=== PATIENT | female | born 1985 | race Caucasian/White ===

== ENCOUNTER 2023-06-06 11:10 | Outpatient (OUT) | payer BC, SELFPAY ==
[2023-06-06 12:05] LABS: Bilirubin Urine NEGATIVE (NEGATIVE); Blood Urine NEGATIVE (NEGATIVE); Clarity Urine CLEAR (CLEAR); Color Urine LT. YELLOW (YELLOW); Glucose Urine UA NEGATIVE (NEGATIVE); Ketones Urine NEGATIVE (NEGATIVE); Leukocyte Esterase Urine SMALL (NEGATIVE); Nitrite Urine NEGATIVE (NEGATIVE); Protein Urine NEGATIVE (NEG/TRACE); Specific Gravity Urine <=1.005 (1.005-1.025); Urobilinogen Urine 0.2 EU/dL (0.2-1.0); pH Urine 5.5 (5.0-9.0)
[2023-06-06 12:25] LABS: Basophils Percent Auto 0.3 % (0.2-2.0); Eosinophils Absolute Auto 0.3 10^3/uL (0.0-0.7); Eosinophils Percent Auto 4.6 % (0.9-7.0); Hematocrit 39.4 % (36.0-48.0); Hemoglobin 12.6 g/dL (12.0-16.0); Immature Granulocytes Abs Auto 0.02 10^3/uL (0.00-0.03); Immature Granulocytes Pct Auto 0.3 % (0.0-0.5); Lymphocytes Absolute Auto 1.4 10^3/uL (1.2-3.8); Mean Corpuscular Hemoglobin 28.8 pg (26.7-34.0); Mean Corpuscular Volume 90.2 fL (81.0-99.0); Mean Platelet Volume 10.9 fL (9.5-13.5); Monocytes Absolute Auto 0.6 10^3/uL (0.3-0.8); Monocytes Percent Auto 10.4 % (1.7-12.0); Neutrophils Absolute Auto 3.8 10^3/uL (1.4-6.5); Neutrophils Percent Auto 61.4 % (43.0-75.0); Platelet Count 202 10^3/uL (150-450); Red Blood Count 4.37 10^6/uL (4.20-5.40); Red Cell Distribution Width 12.3 % (11.0-15.0); White Blood Count 6.1 10^3/uL (4.0-11.0)
[2023-06-06 12:30] LABS: Alanine Aminotransferase 16 U/L (14-59); Albumin Globulin Ratio 1.2; Albumin Level 3.9 g/dL (3.4-5.0); Alkaline Phosphatase 32 U/L (46-116); Amylase 64 U/L (25-115); Anion Gap 14.5; Aspartate Amino Transferase 11 U/L (15-37); BUN Creatinine Ratio 15.2; Bilirubin Total 0.4 mg/dL (0.2-1.0); Calcium 8.9 mg/dL (8.5-10.1); Carbon Dioxide 26.3 mmol/L (21.0-32.0); Chloride 103 mmol/L (98-107); Estimated GFR (African America >60 (>=60); Estimated GFR (Non-African Ame >60 (>=60); Globulin 3.2 g/dL; Glucose 72 mg/dL (74-106); Potassium 3.8 mmol/L (3.5-5.1); Sodium 140 mmol/L (136-145); Total Protein 7.1 g/dL (6.4-8.2)
[2023-06-06 12:35] LABS: RBC Urine NONE SEEN #/HPF (0-2)
[2023-06-06 12:36] LABS: Bacteria Urine TRACE #/HPF (NONE SEEN); Cast Seen? NONE SEEN #/LPF (NONE SEEN); Crystals Seen? None Seen #/HPF (None Seen); Mucus Urine NONE SEEN (NONE SEEN); Squamous Epithelial Cell Urine FEW #/LPF (NONE/RARE)
== END 2023-06-06 11:11 | disposition home or self-care (01) ==
LOC: LAB 11:13
PROVIDERS: PCP Family Medicine; Visit Provider Family Medicine
DX: Z00.00 Encounter for general adult medical examination without abnormal findings (principal); R10.9 Unspecified abdominal pain; K85.90 Acute pancreatitis without necrosis or infection, unspecified; R63.5 Abnormal weight gain
CPT/HCPCS: 36415; 80053; 81001; 82150; 83690; 84443; 85025

== ENCOUNTER 2023-06-06 11:15 | Outpatient (OUT) | payer BC, SELFPAY | END 2023-06-06 11:16 | disposition home or self-care (01) | LOC: LAB 11:15 | PROVIDERS: PCP Family Medicine | DX: Z00.00 Encounter for general adult medical examination without abnormal findings (principal); R10.9 Unspecified abdominal pain; K85.90 Acute pancreatitis without necrosis or infection, unspecified; R63.5 Abnormal weight gain; Z11.9 Encounter for screening for infectious and parasitic diseases, unspecified | CPT/HCPCS: 36415; 80053; 81001; 82150; 83690; 84443; 85025 ==

== ENCOUNTER 2024-02-08 08:54 | Outpatient (OUT) | payer BC, SELFPAY ==
--- OUTSIDE RECORDS SUMMARY | 2024-02-08 09:05 | XMS_ITS | CCD ---
Author Organization [facility] Inform ion [facility] Care Team Providers Care Vegetables Cook Name Role Phone MD Basil Centeno Primary Care Provider MD Addy Mendez Jr Emergency Provider MD Bernadette Box Admit Provider MD Bernadette Box Attending Provider [phone] MD Frandy Santos Other Provider MELISSA Cedillo Emergency Provider [phone] TITO ROSAS Admitting Unavailable TITO ROSAS Attending Unavailable AMAN, NONE LISTED Primary Care Unavaila RADHA Ordaz Consulting Unavailable LEXY KELLER Consulting Unavailable Basil Centeno Primary Care Unavailable Jt Cedillo Admitting Unavailable Jt Cedillo Attending Unavailable Paramjit Yin Attending Unavailable Basil Centeno Primary Care Unavailable Paramjit Yin Admitting Unavailable Basil Centeno Primary Care Unavailable Bernadette Box Admitting Unavailable Bernadette Box Attending Unavailable Frandy Santos Consulting Unavailable Gianni Yanez Attending Unavailable Basil Centeno Primary Care Unavailable Gianni Yanez Admitting Unavailable George Dominguez Unavailable DANESHMAND, SAID T Referring Unavailable GEORGE DOMINGUEZ Primary Care Unavailable DANESHMAND, SAID T Referring Unavailable GEORGE DOMINGUEZ Primary Care Unavailable DANESHMAND, SAID T Referring Unavailable GEORGE DOMINGUEZ Primary Care Unavailable DANESHMAND, SAID T Referring Unavailable GEORGE DOMINGUEZ Primary Care Unavailable DANESHMAND, SAID T Referring Unavailable GEORGE DOMINGUEZ Primary Care Unavailable GEORGE DOMINGUEZ Referring Unavailable GEORGE DOMINGUEZ Primary Care Unavailable DANESHMAND, SAID T Referring Unavailable GEORGE DOMINGUEZ Primary Care Unavailable RUSLAN JAD Sims Referring Unavailable GEORGE DOMINGUEZ Primary Care Unavailable GEORGE DOMINGUEZ Referring Unavailable GEORGE DOMINGUEZ Primary Care Unavailable FRANDY SANTOS Attending Unavailable FRANDY SANTOS Referring Unavailable FRANDY SANTOS Attending Unavailable FRANDY SANTOS Attending Unavailable FRANDY SANTOS Attending Unavailable FRANDY SANTOS Referring Unavailable Medications Current Medications Medication Drug Class(es) Dates Sig (Normalized) Sig (Original) acetaminophen 325 mg / HYDROcodone bitartrate 5 mg oral tablet (5 sources) Opioid Agonist Start: 04-04-2022 take 1 tablet by mouth every four to six hours Hydrocodone-Aceta minophen Active 1 TAB PO EVERY 4-6 HOURS 20 April 04, 2022 Start: 11-22-2021 End: 11-23-2021 take 1 tablet by mouth every eight hours Hydrocodone-Acetaminophen Discontinued 1 TAB PO Q8H 7 2 November 22, 2021 November 23, 2021 4:58am acetaminophen 325 mg / oxyCODONE hydrochloride 5 mg oral tablet (2 sources) Opioid Agonist Start: 04-11-2022 take 1 tablet by mouth every six hours Oxycodone-Acetaminophen (Percocet) 5-325 mg tablet Active 1 TAB PO Q6H 14 April 11, 2022 Start: 04-07-2022 take 1 tablet by bridgette th every four to six hours Oxycodone-Acetaminophen (Percocet) 5-325 mg tablet Active 1 TAB PO EVERY 4-6 HOURS 14 April 07, 2022 cetirizine hydrochloride 10 mg oral tablet (6 sources) Histamine-1 Receptor Antagonist Start: 11-22-2021 take 1 tablet by mouth once daily Cetirizine (Zyrtec) 10 mg Tablet Active 10 MG PO Daily November 22, 2021 12:00am ondansetron 4 mg disintegrating oral tablet (4 sources) Serotonin-3 Receptor Antagonist Start: 04-11-2022 take 4 mg by mouth four times daily Ondansetron Active 4 MG PO Four times daily April 11, 2022 12:00am Start: 04-04-2022 Ondansetron Ac tive 4 MG PO every 6 to 8 hours April 04, 2022 12:00am ProAir HFA 108 (90 Base) MCG/ACT (3 sources) Start: 09-24-2016 take 2 puff(s) by inhalation every four to six hours as needed ProAir HFA 108 (90 Base) MCG/ACT 2 puffs as needed Inhalation every 4-6 hrs Sep, Active promethazine hydrochloride 25 mg oral tablet (1 source) Phenothiazine Start: 04-11-2022 take 25 mg by mouth four times daily Promethazine Active 25 MG PO Four times daily April 11, 2022 12:00am sertraline 100 mg oral tablet (3 sources) Serotonin Reuptake Inhibitor Start: 11-22-2021 take 1 tablet by mouth once daily Sertraline (Zoloft) 100 mg tablet Active 100 MG PO Daily November 22, 2021 12:00am Completed/Discontinued Medications Medication Drug Class(es) Dates Sig (Normalized) Sig (Original) acetaminophen 500 mg oral tablet (3 sources) Start: 11-24-2021 End: 04-04-2022 take 1000 mg by mouth every four hours Acetaminophen Discontinued 1000 MG PO Q4H November 24, 2021 12:00am April 04, 2022 2:08am cephalexin 500 mg oral capsule (3 sources) Cephalosporin Antibacterial Start: 11-22-2021 End: 11-23-2021 take 500 mg by mouth twice daily Cephalexin Discontinued 500 MG PO Twice daily November 22, 2021 12:00am November 23, 2021 4:58am docusate sodium 100 mg oral capsule (6 sources) Start: 11-24-2021 End: 04-04-2022 take 1 capsule by mouth once daily at bedtime Docusate Sodium (Colace) 100 mg capsule Discontinued 100 MG PO Daily at bedtime November 24, 2021 12:00am April 04, 2022 2:08am Start: 02-24-2021 End: 11-22-2021 take 1 capsule by mouth once daily at bedtime Docusate Sodium (Colace) 100 mg capsule Discontinued 100 MG PO Daily at bedtime February 24, 2021 12:00am November 22, 2021 9:45am ibuprofen 600 mg oral tablet (6 sources) Nonsteroidal Anti-inflammatory Drug Start: 11-24-2021 End: 04-04-2022 take 600 mg by mouth every six hours Ibuprofen Discontinued 600 MG PO Q6H November 24, 2021 12:00am April 04, 2022 2:08am Start: 02-24-2021 End: 11-22-2021 take 600 mg by mouth every six hours Ibuprofen Discontinued 600 MG PO Q6H 60 February 24, 2021 12:00am November 22, 2021 9:45am Problems Active Problems Problem Classification Problem Date Documented Da te Episodic/Chronic Abdominal pain (9 sources) Right lower quadrant pain; Translations: [Right lower quadrant pain] Onset: 06-07-2022 11-26-2021 Episodic Asthma (7 sources) Asthma; Translations: [Unspecified asthma, uncomplicated] Chronic Female infertility (1 source) Female infertility, unspecified; Translations: [Female infertility, unspecified] Onset: 08-17-2023 Chronic Other aftercare (1 source) Other termite control service representative (current) drug therapy; Translations: [OTH 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 DRUG THERAPY] Onset: 06-20-2022 Episodic Other circulatory disease (3 sources) Celiac artery compression syndrome; 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 Other complications of (1 source) Supervision of with history of infertility, unspecified trimester; Translations: [Supervision of with history of infertility, unspecified trimester] Onset: 09-21-2023 Episodic Other endocrine disorders (1 source) Endocrine disorder, unspecified; Translations: [Endocrine disorder, unspecified] Onset: 08-17-2023 Episodic Other female genital disorders (3 sources) H/O: normal delivery; Translations: [Status post normal vaginal delivery] 02-23-2021 Episodic Other liver diseases (1 source) Abnormal levels of other serum enzymes; Translations: [ABNORMAL LEVELS OTHER SERUM ENZYMES] Onset: 06-20-2022 Episodic Other nutritional; endocrine; and metabolic disorders (1 source) Abnormal weight gain Episodic Other screening for suspected conditions (not mental disorders or infectious disease) (1 source) Encounter for test, result unknown; Translations: [Encounter for test, result unknown] Onset: 09-03-2023 Episodic Pancreatic disorders (not diabetes) (8 sources) Acute pancreatitis; Translations: [Acute pancreatitis without necrosis or infection, unspecified] Onset: 04-11-2022 04-04-2022 Episodic Unclassified (1 source) CONTACT W/AND (SUSP) EXPOS COVID-19; Translations: [CONTACT W/AND (SUSP) EXPOS COVID-19] Onset: 06-20-2022 Unclassified (1 source) R10.31 - Right lower quadrant pain; Translations: [R10.31 - Right lower quadrant pain] Onset: 11-23-2021 Unclassified (1 source) N83.209 - Unspecified ovarian cyst, unspecified side; Translations: [N83.209 - Unspecified ovarian cyst, unspecified side] Onset: 11-22-2021 Urinary tract infections (7 sources) Urinary tract infectious disease; Translations: [Urinary tract infection, site not specified] 11-22-2021 Episodic Urinary tract infections (1 source) Urinary tract infections; Translations: [Urinary tract infection, site not specified] Onset: 04-04-2022 Past or Other Problems Problem Classification Problem Date Documented Da te Episodic/Chronic Nausea and vomiting (1 source) Nausea with vomiting, unspecified; Translations: [Nausea with vomiting, unspecified] Onset: 04-11-2022 Episodic Ovarian cyst (12 sources) Cyst of ovary; Translations: [Unspecified ovarian cyst, unspecified side] Onset: 11-23-2021 11-22-2021 Episodic Results Test Name Value Interpretation Reference Range Facility US TRANSVAGINAL PREGon 10-04 US TRANSVAGINAL PREG US TRANSVAGINAL PRE G US TRANSVAGINAL PRE10/05/2023 7:22 AM Clinical: Follow-up twin . Real-time transvaginal only sonography pelvis performed and compared with 09/21/2023. Twin live intrauterine with a thick membrane is again demonstrated. Baby A on the left has crown-rump length 2.3 cm corresponding to 9 week 0 day gestation and appropriate interval growth. heart motion is 179 bpm. Baby B on the right has crown-rump length 2.2 cm corresponding to 8 week 6 day gestation. Appropriate interval growth. heart motion is 1 74 bpm. Both yolk sacs are demonstrated. Amount of amniotic fluid appears normal. Placenta not identified due to early gestational age. Right ovary surgically absent. Left ovary measures 3.8 x 2.7 x 2.8 cm and contains a 1.5 cm cyst. No cul-de-sac fluid. IMPRESSION: Twin live intrauterine with baby A measuring 9 weeks 0 day and baby B measuring 8 weeks 6 days with appropriate interval growth. Finalized by Rich Dubois MD on 10/05/2023 8:06 AM Normal [facility] US TRANSVAGINAL PREGon 09-20 US TRANSVAGINAL PREG US TRANSVAGINAL PRE G US TRANSVAGINAL PRE09/21/2023 7:24 AM Clinical: IBS. . Check dates. Real-time transvaginal sonography pelvis performed. There is a twin live with a thick membrane consistent with a dichorionic and diamniotic . Baby A on the left has crown-rump length 8.3 mm corresponding to 6 week 5 day gestation. heart motion is 1 29 bpm. Baby A on the right has crown-rump length of 6.5 mm corresponding to 6 week 4 day gestation. heart motion is 1 43 bpm. Amount amniotic fluid in both sacs is normal. Both yolk sacs are demonstrated. Placenta is not seen due to early gestational age. Right ovary surgically absent. Left ovary measures 4.0 x 2.3 x 3.5 cm and contains a 1.8 cm slightly complicated cyst or corpus luteum. No cul-de-sac fluid. IMPRESSION: * Twin live intrauterine with a thick membrane suggesting dichorionic diamniotic . Finalized by Rich Dubois MD on 09/21/2023 8:43 AM Normal [facility] HCG.beta subunit IA 3rd IS Q non 09-05-2023 HCG.beta subunit Qn 2712 m[IU]/mL Normal [facility] Comment on above: Result Comment: NEW REFERENCE RANGE WEEKS (SINCE LMP) MIU/mL 3 WEEKS 5 - 50 4 WEEKS 5 - 426 5 WEEKS 18 - 7,340 6 WEEKS 1,080 - 56,500 7-8 WEEKS 7,650 - 229,000 9-12 WEEKS 25,700 - 288,000 13-16 WEEKS 13,300 - 254,000 17-24 WEEKS 4,060 - 165,400 25-40 WEEKS 3,640 - 117,000 MALES AND NON- FEMALES - <5 MIU/mL This test has been FDA approved for use in only. Elevated levels are not necessarily diagnostic for trophoblastic or nontrophoblastic neoplasms. Performed By: #### 2 0415-6 #### [facility] ([id number]) [address] [place] [address] HCG.beta subunit IA 3rd IS Q non 09-03-2023 HCG.beta subunit Qn 661 m[IU]/mL Normal [facility] Comment on above: Result Comment: NEW REFERENCE RANGE WEEKS (SINCE LMP) MIU/mL 3 WEEKS 5 - 50 4 WEEKS 5 - 426 5 WEEKS 18 - 7,340 6 WEEKS 1,080 - 56,500 7-8 WEEKS 7,650 - 229,000 9-12 WEEKS 25,700 - 288,000 13-16 WEEKS 13,300 - 254,000 17-24 WEEKS 4,060 - 165,400 25-40 WEEKS 3,640 - 117,000 MALES AND NON- FEMALES - <5 MIU/mL This test has been FDA approved for use in only. Elevated levels are not necessarily diagnostic for trophoblastic or nontrophoblastic neoplasms. Performed By: #### 2 0415-6 #### [facility] ([id number]) [address] [place] [address] #### 2839-9 #### [facility] ([id number]) [address] [place] [address], [address] [place] [address] Progesterone [Mass/Vol]on PROGESTERONE 42.1 ng/mL Normal [facility] Comment on above: Result Comment: FEMALES: 1st Tri: 4.7-50.7 ng/ml 2nd Tri: 19.4-45.3 ng/ml MENSTRUATING FEMALES: Follicular: 0.3-1.5 ng/ml Mid Luteal: 5.2-18.6 ng/ml Post [place]: <0.1-0.8 ng/ml Performed By: #### 2 0415-6 #### [facility] ([id number]) [address] [facility], [place] [address] #### 2839-9 #### [facility] ([id number]) [address], [address] [place] [address] Progesterone [Mass/Vol]on PROGESTERONE 32.5 ng/mL Normal [facility] Comment on above: Result Comment: FEMALES: 1st Tri: 4.7-50.7 ng/ml 2nd Tri: 19.4-45.3 ng/ml MENSTRUATING FEMALES: Follicular: 0.3-1.5 ng/ml Mid Luteal: 5.2-18.6 ng/ml Post [place]: <0.1-0.8 ng/ml Performed By: #### 2 839-9 #### [facility] ([id number]) [address], [address] [place] [address] E2 [Mass/Vol]on 08-17-2023 ESTRADIOL 247.3 pg/mL Normal [facility] Comment on above: Result Comment: NON- FEMALES Mid follicular: 25-115 pg/mL Ovulatory Peak: 32.1-517 pg/mL Mid Luteal: 36.5-246 pg/mL Post-Menopausal Females: <15.0-25.1 pg/mL (Not on hormone therapy) The Access Sensitive Estradiol assay results are not intended to be used to measure the effectiveness of exogeneous Estradiol supplementation, for example, when the patient is on hormone replacement therapy. The presence of estradiol drug analogues and their metabolites could have an impact on estradiol recovery when using this assay. Performed By: #### 2 839-9, 2243-4 #### [facility] ([id number]) [address], [address] [place] [address] Progesterone [Mass/Vol]on PROGESTERONE 0.8 ng/mL Normal [facility] Comment on above: Result Comment: FEMALES: 1st Tri: 4.7-50.7 ng/ml 2nd Tri: 19.4-45.3 ng/ml MENSTRUATING FEMALES: Follicular: 0.3-1.5 ng/ml Mid Luteal: 5.2-18.6 ng/ml Post [place]: <0.1-0.8 ng/ml Performed By: #### 2 839-9, 2243-4 #### [facility] ([id number]) [address], [address] [place] [address] US TRANSVAGINAL NON OBon US TRANSVAGINAL NON OB US TRANSVAGINAL N ON OB CLINICAL INFORMATION: Primary female infertility TECHNIQUE: Transvaginal images of the pelvis were performed. Transvaginal images were performed to better assess anatomy and for possible pathology. COMPARISON: 06/06/2023 FINDINGS: Uterus is normal in size with homogeneous myometrium throughout. Trilaminar appearance to the endometrium measuring 7 mm in thickness. Right ovary has been surgically removed. Negative sonographic evaluation of the adnexa. The left ovary has normal size, morphology and blood flow by color Doppler. Left ovarian follicles as follows: 1. 1.8 x 1.7 x 1.9 cm. 2. 1.5 x 1.4 x 1.3 cm. Additional subcentimeter follicles are noted. IMPRESSION: * Left ovarian follicles size is as above. Finalized by Suleman Contreras MD on 08/17/2023 8:00 AM Normal [facility] US TRANSVAGINAL NON OBon US TRANSVAGINAL NON OB US TRANSVAGINAL N ON OB *ADDENDUM*Addendum: Endometrium is trilaminar measuring 5.4 mm Finalized by Addy Zhang MD on 06/20/2023 2:37 PM [facility] E2 [Mass/Vol]on 06-14-2023 ESTRADIOL 183.3 pg/mL Normal [facility] Comment on above: Result Comment: NON- FEMALES Mid follicular: 25-115 pg/mL Ovulatory Peak: 32.1-517 pg/mL Mid Luteal: 36.5-246 pg/mL Post-Menopausal Females: <15.0-25.1 pg/mL (Not on hormone therapy) The Access Sensitive Estradiol assay results are not intended to be used to measure the effectiveness of exogeneous Estradiol supplementation, for example, when the patient is on hormone replacement therapy. The presence of estradiol drug analogues and their metabolites could have an impact on estradiol recovery when using this assay. Performed By: #### 2 839-9, 2243-4 #### [facility] ([id number]) [address] [place] [address], [address] [place] [address] Progesterone [Mass/Vol]on PROGESTERONE 0.1 ng/mL [facility] Comment on above: Result Comment: FEMALES: 1st Tri: 4.7-50.7 ng/ml 2nd Tri: 19.4-45.3 ng/ml MENSTRUATING FEMALES: Follicular: 0.3-1.5 ng/ml Mid Luteal: 5.2-18.6 ng/ml Post [place]: <0.1-0.8 ng/ml Performed By: #### 2 839-9, 2243-4 #### [facility] ([id number]) [address] [place] [address], [address] [place] [address] AMYLASEon 06-07-2022 Amylase [Catalytic activity/Vol] 90 U/L Normal 25-115 [facility] Comment on above: Performed By: #### C MP, QUYNH, HSTROPN, LIPA #### [facility] [address] [place] [address] Dr. Manuel Patino CBC AUTO DIFFon 06-07-2022 BASO # 0.1 103/ul Normal 0.0-0.1 [facility] Comment on above: Performed By: #### C BC #### [facility] [address] [place] [address] Dr. Manuel Patino Basophils/100 WBC (Bld) 0.6 % Normal 0.2-2.0 [facility] Comment on above: Performed By: #### C BC #### [facility] [address] [place] [address] Dr. Manuel Patino EO # 0.3 103/ul Normal 0.0-0.7 [facility] Comment on above: Performed By: #### C BC #### [facility] [address] [place] [address] Dr. Manuel Patino Eosinophils/100 WBC (Bld) 3.5 % Normal 0.9-7.0 [facility] Comment on above: Performed By: #### C BC #### [facility] [address] [place] [address] Dr. Manuel Patino Erythrocyte distribution width (RBC) [Ratio] 12.4 % Normal 11.0-15.0 [facility] Comment on above: Performed By: #### C BC #### [facility] [address] [place] [address] Dr. Manuel Patino Hematocrit (Bld) [Volume fraction] 40.5 % Normal 36.0-48.0 [facility] Comment on above: Performed By: #### C BC #### [facility] [address] [place] [address] Dr. Manuel Patino Hemoglobin (Bld) [Mass/Vol] 13.8 g/dL Normal 12.0-16.0 [facility] Comment on above: Performed By: #### C BC #### [facility] [address] [place] [address] Dr. Manuel Patino IG # 0.03 10e3/ul Normal 0.00-0.03 [facility] Comment on above: Performed By: #### C BC #### [facility] [address] [place] [address] Dr. Manuel Patino IG % 0.3 % Normal 0.0-0.5 [facility] Comment on above: Performed By: #### C BC #### [facility] [address] [place] [address] Dr. Manuel Patino LYMPH # 2.7 103/ul Normal 1.2-3.8 [facility] Comment on above: Performed By: #### C BC #### [facility] [address] [place] [address] Dr. Manuel Patino Lymphocytes/100 WBC (Bld) 30.8 % Normal 20.5-60.0 [facility] Comment on above: Performed By: #### C BC #### [facility] [address] [place] [address] Dr. Manuel Patino MANUAL DIFF REQ NO Normal [facility] Comment on above: Performed By: #### C BC #### [facility] [address] [place] [address] Dr. Manuel Patino MCH (RBC) [Entitic mass] 29.3 pg Normal 26.7-34.0 [facility] Comment on above: Performed By: #### C BC #### [facility] [address] [place] [address] Dr. Manuel Patino MCHC (RBC) [Mass/Vol] 34.1 g/dL Normal 29.9-35.2 [facility] Comment on above: Performed By: #### C BC #### [facility] [address] [place] [address] Dr. Manuel Patino MCV (RBC) [Entitic vol] 86.0 fL Normal 81.0-99.0 [facility] Comment on above: Performed By: #### C BC #### [facility] [address] [place] [address] Dr. Manuel Patino MONO # 0.8 103/ul Normal 0.3-0.8 [facility] Comment on above: Performed By: #### C BC #### [facility] [address] [place] [address] Dr. Manuel Patino Monocytes/100 WBC (Bld) 9.0 % Normal 1.7-12.0 [facility] Comment on above: Performed By: #### C BC #### [facility] [address] [place] [address] Dr. Manuel Patino NEUT # 5.0 103/ul Normal 1.4-6.5 [facility] Comment on above: Performed By: #### C BC #### [facility] [address] [place] [address] Dr. Manuel Patino Neutrophils/100 WBC (Bld) 55.8 % Normal 43.0-75.0 [facility] Comment on above: Performed By: #### C BC #### [facility] [address] [place] [address] Dr. Manuel Patino Platelet mean volume (Bld) [Entitic vol] 10.4 fL Normal 9.5-13.5 [facility] Comment on above: Performed By: #### C BC #### [facility] [address] [place] [address] Dr. Manuel Patino PLT 241 103/ul Normal 150-450 [facility] Comment on above: Performed By: #### C BC #### [facility] [address] [place] [address] Dr. Mnauel Patino RBC 4.71 106/ul Normal 4.20-5.40 [facility] Comment on above: Performed By: #### C BC #### [facility] [address] [place], [place] [address] Dr. Manuel Patino WBC 8.9 103/ul Normal 4.0-11.0 [facility] Comment on above: Performed By: #### C BC #### [facility] [address] [place], [place] [address] Dr. Manuel Patino Covid-19 PCR ([facility])on 05-19 SARS-CoV-2 (COVID-19) RNA HEMA+probe Ql (Unsp spec) Not detected Normal NOT DETECTED [facility] Comment on above: Result Comment: This test is not yet approved or cleared by the [place] FDA. When there are no FDA-approved or cleared tests available, and other criteria are met, FDA can make tests available under an emergency access mechanism called an Emergency Use Authorization (EUA). The EUA for this test is supported by the [place] of Health and Human Service's declaration that circumstances exist to justify the emergency use of in vitro diagnostics for the detection and/or diagnosis of the virus that causes COVID-19. This EUA will remain in effect for the duration of the COVID-19 declaration justifying emergency of IVDs, unless it is terminated or revoked by the FDA (after which the test may no longer be used). When diagnostic testing is negative, the possibility of a false negative should be considered in the context of a patient's recent exposures and the presence of clinical signs and symptoms consistent with SARS-CoV-2. This test is not yet approved or cleared by the [place] FDA. When there are no FDA-approved or cleared tests available, and other criteria are met, FDA can make tests available under an emergency access mechanism called an Emergency Use Authorization (EUA). The EUA for this test is supported by the [place] of Health and Human Service's declaration that circumstances exist to justify the emergency use of in vitro diagnostics for the detection and/or diagnosis of the virus that causes COVID-19. This EUA will remain in effect for the duration of the COVID-19 declaration justifying emergency of IVDs, unless it is terminated or revoked by the FDA (after which the test may no longer be used). Previously reported as: DETECTED On 06/07/2022 19:16 By KD3 Performed By: #### C VDTBH #### [facility] [address] [place] [address] [address] Manuel Patino D-DIMERon 06-07-2022 D-DIMER 0.19 mg/L FEU Normal <=0.59 [facility] Comment on above: Performed By: #### D DIM ####[facility] [id number] [place] [address]Dr. Manuel Patino D-DIMER COMMENTS SEE BELOW Normal [facility] Comment on above: Result Comment: Incr eases in D-Dimer concentration observed with thromboembolic events can be variable due to localization, size, and age of the thrombus. Therefore, a thromboembolic event cannot be diagnosed with certainty on the basis of the reference range. D-Dimers may also be elevated for a variety of disorders including: advanced age, , coronary disease, cancer, liver disease, infection, inflammation, hematoma, DIC, trauma, post-surgery, diabetes, thrombolytic or anticoagulant therapy, stress, and generalized hospitalization. Performed By: #### D DIM ####[facility] [id number] [place] [address]Dr. Manuel Patino ER URINE PROFILEon 2 Bilirubin Ql (U) Negative Normal NEGATIVE [facility] Comment on above: Performed By: #### P REGU ERUR, UMICRO #### [facility] [address] [address] [address] Manuel Patino Clarity (U) CLEAR Normal CLEAR [facility] Comment on above: Performed By: #### P REGU, ERUR, UMICRO #### [facility] [address] [address] [address] Manuel Patino Color (U) LT. YELLOW Normal YELLOW [facility] Comment on above: Performed By: #### P REGU, ERUR, UMICRO #### [facility] [address] [address] [address] Manuel JACKSON A micrscopic examination will be performed if indicated. Normal [facility] Comment on above: Performed By: #### P REGU, ERUR, UMICRO #### [facility] [address] [address] [address] Manuel Patino Glucose Ql (U) Negative Normal NEGATIVE [facility] Comment on above: Performed By: #### P REGU, ERUR, UMICRO #### [facility] [address] [address] [address] Manuel Patino Hemoglobin Ql (U) Negative Normal NEGATIVE [facility] Comment on above: Performed By: #### P REGU, ERUR, UMICRO #### [facility] [address] [address] [address] Manuel Patino Ketones Ql (U) Negative Normal NEGATIVE [facility] Comment on above: Performed By: #### P REGU, ERUR, UMICRO #### [facility] [address] [place] [address] Dr. Manuel Patino LEUKOCYTES SMALL Abnormal NEGATIVE [facility] Comment on above: Performed By: #### P REGU, ERUR, UMICRO #### [facility] [address] [address] [address] Manuel Patino Nitrite Ql (U) Negative Normal NEGATIVE [facility] Comment on above: Performed By: #### P REGU, ERUR, UMICRO #### [facility] [address] [address] [address] Manuel Patino pH (U) 6.5 [pH] Normal 5-9 [facility] Comment on above: Performed By: #### P REGU, ERUR, UMICRO #### [facility] [address] [address] [address] Manuel Patino SPEC GRAVITY 1.010 Normal 1.005-<=1.02 5 [facility] Comment on above: Performed By: #### P REGU, ERUR, UMICRO #### [facility] [address] [address] [address] Manuel Patino UA PROTEIN Negative Normal NEGATIVE/ TRACE [facility] Comment on above: Performed By: #### P REGU, ERUR, UMICRO #### [facility] [address] [address] [address] Manuel Patino UR MICRO IND INDICATED Normal [facility] Comment on above: Performed By: #### P ESTELA BENNETT UMICRO #### [facility] [address] [address] [address] Manuel Patino Urobilinogen Qn (U) 0.2 {Lisa'U}/dL Normal 0.2 - 1. 0 [facility] Comment on above: Performed By: #### P ESTELA BENNETT UMICRO #### [facility] [address] [address] [address] Manuel Patino INFLUENZA A AND B AGon 06-07 INFLUENZA A AG Negative Normal NEGATIVE SEE COMMENT [facility] Comment on above: Performed By: #### I NFLUAB ####[facility] [id number] [place] [address]Dr. Manuel Patino INFLUENZA B AG Negative Normal NEGATIVE SEE COMMENT [facility] Comment on above: Performed By: #### I NFLUAB ####[facility] [id number] [place] [address]Dr. Manuel Patino INTERNAL CONTROLS Within Normal Limits Normal Wi thin Normal Limits [facility] Comment on above: Performed By: #### I NFLUAB ####[facility] [id number] [place] [address]Dr. Manuel Patino LIPASEon 06-07-2022 Lipase [Catalytic activity/Vol] 620.0 U/L Critically high 73.0-393.0 [facility] Comment on above: Performed By: #### C MP, QUYNH, HSTROPN, LIPA #### [facility] [address] [address] [address] Manuel Patino URon 06-07-2022 , QUAL Negative Normal NEGATIVE [facility] Comment on above: Performed By: #### P ESTELA BENNETT, UMICRO #### [facility] [address] [address] [address] Manuel Patino PROF 14(COMP METB)on 12-21-2 022 Albumin [Mass/Vol] 4.2 g/dL Normal 3.4-5.0 [facility] Comment on above: Performed By: #### C MP, QUYNH, HSTROPN, LIPA #### [facility] [address] [address] [address] Manuel Patino Albumin/Globulin [Mass ratio] 1.3 {ratio} Normal [facility] Comment on above: Performed By: #### C MP, QUYNH, HSTROPN, LIPA #### [facility] [address] [place] [address] Dr. Manuel Patino ALP [Catalytic activity/Vol] 41 U/L Critically low 46-116 [facility] Comment on above: Performed By: #### C MP, QUYNH, HSTROPN, LIPA #### [facility] [address] [place] [address] Dr. Manuel Patino ALT [Catalytic activity/Vol] 11 U/L Critically low 14-59 [facility] Comment on above: Performed By: #### C MP, QUYNH, HSTROPN, LIPA #### [facility] [address] [place] [address] Dr. Manuel Patino Anion gap [Moles/Vol] 11.5 mmol/L Normal [facility] Comment on above: Performed By: #### C MP, QUYNH, HSTROPN, LIPA #### [facility] [address] [place] [address] Dr. Manuel Patino AST [Catalytic activity/Vol] 12 U/L Critically low 15-37 [facility] Comment on above: Performed By: #### C MP, QUYNH, HSTROPN, LIPA #### [facility] [address] [place] [address] Dr. Manuel Patino Bilirubin [Mass/Vol] 0.3 mg/dL Normal 0.2-1.0 [facility] Comment on above: Performed By: #### C MP, QUYNH, HSTROPN, LIPA #### [facility] [address] [place] [address] Dr. Manuel Patino Calcium [Mass/Vol] 8.6 mg/dL Normal 8.5-10.1 [facility] Comment on above: Performed By: #### C MP, QUYNH, HSTROPN, LIPA #### [facility] [address] [place] [address] Dr. Manuel Patino Chloride [Moles/Vol] 102 mmol/L Normal 98-107 [facility] Comment on above: Performed By: #### C MP, QUYNH, HSTROPN, LIPA #### [facility] [address] [address] [address] Manuel Patino CO2 [Moles/Vol] 26.2 mmol/L Normal 21.0-32.0 [facility] Comment on above: Performed By: #### C MP, QUYNH, HSTROPN, LIPA #### [facility] [address] [place] [address] Dr. Manuel Patino Creatinine [Mass/Vol] 0.52 mg/dL Critically low 0.55-1.02 [facility] Comment on above: Performed By: #### C MP, QUYNH, HSTROPN, LIPA #### [facility] [address] [place] [address] Dr. Manuel Patino EGFR-AF ARMENIAN >60 Normal >=60 [facility] Comment on above: Performed By: #### C MP, QUYNH, HSTROPN, LIPA #### [facility] [address] [place] [address] Dr. Manuel Patino EGFR-NON AF ARMENIAN >60 Normal >=60 [facility] Comment on above: Performed By: #### C MP, QUYNH, HSTROPN, LIPA #### [facility] [address] [place] [address] Dr. Manuel Patino Globulin (S) [Mass/Vol] 3.3 g/dL Normal T [facility] Comment on above: Performed By: #### C MP, QUYNH, HSTROPN, LIPA #### [facility] [address] [place] [address] Dr. Manuel Patino Glucose [Mass/Vol] 89 mg/dL Normal 74-106 [facility] Comment on above: Performed By: #### C MP, QUYNH, HSTROPN, LIPA #### [facility] [address] [place] [address] [address] Manuel Patino Potassium [Moles/Vol] 3.7 mmol/L Normal 3.5-5.1 [facility] Comment on above: Performed By: #### C MP, QUYNH, HSTROPN, LIPA #### [facility] [address] [place] [address] [address] Manuel Patino Protein [Mass/Vol] 7.5 g/dL Normal 6.4-8.2 [facility] Comment on above: Performed By: #### C MP, QUYNH, HSTROPN, LIPA #### [facility] [address] [place] [address] [address] Manuel Patino Sodium [Moles/Vol] 136 mmol/L Normal 136-145 [facility] Comment on above: Performed By: #### C MP, QUYNH, HSTROPN, LIPA #### [facility] [address] [place] [address] [address] Manuel Patino Urea nitrogen [Mass/Vol] 12.0 mg/dL Normal 7.0-18.0 [facility] Comment on above: Performed By: #### C MP, QUYNH, HSTROPN, LIPA #### [facility] [address] [address] [address] Manuel Patino Urea nitrogen/Creatinine [Mass ratio] 23.1 mg/mg Normal [facility] Comment on above: Performed By: #### C MP, QUYNH, HSTROPN, LIPA #### [facility] [address] [place] [address] [address] Manuel Patino PROTIMEon 06-07-2022 INR Coag (PPP) [Relative time] 0.99 {INR} Normal [facility] Comment on above: Performed By: #### P T, PTT ####[facility] [id number] [place] [address]Dr. Manuel Patino INR GUIDELINES SEE BELOW Normal [facility] Comment on above: Result Comment: YOVANY RED INR: 2.0 - 3.0 CONDITIONS NOT LISTED BELOW 2.5 - 3.5 FOR PROSTHETIC HEART VALVE REPLACEMENT 2.5 - 3.5 RECURRENT THROMBOSIS Performed By: #### P T, PTT ####[facility] [id number] [place] [address]Dr. Manuel Patino PT Coag (PPP) [Time] 10.7 s Normal 9.0-11.6 [facility] Comment on above: Performed By: #### P T, PTT ####[facility] [id number] [place] [id number] Patino PTTon 06-07-2022 aPTT Coag (Bld) [Time] 25.9 s Normal 22.3-36.2 [facility] Comment on above: Performed By: #### P T, PTT ####[facility] [id number] [place] [address]Dr. Manuel Patino TROPONIN, HIGH SENSITIVITYon 06-07-2022 HSTROP 4.9 pg/mL Normal 4.0-51.3 [facility] Comment on above: Result Comment: CUT- OFF POINTS HAVE BEEN ESTABLISHED BASED ON THE FOURTH UNIVERSAL DEFINITIONS OF MYOCARDIAL INFARCTION. THE UPPER REFERENCE LIMIT (URL) OF TROPONIN, DEFINED THE 99TH PERCENTILE OF cTnI DISTRIBUTION IN A REFERENCE POPULATION, HAS BEEN CONFIRMED THE DECISION THRESHOLD FOR NE DIAGNOSIS. Performed By: #### C MP, QUYNH, HSTROPN, LIPA #### [facility] [address] [place] [address] [address] Manuel Patino URINE MICROSCOPIC ONLYon BACTERIA NONE SEEN Normal NONE SEEN [facility] Comment on above: Performed By: #### P REGU, ERUR, UMICRO #### [facility] [address] [place] [address] [address] Manuel Patino Bacteria identified Cx Nom (U) NOT INDICATED Normal [facility] Comment on above: Performed By: #### P REGU, ERUR, UMICRO #### [facility] [address] [place] [address] [address] Manuel Patino CAST SEEN Abnormal NONE SEEN [facility] Comment on above: Result Comment: waxy cast- rare Performed By: #### P REGU, ERUR, UMICRO #### [facility] [address] [place] [address] [address] Manuel Patino Crystals LM Nom (Urine sed) NONE SEEN Normal NONE SEEN [facility] Comment on above: Performed By: #### P REGU, ERUR, UMICRO #### [facility] [address] [place] [address] [address] Manuel Patino Epithelial cells LM Ql (Urine sed) FEW Abnormal NONE SEEN /RARE [facility] Comment on above: Performed By: #### P REGU, ERUR, UMICRO #### [facility] [address] [place] [address] [address] Manuel Patino MUCOUS NONE SEEN Normal NONE SEEN [facility] Comment on above: Performed By: #### P REGU, ERUR, UMICRO #### [facility] [address] [place] [address] [address] Manuel Patino RBC 0-2 Normal 0-2 [facility] Comment on above: Performed By: #### P REGU, ERUR, UMICRO #### [facility] [address] [place] [address] [address] Manuel Patino WBC 0-2 Abnormal NONE SEEN [facility] Comment on above: Performed By: #### P REGU, ERUR, UMICRO #### [facility] [address] [place] [address] [address] Manuel Patino US SINGLE QUAD RT UPPERon US SINGLE QUAD RT UPPER EXAM: US SINGLE QUAD RT UPPER HISTORY: Abdominal pain COMPARISON: None. TECHNIQUE: Limited right upper quadrant ultrasound is performed. Multiple grayscale and color images are submitted for review. FINDINGS: The visualized portions of the pancreas appear unremarkable with normal echotexture. Approximately 1 cm anechoic structure is seen in the left hepatic lobe, suggestive of a cyst. The liver otherwise appears unremarkable. Patent portal vein is seen with normal hepatopedal flow. No gallstones are seen. Gallbladder appears unremarkable. No significant gallbladder wall thickening is seen. The gallbladder wall measures 2.1 mm in thickness. Sonographic Herring sign is absent. The common bile duct is unremarkable, and measures 3.3 mm in diameter. The right kidney measures 10.2 x 5.7 x 4.0 cm and demonstrates normal morphology and echotexture. No right hydronephrosis is seen. IMPRESSION: 1 cm left hepatic cyst. Otherwise, unremarkable right upper quadrant ultrasound. Electronically authenticated by: LEXY KELLER Date: 2022-06-07 19:32 Normal [facility] Amylaseon 05-31-2022 Amylase [Catalytic activity/Vol] 63 U/L Normal 22-93 [facility] Comment on above: Performed By: #### A MY #### [facility] [address] [place] [address] CBC With Platelet No Differe ntialon 05-31-2022 Erythrocyte distribution width (RBC) [Ratio] 13.0 % Normal 11.5-14.5 [facility] Comment on above: Performed By: #### C BCND #### [facility] [address] [place] [address] Hematocrit (Bld) [Volume fraction] 40.6 % Normal 37.0-47.0 [facility] Comment on above: Performed By: #### C BCND #### [facility] [address] [place] [address] Hemoglobin (Bld) [Mass/Vol] 14.0 g/dL Normal 12.0-16.0 [facility] Comment on above: Performed By: #### C BCND #### [facility] [address] [place] [address] MCH (RBC) [Entitic mass] 30.1 pg Normal 27.0-31.3 [facility] Comment on above: Performed By: #### C BCND #### [facility] [address] [place] [address] MCHC 34.5 % Normal 33.0-37.0 [facility] Comment on above: Performed By: #### C BCND #### [facility] [address] [place] [address] MCV (RBC) [Entitic vol] 87.4 fL Normal 79.4-94.8 [facility] Comment on above: Performed By: #### C BCND #### [facility] [address] [place] [address] Platelets (Bld) [#/Vol] 229 10*3/uL Normal 130-400 [facility] Comment on above: Performed By: #### C BCND #### [facility] [address] [place] [address] RBC (Bld) [#/Vol] 4.64 10*6/uL Normal 4.20-5.40 [facility] Comment on above: Performed By: #### C BCND #### [facility] [address] [place] [address] WBC (Bld) [#/Vol] 6.6 10*3/uL Normal 4.8-10.8 [facility] Comment on above: Performed By: #### C BCND #### [facility] [address] [place] [address] Comprehensive Metabolic Pane anderson 05-31-2022 Albumin [Mass/Vol] 4.7 g/dL Critically high 3.5-4.6 [facility] Comment on above: Performed By: #### C MP #### [facility] [address] [place] [address] ALP [Catalytic activity/Vol] 37 U/L Low 40-130 [facility] Comment on above: Performed By: #### C MP #### [facility] [address] [place] [address] ALT [Catalytic activity/Vol] 9 U/L Normal 0-33 [facility] Comment on above: Performed By: #### C MP #### [facility] [address] [place] [address] Anion gap [Moles/Vol] 12 mmol/L Normal 9-15 [facility] Comment on above: Performed By: #### C MP #### [facility] [address] [place] [address] AST [Catalytic activity/Vol] 16 U/L Normal 0-35 [facility] Comment on above: Performed By: #### C MP #### [facility] [address] [place] [address] Bilirubin [Mass/Vol] 0.3 mg/dL Normal 0.2-0.7 [facility] Comment on above: Performed By: #### C MP #### [facility] [address] [place] [address] Calcium [Mass/Vol] 9.3 mg/dL Normal 8.5-9.9 [facility] Comment on above: Performed By: #### C MP #### [facility] [address] [place] [address] Chloride [Moles/Vol] 100 mmol/L Normal 95-107 [facility] Comment on above: Performed By: #### C MP #### [facility] [address] [place] [address] CO2 [Moles/Vol] 24 mmol/L Normal 20-31 [facility] Comment on above: Performed By: #### C MP #### [facility] [address] [place] [address] Creatinine [Mass/Vol] 0.47 mg/dL Low 0.50-0.90 [facility] Comment on above: Performed By: #### C MP #### [facility] [address] [place] [address] GFR >60.0 Normal >60 [facility] Comment on above: Result Comment: Pedi atric calculator link https://www.kidney.org/professionals/kdoqi/gfr_calculatorped Effective Mar 20, 2022 These results are not intended for use in patients <18 years of age. eGFR results are calculated without a race factor using the 2020 CKD-EPI equation. Careful clinical correlation is recommended, particularly when comparing to results calculated using previous equations. The CKD-EPI equation is less accurate in patients with extremes of muscle mass, extra-renal metabolism of creatinine, excessive creatinine ingestion, or following therapy that affects renal tubular secretion. Performed By: #### C MP #### [facility] [address] [place] [address] Globulin (S) [Mass/Vol] 2.3 g/dL Normal 2.3-3.5 [facility] Comment on above: Performed By: #### C MP #### [facility] [address] [place] [address] Glucose [Mass/Vol] 132 mg/dL Critically high 70-99 [facility] Comment on above: Performed By: #### C MP #### [facility] [address] [place] [address] Potassium [Moles/Vol] 3.8 mmol/L Normal 3.4-4.9 [facility] Comment on above: Performed By: #### C MP #### [facility] [address] [place] [address] Protein [Mass/Vol] 7.0 g/dL Normal 6.3-8.0 [facility] Comment on above: Performed By: #### C MP #### [facility] [address] [place] [address] Sodium [Moles/Vol] 136 mmol/L Normal 135-144 [facility] Comment on above: Performed By: #### C MP #### [facility] [address] [place] [address] Urea nitrogen [Mass/Vol] 12 mg/dL Normal 6-20 [facility] Comment on above: Performed By: #### C MP #### [facility] [address] [place] [address] Lipaseon 05-31-2022 Lipase [Catalytic activity/Vol] 40 U/L Normal 12-95 [facility] Comment on above: Performed By: #### L IPAS #### [facility] [address] [place] [address] CBC With Platelet No Differe ntialon 04-14-2022 Erythrocyte distribution width (RBC) [Ratio] 13.1 % Normal 11.5-14.5 [facility] Comment on above: Performed By: #### C BCND #### [facility] [address] [place] [address] Hematocrit (Bld) [Volume fraction] 43.3 % Normal 37.0-47.0 [facility] Comment on above: Performed By: #### C BCND #### [facility] [address] [place] [address] Hemoglobin (Bld) [Mass/Vol] 14.5 g/dL Normal 12.0-16.0 [facility] Comment on above: Performed By: #### C BCND #### [facility] [address] [place] [address] MCH (RBC) [Entitic mass] 29.6 pg Normal 27.0-31.3 [facility] Comment on above: Performed By: #### C BCND #### [facility] [address] [place] [address] MCHC 33.5 % Normal 33.0-37.0 [facility] Comment on above: Performed By: #### C BCND #### [facility] [address] [place] [address] MCV (RBC) [Entitic vol] 88.4 fL Normal 79.4-94.8 [facility] Comment on above: Performed By: #### C BCND #### [facility] [address] [place] [address] Platelets (Bld) [#/Vol] 242 10*3/uL Normal 130-400 [facility] Comment on above: Performed By: #### C BCND #### [facility] [address] [place] [address] RBC (Bld) [#/Vol] 4.90 10*6/uL Normal 4.20-5.40 [facility] Comment on above: Performed By: #### C BCND #### [facility] [address] [place] [address] WBC (Bld) [#/Vol] 11.4 10*3/uL Critically high 4.8-10.8 [facility] Comment on above: Performed By: #### C BCND #### [facility] [address] [place] [address] Comprehensive Metabolic Pane anderson 04-14-2022 Albumin [Mass/Vol] 5.1 g/dL Critically high 3.5-4.6 [facility] Comment on above: Performed By: #### C MP #### [facility] [address] [place] [address] ALP [Catalytic activity/Vol] 40 U/L Normal 40-130 [facility] Comment on above: Performed By: #### C MP #### [facility] [address] [place] [address] ALT [Catalytic activity/Vol] 6 U/L Normal 0-33 [facility] Comment on above: Performed By: #### C MP #### [facility] [address] [place] [address] Anion gap [Moles/Vol] 17 mmol/L Critically high 9-15 [facility] Comment on above: Performed By: #### C MP #### [facility] [facility] [address] [place] [address] AST [Catalytic activity/Vol] 13 U/L Normal 0-35 [facility] Comment on above: Performed By: #### C MP #### [facility] [address] [place] [address] Bilirubin [Mass/Vol] 0.3 mg/dL Normal 0.2-0.7 [facility] Comment on above: Performed By: #### C MP #### [facility] [address] [place] [address] Calcium [Mass/Vol] 9.6 mg/dL Normal 8.5-9.9 [facility] Comment on above: Performed By: #### C MP #### [facility] [address] [place] [address] Chloride [Moles/Vol] 101 mmol/L Normal 95-107 [facility] Comment on above: Performed By: #### C MP #### [facility] [address] [place] [address] CO2 [Moles/Vol] 22 mmol/L Normal 20-31 [facility] Comment on above: Performed By: #### C MP #### [facility] [address] [place] [address] Creatinine [Mass/Vol] 0.51 mg/dL Normal 0.50-0.90 [facility] Comment on above: Performed By: #### C MP #### [facility] [address] [place] [address] GFR >60.0 Normal >60 [facility] Comment on above: Result Comment: Patti atric calculator link https://www.kidney.org/professionals/kdoqi/gfr_calculatorped Effective Mar 20, 2022 These results are not intended for use in patients <18 years of age. eGFR results are calculated without a race factor using the 2020 CKD-EPI equation. Careful clinical correlation is recommended, particularly when comparing to results calculated using previous equations. The CKD-EPI equation is less accurate in patients with extremes of muscle mass, extra-renal metabolism of creatinine, excessive creatinine ingestion, or following therapy that affects renal tubular secretion. Performed By: #### C MP #### [facility] [address] [place] [address] Globulin (S) [Mass/Vol] 2.9 g/dL Normal 2.3-3.5 [facility] Comment on above: Performed By: #### C MP #### [facility] [address] [place] [address] Glucose [Mass/Vol] 77 mg/dL Normal 70-99 [facility] Comment on above: Performed By: #### C MP #### [facility] [address] [place] [address] Potassium [Moles/Vol] 4.0 mmol/L Normal 3.4-4.9 [facility] Comment on above: Performed By: #### C MP #### [facility] [address] [place] [address] Protein [Mass/Vol] 8.0 g/dL Normal 6.3-8.0 [facility] Comment on above: Performed By: #### C MP #### [facility] [address] [place] [address] Sodium [Moles/Vol] 140 mmol/L Normal 135-144 [facility] Comment on above: Performed By: #### C MP #### [facility] [address] [place] [address] Urea nitrogen [Mass/Vol] 10 mg/dL Normal 6-20 [facility] Comment on above: Performed By: #### C MP #### [facility] [address] [place] [address] Lipaseon 04-14-2022 Lipase [Catalytic activity/Vol] 36 U/L Normal 12-95 [facility] Comment on above: Performed By: #### L IPAS #### [facility] [address] [place] [address] Albumin [Mass/volume] in Ser um or PlasmaOrdered By: Jt Cedillo on 04-11-2022 Albumin [Mass/Vol] 4.4 g/dL 3.2-5.5 [facility] Automated erythrocytes count in urine sediment (number/area)Ordered By: Jt Cedillo on 04-11-2022 RBC Auto (Urine sed) [#/Area] 0-1 [HPF] 0-4 [facility] Automated leukocytes count i n urine sediment (number/area)Ordered By: Jt Cedillo on 04-11-2022 WBC Auto (Urine sed) [#/Area] 3-4 [HPF] 0-4 [facility] Basic Metabolic Panelon 03-19 Anion gap [Moles/Vol] 13.3 mmol/L Normal 6.0-15.0 [facility] Comment on above: Performed By: #### L IPASE, BMP, CBC #### [facility] [address] [place] [address] [place] Calcium [Mass/Vol] 9.5 mg/dL Normal 8.2-10.2 [facility] Comment on above: Performed By: #### L IPASE, BMP, CBC #### [facility] [address] [place] [id number] [place] Chloride [Moles/Vol] 99 mmol/L Normal 95-114 [facility] Comment on above: Performed By: #### L IPASE, BMP, CBC #### [facility] [address] [place] [address] [place] CO2 [Moles/Vol] 26.3 mmol/L Normal 22.0-30.0 [facility] Comment on above: Performed By: #### L IPASE, BMP, CBC #### [facility] [address] [place] [address] [place] Creatinine [Mass/Vol] 0.60 mg/dL Normal 0.44-1.03 [facility] Comment on above: Performed By: #### L IPASE, BMP, CBC #### [facility] [address] [place] [address] [place] Creatinine Clr Calc Pharmacy 110.86 [facility] Comment on above: Performed By: #### L IPASE, BMP, CBC #### [facility] [address] [place] [id number] [place] Estimated GFR ( Shraddha > 60 [facility] Comment on above: Result Comment: GFR estimated reference range: According to KDOQI guidelines, <60 ml/min/1.73m2 is sufficient to diagnose a patient with chronic kidney disease. Performed By: #### L IPASE, BMP, CBC #### [facility] [address] [place] [address] [place] Estimated GFR (Non- Am > 60 [facility] Comment on above: Performed By: #### L IPASE, BMP, CBC #### [facility] [address] [place] [address] [place] Glucose [Mass/Vol] 85 mg/dL Normal 70-100 [facility] Comment on above: Result Comment: [place] Glucose Reference Range is dependent on time and content of last meal. Glucose of more than 200 mg/dL in a nonstressed, ambulatory subject supports the diagnosis of Diabetes Mellitus. ADA recommended reference range Performed By: #### L IPASE, BMP, CBC #### [facility] [address] Potassium [Moles/Vol] 3.6 mmol/L Normal 3.5-5.1 [facility] Comment on above: Performed By: #### L IPASE, BMP, CBC #### [facility] [address] Sodium [Moles/Vol] 135 mmol/L Low 136-146 [facility] Comment on above: Performed By: #### L IPASE, BMP, CBC #### [facility] [address] Urea nitrogen [Mass/Vol] 8 mg/dL Low 9-23 [facility] Comment on above: Performed By: #### L IPASE, BMP, CBC #### [facility] [address] Basophils Auto (Bld) [#/Vol] Ordered By: Jt Cedillo on 04-11-2022 Basophils (Bld) [#/Vol] 0.0 10*3/uL 0.0-0.2 [facility] Basophils/100 WBC Auto (Bld) Ordered By: Jt Cedillo on 04-11-2022 Basophils/100 WBC (Bld) 0.5 % . [facility] Bilirubin Test strip Ql (U)O rdered By: Jt Cedillo on 04-11-2022 Bilirubin Ql (U) Negative Negative [facility] Color Auto (U)Ordered By: Gunnar Cedillo on 04-11-2022 Color (U) Yellow Yellow [facility] Complete Blood Count Auto Di ffon 04-11-2022 Basophils (Bld) [#/Vol] 0.0 10*3/uL Normal 0.0-0.2 [facility] Comment on above: Result Comment: PERF ORMED BY: [facility] [address] [place] [address] PATHOLOGIST STRETCHER LEVELER OPERATOR HELPER YUE ANDREW M.D. Performed By: #### L IPASE, BMP, CBC #### [address] Basophils/100 WBC (Bld) 0.5 % Normal . [facility] Comment on above: Performed By: #### L IPASE, BMP, CBC #### [address] Eosinophils (Bld) [#/Vol] 0.2 10*3/uL Normal 0.0-0.45 [facility] Comment on above: Performed By: #### L IPASE, BMP, CBC #### [address] Eosinophils/100 WBC (Bld) 2.2 % Normal . [facility] Comment on above: Performed By: #### L IPASE, BMP, CBC #### [address] Erythrocyte distribution width (RBC) [Ratio] 13.2 % Normal 11.9-15.3 [facility] Comment on above: Performed By: #### L IPASE, BMP, CBC #### [address] Hematocrit (Bld) [Volume fraction] 44.2 % Normal 34.0-46.4 [facility] Comment on above: Performed By: #### L IPASE, BMP, CBC #### [address] Hemoglobin (Bld) [Mass/Vol] 14.7 g/dL Normal 11.8-15.4 [facility] Comment on above: Performed By: #### L IPASE, BMP, CBC #### [address] Lymphocytes (Bld) [#/Vol] 1.5 10*3/uL Normal 1.00-4.8 [facility] Comment on above: Performed By: #### L IPASE, BMP, CBC #### [place] [address] [place] [address] [place] Lymphocytes/100 WBC (Bld) 18.5 % Normal . [facility] Comment on above: Performed By: #### L IPASE, BMP, CBC #### [facility] [address] MCH (RBC) [Entitic mass] 29.3 pg Normal 24.7-34.3 [facility] Comment on above: Performed By: #### L IPASE, BMP, CBC #### [facility] [address] MCV (RBC) [Entitic vol] 88.0 fL Normal 80-[address] [facility] Comment on above: Performed By: #### L IPASE, BMP, CBC #### [address] Mean Corpuscular HGB Conc 33.4 g/dL Normal 32.0-35.0 [facility] Comment on above: Performed By: #### L IPASE, BMP, CBC #### [place] [address] [place] Monocytes (Bld) [#/Vol] 0.7 10*3/uL Normal 0.0-0.8 [facility] Comment on above: Performed By: #### L IPASE, BMP, CBC #### [place] [address] [place] Monocytes/100 WBC (Bld) 8.1 % Normal . [facility] Comment on above: Performed By: #### L IPASE, BMP, CBC #### [place] [address] [place] Neutrophils (Bld) [#/Vol] 5.8 10*3/uL Normal 1.8-7.7 [facility] Comment on above: Performed By: #### L IPASE, BMP, CBC #### [place] [address] [place] Neutrophils/100 WBC (Bld) 70.7 % Normal . [facility] Comment on above: Performed By: #### L IPASE, BMP, CBC #### [facility] [address] Nucleated RBC/100 WBC (Bld) [Ratio] 0.1 % Normal 0-0.5 [facility] Comment on above: Performed By: #### L IPASE, BMP, CBC #### [facility] [address] Platelet mean volume (Bld) [Entitic vol] 9.1 fL Normal 6.3-10.7 [facility] Comment on above: Performed By: #### L IPASE, BMP, CBC #### [facility] [address] Platelets (Bld) [#/Vol] 278 10*3/uL Normal 150-450 [facility] Comment on above: Performed By: #### L IPASE, BMP, CBC #### [address] RBC (Bld) [#/Vol] 5.02 10*6/uL High 3.60-5.00 [facility] Comment on above: Performed By: #### L IPASE, BMP, CBC #### [address] WBC (Bld) [#/Vol] 8.2 10*3/uL Normal 4.5-11.0 [facility] Comment on above: Performed By: #### L IPASE, BMP, CBC #### [address] Creatinine and Glomerular fi ltration rate.predicted panel (S/P/Bld)Ordered By: Jt Cedillo on 04-11-2022 Creatinine [Mass/Vol] 0.60 mg/dL 0.44-1.03 [facility] Dipstick and Microscopicon 1 Appearance (U) Clear Normal Clear [facility] Comment on above: Order Comment: Name Collection Type:: Clean-Voided Midstream Performed By: #### C OVID19 FLU RSV, CEPHEID NEG #### [address] Bacteria,Urine 1+ High None Seen [facility] Comment on above: Order Comment: Name Collection Type:: Clean-Voided Midstream Performed By: #### C OVID19 FLU RSV, CEPHEID NEG #### [facility] [address] [place] [address] [place] Bilirubin,Urine Negative Normal Negative [facility] Comment on above: Order Comment: Name Collection Type:: Clean-Voided Midstream Performed By: #### C OVID19 FLU RSV, CEPHEID NEG #### [facility] [address] [place] [address] [place] Color (U) Yellow Normal Yellow [facility] Comment on above: Order Comment: Name Collection Type:: Clean-Voided Midstream Performed By: #### C OVID19 FLU RSV, CEPHEID NEG #### [facility] [address] [place] [address] Glucose Ql (U) Normal Normal Normal [facility] Comment on above: Order Comment: Name Collection Type:: Clean-Voided Midstream Performed By: #### C OVID19 FLU RSV, CEPHEID NEG #### [facility] [address] [place] [address] [place] Hyaline Casts,Urine None Seen Normal 0-8 [facility] Comment on above: Order Comment: Name Collection Type:: Clean-Voided Midstream Performed By: #### C OVID19 FLU RSV, CEPHEID NEG #### [facility] [address] [place] [address] [place] Ketones Ql (U) Trace High Negative [facility] Comment on above: Order Comment: Name Collection Type:: Clean-Voided Midstream Performed By: #### C OVID19 FLU RSV, CEPHEID NEG #### [facility] [address] [place] [address] [place] Leukocyte esterase Test strip Ql (U) 2+ High Negative [facility] Comment on above: Order Comment: Name Collection Type:: Clean-Voided Midstream Performed By: #### C OVID19 FLU RSV, CEPHEID NEG #### [facility] [address] [place] [address] [place] Nitrite,Urine Negative Normal Negative [facility] Comment on above: Order Comment: Name Collection Type:: Clean-Voided Midstream Performed By: #### C OVID19 FLU RSV, CEPHEID NEG #### [address] Occult Blood,Urine Negative Normal Negative [facility] Comment on above: Order Comment: Name Collection Type:: Clean-Voided Midstream Performed By: #### C OVID19 FLU RSV, CEPHEID NEG #### [address] pH (U) 7.0 [pH] Normal 5.0-9.0 [facility] Comment on above: Order Comment: Name Collection Type:: Clean-Voided Midstream Performed By: #### C OVID19 FLU RSV, CEPHEID NEG #### [address] Protein,Urine Negative Normal Negative [facility] Comment on above: Order Comment: Name Collection Type:: Clean-Voided Midstream Performed By: #### C OVID19 FLU RSV, CEPHEID NEG #### [address] RBC LM.HPF (Urine sed) [#/Area] 0 /[HPF] Normal 0-4 [facility] Comment on above: Order Comment: Name Collection Type:: Clean-Voided Midstream Performed By: #### C OVID19 FLU RSV, CEPHEID NEG #### [place] [address] [place] Specificy Vaughn,Urine 1.011 Normal 1.001-1.030 [facility] Comment on above: Order Comment: Name Collection Type:: Clean-Voided Midstream Performed By: #### C OVID19 FLU RSV, CEPHEID NEG #### [place] [address] [place] Squamous Epithelial Cell,Urine 3-4 High 0-2 [facility] Comment on above: Order Comment: Name Collection Type:: Clean-Voided Midstream Performed By: #### C OVID19 FLU RSV, CEPHEID NEG #### [address] [place] [address] [place] Urobilinogen,Urine Normal Normal Normal [facility] Comment on above: Order Comment: Name Collection Type:: Clean-Voided Midstream Performed By: #### C OVID19 FLU RSV, CEPHEID NEG #### [facility] [address] [place] [address] [place] WBC,Urine 3-4 Normal 0-4 [facility] Comment on above: Order Comment: Name Collection Type:: Clean-Voided Midstream Performed By: #### C OVID19 FLU RSV, CEPHEID NEG #### [facility] [address] Direct bilirubin measurement Ordered By: Jt Cedillo on 04-11-2022 Bilirubin.direct [Mass/Vol] mg/dL 0.0-0.4 [facility] Eosinophils Auto (Bld) [#/Vo l]Ordered By: Jt Cedillo on 04-11-2022 Eosinophils (Bld) [#/Vol] 0.2 10*3/uL 0.0-0.45 [facility] Eosinophils/100 WBC Auto (Bl d)Ordered By: Jt Cedillo on 04-11-2022 Eosinophils/100 WBC (Bld) 2.2 % . [facility] Erythrocyte distribution wid th Auto (RBC) [Ratio]Ordered By: Jt Cedillo on 04-11-2022 Erythrocyte distribution width (RBC) [Ratio] 13.2 % 11.9-15.3 [facility] Estimated glomerular filtrat ion rate (GFR) non- AmericanOrdered By: Jt Cedillo on 04-11-2022 GFR/1.73 sq M.predicted among non-blacks MDRD (S/P/Bld) [Vol rate/Area] > 60 mL/Min [facility] Globulin Calc (S) [Mass/Vol] Ordered By: Jt Cedillo on 04-11-2022 Globulin (S) [Mass/Vol] 3.2 g/dL F [facility] HCG ( test) IA.rapi d Ql (U)Ordered By: Jt Cedillo on 04-11-2022 HCG ( test) Ql (U) Negative [facility] HCG,Urineon 04-11-2022 Beta HCG ( test) Ql (U) Negative Normal [facility] Comment on above: Order Comment: Name Collection Type:: Clean-Voided Midstream Result Comment: PERF ORMED BY: [place] [address] PATHOLOGIST STRETCHER LEVELER OPERATOR HELPER YUE ANDREW M.D. Performed By: #### C OVID19 FLU RSV, CEPHEID NEG #### [facility] [address] [place] [address] Hematocrit Auto (Bld) [Volum e fraction]Ordered By: Jt Cedillo on 04-11-2022 Hematocrit (Bld) [Volume fraction] 44.2 % 34.0-46.4 [facility] Hemoglobin [Mass/volume] in BloodOrdered By: Jt Cedillo on 04-11-2022 Hemoglobin (Bld) [Mass/Vol] 14.7 g/dL 11.8-15.4 [facility] Hepatic Panelon 04-11-2022 Albumin [Mass/Vol] 4.4 g/dL Normal 3.2-5.5 [facility] Comment on above: Performed By: #### L IPASE, BMP, CBC #### [facility] [address] [place] [address] Albumin/Globulin [Mass ratio] 1.4 {ratio} Normal [facility] Comment on above: Performed By: #### L IPASE, BMP, CBC #### [facility] [address] [place] [address] [place] ALP [Catalytic activity/Vol] 36 U/L Normal 32-92 [facility] Comment on above: Performed By: #### L IPASE, BMP, CBC #### [facility] [address] [place] [address] [place] ALT [Catalytic activity/Vol] 13 U/L Normal 10-60 [facility] Comment on above: Performed By: #### L IPASE, BMP, CBC #### [facility] [address] [place] [address] AST [Catalytic activity/Vol] 15 U/L Normal 10-42 [facility] Comment on above: Performed By: #### L IPASE, BMP, CBC #### [facility] [address] Bilirubin [Mass/Vol] 0.7 mg/dL Normal 0.3-1.2 [facility] Comment on above: Performed By: #### L IPASE, BMP, CBC #### [facility] [address] Bilirubin,Indirect Not performed Normal [facility] Comment on above: Performed By: #### L IPASE, BMP, CBC #### [facility] [address] Bilirubin.indirect [Mass/Vol] mg/dL Normal 0.0-0.4 [facility] Comment on above: Performed By: #### L IPASE, BMP, CBC #### [facility] [address] Globulin (S) [Mass/Vol] 3.2 g/dL Normal [facility] Comment on above: Performed By: #### L IPASE, BMP, CBC #### [facility] [address] Protein [Mass/Vol] 7.6 g/dL Normal 6.1-7.9 [facility] Comment on above: Performed By: #### L IPASE, BMP, CBC #### [facility] [address] Ketones Auto test strip (U) [Mass/Vol]Ordered By: Jt Cedillo on 04-11-2022 Ketones (U) [Mass/Vol] Trace Negative [facility] - Chemistry and C hemistry - challengeOrdered By: Jt Cedillo on 04-11-2022 Lipase [Catalytic activity/Vol] 143.0 U/L 22-51 [facility] - Hematology and Cell countsOrdered By: Jt Cedillo on 04-11-2022 Nucleated RBC/100 WBC (Bld) [Ratio] 0.1 % 0-0.5 [facility] - UrinalysisOrder ed By: Jt Cedillo on 04-11-2022 Hyaline casts LM Ql (Urine sed) None seen [LPF] 0-8 [facility] Leukocytes [#/volume] in Blo od by Automated countOrdered By: Jt Cedillo on 04-11-2022 WBC (Bld) [#/Vol] 8.2 10*3/uL 4.5-11.0 [facility] Lipaseon 04-11-2022 Lipase [Catalytic activity/Vol] 143.0 U/L High 22-51 [facility] Comment on above: Result Comment: PERF ORMED BY: [facility] [address] [place] [address] PATHOLOGIST STRETCHER LEVELER OPERATOR HELPER YUE ANDREW M.D. Performed By: #### L IPASE, BMP, CBC #### [address] Lymphocytes Auto (Bld) [#/Vo l]Ordered By: Jt Cedillo on 04-11-2022 Lymphocytes (Bld) [#/Vol] 1.5 10*3/uL 1.00-4.8 [facility] Lymphocytes/100 WBC Auto (Bl d)Ordered By: Jt Cedillo on 04-11-2022 Lymphocytes/100 WBC (Bld) 18.5 % . [facility] MCH Auto (RBC) [Entitic mass ]Ordered By: Jt Cedillo on 04-11-2022 MCH (RBC) [Entitic mass] 29.3 pg 24.7-34.3 [facility] MCHC Auto (RBC) [Mass/Vol]Or dered By: Jt Cedillo on 04-11-2022 MCHC (RBC) [Mass/Vol] 33.4 g/dL 32.0-35.0 [facility] MCV Auto (RBC) [Entitic vol] Ordered By: Jt Cedillo on 04-11-2022 MCV (RBC) [Entitic vol] 88.0 fL 80-[address] [facility] Monocytes Auto (Bld) [#/Vol] Ordered By: Jt Cedillo on 04-11-2022 Monocytes (Bld) [#/Vol] 0.7 10*3/uL 0.0-0.8 [facility] Monocytes/100 WBC Auto (Bld) Ordered By: Jt Cedillo on 04-11-2022 Monocytes/100 WBC (Bld) 8.1 % . F [facility] Neutrophils Auto (Bld) [#/Vo l]Ordered By: Jt Cedillo on 04-11-2022 Neutrophils (Bld) [#/Vol] 5.8 10*3/uL 1.8-7.7 [facility] Neutrophils/100 WBC Auto (Bl d)Ordered By: Jt Cedillo on 04-11-2022 Neutrophils/100 WBC (Bld) 70.7 % . [facility] Nitrite Test strip Ql (U)Ord ered By: Jt Cedillo on 04-11-2022 Nitrite Ql (U) Negative Negative [facility] No Panel InformationOrdered By: Jt Cedillo on 04-11-2022 Estimated GFR () > 60 mL/Min [facility] Comment on above: GFR estimated refere nce range: According to KDOQI guidelines, <60 ml/min/1.73m2 is sufficient to diagnose a patient with chronic kidney disease. Pharmacy Creatinine Clearance (Chem 110.86 [facility] Platelet mean volume Auto (B ld) [Entitic vol]Ordered By: Jt Cedillo on 04-11-2022 Platelet mean volume (Bld) [Entitic vol] 9.1 fL 6.3-10.7 [facility] Platelets Auto (Bld) [#/Vol] Ordered By: Jt Cedillo on 04-11-2022 Platelets (Bld) [#/Vol] 278 10*3/uL 150-450 [facility] Protein Auto test strip (U) [Mass/Vol]Ordered By: Jt Cedillo on 04-11-2022 Protein (U) [Mass/Vol] Negative Negative [facility] Protein [Mass/volume] in Ser um or PlasmaOrdered By: Jt Cedillo on 04-11-2022 Protein [Mass/Vol] 7.6 g/dL 6.1-7.9 [facility] RBC Auto (Bld) [#/Vol]Ordere d By: Jt Cedillo on 04-11-2022 RBC (Bld) [#/Vol] 5.02 10*6/uL 3.60-5.00 [facility] [place] Serum or plasma alanine morris otransferase measurement without P-5'-P (enzymatic activiOrdered By: Jt Cedillo on 04-11-2022 ALT No additional P-5'-P [Catalytic activity/Vol] 13 U/L 10-60 [facility] Serum or plasma albumin/glob ulin mass ratioOrdered By: Jt Cedillo on 04-11-2022 Albumin/Globulin [Mass ratio] 1.4 {ratio} [facility] Serum or plasma alkaline emerita sphatase measurement (enzymatic activity/volume)Ordered By: Jt Cedillo on 04-11-2022 ALP [Catalytic activity/Vol] 36 U/L 32-92 [facility] Serum or plasma anion gap de terminationOrdered By: Jt Cedillo on 04-11-2022 Anion gap [Moles/Vol] 13.3 mmol/L 6.0-15.0 [facility] Serum or plasma aspartate am inotransferase measurement (enzymatic activity/volume)Ordered By: Jt Cedillo on 04-11-2022 AST [Catalytic activity/Vol] 15 U/L 10-42 [facility] Serum or plasma calcium pedro urement (mass/volume)Ordered By: Jt Cedillo on 04-11-2022 Calcium [Mass/Vol] 9.5 mg/dL 8.2-10.2 [facility] Serum or plasma chloride liberty surement (moles/volume)Ordered By: Jt Cedillo on 04-11-2022 Chloride [Moles/Vol] 99 mmol/L 95-114 [facility] Serum or plasma glucose pedro urement (mass/volume)Ordered By: Jt Cedillo on 04-11-2022 Glucose [Mass/Vol] 85 mg/dL 70-100 [facility] Comment on above: ADA recommended refe rence rangeRandom Glucose Reference Range is dependent on time and content of last meal. Glucose of more than 200 mg/dL in a nonstressed, ambulatory subject supports the diagnosis of Diabetes Mellitus. Serum or plasma non-glucuron idated bilirubin measurement (mass/volume)Ordered By: Jt Cedillo on 04-11-2022 Bilirubin.indirect [Mass/Vol] TNP [facility] Comment on above: Test not performed Serum or plasma potassium me asurement (moles/volume)Ordered By: Jt Cedillo on 04-11-2022 Potassium [Moles/Vol] 3.6 mmol/L 3.5-5.1 [facility] Serum or plasma sodium measu rement (moles/volume)Ordered By: Jt Cedillo on 04-11-2022 Sodium [Moles/Vol] 135 mmol/L 136-146 [facility] Serum or plasma total biliru bin measurement (mass/volume)Ordered By: Jt Cedillo on 04-11-2022 Bilirubin [Mass/Vol] 0.7 mg/dL 0.3-1.2 [facility] Serum or plasma total carbon dioxide measurement (moles/volume)Ordered By: Jt Cedillo on 04-11-2022 CO2 [Moles/Vol] 26.3 mmol/L 22.0-30.0 [facility] Serum or plasma urea nitroge n measurement (mass/volume)Ordered By: Jt Cedillo on 04-11-2022 Urea nitrogen [Mass/Vol] 8 mg/dL 9-23 [facility] Specific gravity Auto test s trip (U) [Rel density]Ordered By: Jt Cedillo on 04-11-2022 Specific gravity (U) [Rel density] 1.011 1.001-1.030 [facility] Squamous epithelial cells de tection in urine sediment by light microscopyOrdered By: Jt Cedillo on 04-11-2022 Epithelial cells.squamous LM Ql (Urine sed) 3-4 [HPF] 0-2 [facility] Urine bacteria detection by automated methodOrdered By: Jt Cedillo on 04-11-2022 Bacteria Auto Ql (U) 1+ None Seen [facility] Urine clarity by refractomet ry automatedOrdered By: Jt Cedillo on 04-11-2022 Clarity Refractometry automated (U) Clear Clear [facility] Urine glucose measurement by automated test strip (mass/volume)Ordered By: Jt Cedillo on 04-11-2022 Glucose Auto test strip (U) [Mass/Vol] Normal mg/dL Normal [facility] Urine hemoglobin detection b y automated test stripOrdered By: Jt Cedillo on 04-11-2022 Hemoglobin Auto test strip Ql (U) Negative Negative [facility] Urine leukocyte esterase det ection by automated test stripOrdered By: Jt Cedillo on 04-11-2022 Leukocyte esterase Auto test strip Ql (U) 2+ Negative [facility] Urobilinogen Auto test strip (U) [Mass/Vol]Ordered By: Jtjenny Cedillo on 04-11-2022 Urobilinogen (U) [Mass/Vol] Normal mg/dL Normal [facility] pH Auto test strip (U)Ordere d By: Jt Cedillo on 04-11-2022 pH (U) 7.0 [pH] 5.0-9.0 [facility] Basic Metabolic Panelon 03-19 Anion gap [Moles/Vol] 7.9 mmol/L Normal 6.0-15.0 [facility] Comment on above: Performed By: #### C OVID19 FLU RSV, CEPHEID NEG #### [facility] [address] [place] [address] [place] Calcium [Mass/Vol] 8.0 mg/dL Low 8.2-10.2 [facility] Comment on above: Performed By: #### C OVID19 FLU RSV, CEPHEID NEG #### [facility] [address] [place] [address] [place] Chloride [Moles/Vol] 111 mmol/L Normal 95-114 [facility] Comment on above: Performed By: #### C OVID19 FLU RSV, CEPHEID NEG #### [place] [address] [place] CO2 [Moles/Vol] 22.5 mmol/L Normal 22.0-30.0 [facility] Comment on above: Performed By: #### C OVID19 FLU RSV, CEPHEID NEG #### [facility] [address] [place] [address] [place] Creatinine [Mass/Vol] 0.50 mg/dL Normal 0.44-1.03 [facility] Comment on above: Performed By: #### C OVID19 FLU RSV, CEPHEID NEG #### [facility] [address] [place] [address] [place] Creatinine Clr Calc Pharmacy 147.52 Normal [facility] Comment on above: Performed By: #### C OVID19 FLU RSV, CEPHEID NEG #### [facility] [address] [place] [address] [place] Estimated GFR ( Shraddha > 60 Normal [facility] Comment on above: Result Comment: GFR estimated reference range: According to KDOQI guidelines, <60 ml/min/1.73m2 is sufficient to diagnose a patient with chronic kidney disease. Performed By: #### C OVID19 FLU RSV, CEPHEID NEG #### [facility] [address] [place] [address] [place] Estimated GFR (Non- Am > 60 Normal [facility] Comment on above: Performed By: #### C OVID19 FLU RSV, CEPHEID NEG #### [address] Glucose [Mass/Vol] 82 mg/dL Normal 70-100 [facility] Comment on above: Result Comment: [place] Glucose Reference Range is dependent on time and content of last meal. Glucose of more than 200 mg/dL in a nonstressed, ambulatory subject supports the diagnosis of Diabetes Mellitus. ADA recommended reference range Performed By: #### C OVID19 FLU RSV, CEPHEID NEG #### [place] [address] [place] Potassium [Moles/Vol] 3.4 mmol/L Low 3.5-5.1 [facility] Comment on above: Performed By: #### C OVID19 FLU RSV, CEPHEID NEG #### [place] [address] [place] Sodium [Moles/Vol] 138 mmol/L Normal 136-146 [facility] Comment on above: Performed By: #### C OVID19 FLU RSV, CEPHEID NEG #### [place] [address] [place] Urea nitrogen [Mass/Vol] 2 mg/dL Low 9-23 [facility] Comment on above: Performed By: #### C OVID19 FLU RSV, CEPHEID NEG #### [place] [address] [place] Basophils Auto (Bld) [#/Vol] Ordered By: Bernadette Box on 04-06-2022 Basophils (Bld) [#/Vol] 0.0 10*3/uL 0.0-0.2 [facility] Basophils/100 WBC Auto (Bld) Ordered By: Bernadette Box on 04-06-2022 Basophils/100 WBC (Bld) 0.7 % . F [facility] Complete Blood Count Auto Di ffon 04-06-2022 Basophils (Bld) [#/Vol] 0.0 10*3/uL Normal 0.0-0.2 [facility] Comment on above: Result Comment: PERF ORMED BY: [place] [address] PATHOLOGIST STRETCHER LEVELER OPERATOR HELPER YUE ANDREW M.D. Performed By: #### C BC #### [address] Basophils/100 WBC (Bld) 0.7 % Normal . [facility] Comment on above: Performed By: #### C BC #### [address] Eosinophils (Bld) [#/Vol] 0.3 10*3/uL Normal 0.0-0.45 [facility] Comment on above: Performed By: #### C BC #### [address] Eosinophils/100 WBC (Bld) 3.4 % Normal . [facility] Comment on above: Performed By: #### C BC #### [address] Erythrocyte distribution width (RBC) [Ratio] 12.8 % Normal 11.9-15.3 [facility] Comment on above: Performed By: #### C BC #### [address] Hematocrit (Bld) [Volume fraction] 35.5 % Normal 34.0-46.4 [facility] Comment on above: Performed By: #### C BC #### [address] Hemoglobin (Bld) [Mass/Vol] 12.0 g/dL Normal 11.8-15.4 [facility] Comment on above: Performed By: #### C BC #### [facility] [address] Lymphocytes (Bld) [#/Vol] 2.3 10*3/uL Normal 1.00-4.8 [facility] Comment on above: Performed By: #### C BC #### [facility] [address] Lymphocytes/100 WBC (Bld) 31.3 % Normal . [facility] Comment on above: Performed By: #### C BC #### [address] MCH (RBC) [Entitic mass] 29.7 pg Normal 24.7-34.3 [facility] Comment on above: Performed By: #### C BC #### [address] MCV (RBC) [Entitic vol] 88.1 fL Normal 80-[address] [facility] Comment on above: Performed By: #### C BC #### [address] Mean Corpuscular HGB Conc 33.7 g/dL Normal 32.0-35.0 [facility] Comment on above: Performed By: #### C BC #### [address] Monocytes (Bld) [#/Vol] 0.8 10*3/uL Normal 0.0-0.8 [facility] Comment on above: Performed By: #### C BC #### [place] [address] [place] Monocytes/100 WBC (Bld) 11.0 % Normal . [facility] Comment on above: Performed By: #### C BC #### [address] Neutrophils (Bld) [#/Vol] 3.9 10*3/uL Normal 1.8-7.7 [facility] Comment on above: Performed By: #### C BC #### [facility] [address] Neutrophils/100 WBC (Bld) 53.6 % Normal . [facility] Comment on above: Performed By: #### C BC #### [facility] [address] Nucleated RBC/100 WBC (Bld) [Ratio] 0.1 % Normal 0-0.5 [facility] Comment on above: Performed By: #### C BC #### [facility] [address] Platelet mean volume (Bld) [Entitic vol] 8.9 fL Normal 6.3-10.7 [facility] Comment on above: Performed By: #### C BC #### [facility] [address] Platelets (Bld) [#/Vol] 199 10*3/uL Normal 150-450 [facility] Comment on above: Performed By: #### C BC #### [facility] [address] RBC (Bld) [#/Vol] 4.03 10*6/uL Normal 3.60-5.00 [facility] [place] Comment on above: Performed By: #### C BC #### [place] [address] [place] WBC (Bld) [#/Vol] 7.3 10*3/uL Normal 4.5-11.0 [facility] Comment on above: Performed By: #### C BC #### [place] [address] [place] Creatinine and Glomerular fi ltration rate.predicted panel (S/P/Bld)Ordered By: Obrenadateri Richmondr on 04-06-2022 Creatinine [Mass/Vol] 0.50 mg/dL 0.44-1.03 [facility] Eosinophils Auto (Bld) [#/Vo l]Ordered By: Obaydah Daromar on 04-06-2022 Eosinophils (Bld) [#/Vol] 0.3 10*3/uL 0.0-0.45 [facility] Eosinophils/100 WBC Auto (Bl d)Ordered By: Bernadette Box on 04-06-2022 Eosinophils/100 WBC (Bld) 3.4 % . [facility] Erythrocyte distribution wid th Auto (RBC) [Ratio]Ordered By: Bernadette Box on 04-06-2022 Erythrocyte distribution width (RBC) [Ratio] 12.8 % 11.9-15.3 [facility] Estimated glomerular filtrat ion rate (GFR) non- AmericanOrdered By: Bernadette Box on 04-06-2022 GFR/1.73 sq M.predicted among non-blacks MDRD (S/P/Bld) [Vol rate/Area] > 60 mL/Min [facility] Hematocrit Auto (Bld) [Volum e fraction]Ordered By: Bernadette Box on 04-06-2022 Hematocrit (Bld) [Volume fraction] 35.5 % 34.0-46.4 [facility] Hemoglobin [Mass/volume] in BloodOrdered By: Bernadette Box on 04-06-2022 Hemoglobin (Bld) [Mass/Vol] 12.0 g/dL 11.8-15.4 [facility] Laboratory - Hematology and Cell countsOrdered By: Bernadette Box on 04-06-2022 Nucleated RBC/100 WBC (Bld) [Ratio] 0.1 % 0-0.5 [facility] Leukocytes [#/volume] in Blo od by Automated countOrdered By: Bernadette Box on 04-06-2022 WBC (Bld) [#/Vol] 7.3 10*3/uL 4.5-11.0 [facility] Lymphocytes Auto (Bld) [#/Vo l]Ordered By: Bernadette Box on 04-06-2022 Lymphocytes (Bld) [#/Vol] 2.3 10*3/uL 1.00-4.8 [facility] Lymphocytes/100 WBC Auto (Bl d)Ordered By: Bernadette Richmondr on 04-06-2022 Lymphocytes/100 WBC (Bld) 31.3 % . [facility] MCH Auto (RBC) [Entitic mass ]Ordered By: Obrenadateri Daromar on 04-06-2022 MCH (RBC) [Entitic mass] 29.7 pg 24.7-34.3 [facility] MCHC Auto (RBC) [Mass/Vol]Or dered By: Obaydah Daromar on 04-06-2022 MCHC (RBC) [Mass/Vol] 33.7 g/dL 32.0-35.0 [facility] MCV Auto (RBC) [Entitic vol] Ordered By: Obaydah Daromar on 04-06-2022 MCV (RBC) [Entitic vol] 88.1 fL 80-[address] [facility] Monocytes Auto (Bld) [#/Vol] Ordered By: Obaydah Daromar on 04-06-2022 Monocytes (Bld) [#/Vol] 0.8 10*3/uL 0.0-0.8 [facility] Monocytes/100 WBC Auto (Bld) Ordered By: Obaydah Daromar on 04-06-2022 Monocytes/100 WBC (Bld) 11.0 % . F [facility] Neutrophils Auto (Bld) [#/Vo l]Ordered By: Obaydah Daromar on 04-06-2022 Neutrophils (Bld) [#/Vol] 3.9 10*3/uL 1.8-7.7 [facility] Neutrophils/100 WBC Auto (Bl d)Ordered By: Obrenadah Daromar on 04-06-2022 Neutrophils/100 WBC (Bld) 53.6 % . [facility] No Panel InformationOrdered By: Obrenadah Aloomar on 04-06-2022 Estimated GFR () > 60 mL/Min [facility] Comment on above: GFR estimated refere nce range: According to KDOQI guidelines, <60 ml/min/1.73m2 is sufficient to diagnose a patient with chronic kidney disease. Pharmacy Creatinine Clearance (Chem 147.52 [facility] Phosphate [Mass/volume] in S mir or PlasmaOrdered By: Obrenadah Daromar on 04-06-2022 Phosphate [Mass/Vol] 3.1 mg/dL 2.5-4.6 [facility] Phosphoruson 04-06-2022 Phosphate [Mass/Vol] 3.1 mg/dL Normal 2.5-4.6 [facility] Comment on above: Result Comment: PERF ORMED BY: [facility] [address] [place] [address] PATHOLOGIST STRETCHER LEVELER OPERATOR HELPER YUE ANDREW M.D. Performed By: #### C OVID19 FLU RSV, CEPHEID NEG #### [facility] [address] Platelet mean volume Auto (B ld) [Entitic vol]Ordered By: Obaydah Daromar on 04-06-2022 Platelet mean volume (Bld) [Entitic vol] 8.9 fL 6.3-10.7 [facility] Platelets Auto (Bld) [#/Vol] Ordered By: Obaydah Daromar on 04-06-2022 Platelets (Bld) [#/Vol] 199 10*3/uL 150-450 [facility] RBC Auto (Bld) [#/Vol]Ordere d By: Obaydah Daromar on 04-06-2022 RBC (Bld) [#/Vol] 4.03 10*6/uL 3.60-5.00 [facility] [place] Serum or plasma anion gap de terminationOrdered By: Obaydah Daromar on 04-06-2022 Anion gap [Moles/Vol] 7.9 mmol/L 6.0-15.0 [facility] Serum or plasma calcium pedro urement (mass/volume)Ordered By: Obaydah Daromar on 04-06-2022 Calcium [Mass/Vol] 8.0 mg/dL 8.2-10.2 [facility] Serum or plasma chloride liberty surement (moles/volume)Ordered By: Obaydah Daromar on 04-06-2022 Chloride [Moles/Vol] 111 mmol/L 95-114 [facility] Serum or plasma glucose pedro urement (mass/volume)Ordered By: Obaydah Daromar on 04-06-2022 Glucose [Mass/Vol] 82 mg/dL 70-100 [facility] Comment on above: ADA recommended refe rence rangeRandom Glucose Reference Range is dependent on time and content of last meal. Glucose of more than 200 mg/dL in a nonstressed, ambulatory subject supports the diagnosis of Diabetes Mellitus. Serum or plasma potassium me asurement (moles/volume)Ordered By: Bernadette Box on 04-06-2022 Potassium [Moles/Vol] 3.4 mmol/L 3.5-5.1 [facility] Serum or plasma sodium measu rement (moles/volume)Ordered By: Bernadette Richmondr on 04-06-2022 Sodium [Moles/Vol] 138 mmol/L 136-146 [facility] Serum or plasma total carbon dioxide measurement (moles/volume)Ordered By: raulito Box on 04-06-2022 CO2 [Moles/Vol] 22.5 mmol/L 22.0-30.0 [facility] Serum or plasma urea nitroge n measurement (mass/volume)Ordered By: Bernadette Box on 04-06-2022 Urea nitrogen [Mass/Vol] 2 mg/dL 03-10 [facility] Urine culture routineOrdered By: Elvi Price on 04-06-2022 Bacteria identified Cx Nom (U) 2 Days [facility] Basic Metabolic Panelon 03-18 Anion gap [Moles/Vol] 8.5 mmol/L Normal 6.0-15.0 [facility] Comment on above: Order Comment: AJW Performed By: #### L IPASE, BMP, CBC #### [facility] [address] [place] [address] [place] Calcium [Mass/Vol] 7.8 mg/dL Low 8.2-10.2 [facility] Comment on above: Order Comment: AJW Performed By: #### L IPASE, BMP, CBC #### [facility] [address] [place] [id number] [place] Chloride [Moles/Vol] 108 mmol/L Normal 95-114 [facility] Comment on above: Order Comment: AJW Performed By: #### L IPASE, BMP, CBC #### [facility] [address] [place] [address] [place] CO2 [Moles/Vol] 21.0 mmol/L Low 22.0-30.0 [facility] Comment on above: Order Comment: AJW Performed By: #### L IPASE, BMP, CBC #### [facility] [address] Creatinine [Mass/Vol] 0.52 mg/dL Normal 0.44-1.03 [facility] Comment on above: Order Comment: AJW Performed By: #### L IPASE, BMP, CBC #### [facility] [address] [place] [address] [place] Creatinine Clr Calc Pharmacy 141.19 [facility] Comment on above: Order Comment: AJW Performed By: #### L IPASE, BMP, CBC #### [facility] [address] Estimated GFR ( Shraddha > 60 [facility] Comment on above: Order Comment: AJW Result Comment: GFR estimated reference range: According to KDOQI guidelines, <60 ml/min/1.73m2 is sufficient to diagnose a patient with chronic kidney disease. Performed By: #### L IPASE, BMP, CBC #### [facility] [address] [place] [address] Estimated GFR (Non- Am > 60 [facility] Comment on above: Order Comment: AJW Performed By: #### L IPASE, BMP, CBC #### [facility] [address] Glucose [Mass/Vol] 62 mg/dL Low 70-100 [facility] Comment on above: Order Comment: AJW Result Comment: [place] om Glucose Reference Range is dependent on time and content of last meal. Glucose of more than 200 mg/dL in a nonstressed, ambulatory subject supports the diagnosis of Diabetes Mellitus. ADA recommended reference range Performed By: #### L IPASE, BMP, CBC #### [facility] [address] Potassium [Moles/Vol] 3.5 mmol/L Normal 3.5-5.1 [facility] Comment on above: Order Comment: AJW Performed By: #### L IPASE, BMP, CBC #### [address] Sodium [Moles/Vol] 134 mmol/L Low 136-146 [facility] Comment on above: Order Comment: AJW Performed By: #### L IPASE, BMP, CBC #### [address] Urea nitrogen [Mass/Vol] 6 mg/dL Low 9-23 [facility] Comment on above: Order Comment: AJW Performed By: #### L IPASE, BMP, CBC #### [address] Complete Blood Count Auto Di ffon 04-05-2022 Basophils (Bld) [#/Vol] 0.1 10*3/uL Normal 0.0-0.2 [facility] Comment on above: Order Comment: AJW Result Comment: PERF ORMED BY: [place] [address] PATHOLOGIST STRETCHER LEVELER OPERATOR HELPER YUE ANDREW M.D. Performed By: #### L IPASE, BMP, CBC #### [address] Basophils/100 WBC (Bld) 0.6 % Normal . [facility] Comment on above: Order Comment: AJW Performed By: #### L IPASE, BMP, CBC #### [address] Eosinophils (Bld) [#/Vol] 0.2 10*3/uL Normal 0.0-0.45 [facility] Comment on above: Order Comment: AJW Performed By: #### L IPASE, BMP, CBC #### [place] [address] [place] Eosinophils/100 WBC (Bld) 1.6 % Normal . [facility] Comment on above: Order Comment: AJW Performed By: #### L IPASE, BMP, CBC #### [address] Erythrocyte distribution width (RBC) [Ratio] 12.8 % Normal 11.9-15.3 [facility] Comment on above: Order Comment: AJW Performed By: #### L IPASE, BMP, CBC #### [address] Hematocrit (Bld) [Volume fraction] 39.1 % Normal 34.0-46.4 [facility] Comment on above: Order Comment: AJW Performed By: #### L IPASE, BMP, CBC #### [address] Hemoglobin (Bld) [Mass/Vol] 12.9 g/dL Normal 11.8-15.4 [facility] Comment on above: Order Comment: AJW Performed By: #### L IPASE, BMP, CBC #### [address] Lymphocytes (Bld) [#/Vol] 1.4 10*3/uL Normal 1.00-4.8 [facility] Comment on above: Order Comment: AJW Performed By: #### L IPASE, BMP, CBC #### [address] Lymphocytes/100 WBC (Bld) 12.9 % Normal . [facility] Comment on above: Order Comment: AJW Performed By: #### L IPASE, BMP, CBC #### [address] MCH (RBC) [Entitic mass] 29.4 pg Normal 24.7-34.3 [facility] Comment on above: Order Comment: AJW Performed By: #### L IPASE, BMP, CBC #### [address] MCV (RBC) [Entitic vol] 89.0 fL Normal 80-[address] [facility] Comment on above: Order Comment: AJW Performed By: #### L IPASE, BMP, CBC #### [place] [address] [place] Mean Corpuscular HGB Conc 33.0 g/dL Normal 32.0-35.0 [facility] Comment on above: Order Comment: AJW Performed By: #### L IPASE, BMP, CBC #### [facility] [address] Monocytes (Bld) [#/Vol] 0.8 10*3/uL Normal 0.0-0.8 [facility] Comment on above: Order Comment: AJW Performed By: #### L IPASE, BMP, CBC #### [facility] [address] Monocytes/100 WBC (Bld) 6.9 % Normal . [facility] Comment on above: Order Comment: AJW Performed By: #### L IPASE, BMP, CBC #### [facility] [address] Neutrophils (Bld) [#/Vol] 8.7 10*3/uL High 1.8-7.7 [facility] Comment on above: Order Comment: AJW Performed By: #### L IPASE, BMP, CBC #### [facility] [address] [place] [address] [place] Neutrophils/100 WBC (Bld) 78.0 % Normal . [facility] Comment on above: Order Comment: AJW Performed By: #### L IPASE, BMP, CBC #### [facility] [address] [place] [address] [place] Nucleated RBC/100 WBC (Bld) [Ratio] 0.0 % Normal 0-0.5 [facility] Comment on above: Order Comment: AJW Performed By: #### L IPASE, BMP, CBC #### [facility] [address] [place] [address] [place] Platelet mean volume (Bld) [Entitic vol] 9.0 fL Normal 6.3-10.7 [facility] Comment on above: Order Comment: AJW Performed By: #### L IPASE, BMP, CBC #### [facility] [address] [place] [address] [place] Platelets (Bld) [#/Vol] 195 10*3/uL Normal 150-450 [facility] Comment on above: Order Comment: AJW Performed By: #### L IPASEDEBBIE, CBC #### [facility] [address] [place] [address] RBC (Bld) [#/Vol] 4.40 10*6/uL Normal 3.60-5.00 [facility] [place] Comment on above: Order Comment: AJW Performed By: #### L IPASE BMP, CBC #### [facility] [address] WBC (Bld) [#/Vol] 11.2 10*3/uL High 4.5-11.0 [facility] [place] Comment on above: Order Comment: AJW Performed By: #### L IPASE BMP, CBC #### [address] Laboratory - Chemistry and C hemistry - challengeOrdered By: Bernadette Box on 04-05-2022 Magnesium [Mass/Vol] 1.7 mg/dL 1.6-2.6 [facility] Magnesiumon 04-05-2022 Magnesium [Mass/Vol] 1.7 mg/dL Normal 1.6-2.6 [facility] Comment on above: Order Comment: AJW Result Comment: PERF ORMED BY: [place] [address] PATHOLOGIST STRETCHER LEVELER OPERATOR HELPER YUE ANDREW M.D. Performed By: #### L IPADEBBIE HERNANDEZ, CBC #### [facility] [address] [place] [address] Phosphoruson 04-05-2022 Phosphate [Mass/Vol] 2.4 mg/dL Low 2.5-4.6 [facility] Comment on above: Order Comment: AJW Performed By: #### L IPASE BMP, CBC #### [facility] [address] A1C with Estimated Average G luon 04-04-2022 Glucose [Mass/Vol] 103 mg/dL Normal [facility] Comment on above: Result Comment: PERF ORMED BY: [place] [address] PATHOLOGIST STRETCHER LEVELER OPERATOR HELPER YUE ANDREW M.D. Performed By: #### C OVID19 FLU RSV, CEPHEID NEG #### [address] HbA1c (Bld) [Mass fraction] 5.2 % Normal 4.3-5.6 [facility] Comment on above: Result Comment: Incr eased risk for diabetes: 5.7 - 6.4 diabetes: >6.4 glycemic control for adults with diabetes: <7.0 Performed By: #### C OVID19 FLU RSV, CEPHEID NEG #### [address] Albumin [Mass/volume] in Ser um or PlasmaOrdered By: Elvi Price on 04-04-2022 Albumin [Mass/Vol] 4.1 g/dL 3.2-5.5 [facility] Automated erythrocytes count in urine sediment (number/area)Ordered By: Elvi Price on 04-04-2022 RBC Auto (Urine sed) [#/Area] 1-2 [HPF] 0-4 [facility] Automated leukocytes count i n urine sediment (number/area)Ordered By: Elvi Price on 04-04-2022 WBC Auto (Urine sed) [#/Area] 10-19 [HPF] 0-4 [facility] Basic Metabolic Panelon 03-18 Anion gap [Moles/Vol] 10.4 mmol/L Normal 6.0-15.0 [facility] Comment on above: Order Comment: Comme nt add Performed By: #### C OVID19 FLU RSV, CEPHEID NEG #### [facility] [address] [place] [address] Calcium [Mass/Vol] 8.1 mg/dL Low 8.2-10.2 [facility] Comment on above: Order Comment: Comme nt add Performed By: #### C OVID19 FLU RSV, CEPHEID NEG #### [address] [place] [address] [place] Chloride [Moles/Vol] 105 mmol/L Normal 95-114 [facility] Comment on above: Order Comment: Comme nt add Performed By: #### C OVID19 FLU RSV, CEPHEID NEG #### [facility] [address] CO2 [Moles/Vol] 25.1 mmol/L Normal 22.0-30.0 [facility] Comment on above: Order Comment: Comme nt add Performed By: #### C OVID19 FLU RSV, CEPHEID NEG #### [facility] [address] [place] [address] Creatinine [Mass/Vol] 0.53 mg/dL Normal 0.44-1.03 [facility] Comment on above: Order Comment: Comme nt add Performed By: #### C OVID19 FLU RSV, CEPHEID NEG #### [facility] [address] [place] [address] [place] Creatinine Clr Calc Pharmacy [phone] [facility] Comment on above: Order Comment: Comme nt add Performed By: #### C OVID19 FLU RSV, CEPHEID NEG #### [address] Estimated GFR ( Shraddha > 60 [facility] Comment on above: Order Comment: Comme nt add Result Comment: GFR estimated reference range: According to KDOQI guidelines, <60 ml/min/1.73m2 is sufficient to diagnose a patient with chronic kidney disease. Performed By: #### C OVID19 FLU RSV, CEPHEID NEG #### [facility] [address] [place] [address] Estimated GFR (Non- Am > 60 [facility] Comment on above: Order Comment: Comme nt add Performed By: #### C OVID19 FLU RSV, CEPHEID NEG #### [facility] [address] [place] [address] Glucose [Mass/Vol] 82 mg/dL Normal 70-100 [facility] Comment on above: Order Comment: Comme nt add Result Comment: [place] om Glucose Reference Range is dependent on time and content of last meal. Glucose of more than 200 mg/dL in a nonstressed, ambulatory subject supports the diagnosis of Diabetes Mellitus. ADA recommended reference range Performed By: #### C OVID19 FLU RSV, CEPHEID NEG #### [facility] [address] Potassium [Moles/Vol] 3.5 mmol/L Normal 3.5-5.1 [facility] Comment on above: Order Comment: Comme nt add Performed By: #### C OVID19 FLU RSV, CEPHEID NEG #### [facility] [address] Sodium [Moles/Vol] 137 mmol/L Normal 136-146 [facility] Comment on above: Order Comment: Comme nt add Performed By: #### C OVID19 FLU RSV, CEPHEID NEG #### [facility] [address] Urea nitrogen [Mass/Vol] 5 mg/dL Low 9-23 [facility] Comment on above: Order Comment: Comme nt add Performed By: #### C OVID19 FLU RSV, CEPHEID NEG #### [facility] [address] Anion gap [Moles/Vol] 14.0 mmol/L Normal 6.0-15.0 [facility] Comment on above: Performed By: #### L IPASE, BMP, CBC #### [facility] [address] [place] [address] [place] Calcium [Mass/Vol] 9.0 mg/dL Normal 8.2-10.2 [facility] Comment on above: Performed By: #### L IPASE, BMP, CBC #### [facility] [address] [place] [address] [place] Chloride [Moles/Vol] 101 mmol/L Normal 95-114 [facility] Comment on above: Performed By: #### L IPASE, BMP, CBC #### [facility] [address] [place] [address] [place] CO2 [Moles/Vol] 21.3 mmol/L Low 22.0-30.0 [facility] Comment on above: Performed By: #### L IPASE, BMP, CBC #### [facility] [address] Creatinine [Mass/Vol] 0.57 mg/dL Normal 0.44-1.03 [facility] Comment on above: Performed By: #### L IPASE, BMP, CBC #### [facility] [address] [place] [address] [place] Creatinine Clr Calc Pharmacy 127.70 [facility] Comment on above: Performed By: #### L IPASE, BMP, CBC #### [facility] [address] Estimated GFR ( Shraddha > 60 [facility] Comment on above: Result Comment: GFR estimated reference range: According to KDOQI guidelines, <60 ml/min/1.73m2 is sufficient to diagnose a patient with chronic kidney disease. Performed By: #### L IPASE, BMP, CBC #### [facility] [address] Estimated GFR (Non- Am > 60 [facility] Comment on above: Performed By: #### L IPASE, BMP, CBC #### [facility] [address] Glucose [Mass/Vol] 95 mg/dL Normal 70-100 [facility] Comment on above: Result Comment: [place] Glucose Reference Range is dependent on time and content of last meal. Glucose of more than 200 mg/dL in a nonstressed, ambulatory subject supports the diagnosis of Diabetes Mellitus. ADA recommended reference range Performed By: #### L IPASE, BMP, CBC #### [facility] [address] [place] [address] [place] Potassium [Moles/Vol] 3.3 mmol/L Low 3.5-5.1 [facility] Comment on above: Performed By: #### L IPASE, BMP, CBC #### [facility] [address] Sodium [Moles/Vol] 133 mmol/L Low 136-146 [facility] Comment on above: Performed By: #### L IPASE, BMP, CBC #### [facility] [address] Urea nitrogen [Mass/Vol] 7 mg/dL Low 9- [facility] Comment on above: Performed By: #### L IPASE, BMP, CBC #### [facility] [address] Basophils Auto (Bld) [#/Vol] Ordered By: Elvi Price on 04-04-2022 Basophils (Bld) [#/Vol] 0.1 10*3/uL 0.0-0.2 [facility] Basophils/100 WBC Auto (Bld) Ordered By: Elvi Price on 04-04-2022 Basophils/100 WBC (Bld) 1.3 % . F [facility] Bilirubin Test strip Ql (U)O rdered By: Elvi Price on 04-04-2022 Bilirubin Ql (U) Negative Negative [facility] COVID CepheidOrdered By: Emory Mendez on 04-04-2022 SARS-CoV-2 (COVID-19) Ab IA Ql Negative Negative [facility] Comment on above: This is a duplicate Cepheid Xpert Xpress CoV-2/Flu/RSV Plus RNA by RT-PCR result to be used for statistical tracking purpose only. SARS-CoV-2 (COVID-19) RNA HEMA+probe Ql (Unsp spec) [facility] COVID-19 / Flu A/B / RSV PCR on 04-04-2022 SARS-CoV-2 (COVID-19) RNA HEMA+probe Ql (Unsp spec) COVID-19 Cepheid Result Negative for SARS-CoV-2 RNA by RT-PCR Flu A Cepheid Result Negative for Flu A RNA by RT-PCR Flu B Cepheid Result Negative for Flu B RNA by RT-PCR RSV Cepheid Result Negative for RSV RNA by RT-PCR COVID19 Blank Space Reference: Negative COVID19 Blank Space Cepheid Disclaimer The Cepheid Xpert Xpress CoV-2/Flu/RSV Plus has Cepheid Disclaimer not been FDA cleared or approved; this test has Cepheid Disclaimer been authorized by FDA under an EUA for use by Cepheid Disclaimer authorized laboratories; this test has been Cepheid Disclaimer authorized only for the simultaneous qualitative Cepheid Disclaimer detection and differentiation of nucleic acids from Cepheid Disclaimer SARS-CoV-2, influenza A, influenza B, and Cepheid Disclaimer respiratory syncytial virus (RSV), and not for any Cepheid Disclaimer other viruses or pathogens; and this test is only Cepheid Disclaimer authorized for the duration of the declaration that Cepheid Disclaimer circumstances exist justifying the authorization of Cepheid Disclaimer emergency use of in vitro diagnostic tests for Cepheid Disclaimer detection and/or diagnosis of COVID-19 under Cepheid Disclaimer Section 564(b)(1) of the Act, 21 U.S.C. 360bbb- Cepheid Disclaimer 3(b)(1), unless the authorization is terminated or Cepheid Disclaimer revoked sooner. PERFORMED BY: [place] [address] PATHOLOGIST STRETCHER LEVELER OPERATOR HELPER YUE ANDREW M.D. [facility] Comment on above: Performed By: #### C OVID19 FLU RSV, CEPHEID NEG #### [address] abdomen pelvis wo [facility] 1 CT abdomen pelvis wo [facility] [address] [place] [address] CT Scan Report Signed Patient: Jeannette Sweet MR#: [id number] : 1985 Acct:[id number] Age/Sex: 36 / F ADM Date: 04/04/22 Loc: Room: [address] [place] [address] Type: ADM IN Attending Dr: Bernadette Box MD Copies to: MD Bernadette Asencio MD Ordering Provider: Moy Martinez MD Date of Service: 04/04/22 CT/CT abdomen pelvis wo con: gjk CT ABDOMEN AND PELVIS WITHOUT CONTRAST COMPARISON: 11/22/2021 CLINICAL DATA: Intermittent upper abdominal pain and nausea. Spiral images were obtained through the abdomen and pelvis without contrast. This CT exam was performed using one or more following dose reduction techniques: Automated exposure control, adjustment of the mA and/or kV according to patient size, or use of iterative reconstruction technique. Limited cuts through the lung bases show no contributory findings. Evaluation of the intra-abdominal organs is slightly limited by the absence of contrast. No calcified gallstones are identified. The liver, spleen, pancreas and adrenal glands show no acute findings. There is a potential punctate right renal stone. No hydronephrosis is identified. No ureteral dilatation or stones are seen. The abdominal aorta is normal caliber. There are small lymph nodes. No ascites is present. The small bowel loops are not distended. There is air and mild stool along the colon. There is subtle levoscoliotic curvature. Images through the pelvis show no appendiceal inflammation. The small bowel loops are not dilated. There is additional mild colonic air and stool. No diverticular disease is noted. There is a T- shaped IUD. There are 2 cystic lesions within the left ovary. The larger measures 5 cm in size. The second area is approximately 3.3 cm. The urinary bladder is unremarkable. No free fluid is noted. CT/CT abdomen pelvis wo con IMPRESSION: RIGHT NEPHROLITHIASIS. NO BOWEL OR URINARY TRACT OBSTRUCTION. LEFT ADNEXAL CYSTS MEASURING UP TO 5 CM IN SIZE. Impression dictated by: Caro Ly M.D.04/04/2022 8:23 AM Dictation Location: [place] [address] Transcribed By: [facility] 04/04/22822 Dictated By: Caro Ly MD 04/04/22814 Signed By: 04/04/22822 [facility] Cepheid COVID PCR Negativeon 04-04-2022 SARS-CoV-2 (COVID-19) RNA HEMA+probe Ql (Unsp spec) Negative Normal Negative [facility] Comment on above: Result Comment: This is a duplicate CepQview Medicalid Xpert Xpress CoV-2/Flu/RSV Plus RNA by RT-PCR result to be used for statistical tracking purpose only. PERFORMED BY: [place] [address] PATHOLOGIST STRETCHER LEVELER OPERATOR HELPER YUE ANDREW M.D. Performed By: #### C OVID19 FLU RSV, CEPHEID NEG #### [address] Cholesterol [Mass/volume] in Serum or PlasmaOrdered By: Bernadette Box on 04-04-2022 Cholesterol [Mass/Vol] 167 mg/dL 140-200 [facility] Comment on above: Chol less than 200 m g/dl low riskChol 201-239 mg/dl borderline riskChol 240 mg/dl and greater high risk Cholesterol in LDL Calc [Mas s/Vol]Ordered By: Bernadette Box on 04-04-2022 Cholesterol in LDL [Mass/Vol] 91 mg/dL 0-100 [facility] Comment on above: LDL ATP III CLASSIFI CATIONLDL less than 100 mg/dL OptimalLDL 100-129 mg/dL Near or above optimalLDL 130-159 mg/dL Borderline highLDL 160-189 mg/dL HighLDL greater than 189 mg/dL Very high Cholesterol in VLDL Calc [Ma ss/Vol]Ordered By: Bernadette Box on 04-04-2022 Cholesterol in VLDL [Mass/Vol] 5 mg/dL [facility] Color Auto (U)Ordered By: Peña Price on 04-04-2022 Color (U) Yellow Yellow [facility] Complete Blood Count Auto Di ffon 04-04-2022 Basophils (Bld) [#/Vol] 0.1 10*3/uL Normal 0.0-0.2 [facility] Comment on above: Result Comment: PERF ORMED BY: [place] [address] PATHOLOGIST STRETCHER LEVELER OPERATOR HELPER YUE ANDREW M.D. Performed By: #### L IPASE, BMP, CBC #### [facility] [address] [place] [address] [place] Basophils/100 WBC (Bld) 1.3 % Normal . F [facility] Comment on above: Performed By: #### L IPASE, BMP, CBC #### [facility] [address] Eosinophils (Bld) [#/Vol] 0.2 10*3/uL Normal 0.0-0.45 [facility] Comment on above: Performed By: #### L IPASE, BMP, CBC #### [facility] [address] [place] [address] [place] Eosinophils/100 WBC (Bld) 2.4 % Normal . [facility] Comment on above: Performed By: #### L IPASE, BMP, CBC #### [address] Erythrocyte distribution width (RBC) [Ratio] 13.1 % Normal 11.9-15.3 [facility] Comment on above: Performed By: #### L IPASE, BMP, CBC #### [address] Hematocrit (Bld) [Volume fraction] 43.3 % Normal 34.0-46.4 [facility] Comment on above: Performed By: #### L IPASE, BMP, CBC #### [place] [address] [place] Hemoglobin (Bld) [Mass/Vol] 14.2 g/dL Normal 11.8-15.4 [facility] Comment on above: Performed By: #### L IPASE, BMP, CBC #### [place] [address] [place] Lymphocytes (Bld) [#/Vol] 2.4 10*3/uL Normal 1.00-4.8 [facility] Comment on above: Performed By: #### L IPASE, BMP, CBC #### [place] [address] [place] Lymphocytes/100 WBC (Bld) 24.7 % Normal . [facility] Comment on above: Performed By: #### L IPASE, BMP, CBC #### [facility] [address] MCH (RBC) [Entitic mass] 29.0 pg Normal 24.7-34.3 [facility] Comment on above: Performed By: #### L IPASE, BMP, CBC #### [facility] [address] MCV (RBC) [Entitic vol] 88.1 fL Normal 80-[address] [facility] Comment on above: Performed By: #### L IPASE, BMP, CBC #### [address] Mean Corpuscular HGB Conc 32.9 g/dL Normal 32.0-35.0 [facility] Comment on above: Performed By: #### L IPASE, BMP, CBC #### [address] Monocytes (Bld) [#/Vol] 0.9 10*3/uL High 0.0-0.8 [facility] Comment on above: Performed By: #### L IPASE, BMP, CBC #### [address] Monocytes/100 WBC (Bld) 9.4 % Normal . F [facility] Comment on above: Performed By: #### L IPASE, BMP, CBC #### [address] Neutrophils (Bld) [#/Vol] 5.9 10*3/uL Normal 1.8-7.7 [facility] Comment on above: Performed By: #### L IPASE, BMP, CBC #### [address] Neutrophils/100 WBC (Bld) 62.2 % Normal . [facility] Comment on above: Performed By: #### L IPASE, BMP, CBC #### [address] Nucleated RBC/100 WBC (Bld) [Ratio] 0.1 % Normal 0-0.5 [facility] Comment on above: Performed By: #### L IPASE, BMP, CBC #### [address] Platelet mean volume (Bld) [Entitic vol] 9.0 fL Normal 6.3-10.7 [facility] Comment on above: Performed By: #### L IPASE, BMP, CBC #### [address] Platelets (Bld) [#/Vol] 243 10*3/uL Normal 150-450 [facility] Comment on above: Performed By: #### L IPASE, BMP, CBC #### [address] RBC (Bld) [#/Vol] 4.91 10*6/uL Normal 3.60-5.00 [facility] [place] Comment on above: Performed By: #### L IPASE, BMP, CBC #### [address] WBC (Bld) [#/Vol] 9.5 10*3/uL Normal 4.5-11.0 [facility] Comment on above: Performed By: #### L IPASE, BMP, CBC #### [address] Comprehensive Metabolic Pane anderson 04-04-2022 Albumin [Mass/Vol] 4.1 g/dL Normal 3.2-5.5 [facility] Comment on above: Performed By: #### L IPASE, BMP, CBC #### [address] Albumin/Globulin [Mass ratio] 1.6 {ratio} Normal [facility] Comment on above: Performed By: #### L IPASE, BMP, CBC #### [address] ALP [Catalytic activity/Vol] 33 U/L Normal 32-92 [facility] Comment on above: Performed By: #### L IPASE, BMP, CBC #### [address] [place] [address] [place] ALT [Catalytic activity/Vol] 11 U/L Normal 10-60 [facility] Comment on above: Performed By: #### L DEBBIE BEGUM, CBC #### [facility] [address] [place] [id number] [facility] Anion gap [Moles/Vol] 14.4 mmol/L Normal 6.0-15.0 [facility] Comment on above: Performed By: #### L DEBBIE BEGUM, CBC #### [facility] [address] AST [Catalytic activity/Vol] 14 U/L Normal 10-42 [facility] Comment on above: Performed By: #### L DEBBIE BEGUM, CBC #### [facility] [address] Bilirubin [Mass/Vol] 0.8 mg/dL Normal 0.3-1.2 [facility] Comment on above: Performed By: #### L DEBBIE BEGUM, CBC #### [facility] [address] [place] [address] [place] Chloride [Moles/Vol] 102 mmol/L Normal 95-114 [facility] Comment on above: Performed By: #### L DEBBIE BEGUM, CBC #### [facility] [address] CO2 [Moles/Vol] 21.0 mmol/L Low 22.0-30.0 [facility] Comment on above: Performed By: #### L DEBBIE BEGUM, CBC #### [facility] [address] [place] [address] [place] Creatinine [Mass/Vol] 0.56 mg/dL Normal 0.44-1.03 [facility] Comment on above: Performed By: #### L DEBBIE BEGUM, CBC #### [facility] [address] [place] [address] [place] Creatinine Clr Calc Pharmacy 129.98 Normal [facility] Comment on above: Result Comment: PERF ORMED BY: [place] [address] PATHOLOGIST STRETCHER LEVELER OPERATOR HELPER YUE ANDREW M.D. Performed By: #### L IPASE, BMP, CBC #### [facility] [address] Globulin (S) [Mass/Vol] 2.5 g/dL Normal F [facility] Comment on above: Performed By: #### L IPASE, BMP, CBC #### [facility] [address] Potassium [Moles/Vol] 3.4 mmol/L Low 3.5-5.1 [facility] Comment on above: Performed By: #### L IPASE, BMP, CBC #### [facility] [address] Protein [Mass/Vol] 6.6 g/dL Normal 6.1-7.9 [facility] Comment on above: Performed By: #### L IPASE, BMP, CBC #### [facility] [address] Sodium [Moles/Vol] 134 mmol/L Low 136-146 [facility] Comment on above: Performed By: #### L IPASE, BMP, CBC #### [facility] [address] Urea nitrogen [Mass/Vol] 6 mg/dL Low 9-23 [facility] Comment on above: Performed By: #### L IPASE, BMP, CBC #### [facility] [address] Creatinine and Glomerular fi ltration rate.predicted panel (S/P/Bld)Ordered By: Elvi Price on 04-04-2022 Creatinine [Mass/Vol] 0.56 mg/dL 0.44-1.03 [facility] Dipstick and Microscopicon 1 Appearance (U) Clear Normal Clear [facility] Comment on above: Order Comment: Name Collection Type:: Clean-Voided Midstream Performed By: #### C OVID19 FLU RSV, CEPHEID NEG #### [facility] [address] [place] [address] [place] Bacteria,Urine 1+ High None Seen [facility] Comment on above: Order Comment: Name Collection Type:: Clean-Voided Midstream Performed By: #### C OVID19 FLU RSV, CEPHEID NEG #### [facility] [address] [place] [address] [place] Bilirubin,Urine Negative Normal Negative [facility] Comment on above: Order Comment: Name Collection Type:: Clean-Voided Midstream Performed By: #### C OVID19 FLU RSV, CEPHEID NEG #### [facility] [address] [place] [address] [place] Color (U) Yellow Normal Yellow [facility] Comment on above: Order Comment: Name Collection Type:: Clean-Voided Midstream Performed By: #### C OVID19 FLU RSV, CEPHEID NEG #### [facility] [address] [place] [address] [place] Glucose Ql (U) Normal Normal Normal [facility] Comment on above: Order Comment: Name Collection Type:: Clean-Voided Midstream Performed By: #### C OVID19 FLU RSV, CEPHEID NEG #### [facility] [address] [place] [address] [place] Hyaline Casts,Urine 0-8 Normal 0-8 [facility] [place] Comment on above: Order Comment: Name Collection Type:: Clean-Voided Midstream Performed By: #### C OVID19 FLU RSV, CEPHEID NEG #### [facility] [address] [place] [address] [place] Ketones Ql (U) Trace High Negative [facility] Comment on above: Order Comment: Name Collection Type:: Clean-Voided Midstream Performed By: #### C OVID19 FLU RSV, CEPHEID NEG #### [facility] [address] [place] [address] [place] Leukocyte esterase Test strip Ql (U) 3+ High Negative [facility] Comment on above: Order Comment: Name Collection Type:: Clean-Voided Midstream Performed By: #### C OVID19 FLU RSV, CEPHEID NEG #### [facility] [address] [place] [address] [place] Nitrite,Urine Negative Normal Negative [facility] Comment on above: Order Comment: Name Collection Type:: Clean-Voided Midstream Performed By: #### C OVID19 FLU RSV, CEPHEID NEG #### [address] Occult Blood,Urine Negative Normal Negative [facility] Comment on above: Order Comment: Name Collection Type:: Clean-Voided Midstream Performed By: #### C OVID19 FLU RSV, CEPHEID NEG #### [address] pH (U) 5.5 [pH] Normal 5.0-9.0 [facility] Comment on above: Order Comment: Name Collection Type:: Clean-Voided Midstream Performed By: #### C OVID19 FLU RSV, CEPHEID NEG #### [address] Protein,Urine Negative Normal Negative [facility] Comment on above: Order Comment: Name Collection Type:: Clean-Voided Midstream Performed By: #### C OVID19 FLU RSV, CEPHEID NEG #### [address] RBC,Urine 1-2 Normal 0-4 [facility] Comment on above: Order Comment: Name Collection Type:: Clean-Voided Midstream Performed By: #### C OVID19 FLU RSV, CEPHEID NEG #### [address] Specificy [place],Urine 1.007 Normal 1.001-1.030 [facility] Comment on above: Order Comment: Name Collection Type:: Clean-Voided Midstream Performed By: #### C OVID19 FLU RSV, CEPHEID NEG #### [place] [address] [place] Squamous Epithelial Cell,Urine 5-9 High 0-2 [facility] Comment on above: Order Comment: Name Collection Type:: Clean-Voided Midstream Performed By: #### C OVID19 FLU RSV, CEPHEID NEG #### [address] Urobilinogen,Urine Normal Normal Normal [facility] Comment on above: Order Comment: Name Collection Type:: Clean-Voided Midstream Performed By: #### C OVID19 FLU RSV, CEPHEID NEG #### [facility] [address] [place] [address] [place] WBC,Urine 04-05 High 0-4 [facility] Comment on above: Order Comment: Name Collection Type:: Clean-Voided Midstream Performed By: #### C OVID19 FLU RSV, CEPHEID NEG #### [facility] [address] [place] [address] [place] Eosinophils Auto (Bld) [#/Vo l]Ordered By: Elvi Price on 04-04-2022 Eosinophils (Bld) [#/Vol] 0.2 10*3/uL 0.0-0.45 [facility] Eosinophils/100 WBC Auto (Bl d)Ordered By: Elvi Price on 04-04-2022 Eosinophils/100 WBC (Bld) 2.4 % . [facility] Erythrocyte distribution wid th Auto (RBC) [Ratio]Ordered By: Elvi Price on 04-04-2022 Erythrocyte distribution width (RBC) [Ratio] 13.1 % 11.9-15.3 [facility] Estimated glomerular filtrat ion rate (GFR) non- AmericanOrdered By: Elvi Price on 04-04-2022 GFR/1.73 sq M.predicted among non-blacks MDRD (S/P/Bld) [Vol rate/Area] > 60 mL/Min [facility] Ethyl Alcohol Profileon 03-18 Ethanol [Mass/Vol] mg/dL Normal [facility] Comment on above: Performed By: #### C OVID19 FLU RSV, CEPHEID NEG #### [facility] [address] [place] [address] Percent Ethanol Not performed Normal [facility] Comment on above: Result Comment: PERF ORMED BY: [place] [address] PATHOLOGIST STRETCHER LEVELER OPERATOR HELPER YUE ANDREW M.D. Performed By: #### C OVID19 FLU RSV, CEPHEID NEG #### [facility] [address] Globulin Calc (S) [Mass/Vol] Ordered By: Elvi Price on 04-04-2022 Globulin (S) [Mass/Vol] 2.5 g/dL F [facility] Glucose mean value [Mass/vol ume] in Blood Estimated from glycated hemoglobinOrdered By: Bernadette Prajapatiomar on 04-04-2022 Average glucose Estimated from glycated hemoglobin (Bld) [Mass/Vol] 103 mg/dL [facility] HCG ( test) IA.rapi d Ql (U)Ordered By: Elvi Price on 04-04-2022 HCG ( test) Ql (U) Negative [facility] HCG,Urineon 04-04-2022 Beta HCG ( test) Ql (U) Negative Normal [facility] Comment on above: Order Comment: Name Collection Type:: Clean-Voided Midstream Result Comment: PERF ORMED BY: [place] [address] PATHOLOGIST STRETCHER LEVELER OPERATOR HELPER YUE ANDREW M.D. Performed By: #### C OVID19 FLU RSV, CEPHEID NEG #### [facility] [address] [place] [address] Hematocrit Auto (Bld) [Volum e fraction]Ordered By: Elvi Price on 04-04-2022 Hematocrit (Bld) [Volume fraction] 43.3 % 34.0-46.4 [facility] Hemoglobin A1c percentageOrd ered By: Bernadette Box on 04-04-2022 HbA1c (Bld) [Mass fraction] 5.2 % 4.3-5.6 [facility] Comment on above: Increased risk for d iabetes: 5.7 - 6.4diabetes: >6.4glycemic control for adults with diabetes: <7.0 Hemoglobin [Mass/volume] in BloodOrdered By: Elvi Price on 04-04-2022 Hemoglobin (Bld) [Mass/Vol] 14.2 g/dL 11.8-15.4 [facility] Ketones Auto test strip (U) [Mass/Vol]Ordered By: Elvi Price on 04-04-2022 Ketones (U) [Mass/Vol] Trace Negative [facility] Laboratory - Chemistry and C hemistry - challengeOrdered By: Elvi Price on 04-04-2022 Lipase [Catalytic activity/Vol] 248.0 U/L [facility] Laboratory - Hematology and Cell countsOrdered By: Elvi Price on 04-04-2022 Nucleated RBC/100 WBC (Bld) [Ratio] 0.1 % 0-0.5 [facility] Laboratory - UrinalysisOrder ed By: Elvi Price on 04-04-2022 Hyaline casts LM Ql (Urine sed) 0-8 [LPF] 0-8 [facility] Leukocytes [#/volume] in Blo od by Automated countOrdered By: Elvi Price on 04-04-2022 WBC (Bld) [#/Vol] 9.5 10*3/uL 4.5-11.0 [facility] Lipaseon 04-04-2022 Lipase [Catalytic activity/Vol] 248.0 U/L High [facility] Comment on above: Result Comment: PERF ORMED BY: [place] [address] PATHOLOGIST STRETCHER LEVELER OPERATOR HELPER YUE ANDREW M.D. Performed By: #### L IPASE, BMP, CBC #### [facility] [address] [place] [address] Lipid Panelon 04-04-2022 Cholesterol [Mass/Vol] 167 mg/dL Normal 140-200 [facility] Comment on above: Order Comment: Comme nt add Result Comment: Chol less than 200 mg/dl low risk Chol 201-239 mg/dl borderline risk Chol 240 mg/dl and greater high risk Performed By: #### C OVID19 FLU RSV, CEPHEID NEG #### [facility] [address] [place] [address] Cholesterol in HDL [Mass/Vol] 71 mg/dL Normal 35-85 [facility] Comment on above: Order Comment: Comme nt add Result Comment: HDL CHOL ATP-III CLASSIFICATION Cardiovascular Risk HDL > or equal to 60 mg/dL LOW HDL < 40 mg/dL HIGH Performed By: #### C OVID19 FLU RSV, CEPHEID NEG #### [facility] [address] Cholesterol.total/Geetha sterol in HDL [Mass ratio] 2.4 {ratio} Normal <5.0 [facility] Comment on above: Order Comment: Comme nt add Performed By: #### C OVID19 FLU RSV, CEPHEID NEG #### [address] LDL Cholesterol,Calculated 91 mg/dL Normal 0-100 [facility] Comment on above: Order Comment: Comme nt add Result Comment: LDL ATP III CLASSIFICATION LDL less than 100 mg/dL Optimal LDL 100-129 mg/dL Near or above optimal LDL 130-159 mg/dL Borderline high LDL 160-189 mg/dL High LDL greater than 189 mg/dL Very high Performed By: #### C OVID19 FLU RSV, CEPHEID NEG #### [address] Triglyceride w/Reflex 27 mg/dL Low 35-149 [facility] Comment on above: Order Comment: Comme nt add Result Comment: TRIG ATP III CLASSIFICATION TRIG less than 150 mg/dL Normal TRIG 150-199 mg/dL Borderline high TRIG 200-500 mg/dL High TRIG greater than 500 mg/dL Very high Standard traceable to the Center for Disease Conrtrol and Prevention (CDC) test method. Performed By: #### C OVID19 FLU RSV, CEPHEID NEG #### [address] VLDL CHOLESTEROL 5 mg/dL Normal [facility] Comment on above: Order Comment: Comme nt add Performed By: #### C OVID19 FLU RSV, CEPHEID NEG #### [address] Lymphocytes Auto (Bld) [#/Vo l]Ordered By: Elvi Price on 04-04-2022 Lymphocytes (Bld) [#/Vol] 2.4 10*3/uL 1.00-4.8 [facility] Lymphocytes/100 WBC Auto (Bl d)Ordered By: Elvi Price on 04-04-2022 Lymphocytes/100 WBC (Bld) 24.7 % . [facility] MCH Auto (RBC) [Entitic mass ]Ordered By: Elvi Price on 04-04-2022 MCH (RBC) [Entitic mass] 29.0 pg 24.7-34.3 [facility] MCHC Auto (RBC) [Mass/Vol]Or dered By: Elvi Price on 04-04-2022 MCHC (RBC) [Mass/Vol] 32.9 g/dL 32.0-35.0 [facility] MCV Auto (RBC) [Entitic vol] Ordered By: Elvi Price on 04-04-2022 MCV (RBC) [Entitic vol] 88.1 fL 80-[address] [facility] Magnesiumon 04-04-2022 Magnesium [Mass/Vol] 1.8 mg/dL Normal 1.6-2.6 [facility] Comment on above: Order Comment: Comme nt add Performed By: #### C OVID19 FLU RSV, CEPHEID NEG #### [facility] [address] Monocytes Auto (Bld) [#/Vol] Ordered By: Elvi Price on 04-04-2022 Monocytes (Bld) [#/Vol] 0.9 10*3/uL 0.0-0.8 [facility] Monocytes/100 WBC Auto (Bld) Ordered By: Elvi Price on 04-04-2022 Monocytes/100 WBC (Bld) 9.4 % . F [facility] Neutrophils Auto (Bld) [#/Vo l]Ordered By: Elvi Price on 04-04-2022 Neutrophils (Bld) [#/Vol] 5.9 10*3/uL 1.8-7.7 [facility] Neutrophils/100 WBC Auto (Bl d)Ordered By: Elvi Price on 04-04-2022 Neutrophils/100 WBC (Bld) 62.2 % . [facility] Nitrite Test strip Ql (U)Ord ered By: Elvi Price on 04-04-2022 Nitrite Ql (U) Negative Negative [facility] No Panel InformationOrdered By: Elvi Price on 04-04-2022 Estimated GFR () > 60 mL/Min [facility] Comment on above: GFR estimated refere nce range: According to KDOQI guidelines, <60 ml/min/1.73m2 is sufficient to diagnose a patient with chronic kidney disease. Pharmacy Creatinine Clearance (Chem 129.98 [facility] Phosphoruson 04-04-2022 Phosphate [Mass/Vol] 3.2 mg/dL Normal 2.5-4.6 [facility] Comment on above: Order Comment: Comme nt add Performed By: #### C OVID19 FLU RSV, CEPHEID NEG #### [facility] [address] Platelet mean volume Auto (B ld) [Entitic vol]Ordered By: Elvi Price on 04-04-2022 Platelet mean volume (Bld) [Entitic vol] 9.0 fL 6.3-10.7 [facility] Platelets Auto (Bld) [#/Vol] Ordered By: Elvi Price on 04-04-2022 Platelets (Bld) [#/Vol] 243 10*3/uL 150-450 [facility] Protein Auto test strip (U) [Mass/Vol]Ordered By: Elvi Price on 04-04-2022 Protein (U) [Mass/Vol] Negative Negative [facility] Protein [Mass/volume] in Ser um or PlasmaOrdered By: Elvi Price on 04-04-2022 Protein [Mass/Vol] 6.6 g/dL 6.1-7.9 [facility] RBC Auto (Bld) [#/Vol]Ordere d By: Elvi Price on 04-04-2022 RBC (Bld) [#/Vol] 4.91 10*6/uL 3.60-5.00 [facility] Serum or plasma alanine morris otransferase measurement without P-5'-P (enzymatic activiOrdered By: Elvi Price on 04-04-2022 ALT No additional P-5'-P [Catalytic activity/Vol] 11 U/L 10-60 [facility] Serum or plasma albumin/glob ulin mass ratioOrdered By: lEvi Price on 04-04-2022 Albumin/Globulin [Mass ratio] 1.6 {ratio} [facility] Serum or plasma alkaline emerita sphatase measurement (enzymatic activity/volume)Ordered By: Elvi Price on 04-04-2022 ALP [Catalytic activity/Vol] 33 U/L 32-92 [facility] Serum or plasma anion gap de terminationOrdered By: Elvi Price on 04-04-2022 Anion gap [Moles/Vol] 14.4 mmol/L 6.0-15.0 [facility] Serum or plasma aspartate am inotransferase measurement (enzymatic activity/volume)Ordered By: Elvi Price on 04-04-2022 AST [Catalytic activity/Vol] 14 U/L 10-42 [facility] Serum or plasma calcium pedro urement (mass/volume)Ordered By: Elvi Price on 04-04-2022 Calcium [Mass/Vol] 9.0 mg/dL 8.2-10.2 [facility] Serum or plasma chloride liberty surement (moles/volume)Ordered By: Elvi Price on 04-04-2022 Chloride [Moles/Vol] 102 mmol/L 95-114 [facility] Serum or plasma ethanol pedro urement (mass/volume)Ordered By: Bernadette Box on 04-04-2022 Ethanol [Mass/Vol] mg/dL [facility] Ethanol [Mass/Vol] TNP [facility] Comment on above: Test not performed Serum or plasma glucose pedro urement (mass/volume)Ordered By: Elvi Price on 04-04-2022 Glucose [Mass/Vol] 95 mg/dL 70-100 [facility] Comment on above: ADA recommended refe rence rangeRandom Glucose Reference Range is dependent on time and content of last meal. Glucose of more than 200 mg/dL in a nonstressed, ambulatory subject supports the diagnosis of Diabetes Mellitus. Serum or plasma high density lipoprotein (HDL) cholesterol measurementOrdered By: Bernadette Box on 04-04-2022 Cholesterol in HDL [Mass/Vol] 71 mg/dL 35-85 [facility] Comment on above: HDL CHOL ATP-III CLA SSIFICATION Cardiovascular RiskHDL > or equal to 60 mg/dL LOWHDL < 40 mg/dL HIGH Serum or plasma potassium me asurement (moles/volume)Ordered By: Elvi Price on 04-04-2022 Potassium [Moles/Vol] 3.4 mmol/L 3.5-5.1 [facility] Serum or plasma sodium measu rement (moles/volume)Ordered By: Elvi Price on 04-04-2022 Sodium [Moles/Vol] 134 mmol/L 136-146 [facility] Serum or plasma total biliru bin measurement (mass/volume)Ordered By: Elvi Price on 04-04-2022 Bilirubin [Mass/Vol] 0.8 mg/dL 0.3-1.2 [facility] Serum or plasma total carbon dioxide measurement (moles/volume)Ordered By: Elvi Price on 04-04-2022 CO2 [Moles/Vol] 21.0 mmol/L 22.0-30.0 [facility] Serum or plasma total choles terol/high density lipoprotein (HDL) cholesterol mass ratOrdered By: Bernadette Box on 04-04-2022 Cholesterol.total/Geetha sterol in HDL [Mass ratio] 2.4 {ratio} <5.0 [facility] Serum or plasma urea nitroge n measurement (mass/volume)Ordered By: Elvi Price on 04-04-2022 Urea nitrogen [Mass/Vol] 6 mg/dL 9-23 [facility] Specific gravity Auto test s trip (U) [Rel density]Ordered By: Elvi Price on 04-04-2022 Specific gravity (U) [Rel density] 1.007 1.001-1.030 [facility] Squamous epithelial cells de tection in urine sediment by light microscopyOrdered By: Elvi Price on 04-04-2022 Epithelial cells.squamous LM Ql (Urine sed) 5-9 [HPF] 0-2 [facility] TSH DL <= 0.005 mIU/L QnOrde red By: Bernadette Box on 04-04-2022 TSH Qn 3.44 m[IU]/L 0.45-5.33 [facility] Thyroid Stimulating Hormoneo n 04-04-2022 TSH Qn 3.44 m[IU]/L Normal 0.45-5.33 [facility] Comment on above: Order Comment: Comme nt add Result Comment: PERF ORMED BY: [place] [address] PATHOLOGIST STRETCHER LEVELER OPERATOR HELPER YUE ANDREW M.D. Performed By: #### C OVID19 FLU RSV, CEPHEID NEG #### [facility] [address] [place] [address] Triglyceride [Mass/volume] i n Serum or PlasmaOrdered By: Bernadette Box on 04-04-2022 Triglyceride [Mass/Vol] 27 mg/dL 35-[address] [facility] Comment on above: TRIG ATP III CLASSIF ICATIONTRIG less than 150 mg/dL NormalTRIG 150-199 mg/dL Borderline highTRIG 200-500 mg/dL High TRIG greater than 500 mg/dL Very highStandard traceable to the Center for Disease Conrtrol and Prevention (CDC) test method. US gall bladderon 04-04-2022 US gall bladder [facility] [place] [address] [place] [address] Ultrasound Report Signed Patient: Jeannette Sweet MR#: [id number] : 1985 Acct:[id number] Age/Sex: 36 / F ADM Date: 04/04/22 Loc: Room: [address] [place] [address] Type: ADM IN Attending Dr: Bernadette Box MD Ordering Provider: Addy Mendez Jr, MD Date of Service: 04/04/22 US/US gall bladder: upper abd pain rad to chest and back, nausea Copies to: MD Addy Novak Jr, MD LIMITED ABDOMINAL ULTRASOUND - GALLBLADDER CLINICAL HISTORY: Upper abdominal pain radiating to the chest. Nausea. COMPARISON: CT 04/04/2022 The gallbladder is physiologically distended without shadowing calculi, wall thickening or pericholecystic fluid. No intra- or extrahepatic biliary dilatation is evident. The common duct measures 2 - 3 mm. The liver and pancreas show no significant sonographic abnormality. Limited imaging of the right kidney shows no hydronephrosis or perinephric fluid. US/US gall bladder IMPRESSION: NO GALLBLADDER PATHOLOGY OR OTHER ACUTE RIGHT UPPER QUADRANT FINDINGS. Impression dictated by: Caro Ly M.D.04/04/2022 8:40 AM Dictation Location: [place] [address] Tech: Olivia Escamilla Transcribed By: [facility] 04/04/22839 Dictated By: Caro Ly MD 04/04/22822 Signed By: 04/04/22839 [facility] Urine Cultureon 04-04-2022 Bacteria identified Cx Nom (U) 25,000 colonies/ml mixed bacterial skin contaminants 2 Days PERFORMED BY: [place] [address] PATHOLOGIST STRETCHER LEVELER OPERATOR HELPER YUE ANDREW M.D. [facility] Comment on above: Performed By: #### C OVID19 FLU RSV, CEPHEID NEG #### [address] Urine bacteria detection by automated methodOrdered By: Elvi Price on 04-04-2022 Bacteria Auto Ql (U) 1+ None Seen [facility] Urine clarity by refractomet ry automatedOrdered By: Elvi Price on 04-04-2022 Clarity Refractometry automated (U) Clear Clear [facility] Urine glucose measurement by automated test strip (mass/volume)Ordered By: Elvi Price on 04-04-2022 Glucose Auto test strip (U) [Mass/Vol] Normal mg/dL Normal [facility] Urine hemoglobin detection b y automated test stripOrdered By: Elvi Price on 04-04-2022 Hemoglobin Auto test strip Ql (U) Negative Negative [facility] Urine leukocyte esterase det ection by automated test stripOrdered By: Elvi Price on 04-04-2022 Leukocyte esterase Auto test strip Ql (U) 3+ Negative [facility] Urobilinogen Auto test strip (U) [Mass/Vol]Ordered By: Elvi Price on 04-04-2022 Urobilinogen (U) [Mass/Vol] Normal mg/dL Normal [facility] pH Auto test strip (U)Ordere d By: Eliv Price on 04-04-2022 pH (U) 5.5 [pH] 5.0-9.0 [facility] Complete Blood Count Auto Di ffon 11-24-2021 Basophils (Bld) [#/Vol] 0.0 10*3/uL Normal 0.0-0.2 [facility] Comment on above: Result Comment: PERF ORMED BY: [place] [address] PATHOLOGIST STRETCHER LEVELER OPERATOR HELPER YUE ANDREW M.D. Performed By: #### L IPASE, BMP, CBC #### [facility] [address] [place] [address] [place] Basophils/100 WBC (Bld) 0.6 % Normal . F [facility] Comment on above: Performed By: #### L IPASE, BMP, CBC #### [facility] [address] [place] [address] [place] Eosinophils (Bld) [#/Vol] 0.2 10*3/uL Normal 0.0-0.45 [facility] Comment on above: Performed By: #### L IPASE, BMP, CBC #### [facility] [address] [place] [address] [place] Eosinophils/100 WBC (Bld) 3.3 % Normal . [facility] Comment on above: Performed By: #### L IPASE, BMP, CBC #### [facility] [address] [place] [address] [place] Erythrocyte distribution width (RBC) [Ratio] 12.5 % Normal 11.9-15.3 [facility] Comment on above: Performed By: #### L IPASE, BMP, CBC #### [facility] [address] [place] [address] [place] Hematocrit (Bld) [Volume fraction] 38.6 % Normal 34.0-46.4 [facility] Comment on above: Performed By: #### L IPASE, BMP, CBC #### [facility] [address] [place] [address] [place] Hemoglobin (Bld) [Mass/Vol] 12.8 g/dL Normal 11.8-15.4 [facility] Comment on above: Performed By: #### L IPASE, BMP, CBC #### [facility] [address] [place] [address] [place] Lymphocytes (Bld) [#/Vol] 2.9 10*3/uL Normal 1.00-4.8 [facility] Comment on above: Performed By: #### L IPASE, BMP, CBC #### [facility] [address] Lymphocytes/100 WBC (Bld) 42.9 % Normal . [facility] Comment on above: Performed By: #### L IPASE, BMP, CBC #### [facility] [address] MCH (RBC) [Entitic mass] 29.8 pg Normal 24.7-34.3 [facility] Comment on above: Performed By: #### L IPASE, BMP, CBC #### [address] MCV (RBC) [Entitic vol] 89.6 fL Normal 80-[address] [facility] Comment on above: Performed By: #### L IPASE, BMP, CBC #### [address] Mean Corpuscular HGB Conc 33.3 g/dL Normal 32.0-35.0 [facility] Comment on above: Performed By: #### L IPASE, BMP, CBC #### [place] [address] [place] Monocytes (Bld) [#/Vol] 0.6 10*3/uL Normal 0.0-0.8 [facility] Comment on above: Performed By: #### L IPASE, BMP, CBC #### [place] [address] [place] Monocytes/100 WBC (Bld) 9.5 % Normal . F [facility] Comment on above: Performed By: #### L IPASE, BMP, CBC #### [address] Neutrophils (Bld) [#/Vol] 2.9 10*3/uL Normal 1.8-7.7 [facility] Comment on above: Performed By: #### L IPASE, BMP, CBC #### [address] Neutrophils/100 WBC (Bld) 43.7 % Normal . [facility] Comment on above: Performed By: #### L IPASE, BMP, CBC #### [address] Nucleated RBC/100 WBC (Bld) [Ratio] 0.1 % Normal 0-0.5 [facility] Comment on above: Performed By: #### L IPASE, BMP, CBC #### [address] Platelet mean volume (Bld) [Entitic vol] 9.2 fL Normal 6.3-10.7 [facility] Comment on above: Performed By: #### L IPASE, BMP, CBC #### [address] Platelets (Bld) [#/Vol] 218 10*3/uL Normal 150-450 [facility] Comment on above: Performed By: #### L IPASE, BMP, CBC #### [address] RBC (Bld) [#/Vol] 4.30 10*6/uL Normal 3.60-5.00 [facility] Comment on above: Performed By: #### L IPASE, BMP, CBC #### [address] WBC (Bld) [#/Vol] 6.7 10*3/uL Normal 4.5-11.0 [facility] Comment on above: Performed By: #### L IPASE, BMP, CBC #### [address] [place] 11-24-2021 L - -------- Specimen: [id number] Received: 11/25/21 Status: BRIAN Mauriceosman Num: [id number] Spec Type: Surgical Subm Dr: JEOVANY DAY DO Tissues: A Ovary W/ or W/O Fallopian Tube, Non-Neoplastic (RT TUBE/OVARY) Procedures: HE Stain/6, Gross/Micro L4 -------- Patient Age/Sex Location Account Attending Physician -------- Jeannette Sweet 36/F 3S [id number] Paramjit Yin DO -------- SPEC NUM: [id number] RECD: 11/25/21 STATUS: MARIA INESBtehany HODGE NUM: [id number] FLAVIA: 11/24/21- [facility] DR: JEOVANY DAY DO ENTERED: 11/25/[address]: SPEC TYPE: Surgical DEPT: S ORDERED: HE Stain/6, Gross/Micro L4 ORDERED: HE Stain/6, Gross/Micro L4 Pathological Diagnosis Right fallopian tube and right ovary, right salpingo-oophorectomy : - Right ovarian tissue with functional cysts. - Right fallopian tubes with no significant histopathology. Clinical Information Right ovarian cyst Gross Description Received in formalin labeled with the patient's name, number and right tube and right ovary is a 6.5 cm in length x 0.9 cm in diameter fimbriated fallopian tube. The fallopian tube serosa is julian-pink and smooth. Sectioning of the fallopian tube reveals a stellate lumen lined by julian-pink, soft mucosa. Also received within the specimen container are two fragments of julian-white, lobulated, ragged and rubbery tissue that measure 4.7 cm and 9.3 cm. Sectioning reveals julian, rubbery, solid and cystic cut surfaces with evidence of corpus lutea. No internal papillary or nodular excrescences are grossly identified. Tube Station Attendant sections are submitted in 6 cassettes as follows: A1-A2 - Tube Station Attendant sections of fallopian tube A3-A6 - Tube Station Attendant sections of collapsed disrupted ovary Type of Fixative: 10% Neutral Buffered Formalin (SM/YJ) -------- Specimen: [id number] Received: 11/25/21 Status: BRIAN Naveen Num: [id number] Spec Type: Surgical Subm Dr: JEOVANY DAY DO Tissues: A Ovary W/ or W/O Fallopian Tube, Non-Neoplastic (RT TUBE/OVARY) Procedures: HE Stain/6, Gross/Micro L4 -------- Patient: Jeannette Sweet [id number] (Continued) -------- Specimen: [id number] Received: 11/25/21 (Continued) Signed (signature on file) Tito Urena MD 11/28/21 1416 -------- Specimen: [id number] Received: 11/25/21 Status: BRIAN Hodge Num: [id number] Spec Type: Surgical Subm Dr: JEOVANY DAY DO Tissues: A Ovary W/ or W/O Fallopian Tube, Non-Neoplastic (RT TUBE/OVARY) Procedures: HE Stain/6, Gross/Micro L4 -------- Patient: Jeannette Sweet [id number] (Continued) -------- Specimen: [id number] Received: 11/25/21 (Continued) Microscopic Description Six H E stained slides are reviewed. Microscopic examination is performed. This case is interpreted at [place], [place]. CPT Codes 53030 -------- -------- Specimen: [id number] Received: 11/25/21 Status: BRIAN Hodge Num: [id number] Spec Type: Surgical Subm Dr: JEOVANY DAY DO Tissues: A Ovary W/ or W/O Fallopian Tube, Non-Neoplastic (RT TUBE/OVARY) Procedures: HE Stain/6, Gross/Micro L4 -------- Patient: Jeannette Sweet [id number] (Continued) -------- Signed (signature on file) Tito Urena MD 11/28/21 1416 [facility] COVID-19 Antigenon 2 COVID-19 Antigen Healthcare Worker?: N Reference Range: Negative Negative results, from patients with symptom onset beyond five days, should be treated as presumptive and confirmation with a molecular assay, if necessary, for patient management, may be performed. Negative results do not rule out COVID-19 and should not be used as the sole basis for treatment or patient management decisions, including infection control decisions. Negative results should be considered in the context of a patient's recent exposures, history and the presence of clinical signs and symptoms consistent with COVID-19. The Yue SARS Antigen MAGED does not differentiate between SARS-CoV and SARS-CoV-2. This test was developed and its performance characteristic determined by [employer] and validated at [facility]. This test has not been FDA cleared or approved. This test has been authorized by FDA under an Emergency Use Authorization (EUA). This test has been validated in accordance with the FDA's Guidance Document (Policy for Diagnostics Testing in Laboratories Certified to Perform High Complexity Testing under CLIA prior to Emergency Use Authorization for Coronavirus Disease-2019 during the Public Health Emergency) issued on September 18, 2019. This test is only authorized for the duration of time the declaration that circumstances exist justifying the authorization of the emergency use of in vitro diagnostic tests for detection of SARS-CoV-2 virus and/or diagnosis of COVID-19 infection under section 564(b)(1) of the Act, 21 U.S.C. 360bbb-3(b)(1), unless the authorization is terminated or revoked sooner. SARS-CoV+SARS-CoV-2 (COVID-19) Ag [Presence] in Respiratory specimen by Rapid immunoassay Negative for SARS Antigen by MAGED PERFORMED BY: [address] [place] [id number] PATHOLOGIST STRETCHER LEVELER OPERATOR HELPER YUE ANDREW M.D. Normal [facility] Comment on above: Performed By: #### L IPASE, BMP, CBC #### [facility] [address] [place], [place] [id number] [facility] COVID-19 FRMCon 11-23-2021 SARS-CoV-2 (COVID-19) RNA HEMA+probe Ql (Unsp spec) Negative Normal Negative [facility] Comment on above: Order Comment: Healt hcare Worker?: N Result Comment: Testing for SARS-CoV-2 by RT-PCR This test was developed and its performance characteristics determined by [employer] and validated at the [facility]. This test has not been FDA cleared or approved. This test has been authorized by FDA under an Emergency Use Authorization (EUA). This test has been validated in accordance with the FDA's Guidance Document (Policy for Diagnostics Testing in Laboratories Certified to Perform High Complexity Testing under CLIA prior to Emergency Use Authorization for Coronavirus Disease-2019 during the Public Health Emergency) issued on September 18, 2019. This test is only authorized for the duration of time the declaration that circumstances exist justifying the authorization of the emergency use of in vitro diagnostic tests for detection of SARS-CoV-2 virus and/or diagnosis of COVID-19 infection under section 564(b)(1) of the Act, 21 U.S.C. 360bbb-3(b)(1), unless the authorization is terminated or revoked sooner. PERFORMED BY: [address] [place] [id number] PATHOLOGIST STRETCHER LEVELER OPERATOR HELPER YUE ANDREW M.D. Performed By: #### L IPADEBBIE HERNANDEZ, CBC #### [facility] [address] [place], [place] [id number] [facility] Complete Blood Count Auto Di ffon 11-23-2021 Basophils (Bld) [#/Vol] 0.1 10*3/uL Normal 0.0-0.2 [facility] Comment on above: Result Comment: PERF ORMED BY: [place] [address] PATHOLOGIST STRETCHER LEVELER OPERATOR HELPER YUE ANDREW M.D. Performed By: #### L IPASE, BMP, CBC #### [address] Basophils/100 WBC (Bld) 0.8 % Normal . F [facility] Comment on above: Performed By: #### L IPASE, BMP, CBC #### [address] Eosinophils (Bld) [#/Vol] 0.1 10*3/uL Normal 0.0-0.45 [facility] Comment on above: Performed By: #### L IPASE, BMP, CBC #### [address] Eosinophils/100 WBC (Bld) 0.9 % Normal . [facility] Comment on above: Performed By: #### L IPASE, BMP, CBC #### [address] Erythrocyte distribution width (RBC) [Ratio] 12.6 % Normal 11.9-15.3 [facility] Comment on above: Performed By: #### L IPASE, BMP, CBC #### [address] Hematocrit (Bld) [Volume fraction] 41.3 % Normal 34.0-46.4 [facility] Comment on above: Performed By: #### L IPASE, BMP, CBC #### [address] Hemoglobin (Bld) [Mass/Vol] 13.7 g/dL Normal 11.8-15.4 [facility] Comment on above: Performed By: #### L IPASE, BMP, CBC #### [address] Lymphocytes (Bld) [#/Vol] 1.4 10*3/uL Normal 1.00-4.8 [facility] Comment on above: Performed By: #### L IPASE, BMP, CBC #### [facility] [address] Lymphocytes/100 WBC (Bld) 15.0 % Normal . [facility] Comment on above: Performed By: #### L IPASE, BMP, CBC #### [facility] [address] [place] [address] [place] MCH (RBC) [Entitic mass] 29.8 pg Normal 24.7-34.3 [facility] Comment on above: Performed By: #### L IPASE, BMP, CBC #### [facility] [address] MCV (RBC) [Entitic vol] 89.8 fL Normal 80-[address] [facility] Comment on above: Performed By: #### L IPASE, BMP, CBC #### [address] Mean Corpuscular HGB Conc 33.2 g/dL Normal 32.0-35.0 [facility] Comment on above: Performed By: #### L IPASE, BMP, CBC #### [place] [address] [place] Monocytes (Bld) [#/Vol] 0.4 10*3/uL Normal 0.0-0.8 [facility] Comment on above: Performed By: #### L IPASE, BMP, CBC #### [place] [address] [place] Monocytes/100 WBC (Bld) 4.7 % Normal . F [facility] Comment on above: Performed By: #### L IPASE, BMP, CBC #### [facility] [address] [place] [address] [place] Neutrophils (Bld) [#/Vol] 7.3 10*3/uL Normal 1.8-7.7 [facility] Comment on above: Performed By: #### L IPASE, BMP, CBC #### [place] [address] [place] Neutrophils/100 WBC (Bld) 78.6 % Normal . [facility] Comment on above: Performed By: #### L IPASE, BMP, CBC #### [address] Nucleated RBC/100 WBC (Bld) [Ratio] 0.1 % Normal 0-0.5 [facility] Comment on above: Performed By: #### L IPASE, BMP, CBC #### [address] Platelet mean volume (Bld) [Entitic vol] 9.0 fL Normal 6.3-10.7 [facility] Comment on above: Performed By: #### L IPASE, BMP, CBC #### [address] Platelets (Bld) [#/Vol] 244 10*3/uL Normal 150-450 [facility] Comment on above: Performed By: #### L IPASE, BMP, CBC #### [address] RBC (Bld) [#/Vol] 4.60 10*6/uL Normal 3.60-5.00 [facility] Comment on above: Performed By: #### L IPASE, BMP, CBC #### [address] WBC (Bld) [#/Vol] 9.3 10*3/uL Normal 4.5-11.0 [facility] Comment on above: Performed By: #### L IPASE, BMP, CBC #### [address] Comprehensive Metabolic Pane anderson 11-23-2021 Albumin [Mass/Vol] 4.0 g/dL Normal 3.2-5.5 [facility] Comment on above: Performed By: #### L IPASE, BMP, CBC #### [address] Albumin/Globulin [Mass ratio] 1.6 {ratio} Normal [facility] Comment on above: Performed By: #### L IPASE, BMP, CBC #### [address] ALP [Catalytic activity/Vol] 37 U/L Normal 32-92 [facility] Comment on above: Performed By: #### L IPASE BMP, CBC #### [facility] [address] ALT [Catalytic activity/Vol] 12 U/L Normal 10-60 [facility] Comment on above: Performed By: #### L IPASE BMP, CBC #### [facility] [address] AST [Catalytic activity/Vol] 14 U/L Normal 10-42 [facility] Comment on above: Performed By: #### L IPASE BMP, CBC #### [facility] [address] Bilirubin [Mass/Vol] 0.5 mg/dL Normal 0.3-1.2 [facility] Comment on above: Performed By: #### L IPASE BMP, CBC #### [facility] [address] [place] [address] Calcium [Mass/Vol] 9.0 mg/dL Normal 8.2-10.2 [facility] Comment on above: Performed By: #### L IPASE BMP, CBC #### [facility] [address] [place] [address] Chloride [Moles/Vol] 100 mmol/L Normal 95-114 [facility] Comment on above: Performed By: #### L IPASE BMP, CBC #### [facility] [address] [place] [address] CO2 [Moles/Vol] 23.6 mmol/L Normal 22.0-30.0 [facility] Comment on above: Performed By: #### L IPASE BMP, CBC #### [facility] [address] [place] [address] [place] Creatinine [Mass/Vol] 0.58 mg/dL Normal 0.44-1.03 [facility] Comment on above: Performed By: #### L IPASE, BMP, CBC #### [facility] [address] [place] [address] [place] Creatinine Clr Calc Pharmacy 114.68 [facility] Comment on above: Result Comment: PERF ORMED BY: [place] [address] PATHOLOGIST STRETCHER LEVELER OPERATOR HELPER YUE ANDREW M.D. Performed By: #### L IPASE, BMP, CBC #### [address] Estimated GFR ( Shraddha > 60 [facility] Comment on above: Result Comment: GFR estimated reference range: According to KDOQI guidelines, <60 ml/min/1.73m2 is sufficient to diagnose a patient with chronic kidney disease. Performed By: #### L IPASE, BMP, CBC #### [address] Estimated GFR (Non- Am > 60 [facility] Comment on above: Performed By: #### L IPASE, BMP, CBC #### [address] Globulin (S) [Mass/Vol] 2.5 g/dL Normal [facility] Comment on above: Performed By: #### L IPASE, BMP, CBC #### [address] Glucose [Mass/Vol] 97 mg/dL Normal 70-100 [facility] Comment on above: Result Comment: [place] Glucose Reference Range is dependent on time and content of last meal. Glucose of more than 200 mg/dL in a nonstressed, ambulatory subject supports the diagnosis of Diabetes Mellitus. ADA recommended reference range Performed By: #### L IPASE, BMP, CBC #### [facility] [address] [place] [address] Potassium [Moles/Vol] 3.7 mmol/L Normal 3.5-5.1 [facility] Comment on above: Performed By: #### L IPASE, BMP, CBC #### [facility] [address] [place] [address] Protein [Mass/Vol] 6.5 g/dL Normal 6.1-7.9 [facility] Comment on above: Performed By: #### L IPASE, BMP, CBC #### [facility] [address] Sodium [Moles/Vol] 136 mmol/L Normal 136-146 [facility] Comment on above: Performed By: #### L IPASE, BMP, CBC #### [facility] [address] Urea nitrogen [Mass/Vol] 12 mg/dL Normal 9-23 [facility] Comment on above: Performed By: #### L IPASE, BMP, CBC #### [facility] [address] Yue Ag Negativeon 11-24-19 Yue Ag Negative Negative Normal Negative [facility] Comment on above: Result Comment: This is a duplicate Yue SARS Antigen (MAGED) result to be used for statistical tracking purpose only. PERFORMED BY: [place] [address] PATHOLOGIST STRETCHER LEVELER OPERATOR HELPER YUE ANDREW M.D. Performed By: #### L IPASE, BMP, CBC #### [address] US transvaginalon 11-23-2021 US transvaginal [facility] [place] [address] [place] [address] Ultrasound Report Signed Patient: Jeannette Sweet MR#: [id number] : 1985 Acct:[id number] Age/Sex: 36 / F ADM Date: 11/23/21 Loc: Room: [address] [place] [address] Type: ADM IN Attending Dr: Paramjit Yin DO Ordering Provider: Addy Mendez Jr, MD Date of Service: 11/23/21 US/US pelvic complete: R ovar cyst, intermittent severe pain r/o torsion ([id number]) US/US transvaginal: RT PELVIC PAIN Copies to: DO Addy Gage Jr, MD Transvesical and endovaginal pelvic ultrasound 11/23/2021. CLINICAL DATA: Right pelvic pain. TRANSVESICAL FINDINGS: The urinary bladder is not optimally distended and evaluation of the pelvic contents is limited. ENDOVAGINAL FINDINGS: Duplex endovaginal sonography was performed to better visualize the uterus and adnexal regions. The uterus measures 7.9 x 3.6 x 5.2 cm in longitudinal, AP, and transverse dimensions. No uterine mass is identified. There is an intrauterine device. Endometrial stripe thickness measures up to 5 mm. No fluid is seen in the endometrial canal. The right and left ovaries measure 8.6 x 4.4 x 5.6 cm and 3.8 x 2.1 x 2.3 cm, respectively. The measurement on the right includes two ovarian cysts measuring 5.1 x 3.9 x 4.8 cm and 3.8 x 3.1 x 3.4 cm. Color Doppler and spectral waveform analysis reveal bilateral ovarian perfusion. There is a small amount of free fluid in the right adnexal region. US/US pelvic complete IMPRESSION: 1. Intrauterine device. 2. Two large right ovarian cysts for which follow-up imaging is suggested. 3. No evidence of ovarian torsion. 4. Small amount of free fluid in the right adnexal region. Impression dictated by: Paramjit Melendez Jr., M.D.11/23/2021 9:46 AM Dictation Location: [place] [address] Tech: Olivia Escamilla Transcribed By: FRANSICO 11/23/21945 Dictated By: Paramjit Melendez Jr, MD 11/23/21937 Signed By: 11/23/2146 [facility] CT abdomen pelvis w keke CT abdomen pelvis w [facility] [address] CT Scan Report Signed Patient: Jeannette Sweet MR#: [id number] : 1985 Acct:[id number] Age/Sex: 36 / F ADM Date: 11/22/21 Loc: ER Room: Type: [facility] ER Attending Dr: Ordering Provider: Gianni Yanez APRN Date of Service: 11/22/21 CT/CT abdomen pelvis w con: Abdominal Pain Copies to: Gianni Yanez APRN CT abdomen and pelvis 11/22/2021. CLINICAL DATA: Lower abdominal pain. TECHNIQUE: CT of the abdomen and pelvis was performed with intravenous contrast. Axial, sagittal, and coronal reconstructions were created and reviewed. This CT exam was performed using one or more of the following dose reduction techniques: Automated exposure control, adjustment of the mA and/or kV according to patient size, or use of iterative reconstruction technique. COMPARISON: None. FINDINGS: Images of the lower chest are unremarkable. There are a few small low attenuation liver lesions consistent with cysts. The spleen, pancreas, right and left kidneys, and both adrenal glands appear unremarkable. There is no biliary dilatation. The urinary bladder appears unremarkable. There is an intrauterine device. There are 5.3 cm and 3.9 cm cysts in the pelvis posteriorly. These findings probably arise from the right ovary. No acute intestinal abnormality is identified. The appendix appears unremarkable. No free intra-abdominal air or ascites is seen. No abdominal wall abnormality is noted. CT/CT abdomen pelvis w con IMPRESSION: 1. Small hepatic cysts. 2. Large cysts in the pelvis posteriorly, likely arising from the right ovary. 3. Intrauterine device. Impression dictated by: Paramjit Melendez Jr., M.D.11/22/2021 11:02 AM Dictation Location: [place] [address] Transcribed By: [facility] 11/22/21 1102 Dictated By: Paramjit Melendez Jr, MD 11/22/21 1053 Signed By: 11/22/21 1102 [facility] Comprehensive Metabolic Pane anderson 11-22-2021 Alanine Aminotransferase Normal 10-60 [facility] Comment on above: Result Comment: Spec imen hemolyzed, redraw requested Performed By: #### L IPASE, HEPATIC, CMP, SCAN CBC #### [facility] [address] [place] [address] [place] Albumin [Mass/Vol] 4.3 g/dL Normal 3.2-5.5 [facility] Comment on above: Performed By: #### L IPASE, HEPATIC, CMP, SCAN CBC #### [facility] [address] Albumin/Globulin [Mass ratio] 2.0 {ratio} [facility] Comment on above: Performed By: #### L IPASE, HEPATIC, CMP, SCAN CBC #### [facility] [address] Alkaline Phosphatase Normal 32-92 [facility] Comment on above: Result Comment: Spec imen hemolyzed, redraw requested Performed By: #### L IPASE, HEPATIC, CMP, SCAN CBC #### [facility] [address] [place] [address] Aspartate Amino Transferase Normal 10-42 [facility] Comment on above: Result Comment: Spec imen hemolyzed, redraw requested Performed By: #### L IPASE, HEPATIC, CMP, SCAN CBC #### [facility] [address] [place] [address] Bilirubin,Total Normal 0.3-1.2 [facility] Comment on above: Result Comment: Spec imen hemolyzed, redraw requested Performed By: #### L IPASE, HEPATIC, CMP, SCAN CBC #### [facility] [address] [place] [address] Calcium [Mass/Vol] 8.9 mg/dL Normal 8.2-10.2 [facility] Comment on above: Performed By: #### L IPASE, HEPATIC, CMP, SCAN CBC #### [facility] [address] [place] [address] Chloride [Moles/Vol] 101 mmol/L Normal 95-114 [facility] Comment on above: Performed By: #### L IPASE, HEPATIC, CMP, SCAN CBC #### [facility] [address] [place] [address] [place] CO2 [Moles/Vol] 22.6 mmol/L Normal 22.0-30.0 [facility] Comment on above: Performed By: #### L IPASE, HEPATIC, CMP, SCAN CBC #### [facility] [address] [place] [address] [place] Creatinine [Mass/Vol] 0.60 mg/dL Normal 0.44-1.03 [facility] Comment on above: Performed By: #### L IPASE, HEPATIC, CMP, SCAN CBC #### [facility] [address] [place] [address] [place] Creatinine Clr Calc Pharmacy 110.86 [facility] Comment on above: Performed By: #### L IPASE, HEPATIC, CMP, SCAN CBC #### [facility] [address] Estimated GFR ( Shraddha > 60 [facility] Comment on above: Result Comment: GFR estimated reference range: According to KDOQI guidelines, <60 ml/min/1.73m2 is sufficient to diagnose a patient with chronic kidney disease. Performed By: #### L IPASE, HEPATIC, CMP, SCAN CBC #### [facility] [address] Estimated GFR (Non- Am > 60 [facility] Comment on above: Performed By: #### L IPASE, HEPATIC, CMP, SCAN CBC #### [facility] [address] Globulin (S) [Mass/Vol] 2.2 g/dL Normal F [facility] Comment on above: Performed By: #### L IPASE, HEPATIC, CMP, SCAN CBC #### [address] Glucose [Mass/Vol] 84 mg/dL Normal 70-100 [facility] Comment on above: Result Comment: [place] Glucose Reference Range is dependent on time and content of last meal. Glucose of more than 200 mg/dL in a nonstressed, ambulatory subject supports the diagnosis of Diabetes Mellitus. ADA recommended reference range Performed By: #### L IPASE, HEPATIC, CMP, SCAN CBC #### [facility] [address] [place] [address] Potassium Normal 3.5-5.1 [facility] Comment on above: Result Comment: Spec imen hemolyzed, redraw requested Performed By: #### L IPASE, HEPATIC, CMP, SCAN CBC #### [facility] [address] [place] [address] Protein [Mass/Vol] 6.5 g/dL Normal 6.1-7.9 [facility] Comment on above: Performed By: #### L IPASE, HEPATIC, CMP, SCAN CBC #### [facility] [address] [place] [address] [place] Sodium [Moles/Vol] 135 mmol/L Low 136-146 [facility] Comment on above: Performed By: #### L IPASE, HEPATIC, CMP, SCAN CBC #### [facility] [address] Urea nitrogen [Mass/Vol] 13 mg/dL Normal - [facility] Comment on above: Performed By: #### L IPASE, HEPATIC, CMP, SCAN CBC #### [facility] [address] [place] [address] [place] Dipstick and Microscopicon 0 11-22-2021 Appearance (U) Cloudy Critically abnormal Clear [facility] Comment on above: Order Comment: Name Collection Type:: Clean-Voided Midstream Performed By: #### C OVID19 FLU RSV, CEPHEID NEG #### [place] [address] [place] Bacteria,Urine 3+ High None Seen [facility] Comment on above: Order Comment: Name Collection Type:: Clean-Voided Midstream Performed By: #### C OVID19 FLU RSV, CEPHEID NEG #### [place] [address] [place] Bilirubin,Urine Negative Normal Negative [facility] Comment on above: Order Comment: Name Collection Type:: Clean-Voided Midstream Performed By: #### C OVID19 FLU RSV, CEPHEID NEG #### [place] [address] [place] Color (U) Yellow Normal Yellow [facility] Comment on above: Order Comment: Name Collection Type:: Clean-Voided Midstream Performed By: #### C OVID19 FLU RSV, CEPHEID NEG #### [place] [address] [place] Glucose Ql (U) Normal Normal Normal [facility] Comment on above: Order Comment: Name Collection Type:: Clean-Voided Midstream Performed By: #### C OVID19 FLU RSV, CEPHEID NEG #### [place] [address] [place] Ketones Ql (U) Trace High Negative [facility] Comment on above: Order Comment: Name Collection Type:: Clean-Voided Midstream Performed By: #### C OVID19 FLU RSV, CEPHEID NEG #### [address] Leukocyte esterase Test strip Ql (U) 4+ High Negative [facility] Comment on above: Order Comment: Name Collection Type:: Clean-Voided Midstream Performed By: #### C OVID19 FLU RSV, CEPHEID NEG #### [address] Nitrite,Urine Negative Normal Negative [facility] Comment on above: Order Comment: Name Collection Type:: Clean-Voided Midstream Performed By: #### C OVID19 FLU RSV, CEPHEID NEG #### [address] Occult Blood,Urine 1+ High Negative [facility] Comment on above: Order Comment: Name Collection Type:: Clean-Voided Midstream Performed By: #### C OVID19 FLU RSV, CEPHEID NEG #### [address] pH (U) 6.5 [pH] Normal 5.0-9.0 [facility] Comment on above: Order Comment: Name Collection Type:: Clean-Voided Midstream Performed By: #### C OVID19 FLU RSV, CEPHEID NEG #### [facility] [address] [place] [address] [place] Protein (U) [Mass/Vol] 30 mg/dL High Negative [facility] Comment on above: Order Comment: Name Collection Type:: Clean-Voided Midstream Performed By: #### C OVID19 FLU RSV, CEPHEID NEG #### [place] [address] [place] RBC,Urine 5-9 High 0-4 [facility] Comment on above: Order Comment: Name Collection Type:: Clean-Voided Midstream Performed By: #### C OVID19 FLU RSV, CEPHEID NEG #### [address] [address] [place] Specificy Vaughn,Urine 1.024 Normal 1.001-1.030 [facility] Comment on above: Order Comment: Name Collection Type:: Clean-Voided Midstream Performed By: #### C OVID19 FLU RSV, CEPHEID NEG #### [facility] [address] [place] [address] Squamous Epithelial Cell,Urine 5-9 High 0-2 [facility] Comment on above: Order Comment: Name Collection Type:: Clean-Voided Midstream Performed By: #### C OVID19 FLU RSV, CEPHEID NEG #### [facility] [address] [place] [address] Urobilinogen,Urine Normal Normal Normal [facility] Comment on above: Order Comment: Name Collection Type:: Clean-Voided Midstream Performed By: #### C OVID19 FLU RSV, CEPHEID NEG #### [facility] [address] [place] [address] WBC,Urine Innumerable High 0-4 [facility] Comment on above: Order Comment: Name Collection Type:: Clean-Voided Midstream Performed By: #### C OVID19 FLU RSV, CEPHEID NEG #### [facility] [address] [place] [address] ECG 12 lead ECGon 11-22-2021 ECG 12 lead ECG [facility] [place] [address] [place] [address] Electrocardiograph Report Signed Patient: Jeannette Sweet MR#: [id number] : 1985 Acct:[id number] Age/Sex: 36 / F ADM Date: 11/22/21 Loc: ER Room: Type: [facility] ER Attending Dr: Ordering Provider: Gianni Yaenz APRN Date of Service: 11/22/2101/07/928 ECG/ECG 12 lead ECG: Abdominal Pain Copies to: Test Reason : Blood Pressure : 118/069 mmHG Vent. Rate : 059 BPM Atrial Rate : 062 BPM P-R Int : 000 ms QRS Dur : 088 ms QT Int : 450 ms P-R-T Axes : 000 077 073 degrees QTc Int : 445 ms Junctional rhythm Abnormal ECG No previous ECGs available Confirmed by Farooq Moses DO ([id number]) on 11/22/2021 6:32:00 PM Referred By: Electronically Signed By:Farooq Moses DO Transcribed By: MUS Signed By Farooq Moses DO 2 1832 Normal [facility] HCG,Urineon 11-22-2021 Beta HCG ( test) Ql (U) Negative [facility] Comment on above: Order Comment: Name Collection Type:: Clean-Voided Midstream Result Comment: PERF ORMED BY: [place] [address] PATHOLOGIST STRETCHER LEVELER OPERATOR HELPER YUE ANDREW M.D. Performed By: #### C OVID19 FLU RSV, CEPHEID NEG #### [facility] [address] [place] [address] Hepatic Panelon 11-22-2021 Bilirubin,Direct Normal 0.0-0.4 [facility] Comment on above: Result Comment: Spec imen hemolyzed, redraw requested Performed By: #### L IPASE, HEPATIC, CMP, SCAN CBC #### [facility] [address] [place] [address] Bilirubin,Indirect Normal [facility] Comment on above: Result Comment: Spec imen hemolyzed, redraw requested Performed By: #### L IPASE, HEPATIC, CMP, SCAN CBC #### [facility] [address] [place] [address] [place] Lipaseon 11-22-2021 Lipase [Catalytic activity/Vol] 41.0 U/L Normal 22-51 [facility] Comment on above: Result Comment: PERF ORMED BY: [place] [address] PATHOLOGIST STRETCHER LEVELER OPERATOR HELPER YUE ANDREW M.D. Performed By: #### L IPASE, HEPATIC, CMP, SCAN CBC #### [facility] [address] [place] [address] [place] Partial Thromboplastin Timeo n 11-22-2021 aPTT Coag (Bld) [Time] 32.8 s Normal 25.1-36.5 [facility] Comment on above: Order Comment: PHLEB OTOMIST REDRAW 1ST SPECIMEN HEMOLYZED NOTIFIED [facility] ER Result Comment: PERF ORMED BY: [place] [address] PATHOLOGIST STRETCHER LEVELER OPERATOR HELPER YUE ANDREW M.D. Performed By: #### C OVID19 FLU RSV, CEPHEID NEG #### [facility] [address] [place] [address] Prothrombin Time INRon 11-22 INR Coag (PPP) [Relative time] 1.1 {INR} Normal [facility] Comment on above: Order Comment: PHLEB OTOMIST REDRAW 1ST SPECIMEN HEMOLYZED NOTIFIED [facility] ER Result Comment: INR Therapeutic Range A) Pre- and Peroperative OAT started two weeks before surgery. NOT HIP SURGERY: 1.5 - 2.5 HIP SURGERY: 2 - 3 B) Primary and secondary prevention of venous THROMBOSIS: 2 - 3 C) Active venous thrombosis, pulmonary embolism and prevention of recurrent venous thrombosis: 2 - 3 D) Prevention of arterial thromboembolism including patients with mechanical heart valves: 3 - 4.5 Performed By: #### C OVID19 FLU RSV, CEPHEID NEG #### [facility] [address] [place] [address] PT Coag (PPP) [Time] 12.5 s Normal 9.0-12.9 [facility] Comment on above: Order Comment: PHLEB OTOMIST REDRAW 1ST SPECIMEN HEMOLYZED NOTIFIED [facility] ER Performed By: #### C OVID19 FLU RSV, CEPHEID NEG #### [facility] [address] [place] [address] [place] Redraw Marie 11-22-2021 ALT [Catalytic activity/Vol] 10 U/L Normal 10-60 [facility] Comment on above: Performed By: #### L IPASE, BMP, CBC #### [facility] [address] [place] [address] [place] Redraw Dixon 11-22-2021 AST [Catalytic activity/Vol] 13 U/L Normal 10-42 [facility] Comment on above: Performed By: #### L IPASE, BMP, CBC #### [address] Redraw Alkaline Phosphataseo n 11-22-2021 ALP [Catalytic activity/Vol] 34 U/L Normal 32-92 [facility] Comment on above: Result Comment: PERF ORMED BY: [place] [address] PATHOLOGIST STRETCHER LEVELER OPERATOR HELPER YUE ANDREW M.D. Performed By: #### L IPASE, BMP, CBC #### [address] Redraw Bilirubin,Directon Redraw Bilirubin,Direct < 0.1 Normal 0.0-0.4 [facility] Comment on above: Performed By: #### L IPASE, BMP, CBC #### [address] Redraw Bilirubin,Totalon Bilirubin [Mass/Vol] 0.5 mg/dL Normal 0.3-1.2 [facility] Comment on above: Performed By: #### L IPASE, BMP, CBC #### [facility] [address] [place] [address] Redraw Potassiumon 2 Potassium [Moles/Vol] 3.5 mmol/L Normal 3.5-5.1 [facility] Comment on above: Performed By: #### L IPASE, BMP, CBC #### [facility] [address] [place] [address] Scan and CBCon 11-22-2021 Basophils (Bld) [#/Vol] 0.1 10*3/uL Normal 0.0-0.2 [facility] Comment on above: Performed By: #### L IPASE, HEPATIC, CMP, SCAN CBC #### [facility] [address] [place] [address] Basophils/100 WBC (Bld) 0.9 % Normal . [facility] Comment on above: Performed By: #### L IPASE, HEPATIC, CMP, SCAN CBC #### [facility] [address] [place] [address] Eosinophils (Bld) [#/Vol] 0.2 10*3/uL Normal 0.0-0.45 [facility] Comment on above: Performed By: #### L IPASE, HEPATIC, CMP, SCAN CBC #### [address] Eosinophils/100 WBC (Bld) 2.0 % Normal . [facility] Comment on above: Performed By: #### L IPASE, HEPATIC, CMP, SCAN CBC #### [address] Erythrocyte distribution width (RBC) [Ratio] 12.8 % Normal 11.9-15.3 [facility] Comment on above: Performed By: #### L IPASE, HEPATIC, CMP, SCAN CBC #### [address] Hematocrit (Bld) [Volume fraction] 42.1 % Normal 34.0-46.4 [facility] Comment on above: Performed By: #### L IPASE, HEPATIC, CMP, SCAN CBC #### [address] Hemoglobin (Bld) [Mass/Vol] 14.2 g/dL Normal 11.8-15.4 [facility] Comment on above: Performed By: #### L IPASE, HEPATIC, CMP, SCAN CBC #### [address] Lymphocytes (Bld) [#/Vol] 1.6 10*3/uL Normal 1.00-4.8 [facility] Comment on above: Performed By: #### L IPASE, HEPATIC, CMP, SCAN CBC #### [address] Lymphocytes/100 WBC (Bld) 16.4 % Normal . [facility] Comment on above: Performed By: #### L IPASE, HEPATIC, CMP, SCAN CBC #### [address] MCH (RBC) [Entitic mass] 30.0 pg Normal 24.7-34.3 [facility] Comment on above: Performed By: #### L IPASE, HEPATIC, CMP, SCAN CBC #### [facility] [address] [place] [address] MCV (RBC) [Entitic vol] 89.3 fL Normal 80-[address] [facility] Comment on above: Performed By: #### L IPASE, HEPATIC, CMP, SCAN CBC #### [address] Mean Corpuscular HGB Conc 33.6 g/dL Normal 32.0-35.0 [facility] Comment on above: Performed By: #### L IPASE, HEPATIC, CMP, SCAN CBC #### [address] Monocytes (Bld) [#/Vol] 0.7 10*3/uL Normal 0.0-0.8 [facility] Comment on above: Performed By: #### L IPASE, HEPATIC, CMP, SCAN CBC #### [address] Monocytes/100 WBC (Bld) 6.9 % Normal . F [facility] Comment on above: Performed By: #### L IPASE, HEPATIC, CMP, SCAN CBC #### [address] Neutrophils (Bld) [#/Vol] 7.0 10*3/uL Normal 1.8-7.7 [facility] Comment on above: Performed By: #### L IPASE, HEPATIC, CMP, SCAN CBC #### [facility] [address] [place] [address] [place] Neutrophils/100 WBC (Bld) 73.8 % Normal . [facility] Comment on above: Performed By: #### L IPASE, HEPATIC, CMP, SCAN CBC #### [facility] [address] [place] [address] [place] Nucleated RBC/100 WBC (Bld) [Ratio] 0.0 % Normal 0-0.5 [facility] Comment on above: Performed By: #### L IPASE, HEPATIC, CMP, SCAN CBC #### [facility] [address] Platelet Estimate Normal Normal Normal [facility] Comment on above: Performed By: #### L IPASE, HEPATIC, CMP, SCAN CBC #### [facility] [address] [place] [id number] [facility] Platelet mean volume (Bld) [Entitic vol] 9.8 fL Normal 6.3-10.7 [facility] Comment on above: Performed By: #### L IPASE, HEPATIC, CMP, SCAN CBC #### [facility] [address] Platelet Morphology Normal Normal Normal [facility] Comment on above: Result Comment: PERF ORMED BY: [place] [address] PATHOLOGIST STRETCHER LEVELER OPERATOR HELPER YUE ANDREW M.D. Performed By: #### L IPASE, HEPATIC, CMP, SCAN CBC #### [facility] [address] Platelets (Bld) [#/Vol] 234 10*3/uL Normal 150-450 [facility] Comment on above: Performed By: #### L IPASE, HEPATIC, CMP, SCAN CBC #### [facility] [address] RBC (Bld) [#/Vol] 4.71 10*6/uL Normal 3.60-5.00 [facility] Comment on above: Performed By: #### L IPASE, HEPATIC, CMP, SCAN CBC #### [facility] [address] RBC morphology finding Nom (Bld) Normal Normal [facility] Comment on above: Performed By: #### L IPASE, HEPATIC, CMP, SCAN CBC #### [facility] [address] [place] [address] [place] WBC (Bld) [#/Vol] 9.5 10*3/uL Normal 3.8-11.6 [facility] Comment on above: Performed By: #### L IPASE, HEPATIC, CMP, SCAN CBC #### [facility] [address] WBC (Bld) [#/Vol] 10.4 10*3/uL Normal 4.5-11.0 [facility] Comment on above: Performed By: #### L IPASE, HEPATIC, CMP, SCAN CBC #### [facility] [address] Urine Cultureon 11-22-2021 Bacteria identified Cx Nom (U) ORGANISM: Lactobacillus species (O:LACSP) [place] Count >100,000 Organism Comments Organism not Routinely Tested for Susceptibilities PERFORMED BY: [place] [address] PATHOLOGIST STRETCHER LEVELER OPERATOR HELPER YUE ANDREW M.D. [facility] Comment on above: Performed By: #### C OVID19 FLU RSV, CEPHEID NEG #### [address] VASC LAB [facility] n[facility] 08-02-2020 VASC LAB [facility] [place] [address] and Vascular Lab Report [facility] Patient Name: JEANNETTE SCARLETT Patten Physician: [id number] Jonathan Erickson MD, RPVI Study Date: 08/02/2020 Referring [id number] REBEKA TALBERT Physician: MRN/PID: [id number] PCP: Accession/Order#: [id number] CC Report to: Date of : 1985 Technologist: Amadou Wilkinson RVT Gender: F Technologist 2: Admission Status: Outpatient Location Performed: [facility] Diagnosis/ICD: K55.0-Acute mesenteric ischemia Procedure/CPT: 52774 Mesenteric Duplex scan-02874 CRITICAL RESULT Critical Result: 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 Velocities were decreased with inspiration and/or change to a sitting position which maybe suggesive of median arcuate ligament compression as opposed to intrinsic stenosis. Notification called to Rebeka Singleton with results. on 08/02/2020 at 4:37:01 PM. 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 Velocities were decreased with inspiration and/or change to a sitting position which maybe suggesive of median arcuate ligament compression as opposed to intrinsic stenosis. The patient was NPO for this study. Additional Findings: Imaging AND Doppler Findings: AORTA PSV Mid 105.7 cm/s Aorta PSV 106 cm/s Celiac Origin PSV 238 cm/s Celiac Prox PSV 361 cm/s Celiac Mid PSV 108 cm/s Celiac Dist PSV 115 cm/s SMA Origin PSV 308 cm/s SMA Prox PSV 290 cm/s SMA Mid PSV 200 cm/s SMA Dist PSV 88 cm/s GRACE PSV 86 cm/s Hepatic PSV 53 cm/s Splenic PSV 88 cm/s [id number] Jonathan Erickson MD, RPVI Final Normal [facility] Vital Signs Date Time Vital Sign Value Performing Clinician Facility 05-21-2023 15:40-0500 Body height George Dominguez Other [facility] Other 05-21-2023 15:40-0500 Body mass index (BMI) [Ratio] 27.03 kg/m2 George Dominguez Other [facility] Other 05-21-2023 15:40-0500 Body temperature 98.2 [degF] George Dominguez Other [facility] Other 05-21-2023 15:40-0500 Body weight 71.44 kg George Dominguez Other [facility] Other 05-21-2023 15:40-0500 Diastolic blood pressure 76 mm[Hg] George Dominguez Other [facility] Other 05-21-2023 15:40-0500 Respiratory rate 18 /min George Dominguez Other [facility] Other 05-21-2023 15:40-0500 SaO2% (BldA) [Mass fraction] 97 % George Dominguez Other [facility] Other 05-21-2023 15:40-0500 Systolic blood pressure 108 mm[Hg] George Dominguez Other [facility] Other 04-11-2022 17:44-0400 Diastolic blood pressure 69 mm[Hg] MD Basil Centeno Work Phone: [facility] 04-11-2022 17:44-0400 Heart rate 59 /min MD Basil Centeno Work Phone: [facility] 04-11-2022 17:44-0400 Respiratory rate 18 /min MD Basil Centeno Work Phone: [facility] 04-11-2022 17:44-0400 SaO2% (BldA) [Mass fraction] 98 % MD Basil Centeno Work Phone: [facility] 04-11-2022 17:44-0400 Systolic blood pressure 120 mm[Hg] MD Basil Centeno Work Phone: [facility] 04-11-2022 14:49-0400 Body temperature 98.5 [degF] MD Basil Centeno Work Phone: [facility] 04-11-2022 12:44-0400 Body height 162.56 cm MD Basil Centeno Work Phone: [facility] 04-11-2022 12:44-0400 Body weight 65.4 kg MD Basil Centeno Work Phone: [facility] 04-06-2022 11:10-0400 Diastolic blood pressure 77 mm[Hg] MD Basil Centeno Work Phone: [facility] 04-06-2022 11:10-0400 Heart rate 84 /min MD Basil Centeno Work Phone: [facility] 04-06-2022 11:10-0400 Respiratory rate 16 /min MD Basil Centeno Work Phone: [facility] 04-06-2022 11:10-0400 SaO2% (BldA) [Mass fraction] 99 % MD Basil Centeno Work Phone: [facility] 04-06-2022 11:10-0400 Systolic blood pressure 117 mm[Hg] MD Basil Centeno Work Phone: [facility] 04-06-2022 07:20-0400 Body temperature 98.2 [degF] MD Basil Centeno Work Phone: [facility] 04-06-2022 06:00-0400 Body weight 69.6 kg MD Basil Centeno Work Phone: [facility] 04-05-2022 14:51-0400 Body height 162.56 cm MD Basil Centeno Work Phone: [facility] 04-04-2022 08:04-0400 Body temperature 97.9 [degF] MD Basil Centeno Work Phone: [facility] 04-04-2022 08:02-0400 Diastolic blood pressure 64 mm[Hg] MD Basil Centeno Work Phone: [facility] 04-04-2022 08:02-0400 Heart rate 55 /min MD Basil Centeno Work Phone: [facility] 04-04-2022 08:02-0400 Respiratory rate 18 /min MD Basil Cenetno Work Phone: [facility] 04-04-2022 08:02-0400 SaO2% (BldA) [Mass fraction] 96 % MD Basil Centeno Work Phone: [facility] 04-04-2022 08:02-0400 Systolic blood pressure 105 mm[Hg] MD Basil Centeno Work Phone: [facility] 04-04-2022 02:06-0400 Body height 162.56 cm MD Basil Centeno Work Phone: [facility] 04-04-2022 02:06-0400 Body weight 67.6 kg MD Basil Centeno Work Phone: [facility] Encounters Encounter Date Encounter Type Care Provider Facility Start: 01-22-2024 End: 01-22-2024 ambulatory FRANDY J PRINTY Not Available Start: 12-25-2023 End: 12-25-2023 ambulatory FRANDY J PRINTY Not Available Start: 12-25-2023 End: 12-25-2023 ambulatory FRANDY PRINTY Not Available Start: 11-28-2023 End: 11-28-2023 ambulatory FRANDY J PRINTY Not Available Start: 10-25-2023 End: 10-25-2023 ambulatory FRANDY J PRINTY Not Available Start: 10-11-2023 End: 10-11-2023 ambulatory FRANDY PRINTY Not Available Start: 10-05-2023 End: 10-06-2023 ambulatory GEORGE Trey [facility] Start: 09-21-2023 End: 09-22-2023 ambulatory [facility] Start: 09-05-2023 End: 09-06-2023 ambulatory [facility] Start: 09-03-2023 End: 09-04-2023 ambulatory [facility] Start: 08-22-2023 End: 08-23-2023 ambulatory [facility] Start: 08-17-2023 End: 08-18-2023 ambulatory [facility] Start: 06-14-2023 End: 06-15-2023 ambulatory [facility] Start: 06-06-2023 End: 06-06-2023 ambulatory George Dominguez Other [facility] Other Start: 06-06-2023 Telephone encounter George Dominguez [facility] [place] Start: 05-24-2023 End: 05-24-2023 ambulatory George Dominguez Other [facility] Other Start: 05-24-2023 Telephone encounter George Dominguez [facility] Start: 05-21-2023 End: 05-21-2023 ambulatory George Nuñezcyrus Other [facility] Other Start: 05-21-2023 Encounter for genera l adult medical examination without abnormal findings George Dominguez [facility] [place] Start: 05-21-2023 Initial preventive medicine new pt age 18-39yrs George Dominguez [facility] Start: 06-07-2022 End: 06-07-2022 ambulatory TITO ROSAS Facility: Start: 04-11-2022 End: 04-11-2022 Emergency department patient visit Basil Centeno Facility:[facility] Start: 04-11-2022 End: 04-11-2022 Emergency department patient visit MD Basil Centeno Work Phone: [facility]Emergency [facility] Start: 04-04-2022 End: 04-06-2022 Evaluation and management of inpatient Basil Centeno Facility:[facility] Start: 04-04-2022 End: 04-06-2022 Evaluation and management of inpatient MD Basil Centeno Work Phone: [facility] [place] [facility] Start: 11-23-2021 End: 11-24-2021 ambulatory Paramjit Yin Facility:[facility] Start: 11-22-2021 End: 11-22-2021 Emergency department patient visit Gianni Renata Facility:[facility] Procedures Date Procedure Procedure Detail Performing Clinician Start: 04-04-2022 CT of abdomen and pe lvis without contrast MD Basil Centeno Work Phone: Start: 04-04-2022 US scan of gallbladder MD Basil Centeno Work Phone: Start: 08-23-2020 Follow-up visit Start: 08-02-2020 Follow-up visit SARS-CoV-2, Influenz a & RSV (PCR) MD Basil Centeno Work Phone: Urine culture MD Basil Centeno Work Phone: Plan of Treatment Date Care Activity Detail Author Start: 04-09-2022 Blood chemistry [facility] Start: 04-08-2022 Blood chemistry [facility] Start: 04-07-2022 Blood chemistry [facility] Start: 04-06-2022 [facility] Start: 04-05-2022 Referral to engraver picture [facility] Start: 04-05-2022 Blood chemistry [facility] Start: 04-05-2022 Magnesium measurement [facility] Start: 04-05-2022 Phosphate [Mass/volu me] in Serum or Plasma [facility] Start: 04-05-2022 [facility] Start: 04-04-2022 Hospital admission [facility] Start: 04-04-2022 Blood chemistry [facility] Start: 04-04-2022 Magnesium measurement [facility] Start: 04-04-2022 End: 04-04-2022 [facility] Start: 04-04-2022 CT Abdomen and Pelvi s WO contrast [facility] Start: 04-04-2022 CT of abdomen and pe lvis without contrast CT abdomen pelvis wo con [facility] Start: 04-04-2022 US Gallbladder [facility] Start: 04-04-2022 US scan of gallbladder US gall bladd er [facility] Anion gap measurement [facility] Work Phone: Bacteria identified in Urine by Culture [facility] Calcium [Mass/volume ] in Serum or Plasma [facility] Work Phone: Calculated LDL cholesterol level [facility] Work Phone: Carbon dioxide, tota l [Moles/volume] in Serum or Plasma [facility] Work Phone: Chloride [Moles/volu me] in Serum or Plasma [facility] Work Phone: Cholesterol [Mass/vo lume] in Serum or Plasma [facility] Work Phone: Cholesterol in HDL [Mass/volume] in Serum or Plasma [facility] Work Phone: Cholesterol.total/Ch olest rafael in HDL [Mass Ratio] in Serum or Plasma [facility] Work Phone: Creatinine and Glome rular filtration rate.predicted panel - Serum, Plasma or Blood [facility] Work Phone: Ethanol [Mass/volume ] in Serum or Plasma [facility] Work Phone: Glucose [Mass/volume ] in Serum or Plasma [facility] Work Phone: Glucose measurement estimated from glycated hemoglobin [facility] Work Phone: Hemoglobin A1c/Hemoglobin.total in Blood [facility] Work Phone: Magnesium measurement [facility] Work Phone: Measurement of renal function [facility] Work Phone: Patient Education [facility] Work Phone: Patient referral [facility] Work Phone: Phosphate [Mass/volu me] in Serum or Plasma [facility] Work Phone: Potassium [Moles/vol ume] in Serum or Plasma [facility] Work Phone: Sodium [Moles/volume ] in Serum or Plasma [facility] Work Phone: Thyrotropin [Units/volume] in Serum or Plasma [facility] Work Phone: Triglyceride [Mass/volume] in Serum or Plasma [facility] Work Phone: Urea nitrogen [Mass/volume] in Serum or Plasma [facility] Work Phone: VLDL cholesterol measurement [facility] Work Phone: Immunizations Immunization Date Immunization Notes Care Provider Fa cility NEGATED: Highlighted row has not occurred!02-23-2021 tetanus toxoid, reduced diphtheria toxoid, and acellular pertussis vaccine, adsorbed MD Basil Centeno Work Phone: [facility] Payers Date Payer Category Payer Self-pay [id number] 1985 Unknown [id number] 2.16.84 [id number] 1985 Unknown [id number] 2.16.84 [id number] 1984 Unknown [id number] 2.16.84 [id number] 1984 Unknown [id number] 2.16.84 [id number] 1984 Unknown [id number] 2.16.84 [id number] 1984 Unknown [id number] 2.16.84 [id number] 1984 Unknown [id number] 2.16.84 [id number] 1959 Unknown [id number] [facility] [id number] Medicaid [employer] [id number] Unknown O [id number] Unknown [id number] 2.16.8 [id number] Unknown [id number] 2.16.8 [id number] Unknown [id number] 2.16.8 [id number] Unknown [id number] 2.16.8 [id number] Social History Date Type Detail Facility Start: 04-04-2022 End: 04-11-2022 Tobacco smoking status WVIS Never smoked tobacco (finding) [facility] Start: 1985 Sex Assigned At Female F [facility] Start: 04-06-2022 Tobacco smoking status NHIS Ex-smoker (finding) [facility] Sex Assigned At Sex Assigned At Bir th [facility] [employer] Other Goals Date Patient Goal Desired Activity /State Functional Status Date Assessment Result Facility 04-06-2022 Functional status Patient at Baseline [facility] Work Phone: Mental Status Date Assessment Result Facility 04-06-2022 Cognitive function Cognitive Sta tus Patient at Baseline [facility] Work Phone: Clinical Notes 11-17-2015 to 05-24-2023 Note Date & Type Note Facility 05-24-2023 Evaluation note Encounter Date Diagnosis Assessment Notes May, Abdominal pain (ICD-10 - R10.9) [facility] [employer] Other 12-04-2023 Evaluation note* Encounter Date Diagnosis Assessment Notes Treatment Notes Treatment Clinical Notes May, Abdominal pain (ICD-10 - R10.9) She did see Dr. Prabhakar for evaluation after she was seen in the hospital last year (2021) who ended up referring her to and they felt that she had median arcuate ligament at that time and nothing further needed to be done. Will refer her to a general surgeon for further evaluation. May, Wellness examination (ICD-10 - Z00.00) She is here today to be established as a new patient. She was in [place] last week meeting with a fertility clinic to discuss and do screening to be a surrogate mother. She is looking to have a transfer of an embryo in Jul (2023). I am going to order blood work to be done. She voices that her cholesterol has always been good and declines to have a lipid panel drawn. May, Pancreatitis (ICD-10 - K85.90) She had an elevated pancreatic enzyme when she was in the hospital last year (2021). She voices that she does not drink alcohol. She had abdominal pain and ended up going back to the hospital because she was still in alot of pain and was admitted for three days. She did some research and was not sure why she would have pancreatitis. We discussed her seeing a general surgeon to evaluate her gallbladder and pancreas further. I would like to check her amylase and lipase levels to be sure that these are normal. May, Asthma (ICD-10 - J45.909) She has an inhaler that she uses only if needed, she voices that it only happens if she laughs too hard. May, Weight gain (ICD-10 - R63.5) Her normal weight is around 145 pounds, she was 178 when she had her last son. She feels that her weight gain is caused by her sedentary lifestyle, she works from home. She does eat a healthy diet and has cut back on the carbs and sugars and was only able to lose three pounds. She has started working out for thirty minutes. She has found that it is more difficult to lose weight now that she is older. She did a crash diet after her last baby two years ago and got down to 138 but then gained the weight back when she started working from home about 8 months ago. I would like to check her thyroid to rule out abnormalities. May, Other She voices that she had an ovarian torsion, she was kept in the hospital for a few days, and her right ovary was ultimately removed. She follows with Dr. Santos but Dr. Velasquez did the surgery for her. [employer] [facility] [employer] [employer] Other 10-20-2022 Consult note Author FRANDY SANTOS [facility] April 06, 2022 8:25am Note Date/Time April 06, 2022 8 :25am [facility] [address] [place] [address] [employer]URE [employer]AME [employer]KER Consult Note Signed Patient: Jeannette Sweet MR#: [id number] : 1985 Acct:[id number] Age/Sex: 36 / F Adm Date: 2 Loc: Room: 0R7229-7 Type: ADM IN Attending Dr: Bernadette Box MD Copies to: MD aBsil RAM MD Obaydah M Daromar, MD~ HPI Data of Consult Date of Consult: 04/06/2022 Requesting Physician: Bernadette Box MD Primary Care Provider: Basil Centeno MD HPI HPI: Patient was admitted with abdominal pain and pancreatitis. I was asked to see the patient regarding an ovarian cyst identified on CAT scan. Patient is a 36-year-old female who has an interesting recent history. Back in November of this year she was admitted to the hospital through the emergency room with abdominal pain and right ovarian cyst. Ultimately she was taken to surgerywhere she was a diagnosed with a right ovarian torsion. She had a right salpingo- oophorectomy done and her pain abated. She had been well until this week when she again developed upper abdominal and epigastric pain she came to the emergency room for evaluation where she was found to have an elevated lipaseand was diagnosed with pancreatitis. During the course of that evaluation she had a CAT scan done which revealed a left adnexal cyst with a 5 cm cyst and a 3 cm cyst of the left ovary. The patient does report that her pain is been in her epigastric area and not herpelvis. And her pain is much improved since she has been admitted to the hospital and has been n.p.o. PMFSH Vaccinated for COVID-19?: Yes Medical History No pertinent past medical history Torsion of ovary and fallopian tube Surgical History No pertinent past surgical history Family History Mother Breast cancer Social History Smoking Status: Former smoker Tobacco Type: cigarettes Substance Use Type: None Allergies & Medications Medications and Allergies Allergies No Known Allergies Allergy (Verified 04/04/22 02:05) Home Medications cetirizine 10 mg tablet (Zyrtec) 10 mg PO DAILY 11/22/21 [History Confirmed 04/04/22] sertraline 100 mg tablet (Zoloft) 100 mg PO DAILY 11/22/21 [History Confirmed 04/04/22] hydrocodone 5 mg-acetaminophen 325 mg tablet 1 tab PO Q4-6H PRN Pain 5 days #20 tabs 04/04/22 [Rx] ondansetron 4 mg disintegrating tablet 4 mg PO Q6-8H PRN Nausea #10 tabs 04/04/22 [Rx] Active Medications Acetaminophen (Acetaminophen 325 Mg Tablet) 650 mg PO Q6HR PRN PRN Reason: Pain Scale 1 - 3 or fever Stop: 04/04/23 07:57 Last Admin: 04/05/22 04:48 Dose: 650 mg Enoxaparin Sodium (Enoxaparin 40 Mg/0.4 Ml Syringe) 40 mg SUBCUT DAILY@10 [facility] Stop: 04/04/23 09:59 Last Admin: 04/05/22 09:10 Dose: 40 mg Famotidine (Famotidine/Pf 20 Mg/2 Ml Vial) 20 mg IV-PUSH Q12HR [facility] Stop: 04/04/23 08:59 Last Admin: 04/05/22 20:51 Dose: 20 mg Sodium Chloride (0.9% Sodium Chloride 1,000 Ml) 1,000 mls @ 100 mls/hr IV .Q10H [facility] Stop: 04/04/23 06:44 Last Admin: 04/06/22 07:18 Dose: 100 mls/hr Ceftriaxone Sodium (Rocephin) 1 gm in 50 mls @ 100 mls/hr IV Q24H [facility] Last Admin: 04/05/22 09:09 Dose: 100 mls/hr Morphine Sulfate (Morphine Sulfate 2 Mg/Ml Vial) 2 mg IV-PUSH Q4H PRN PRN Reason: Pain Scale 7 - 10 Prochlorperazine Edisylate (Prochlorperazine Edisylate 10 Mg/2 Ml Vial) 5 mg IM Q4H PRN PRN Reason: Nausea And Vomiting Stop: 04/04/23 07:57 Promethazine HCl (Promethazine 25 Mg/Ml Vial) 12.5 mg IV-PUSH Q6H PRN PRN Reason: Nausea And Vomiting Stop: 04/04/23 07:57 Last Admin: 04/05/22 09:10 Dose: 12.5 mg Sodium Chloride (Sodium Chloride 0.9 % 10 Ml Syringe) 0 ml IV-PUSH PRN PRN PRN Reason: Flush Stop: 04/04/23 02:04 Last Admin: 04/04/22 06:23 Dose: 10 ml Sodium Chloride (Sodium Chloride 0.9 % 10 Ml Vial.Pf) 10 ml INJECTION PRN PRN PRN Reason: Promethazine Dilution Stop: 04/04/23 07:57 Last Admin: 04/05/22 20:51 Dose: 10 ml Sodium Chloride (Sodium Chloride 0.9 % 10 Ml Vial.Pf) 10 ml INJECTION PRN PRN PRN Reason: To dilute Pepcid Stop: 04/04/23 07:57 SHIFT COMMANDER - Exam Physical Exam Vital signs: Temp 98.2 F 04/06/22 07:20 Pulse 65 04/06/22 07:20 Resp 16 04/06/22 07:20 BP 96/61 L 04/06/22 07:20 Pulse Ox 98 04/06/22 07:20 O2 Del Method Room Air 04/06/22 07:20 Constitutional Constitutional: no acute distress Routine Respiratory Exam Respiratory: Absent respiratory distress Routine Abdominal Exam Abdominal: Present soft; Absent tenderness, distended, rebound or guarding SHIFT COMMANDER - Results Laboratory Results - Last 48 hrs. 04/06/22 07:01: Corrected WBC 7.3, Uncorrected WBC Count 7.3, RBC 4.03, Hgb 12.0, Hct 35.5, MCV 88.1, MCH 29.7, MCHC 33.7, RDW 12.8, Plt Count 199, MPV 8.9, Neut % (Auto) 53.6, Lymph % (Auto) 31.3, Simpson % (Auto) 11.0, Eos % (Auto) 3.4, Baso % (Auto) 0.7, Neut # (Auto) 3.9, Lymph # (Auto) 2.3, Simpson # (Auto) 0.8, Eos # (Auto) 0.3, Baso # (Auto) 0.0, Nucleated RBC % (auto) 0.1 04/06/22 07:01: PHA Creatinine Clear 147.52, Sodium 138, Potassium 3.4 L, Chloride 111, Carbon Dioxide 22.5, Anion Gap 7.9, BUN 2 L, Creatinine 0.50, Est GFR ( Amer) > 60, Est GFR (Non-Af Amer) > 60, Glucose 82, Calcium 8.0 L, Phosphorus 3.1 04/05/22 06:47: PHA Creatinine Clear 141.19, Sodium 134 L, Potassium 3.5, Chloride 108, Carbon Dioxide 21.0 L, Anion Gap 8.5, BUN 6 L, Creatinine 0.52, Est GFR ( Amer) > 60, Est GFR (Non-Af Amer) > 60, Glucose 62 L, Calcium 7.8 L, Phosphorus 2.4 L, Magnesium 1.7 04/05/22 06:47: Corrected WBC 11.2, Uncorrected WBC Count 11.2 H, RBC 4.40, Hgb 12.9, Hct 39.1, MCV 89.0, MCH 29.4, MCHC 33.0, RDW 12.8, Plt Count 195, MPV 9.0, Neut % (Auto) 78.0, Lymph % (Auto) 12.9, Simpson % (Auto) 6.9, Eos % (Auto) 1.6, Baso % (Auto) 0.6, Neut # (Auto) 8.7 H, Lymph # (Auto) 1.4, Simpson # (Auto) 0.8, Eos # (Auto) 0.2, Baso # (Auto) 0.1, Nucleated RBC % (auto) 0.0 04/04/22 08:41: Ethyl Alcohol < 5, % Ethyl Alcohol TNP 04/04/22 08:41: Estimat Average Glucose 103, Hemoglobin A1c 5.2 04/04/22 08:41: PHA Creatinine Clear 137.34, Sodium 137, Potassium 3.5, Chloride 105, Carbon Dioxide 25.1, Anion Gap 10.4, BUN 5 L, Creatinine 0.53, Est GFR ( Amer) > 60, Est GFR (Non-Af Amer) > 60, Glucose 82, Calcium 8.1 L, Phosphorus 3.2, Magnesium 1.8, Triglycerides 27 L, Cholesterol 167, LDL Cholesterol, Calc 91, VLDL Cholesterol 5, HDL Cholesterol 71, Cholesterol/HDL Ratio 2.4, TSH 3rd Generation 3.44 Microbiology - Results from entire visit 04/04/22 04:29 Urine - Clean-Voided Midstream Urine Culture - Final 25,000 colonies/ml mixed bacterial skin contaminants 2 Days 04/04/22 06:19 Nasopharyngeal SARS-CoV-2, Influenza & RSV (PCR) - Final SHIFT COMMANDER - A/P (1) Ovarian cyst, left: Code(s): N83.202 - Unspecified ovarian cyst, left side Status: Acute Plan The patient's pain has improved with treatment of her pancreatitis. She does not believe her abdominal pain is related to her ovarian cyst and I agree. Regarding the left ovarian cyst: I did review that the photographs from the surgery done in November and that documented a normal left ovary. I also reviewed the pathology from the right salpingo-oophorectomy and that was a functional cyst with known neoplasm. Therefore my suspicion is that this is another functional cyst of the left ovary and not pathologic. I am not recommending any surgery at this point and I have asked the patient to follow-up with me in the office to confirm. Documented By: FRANDY ASNTOS MD 04/06/22818 Signed By: <Electronically signed by MD FRANDY SANTOS> 04/06/22824 [facility] Work Phone: 1(168) 470-433810-19-2022 Progress note Author Bernadette Box [facility] April 05, 2022 9:42am Note Date/Time April 05, 2022 9 :40am [facility] [address] [place] [address] Hospitalist Progress Note Signed Patient: Jeannette Sweet MR#: [id number] : 1985 Acct:[id number] Age/Sex: 36 / F Adm Date: 2 Loc: Room: [address] [place] [address] Type: ADM IN Attending Dr: Bernadette Box MD Copies to: ~ Date of Service: 04/05/2022 Subjective Subjective Narrative: Patient was seen and examined at bedside. Remained hemodynamically stable overnight. States that she slept okay, requires Dilaudid occasionally, still requiring antiemetics for nausea. Stayed without vomiting, diarrhea. Pain is well controlled. I met patient's yesterday afternoon at bedside, discussed current condition and given updates. At that time, patient was having pain epigastric radiating to her back, associated with nausea which was addressed with antiemetics and Dilaudid. Exam Physical Exam Vital Signs: Temp Pulse Resp BP Pulse Ox O2 Del Method 98.4 F 76 18 110/67 99 Room Air 04/04/22 19:43 04/05/22 08:00 04/05/22 08:00 04/05/22 08:00 04/05/22 08:00 04/05/22 08:00 Narrative: Const General: cooperative, comfortable, in no acute distress HEENT Head: normal to inspection Nose: external nose normal Mouth: oral mucosae normal and lip normal Eyes Conjunctivae: conjunctivae normal Neck Neck: normal visual inspection Chest inspection: normal inspection of the chest Resp Effort & Inspection: normal respiratory effort, not labored, no respiratory distress Auscultation: clear to auscultation b/l, no crackles, no wheezes Cardio Rate: normal rate Rhythm: regular rhythm Heart Sounds: S1 normal, S2 normal and no murmurs GI Inspection: non-distended Palpation: soft, not firm and nontender Neuro General: alert, awake and oriented x3. No obvious focal deficit Extrem General: no cyanosis, no pedal edema Psych Appearance: grossly normal Affect: normal affect Attitude: cooperative Objective Lab Results CBC & Chem 7: 04/05/22 06:47 04/05/22 06:47 Microbiology Results Microbiology 04/04/22 06:19 Nasopharyngeal SARS-CoV-2, Influenza & RSV (PCR) - Final Meds Allergies and Active Meds Allergies No Known Allergies Allergy (Verified 04/04/22 02:05) Active Meds: Active Medications Generic Name Dose Route Start Last Admin Trade Name Freq PRN Reason Stop Dose Admin Acetaminophen 650 mg 04/04/22 07:58 04/05/22 04:48 Acetaminophen 325 Mg Tablet PO 04/04/23 07:57 650 mg Q6HR PRN Administration Pain Scale 1 - 3 or fever Enoxaparin Sodium 40 mg 04/04/22 10:00 04/05/22 09:10 Enoxaparin 40 Mg/0.4 Ml Syringe SUBCUT 04/04/23 09:59 40 mg DAILY@10 DAWNA Administration Famotidine 20 mg 04/04/22 09:00 04/05/22 09:10 Famotidine/Pf 20 Mg/2 Ml Vial IV-PUSH 04/04/23 08:59 20 mg Q12HR DAWNA Administration Hydromorphone HCl 0.5 mg 04/04/22 07:58 04/05/22 09:22 Hydromorphone 0.5 Mg/0.5 Ml Syringe IV-PUSH 0.5 mg Q4H PRN Administration Pain Scale 8 - 10 Sodium Chloride 1,000 mls @ 100 mls/hr 04/04/22 06:45 04/05/22 04:49 0.9% Sodium Chloride 1,000 Ml IV 04/04/23 06:44 250 mls/hr .Q10H DAWNA Administration Ceftriaxone Sodium 1 gm in 50 mls @ 100 mls/hr 04/04/22 09:00 04/05/22 09:09 Rocephin IV 100 mls/hr Q24H DAWNA Administration Prochlorperazine Edisylate 5 mg 04/04/22 07:58 Prochlorperazine Edisylate 10 Mg/2 Ml Vial IM 04/04/23 07:57 Q4H PRN Nausea And Vomiting Promethazine HCl 12.5 mg 04/04/22 07:58 04/05/22 09:10 Promethazine 25 Mg/Ml Vial IV-PUSH 04/04/23 07:57 12.5 mg Q6H PRN Administration Nausea And Vomiting Sodium Chloride 0 ml 04/04/22 02:05 04/04/22 06:23 Sodium Chloride 0.9 % 10 Ml Syringe IV-PUSH 04/04/23 02:04 10 ml PRN PRN Administration Flush Sodium Chloride 10 ml 04/04/22 07:58 04/04/22 20:28 Sodium Chloride 0.9 % 10 Ml Vial.Pf INJECTION 04/04/23 07:57 10 ml PRN PRN Administration Promethazine Dilution Sodium Chloride 10 ml 04/04/22 07:58 Sodium Chloride 0.9 % 10 Ml Vial.Pf INJECTION 04/04/23 07:57 PRN PRN To dilute Pepcid A&P - Hospitalist Assessment/Plan (1) Acute pancreatitis: (2) Acute UTI: Plan -Remained afebrile, WBC 11.2. Remained hemodynamically stable overnight -Continue Rocephin for UTI. Will follow urine culture. Previous urine cx lactobacillus. -GB US with no acute pathology -CT AP showed right nephrolithiasis, left adnexal cyst up to 5 cm in size -Continue IV hydration. Decreased rate since patient feels hands are swollen . -Antiemetics as directed -Pain control as directed -Monitor electrolytes -Lipid profile within normal limit. TSH within normal. A1C 5.2, Alcohol level <5. -According to discussion again with patient and , she has been zoloft forover a year. Still could be etiology of pancreatitis. Also recent abdominal surgery could be an etiology of this. -Patient feels better today and has appetite, will start clear liquids. -Pepcid BID -Phos 2.4. Repleted. -Continue supportive management DVT ppx with Lovenox Code status Full Discussed with patient at bedside, all questions answered Discussed with and patient at bedside the findings of GB US and CT AP indetails and advised follow ups post discharge. Documented By: Bernadette Box MD 04/05/22 09 26 Signed By: <Electronically signed by Bernadette Box MD> 04/05/22 0942 [facility] Work Phone: 1(119) 905-107310-18-2022 History and physical note Author Bernadette Box [facility] April 04, 2022 1:22pm Note Date/Time April 04, 2022 1 2:00pm [facility] [address] [place] [address] Hospitalist H&P Signed Patient: Jeannette Sweet MR#: [id number] : 1985 Acct:[id number] Age/Sex: 36 / F Adm Date: 2 Loc: Room: [address] [place] [address] Type: ADM IN Attending Dr: Bernadette Box MD Copies to: MD Bernadette Mistry MD~ HPI DATE OF EXAMINATION: 04/04/22 CHIEF COMPLAINT: Abdominal pain HISTORY OF PRESENT ILLNESS: Patient is a 56-year-old female with no significant past medical history presented to ER due to epigastric pain of 1 week duration. Patient stated that she has been having epigastric pain, bandlike, constant, nonradiating, associated with nausea, denies vomiting. Patient denies any fever, chills, urinary symptoms, diarrhea or constipation. Denies any similar episodes in the past. Denies smoking or drinking alcohol. Patient was found to have elevated lipase along with her epigastric pain for which she was admitted for acute pancreatitis. CT scan was ordered by ER attending without contrast , for which she was limited evaluation for the pancreas. There was no signs of pancreatitis on the scan, did show right nephrolithiasis, left adnexal cysts up to 5 cm in size. Right upper quadrant ultrasound did not show any gallbladder pathology. Patient was seen and examined on medical floor, she is alert and oriented x3, lying comfortably in bed, not in distress, denies any pain after receiving Dilaudid. Denies any nausea, epigastric pain at this time. States that she does not have appetite Review of Systems Review of Systems All other systems reviewed & are negative unless noted below or in HPI Review of systems: Constitutional Constitutional: Reports system reviewed and no additional complaints, except as documented Eyes Eyes: Reports system reviewed and no additional complaints, except as documented ENT Ears, Nose, Mouth, and Throat: Reports system reviewed and no additional complaints, except as documented Cardiovascular Cardiovascular: Reports system reviewed and no additional complaints, except as documented Respiratory Respiratory: Reports system reviewed and no additional complaints, except as documented Gastrointestinal Gastrointestinal: Reports system reviewed and no additional complaints, except as documented Genitourinary Genitourinary: Reports system reviewed and no additional complaints, except as documented Musculoskeletal Musculoskeletal: Reports system reviewed and no additional complaints, except asdocumented Neurologic Neurologic: Reports system reviewed and no additional complaints, except as documented Skin: no rash, lesions PMFSH Vaccinated for COVID-19?: Yes Medical History No pertinent past medical history Torsion of ovary and fallopian tube Surgical History No pertinent past surgical history Family History Mother Breast cancer Social History Smoking Status: Former smoker Tobacco Type: cigarettes Substance Use Type: None Meds Medications and Allergies Allergies No Known Allergies Allergy (Verified 04/04/22 02:05) Home Medications cetirizine 10 mg tablet (Zyrtec) 10 mg PO DAILY 11/22/21 [History Confirmed 04/04/22] sertraline 100 mg tablet (Zoloft) 100 mg PO DAILY 11/22/21 [History Confirmed 04/04/22] hydrocodone 5 mg-acetaminophen 325 mg tablet 1 tab PO Q4-6H PRN Pain 5 days #20 tabs 04/04/22 [Rx] ondansetron 4 mg disintegrating tablet 4 mg PO Q6-8H PRN Nausea #10 tabs 04/04/22 [Rx] Exam Physical Exam Vital Signs: Temp Pulse Resp BP Pulse Ox O2 Del Method 97.8 F 56 L 16 116/68 96 Room Air 04/04/22 11:17 04/04/22 11:17 04/04/22 11:17 04/04/22 11:17 04/04/22 11:17 04/04/22 11:17 Narrative: Const General: cooperative, comfortable, in no acute distress HEENT Head: normal to inspection Nose: external nose normal Mouth: oral mucosae normal and lip normal Eyes Conjunctivae: conjunctivae normal Neck Neck: normal visual inspection Chest inspection: normal inspection of the chest Resp Effort & Inspection: normal respiratory effort, not labored, no respiratory distress Auscultation: clear to auscultation b/l, no crackles, no wheezes Cardio Rate: normal rate Rhythm: regular rhythm Heart Sounds: S1 normal, S2 normal and no murmurs GI Inspection: non-distended Palpation: soft, not firm and nontender Neuro General: alert, awake and oriented x3. No obvious focal deficit Extrem General: no cyanosis, no pedal edema Psych Appearance: grossly normal Affect: normal affect Attitude: cooperative Results Lab Results Labs: Laboratory Last Values Corrected WBC 9.5 X10E3/uL (3.8-11.6) 04/04/22 02:23 Uncorrected WBC Count 9.5 x10E3/uL (4.5-11.0) 04/04/22 02:23 RBC 4.91 x10E6/uL (3.60-5.00) 04/04/22 02:23 Hgb 14.2 g/dL (11.8-15.4) 04/04/22 02:23 Hct 43.3 % (34.0-46.4) 04/04/22 02:23 MCV 88.1 fl (80-100) 04/04/22 02:23 MCH 29.0 pg (24.7-34.3) 04/04/22 02: MCHC 32.9 g/dL (32.0-35.0) 04/04/22 02: RDW 13.1 % (11.9-15.3) 04/04/22 02:23 Plt Count 243 x10E3/uL (150-450) 04/04/22 02:23 MPV 9.0 fl (6.3-10.7) 04/04/22 02:23 Neut % (Auto) 62.2 % (.) 04/04/22 02: Lymph % (Auto) 24.7 % (.) 04/04/22 02:23 Simpson % (Auto) 9.4 % (.) 04/04/22 02: Eos % (Auto) 2.4 % (.) 04/04/22 02:23 Baso % (Auto) 1.3 % (.) 04/04/22 02: Neut # (Auto) 5.9 x10E3/uL (1.8-7.7) 04/04/22 02:23 Lymph # (Auto) 2.4 x10E3/uL (1.00-4.8) 04/04/22 02:23 Simpson # (Auto) 0.9 x10E3/uL (0.0-0.8) H 04/04/22 02:23 Eos # (Auto) 0.2 x10E3/uL (0.0-0.45) 04/04/22 02:23 Baso # (Auto) 0.1 x10E3/uL (0.0-0.2) 04/04/22 02:23 Nucleated RBC % (auto) 0.1 % (0-0.5) 04/04/22 02:23 PHA Creatinine Clear 137.34 04/04/22 08:41 Sodium 137 mmol/L (136-146) 04/04/22 08:41 Potassium 3.5 mmol/L (3.5-5.1) 04/04/22 08:41 Chloride 105 mmol/L (95-114) 04/04/22 08:41 Carbon Dioxide 25.1 mmol/L (22.0-30.0) 04/04/22 08:41 Anion Gap 10.4 mEq/L (6.0-15.0) 04/04/22 08:41 BUN 5 mg/dL (9-23) L 04/04/22 08:41 Creatinine 0.53 mg/dL (0.44-1.03) 04/04/22 08:41 Est GFR ( Amer) > 60 mL/Min 04/04/22 08:41 Est GFR (Non-Af Amer) > 60 mL/Min 04/04/22 08:41 Glucose 82 mg/dL (70-100) 04/04/22 08:41 Estimat Average Glucose 103 mg/dL 04/04/22 08:41 Hemoglobin A1c 5.2 % (4.3-5.6) 04/04/22 08:41 Calcium 8.1 mg/dL (8.2-10.2) L 04/04/22 08:41 Phosphorus 3.2 mg/dL (2.5-4.6) 04/04/22 08:41 Magnesium 1.8 mg/dL (1.6-2.6) 04/04/22 08:41 Total Bilirubin 0.8 mg/dL (0.3-1.2) 04/04/22 02:23 AST 14 U/L (10-42) 04/04/22 02:23 ALT 11 U/L (10-60) 04/04/22 02:23 Alkaline Phosphatase 33 U/L (32-92) 04/04/22 02:23 Total Protein 6.6 gm/dL (6.1-7.9) 04/04/22 02:23 Albumin 4.1 gm/dL (3.2-5.5) 04/04/22 02:23 Globulin 2.5 gm/dL 04/04/22 02:23 Albumin/Globulin Ratio 1.6 04/04/22 02:23 Triglycerides 27 mg/dL (35-149) L 04/04/22 08:41 Cholesterol 167 mg/dL (140-200) 04/04/22 08:41 LDL Cholesterol, Calc 91 mg/dL (0-100) 04/04/22 08:41 VLDL Cholesterol 5 mg/dL 04/04/22 08:41 HDL Cholesterol 71 mg/dL (35-85) 04/04/22 08:41 Cholesterol/HDL Ratio 2.4 (<5.0) 04/04/22 08:41 Lipase 248.0 U/L (22-51) H 04/04/22 02:23 TSH 3rd Generation 3.44 uIU/mL (0.45-5.33) 04/04/22 08:41 Urine Color Yellow (Yellow) 04/04/22 04:29 Urine Appearance Clear (Clear) 04/04/22 04:29 Urine pH 5.5 (5.0-9.0) 04/04/22 04:29 Ur Specific Vaughn 1.007 (1.001-1.030) 04/04/22 04:29 Urine Protein Negative mg/dL (Negative) 04/04/22 04:29 Urine Glucose (UA) Normal mg/dL (Normal) 04/04/22 04:29 Urine Ketones Trace (Negative) H 04/04/22 04:29 Urine Occult Blood Negative (Negative) 04/04/22 04:29 Urine Nitrite Negative (Negative) 04/04/22 04:29 Urine Bilirubin Negative (Negative) 04/04/22 04:29 Urine Urobilinogen Normal mg/dL (Normal) 04/04/22 04:29 Ur Leukocyte Esterase 3+ (Negative) H 04/04/22 04:29 Urine RBC 1-2 /HPF (0-4) 04/04/22 04:29 Urine WBC 10-19 /HPF (0-4) H 04/04/22 04:29 Ur Squamous Epith Cells 5-9 /HPF (0-2) H 04/04/22 04:29 Urine Bacteria 1+ (None Seen) H 04/04/22 04:29 Hyaline Casts 0-8 /LPF (0-8) 04/04/22 04:29 Urine HCG, Qual Negative 04/04/22 04:29 Ethyl Alcohol < 5 mg/dL 04/04/22 08:41 % Ethyl Alcohol TNP 04/04/22 08:41 SARS-CoV-2 Rap RNA(RT-PCR) Negative (Negative) 04/04/22 06:19 Microbiology Results Micro: Microbiology - Results from entire visit 04/04/22 06:19 Nasopharyngeal SARS-CoV-2, Influenza & RSV (PCR) - Final A&P - Hospitalist Assessment/Plan (1) Acute pancreatitis: (2) Acute UTI: Plan -Patient is afebrile, no leukocytosis -Started Rocephin for UTI. Will follow urine culture. Previous urine cx lactobacillus. -GB US with no acute pathology -CT AP showed right nephrolithiasis, left adnexal cyst up to 5 cm in size -Continue aggressive IV hydration -Antiemetics as directed -Pain control as directed -Monitor electrolytes -Lipid profile within normal limit. TSH within normal. A1C 5.2 -Alcohol level <5. Drinks alcohol occasionally -Patient was recently started on Zoloft. This could be an etiology- drug induced acute pancreatitis -Maintain NPO for now. Restart clear liquids as tolerated -Pepcid BID -Continue supportive management DVT ppx with Lovenox Code status Full Discussed with patient at bedside, all questions answered Documented By: Bernadette Box MD 04/04/22 11 53 Signed By: <Electronically signed by Bernadette Box MD> 04/04/22 1322 [facility] Work Phone: [phone] History general Narrative - Reported* Type Description Date Medical History asthma, history of Surgical History breast augmentation / Dr. Gloria kowalski in [place], [place] 11/2015 Surgical History right ovary removed, Dr. Velasquez Hospitalization History childbirth Hospitalization History ovarian torsion 11/2021 Hospitalization History pancreatitis 03/2022 [employer] Other Discharge summary Author Bernadette Box [facility] April 06, 2022 12:50pm Note Date/Time April 06, 2022 1 2:31pm [facility] [address] [place] [address] Discharge Summary Signed Patient: Jeannette Sweet MR#: [id number] : 1985 Acct:[id number] Age/Sex: 36 / F Adm Date: 2 Loc: 3T Room: [address] [place] [address]: Bernadette Box MD Copies to: MD Bernadette Mistry MD~ Providers Date of Discharge: 04/06/22 Discharging Provider: Bernadette Box Primary Care Provider: Basil Centeno Consults: 04/05/22 16:38 Consult to Obstetrics Routine Discharge Diagnosis (1) Acute pancreatitis: (2) Ovarian cyst, left: Final Diagnosis Final Discharge Diagnosis: As above Summary Hospital Course Hospital course: Patient is a 36 year-old female with no significant past medical history presented to ER due to epigastric pain of 1 week duration.? Patient stated that she has been having epigastric pain, bandlike, constant, radiating to her back, associated with nausea, denies vomiting. Patient denies any fever, chills, urinary symptoms, diarrhea or constipation. Denies any similar episodes in the past. Denies smoking or drinking alcohol.? Patient was found to have elevated lipase along with her epigastric pain for which she was admitted for acute pancreatitis.? CT scan was ordered by ER attending, for which she was limited evaluation for the pancreas since it was without contrast.? There was no signs of pancreatitis on the scan, did show right nephrolithiasis, left adnexal cysts up to 5 cm in size.? Right upper quadrant ultrasound did not show any gallbladder pathology. Patient was started on aggressive IV hydration, antiemetics, pain meds as needed with NPO status for bowel rest. Patient has showed signs of improvement in her symptoms as expected. As of today, patient tolerating oral diet with no nausea, vomiting or abdominal pain. She feels back to her normal baseline status. Patient was seen by salvage mechanic while inpatient regarding left ovarian cyst since patient had a right ovarian cyst few months with ovarian torsion. Advised to continue to follow up with her salvage mechanic as outpatient. Patient remained hemodynamically stable and showed signs of improvement and recovery as expected. Discussed with patient and family at bedside. All questions and concerns addressed and answered. Condition Condition at Discharge: Stable Time Spent with Patient Time spent providing/coordinating discharge services (# min): 45 Diagnostic Studies Completed and Pending Studies Pending studies at discharge: 04/07/22 05:00 BMP [Basic Metabolic Panel] [CHEM] IN AM 04/08/22 05:00 BMP [Basic Metabolic Panel] [CHEM] IN AM 04/09/22 05:00 BMP [Basic Metabolic Panel] [CHEM] IN AM Labs on day of discharge: 04/06/22 07:01: Corrected WBC 7.3, Uncorrected WBC Count 7.3, RBC 4.03, Hgb 12.0, Hct 35.5, MCV 88.1, MCH 29.7, MCHC 33.7, RDW 12.8, Plt Count 199, MPV 8.9, Neut % (Auto) 53.6, Lymph % (Auto) 31.3, Simpson % (Auto) 11.0, Eos % (Auto) 3.4, Baso % (Auto) 0.7, Neut # (Auto) 3.9, Lymph # (Auto) 2.3, Simpson # (Auto) 0.8, Eos # (Auto) 0.3, Baso # (Auto) 0.0, Nucleated RBC % (auto) 0.1 04/06/22 07:01: PHA Creatinine Clear 147.52, Sodium 138, Potassium 3.4 L, Chloride 111, Carbon Dioxide 22.5, Anion Gap 7.9, BUN 2 L, Creatinine 0.50, Est GFR ( Amer) > 60, Est GFR (Non-Af Amer) > 60, Glucose 82, Calcium 8.0 L, Phosphorus 3.1 Exam Physical Exam Vital Signs: Temp Pulse Resp BP Pulse Ox O2 Del Method 98.2 F 84 16 117/77 99 Room Air 04/06/22 07:20 04/06/22 11:10 04/06/22 11:10 04/06/22 11:10 04/06/22 11:10 04/06/22 11:10 Narrative: Const General: cooperative, comfortable, in no acute distress HEENT Head: normal to inspection Nose: external nose normal Mouth: oral mucosae normal and lip normal Eyes Conjunctivae: conjunctivae normal Neck Neck: normal visual inspection Chest inspection: normal inspection of the chest Resp Effort & Inspection: normal respiratory effort, not labored, no respiratory distress Auscultation: clear to auscultation b/l, no crackles, no wheezes Cardio Rate: normal rate Rhythm: regular rhythm Heart Sounds: S1 normal, S2 normal and no murmurs GI Inspection: non-distended Palpation: soft, not firm and nontender Neuro General: alert, awake and oriented x3. No obvious focal deficit Extrem General: no cyanosis, no pedal edema Psych Appearance: grossly normal Affect: normal affect Attitude: cooperative Discharge Plan Discharge Plan Patient Disposition: Home Activity: No Activity Restriction Diet: Regular Additional Instructions: -CT abdomen and pelvis revealed left adnexal cysts measuring up to 5 cm in size. Will need to follow up with salvage mechanic upon discharge for further evaluation and management. Instructions: Pancreatitis (DC), Ovarian Cyst (DC) Stand Alone Forms: Work/School Release Form Prescriptions: New hydrocodone-acetaminophen 5-325 mg tablet 1 tab PO Q4-6H PRN (Reason: Pain) 5 Days Qty: 20 0RF ondansetron 4 mg tablet,disintegrating 4 mg PO Q6-8H PRN (Reason: Nausea) Qty: 10 0RF Continued cetirizine [Zyrtec] 10 mg Tablet 10 mg PO DAILY sertraline [Zoloft] 100 mg tablet 100 mg PO DAILY Follow Up: Frandy Santos MD [Active Staff] - (The office was notified of your discharge. Please call office for a follow-up appointment. ) Basil Centeno MD [Primary Care Provider] - 04/14/22 11:30 am (You have been scheduled for a follow up appointment for the following date and time, please call to reschedule if needed.) Documented By: Bernadette Box MD 04/06/22 12 28 Signed By: <Electronically signed by Bernadette Box MD> 04/06/22 1250 [facility] Work Phone: Evaluation note* Diagnosis Onset Date Resolution Status Acute pancreatitis acute [facility] Work Phone: Evaluation note* Diagnosis Onset Date Resolution Status Acute pancreatitis acute Acute UTI acute Ovarian cyst, left acute [facility] Work Phone: Evaluation noteNo [facility] Other Hospital Discharge instructions Additional Instructions -CT abdomen and pelvis revealed left adnexal cysts measuring up to 5 cm in size. Will need to follow up with salvage mechanic upon discharge for further evaluation and management.[facility] Work Phone: Summary Purpose Family History No Family History Records Found Relationship Condition Age at Onset Recorded Date/T joyce Not Specified Malignant neoplasm of breast Unknown Advance Directives No Advanced Directives Records Found Advance Directive Response Recorded Date/ Time Advance Directives No May 2:31pm Chief Complaint and Reason for Visit Chief Complaint upper abd pain Reason for Visit Acute pancreatitis Chief Complaint upper abd pain Reason for Visit Acute pancreatitis Acute UTI Ovarian cyst, left Chief Complaint upper abd pain abd pain,nausea Reason for Visit Acute pancreatitis Acute UTI Ovarian cyst, left Reason for Referral Reason appt pt needs cons ult to discuss history of pancreatitis/ abdominal pain Diagnosis 1 Pancreatitis (K85.90 ) Referral Organization [facility] Family Kandi Reynoso Referring Provider First Name George Referring Provider Last Name Randy Referring Provider Specialty Family Prac jeannette Referred Organization [facility] Referred Provider ValentineShaheen Referred Address ,[place], [place],[address] Referred Provider Specialty Surgery Referral Priority Routine General Notes Queenie Luong 05/21/2023 04:43:16 PM > referral faxed thru [facility] with visit note, Vascular note from 2019 and insurance card. pt understands she will be contacted to schedule this appt. Additional Source Comments INFORMATION SOURCE (unrecogn ized section and content) DATE CREATED AUTHOR 08/24/2020 [facility] DATE CREATED AUTHOR AUTHOR'S ORGANIZ ATION 08/25/2020 [facility] DATE CREATED AUTHOR AUTHOR'S ORGANIZ ATION 06/07/2022 [facility] DATE CREATED AUTHOR AUTHOR'S ORGANIZ ATION 06/20/2022 [facility] DATE CREATED AUTHOR AUTHOR'S ORGANIZ ATION 07/27/2022 [facility] DATE CREATED AUTHOR AUTHOR'S ORGANIZ ATION 10/06/2023 [facility] DATE CREATED AUTHOR AUTHOR'S ORGANIZ ATION 01/25/2024 [facility] EPIC Care Teams (unrecognized sec tion and content) Team Status: Active Member Role Status Dates Basil Centeno MD Primary Care Provider Active Addy Mendez Jr, MD Emergency Provider Active Elvi Price DO RES Active Bernadette Box MD Admit Provider, Attending Provi cyndy Active Team Status: Active Member Role Status Dates Basil Centeno MD Primary Care Provider Active Team Status: Inactive Member Role Status Dates Basil Centeno MD Primary Care Provider Active Addy Mendez Jr, MD Emergency Provider Active Elvi Price DO RES Active Bernadette Box MD Admit Provider, Attending Provi cyndy Active Frandy Santos MD Other Provider Active Team Status: Inactive Member Role Status Dates Basil Centeno MD Primary Care Provider Active Jt Cedillo PA-C Emergency Provider Active Goals (unrecognized section and content) Goals may be documented in a n alternate sectionNo InformationNo InformationNo Information REASON FOR VISIT (unrecogniz ed section and content) to get establishedDI request Clinical FOR RECORDS PERTAINING TO PATIENTS WHO ARE OR HAVE BEEN ENROLLED IN A CHEMICAL DEPENDENCY/SUBSTANCEABUSE PROGRAM, SOME INFORMATION MAY BE OMITTED. This clinical summary was aggregated from multiple sources. Caution should be exercised in using it in the provision of clinical care. This summary normalizes information from multiple sources, and as a consequence, information in this document may materially change the coding, format and clinical context of patient data. In addition, data may be omitted in some cases. CLINICAL DECISIONS SHOULD BE BASED ON THE PRIMARY CLINICAL RECORDS. [facility] [place] [facility]. provides no warranty or guarantee of the accuracy or completeness of information in this document.
[2024-02-08 10:14] LABS: Basophils Percent Auto 0.4 % (0.2-2.0); Eosinophils Absolute Auto 0.3 10^3/uL (0.0-0.7); Eosinophils Percent Auto 2.6 % (0.9-7.0); Hematocrit 31.5 % (36.0-48.0); Hemoglobin 10.6 g/dL (12.0-16.0); Immature Granulocytes Abs Auto 0.38 10^3/uL (0.00-0.03); Immature Granulocytes Pct Auto 3.4 % (0.0-0.5); Lymphocytes Absolute Auto 1.8 10^3/uL (1.2-3.8); Lymphocytes Percent Auto 16.4 % (20.5-60.0); Mean Corpuscular HGB Conc 33.7 g/dL (29.9-35.2); Mean Corpuscular Hemoglobin 29.4 pg (26.7-34.0); Mean Corpuscular Volume 87.3 fL (81.0-99.0); Mean Platelet Volume 10.6 fL (9.5-13.5); Monocytes Absolute Auto 0.8 10^3/uL (0.3-0.8); Monocytes Percent Auto 7.6 % (1.7-12.0); Neutrophils Absolute Auto 7.7 10^3/uL (1.4-6.5); Neutrophils Percent Auto 69.6 % (43.0-75.0); Platelet Count 220 10^3/uL (150-450); Red Blood Count 3.61 10^6/uL (4.20-5.40); Red Cell Distribution Width 12.8 % (11.0-15.0); White Blood Count 11.1 10^3/uL (4.0-11.0)
[2024-02-08 11:42] LABS: Glucose 1 Hour 135 mg/dL (<130)
== END 2024-02-08 08:55 | disposition home or self-care (01) ==
LOC: LAB 08:55
PROVIDERS: PCP Family Medicine; Visit Provider Obstetrics & Gynecology
DX: Z36.89 Encounter for other specified antenatal screening (principal); Z3A.24 24 weeks gestation of pregnancy
CPT/HCPCS: 36415; 82950; 85025

== ENCOUNTER 2024-02-12 10:34 | Outpatient (OUT) | payer BC, SELFPAY ==
--- OUTSIDE RECORDS SUMMARY | 2024-02-12 10:57 | XMS_ITS | CCD ---
Author Organization [facility] Inform ion [facility] Care Team Providers Care Team Leader Name Role Phone MD Basil Centeno Primary Care Provider MD Addy Mendez Jr Emergency Provider MD Bernadette Box Admit Provider MD Bernadette Box Attending Provider MD Frandy Santos Other Provider MELISSA Cedillo Emergency Provider TITO ROSAS Admitting Unavailable TITO ROSAS Attending [...] Care Unavailable GEORGE DOMINGUEZ Referring Unavailable GEORGE DOMIGNUEZ Primary Care Unavailable DANESHMAND, SAID T Referring [...] 08-17-2023 Chronic Other aftercare (1 source) Other manager intermediate (current) drug therapy; 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 Performed By: #### 2 0415-6 #### [facility] ([id number]) [address] [place] [address] HCG.beta subunit IA 3rd IS Q non 09-03-2023 HCG.beta subunit Qn 661 m[IU]/mL Normal [facility] Comment on above: Result [...] neoplasms. Performed By: #### 2 0415-6 #### [facility] ([id number]) [address] [place] [address] #### 2839-9 #### [facility] ([id number]) [address] [place] [address], [address] [place] [address] Progesterone [Mass/Vol]on PROGESTERONE 42.1 ng/mL Normal [facility] Comment on above: Result Comment: FEMALES: 1st Tri: 4.7-50.7 ng/ml 2nd Tri: 19.4-45.3 ng/ml MENSTRUATING FEMALES: Follicular: 0.3-1.5 ng/ml Mid Luteal: 5.2-18.6 ng/ml Post [place]: <0.1-0.8 ng/ml Performed By: #### 2 0415-6 #### [facility] ([id number]) [address], [place] [address] #### 2839-9 #### [facility] ([id number]) [address], [address] [place] [address] Progesterone [Mass/Vol]on PROGESTERONE 32.5 ng/mL Normal [facility] Comment on above: Result Comment: FEMALES: 1st Tri: 4.7-50.7 ng/ml 2nd Tri: 19.4-45.3 ng/ml MENSTRUATING FEMALES: Follicular: 0.3-1.5 ng/ml Mid Luteal: 5.2-18.6 ng/ml Post [place]: <0.1-0.8 ng/ml Performed By: #### 2 839-9 #### [facility] ([id number]) [address], [address] [place] [address] E2 [Mass/Vol]on 08-17-2023 ESTRADIOL 247.3 pg/mL Normal [facility] Comment on above: Result Comment: NON- FEMALES [...] 2243-4 #### [facility] ([id number]) [address], [address] [place] [address] Progesterone [Mass/Vol]on PROGESTERONE 0.8 ng/mL Normal [facility] Comment on above: Result Comment: FEMALES: 1st Tri: 4.7-50.7 ng/ml 2nd Tri: 19.4-45.3 ng/ml MENSTRUATING FEMALES: Follicular: 0.3-1.5 ng/ml Mid Luteal: 5.2-18.6 ng/ml Post [place]: <0.1-0.8 ng/ml Performed By: #### 2 839-9, 2243-4 #### [facility] ([id number]) [address], [address] [place] [address] US TRANSVAGINAL NON OBon US TRANSVAGINAL NON [...] Contreras MD on 08/17/2023 8:00 AM Normal [facility] US TRANSVAGINAL NON [place]Bon US TRANSVAGINAL NON OB US TRANSVAGINAL N ON OB *ADDENDUM*Addendum: Endometrium is trilaminar measuring 5.4 mm Finalized by Addy Zhang MD on 06/20/2023 2:37 PM [facility] E2 [Mass/Vol]on 06-14-2023 ESTRADIOL 183.3 pg/mL Normal [facility] Comment on above: Result Comment: NON- FEMALES [...] 2243-4 #### [facility] ([id number]) [address] [place] [address], [address] [place] [address] Progesterone [Mass/Vol]on PROGESTERONE 0.1 ng/mL [facility] Comment on above: Result Comment: FEMALES: 1st Tri: 4.7-50.7 ng/ml 2nd Tri: 19.4-45.3 ng/ml MENSTRUATING FEMALES: Follicular: 0.3-1.5 ng/ml Mid Luteal: 5.2-18.6 ng/ml Post [place]hung: <0.1-0.8 ng/ml Performed By: #### 2 839-9, 2243-4 #### [facility] ([id number]) [address] [place] [address], [address] [place] [address] AMYLASEon 06-07-2022 Amylase [Catalytic activity/Vol] 90 U/L Normal 25-115 [facility] Comment on above: Performed By: #### C MP, QUYNH, HSTROPN, LIPA #### [facility] [address] [place] [address] Dr. Manuel Patino CBC AUTO DIFFon 06-07-2022 BASO # 0.1 103/ul Normal 0.0-0.1 [facility] Comment on above: Performed By: #### C BC #### [facility] [address] [place] [address] Dr. Manuel Patino Basophils/100 WBC (Bld) 0.6 % Normal 0.2-2.0 [facility] Comment on above: Performed By: #### C BC #### [facility] [address] [place] [address] Dr. Manuel Patino EO # 0.3 103/ul Normal 0.0-0.7 [facility] Comment on above: Performed By: #### C BC #### [facility] [address] [place] [address] Dr. Manuel Patino Eosinophils/100 WBC (Bld) 3.5 % Normal 0.9-7.0 [facility] Comment on above: Performed By: #### C BC #### [facility] [address] [place] [address] Dr. Manuel Patino Erythrocyte distribution width (RBC) [Ratio] 12.4 % Normal 11.0-15.0 [facility] Comment on above: Performed By: #### C BC #### [facility] [address] [place] [address] Dr. Manuel Patino Hematocrit (Bld) [Volume fraction] 40.5 % Normal 36.0-48.0 [facility] Comment on above: Performed By: #### C BC #### [facility] [address] [place] [address] Dr. Manuel Patino Hemoglobin (Bld) [Mass/Vol] 13.8 g/dL Normal 12.0-16.0 [facility] Comment on above: Performed By: #### C BC #### [facility] [address] [place] [address] Dr. Manuel Patino IG # 0.03 10e3/ul Normal 0.00-0.03 [facility] Comment on above: Performed By: #### C BC #### [facility] [address] [place] [address] Dr. Manuel Patino IG % 0.3 % Normal 0.0-0.5 [facility] Comment on above: Performed By: #### C BC #### [facility] [address] [place] [address] Dr. Manuel Patino LYMPH # 2.7 103/ul Normal 1.2-3.8 [facility] Comment on above: Performed By: #### C BC #### [facility] [address] [place] [address] Dr. Manuel Patino Lymphocytes/100 WBC (Bld) 30.8 % Normal 20.5-60.0 [facility] Comment on above: Performed By: #### C BC #### [facility] [address] [place] [address] Dr. Manuel Patino MANUAL DIFF REQ NO Normal [facility] Comment on above: Performed By: #### C BC #### [facility] [address] [place] [address] Dr. Manuel Patino MCH (RBC) [Entitic mass] 29.3 pg Normal 26.7-34.0 [facility] Comment on above: Performed By: #### C BC #### [facility] [address] [place] [address] Dr. Manuel Patino MCHC (RBC) [Mass/Vol] 34.1 g/dL Normal 29.9-35.2 [facility] Comment on above: Performed By: #### C BC #### [facility] [address] [place] [address] Dr. Manuel Patino MCV (RBC) [Entitic vol] 86.0 fL Normal 81.0-99.0 [facility] Comment on above: Performed By: #### C BC #### [facility] [address] [place] [address] Dr. Manuel Patino MONO # 0.8 103/ul Normal 0.3-0.8 [facility] Comment on above: Performed By: #### C BC #### [facility] [address] [place] [address] Dr. Manuel Patino Monocytes/100 WBC (Bld) 9.0 % Normal 1.7-12.0 [facility] Comment on above: Performed By: #### C BC #### [facility] [address] [place] [address] Dr. Manuel Patino NEUT # 5.0 103/ul Normal 1.4-6.5 [facility] Comment on above: Performed By: #### C BC #### [facility] [address] [place] [address] Dr. Manuel Patino Neutrophils/100 WBC (Bld) 55.8 % Normal 43.0-75.0 [facility] Comment on above: Performed By: #### C BC #### [facility] [address] [place] [address] Dr. Manuel Patino Platelet mean volume (Bld) [Entitic vol] 10.4 fL Normal 9.5-13.5 [facility] Comment on above: Performed By: #### C BC #### [facility] [address] [place] [address] Dr. Manuel Patino PLT 241 103/ul Normal 150-450 [facility] Comment on above: Performed By: #### C BC #### [facility] [address] [place] [address] Dr. Manuel Patino RBC 4.71 106/ul Normal 4.20-5.40 [facility] Comment on above: Performed By: #### C BC #### [facility] [address] [place], [place] [address] Dr. aMnuel Patino WBC 8.9 103/ul Normal 4.0-11.0 [facility] Comment on above: Performed By: #### C BC #### [facility] [address] [place], [place] [address] Dr. Manuel Patino Covid-19 PCR ([facility])on 05-19 SARS-CoV-2 (COVID-19) RNA HEMA+probe Ql (Unsp spec) Not detected Normal NOT DETECTED [facility] Comment on above: Result Comment: This test is not yet approved or cleared by the [place] FDA. When there are no FDA-approved or cleared tests available, and other criteria are met, FDA can make tests available under an emergency access mechanism called an Emergency Use Authorization (EUA). The EUA for this test is supported by the [place] of Health and Human Service's declaration that [...] for this test is supported by the [employer] of Health and Human Service's declaration that [...] KD3 Performed By: #### C VDTBH #### [facility] [address] [place] [address] [address] Manuel Patino D-DIMERon 06-07-2022 D-DIMER 0.19 mg/L FEU Normal <=0.59 [facility] Comment on above: Performed By: #### D DIM ####[facility] [address] [place] [address]Dr. Manuel Patino D-DIMER COMMENTS SEE BELOW Normal [facility] Comment on above: Result Comment: Incr eases [...] generalized hospitalization. Performed By: #### D DIM ####[facility] [address] [place] [address]Dr. Manuel Patino ER URINE PROFILEon 2 Bilirubin Ql (U) Negative Normal NEGATIVE [facility] Comment on above: Performed By: #### P REGU ERUR, UMICRO #### [facility] [address] [address] [address] Manuel Patino Clarity (U) CLEAR Normal CLEAR [facility] Comment on above: Performed By: #### P REGU, ERUR, UMICRO #### [facility] [address] [place] [address] [address] Manuel Patino Color (U) LT. YELLOW Normal YELLOW [facility] Comment on above: Performed By: #### P REGU, ERUR, UMICRO #### [facility] [address] [place] [address] [address] Manuel JACKSON A micrscopic examination will be performed if indicated. Normal [facility] Comment on above: Performed By: #### P REGU, ERUR, UMICRO #### [facility] [address] [place] [address] [address] Manuel Patino Glucose Ql (U) Negative Normal NEGATIVE [facility] Comment on above: Performed By: #### P REGU, ERUR, UMICRO #### [facility] [address] [address] [address] Manuel Patino Hemoglobin Ql (U) Negative Normal NEGATIVE [facility] Comment on above: Performed By: #### P REGU, ERUR, UMICRO #### [facility] [address] [address] [address] Manuel Patino Ketones Ql (U) Negative Normal NEGATIVE [facility] Comment on above: Performed By: #### P REGU, ERUR, UMICRO #### [facility] [address] [place] [address] Dr. Manuel Patino LEUKOCYTES SMALL Abnormal NEGATIVE [facility] Comment on above: Performed By: #### P REGU, ERUR, UMICRO #### [facility] [address] [address] [address] Manuel Patino Nitrite Ql (U) Negative Normal NEGATIVE [facility] Comment on above: Performed By: #### P REGU, ERUR, UMICRO #### [facility] [address] [place] [address] [address] Manuel Patino pH (U) 6.5 [pH] Normal 5-9 [facility] Comment on above: Performed By: #### P REGU, ERUR, UMICRO #### [facility] [address] [place] [address] [address] Manuel Patino SPEC GRAVITY 1.010 Normal 1.005-<=1.02 5 [facility] Comment on above: Performed By: #### P REGU, ERUR, UMICRO #### [facility] [address] [address] [address] Manuel Patino UA PROTEIN Negative Normal NEGATIVE/ TRACE [facility] Comment on above: Performed By: #### P REGU, ERUR, UMICRO #### [facility] [address] [address] [address] Manuel Patino UR MICRO IND INDICATED Normal [facility] Comment on above: Performed By: #### P ESTELA BENNETT UMICRO #### [facility] [address] [address] [address] Manuel Patino Urobilinogen Qn (U) 0.2 {Lisa'U}/dL Normal 0.2 - 1. 0 [facility] Comment on above: Performed By: #### P ESTELA BENNETT UMICRO #### [facility] [address] [address] [address] Manuel Patino INFLUENZA A AND B AGon 06-07 INFLUENZA A AG Negative Normal NEGATIVE SEE COMMENT [facility] Comment on above: Performed By: #### I NFLUAB ####[facility] [address] [address]Dr. Manuel Patino INFLUENZA B AG Negative Normal NEGATIVE SEE COMMENT [facility] Comment on above: Performed By: #### I NFLUAB ####[facility] [address] [address]Dr. Manuel Patino INTERNAL CONTROLS Within Normal Limits Normal Wi thin Normal Limits [facility] Comment on above: Performed By: #### I NFLUAB ####[facility] [address] [address]Dr. Manuel Patino LIPASEon 06-07-2022 Lipase [Catalytic activity/Vol] 620.0 U/L Critically high 73.0-393.0 [facility] Comment on above: Performed By: #### C MP, QUYNH, HSTROPN, LIPA #### [facility] [address] [address] [address] Manuel Patino URon 06-07-2022 , QUAL Negative Normal NEGATIVE [facility] Comment on above: Performed By: #### P ESTELA BENNETT, UMICRO #### [facility] [address] [address] [address] Manuel Patino PROF 14(COMP METB)on 12-21-2 022 Albumin [Mass/Vol] 4.2 g/dL Normal 3.4-5.0 [facility] Comment on above: Performed By: #### C MP, QUYNH, HSTROPN, LIPA #### [facility] [address] [address] [address] Manuel Patino Albumin/Globulin [Mass ratio] 1.3 {ratio} Normal [facility] Comment on above: Performed By: #### C MP, QUYNH, HSTROPN, LIPA #### [facility] [address] [place] [address] Dr. Manuel Patino ALP [Catalytic activity/Vol] 41 U/L Critically low 46-116 [facility] Comment on above: Performed By: #### C MP, QUYNH, HSTROPN, LIPA #### [facility] [address] [place] [address] Dr. Manuel Patino ALT [Catalytic activity/Vol] 11 U/L Critically low 14-59 [facility] Comment on above: Performed By: #### C MP, QUYNH, HSTROPN, LIPA #### [facility] [address] [place] [address] Dr. Manuel Patino Anion gap [Moles/Vol] 11.5 mmol/L Normal [facility] Comment on above: Performed By: #### C MP, QUYNH, HSTROPN, LIPA #### [facility] [address] [place] [address] Dr. Manuel Patino AST [Catalytic activity/Vol] 12 U/L Critically low 15-37 [facility] Comment on above: Performed By: #### C MP, QUYNH, HSTROPN, LIPA #### [facility] [address] [place] [address] Dr. Manuel Patino Bilirubin [Mass/Vol] 0.3 mg/dL Normal 0.2-1.0 [facility] Comment on above: Performed By: #### C MP, QUYNH, HSTROPN, LIPA #### [facility] [address] [place] [address] Dr. Manuel Patino Calcium [Mass/Vol] 8.6 mg/dL Normal 8.5-10.1 [facility] Comment on above: Performed By: #### C MP, QUYNH, HSTROPN, LIPA #### [facility] [address] [place] [address] Dr. Manuel Patino Chloride [Moles/Vol] 102 mmol/L Normal 98-107 [facility] Comment on above: Performed By: #### C MP, QUYNH, HSTROPN, LIPA #### [facility] [address] [address] [address] Manuel Patino CO2 [Moles/Vol] 26.2 mmol/L Normal 21.0-32.0 [facility] Comment on above: Performed By: #### C MP, QUYNH, HSTROPN, LIPA #### [facility] [address] [place] [address] Dr. Manuel Patino Creatinine [Mass/Vol] 0.52 mg/dL Critically low 0.55-1.02 [facility] Comment on above: Performed By: #### C MP, QUYNH, HSTROPN, LIPA #### [facility] [address] [place] [address] Dr. Manuel Patino EGFR-AF NEW ZEALANDER >60 Normal >=60 [facility] Comment on above: Performed By: #### C MP, QUYNH, HSTROPN, LIPA #### [facility] [address] [place] [address] Dr. Manuel Patino EGFR-NON AF [place] ZEALANDER >60 Normal >=60 [facility] Comment on above: Performed By: #### C MP, QUYNH, HSTROPN, LIPA #### [facility] [address] [place] [address] Dr. Manuel Patino Globulin (S) [Mass/Vol] 3.3 g/dL Normal [facility] Comment on above: Performed By: #### C MP, QUYNH, HSTROPN, LIPA #### [facility] [address] [place] [address] Dr. Manuel Patino Glucose [Mass/Vol] 89 mg/dL Normal 74-[address] [facility] Comment on above: Performed By: #### C MP, QUYNH, HSTROPN, LIPA #### [facility] [address] [address] [address] Manuel Patino Potassium [Moles/Vol] 3.7 mmol/L Normal 3.5-5.1 [facility] Comment on above: Performed By: #### C MP, QUYNH, HSTROPN, LIPA #### [facility] [address] [address] [address] Manuel Patino Protein [Mass/Vol] 7.5 g/dL Normal 6.4-8.[address] [facility] Comment on above: Performed By: #### C MP, QUYNH, HSTROPN, LIPA #### [facility] [address] [address] [address] Manuel Patino Sodium [Moles/Vol] 136 mmol/L Normal 136-[address] [facility] Comment on above: Performed By: #### C MP, QUYNH, HSTROPN, LIPA #### [facility] [address] [address] [address] Manuel Patino Urea nitrogen [Mass/Vol] 12.0 mg/dL Normal 7.0-18.0 [facility] Comment on above: Performed By: #### C MP, QUYNH, HSTROPN, LIPA #### [facility] [address] [address] [address] Manuel Patino Urea nitrogen/Creatinine [Mass ratio] 23.1 mg/mg Normal [facility] Comment on above: Performed By: #### C MP, QUYNH, HSTROPN, LIPA #### [facility] [address] [address] [address] Manuel Patino PROTIMEon 06-07-2022 INR Coag (PPP) [Relative time] 0.99 {INR} Normal [facility] Comment on above: Performed By: #### P T, PTT ####[facility] [address] [address]Dr. Manuel Patino INR GUIDELINES SEE BELOW Normal [facility] Comment on above: Result Comment: YOVANY RED INR: 2.0 - 3.0 CONDITIONS NOT LISTED BELOW 2.5 - 3.5 FOR PROSTHETIC HEART VALVE REPLACEMENT 2.5 - 3.5 RECURRENT THROMBOSIS Performed By: #### P T, PTT ####[facility] [address] [address]Dr. Manuel Patino PT Coag (PPP) [Time] 10.7 s Normal 9.0-11.6 [facility] Comment on above: Performed By: #### P T, PTT ####[facility] [address] [place] [address]DrRachel Patino PTTon 06-07-2022 aPTT Coag (Bld) [Time] 25.9 s Normal 22.3-36.2 Th [facility] Comment on above: Performed By: #### P T, PTT ####[facility] [address] [address]Dr. Manuel Patino TROPONIN, HIGH SENSITIVITYon 06-07-2022 HSTROP 4.9 pg/mL Normal 4.0-51.3 [facility] Comment on above: Result Comment: CUT- OFF POINTS HAVE BEEN ESTABLISHED BASED ON THE FOURTH UNIVERSAL DEFINITIONS OF MYOCARDIAL INFARCTION. THE UPPER REFERENCE LIMIT (URL) OF TROPONIN, DEFINED THE 99TH PERCENTILE OF cTnI DISTRIBUTION IN A REFERENCE POPULATION, HAS BEEN CONFIRMED THE DECISION THRESHOLD FOR PR DIAGNOSIS. Performed By: #### C MP, QUYNH, HSTROPN, LIPA #### [facility] [address] [address] [address] Manuel Patino URINE MICROSCOPIC ONLYon BACTERIA NONE SEEN Normal NONE SEEN [facility] Comment on above: Performed By: #### P REGU, ERUR, UMICRO #### [facility] [address] [address] [address] Manuel Patino Bacteria identified Cx Nom (U) NOT INDICATED Normal [facility] Comment on above: Performed By: #### P REGU, ERUR, UMICRO #### [facility] [address] [place] [address] [address] Manuel Patino CAST SEEN Abnormal NONE SEEN [facility] Comment on above: Result Comment: waxy cast- rare Performed By: #### P REGU, ERUR, UMICRO #### [facility] [address] [address] [address] Manuel Patino Crystals LM Nom (Urine sed) NONE SEEN Normal NONE SEEN [facility] Comment on above: Performed By: #### P REGU, ERUR, UMICRO #### [facility] [address] [address] [address] Manuel Patino Epithelial cells LM Ql (Urine sed) FEW Abnormal NONE SEEN /RARE [facility] Comment on above: Performed By: #### P REGU, ERUR, UMICRO #### [facility] [address] [address] [address] Manuel Patino MUCOUS NONE SEEN Normal NONE SEEN [facility] Comment on above: Performed By: #### P REGU, ERUR, UMICRO #### [facility] [address] [address] [address] Manuel Patino RBC 0-2 Normal 0-2 [facility] Comment on above: Performed By: #### P REGU, ERUR, UMICRO #### [facility] [address] [address] [address] Manuel Patino WBC 0-2 Abnormal NONE SEEN [facility] Comment on above: Performed By: #### P REGU, ERUR, UMICRO #### [facility] [address] [address] [address] Manuel Patino US SINGLE QUAD RT [...] LEXY KELLER Date: 2022-06-07 19:32 Normal [facility] Amylaseon 05-31-2022 Amylase [Catalytic activity/Vol] 63 U/L Normal 22-93 [facility] Comment on above: Performed By: #### A MY #### [facility] [address] [place] [address] CBC With Platelet No Differe ntialon 05-31-2022 Erythrocyte distribution width (RBC) [Ratio] 13.0 % Normal 11.5-14.5 [facility] Comment on above: Performed By: #### C BCND #### [facility] [address] [place] [address] Hematocrit (Bld) [Volume fraction] 40.6 % Normal 37.0-47.0 [facility] Comment on above: Performed By: #### C BCND #### [facility] [address] [place] [address] Hemoglobin (Bld) [Mass/Vol] 14.0 g/dL Normal 12.0-16.0 [facility] Comment on above: Performed By: #### C BCND #### [facility] [address] [place] [address] MCH (RBC) [Entitic mass] 30.1 pg Normal 27.0-31.3 [facility] Comment on above: Performed By: #### C BCND #### [facility] [address] [place] [address] MCHC 34.5 % Normal 33.0-37.0 [facility] Comment on above: Performed By: #### C BCND #### [facility] [address] [place] [address] MCV (RBC) [Entitic vol] 87.4 fL Normal 79.4-94.8 M [facility] Comment on above: Performed By: #### C BCND #### [facility] [address] [place] [address] Platelets (Bld) [#/Vol] 229 10*3/uL Normal 130-400 [facility] Comment on above: Performed By: #### C BCND #### [facility] [address] [place] [address] RBC (Bld) [#/Vol] 4.64 10*6/uL Normal 4.20-5.40 [facility] Comment on above: Performed By: #### C BCND #### [facility] [address] [place] [address] WBC (Bld) [#/Vol] 6.6 10*3/uL Normal 4.8-10.8 [facility] Comment on above: Performed By: #### C BCND #### [facility] [address] [place] [address] Comprehensive Metabolic Pane anderson 05-31-2022 Albumin [Mass/Vol] 4.7 g/dL Critically high 3.5-4.6 [facility] Comment on above: Performed By: #### C MP #### [facility] [address] [place] [address] ALP [Catalytic activity/Vol] 37 U/L Low 40-130 [facility] Comment on above: Performed By: #### C MP #### [facility] [address] [place] [address] ALT [Catalytic activity/Vol] 9 U/L Normal 0-33 [facility] Comment on above: Performed By: #### C MP #### [facility] [address] [place] [address] Anion gap [Moles/Vol] 12 mmol/L Normal 9-15 [facility] Comment on above: Performed By: #### C MP #### [facility] [address] [place] [address] AST [Catalytic activity/Vol] 16 U/L Normal 0-35 [facility] Comment on above: Performed By: #### C MP #### [facility] [address] [place] [address] Bilirubin [Mass/Vol] 0.3 mg/dL Normal 0.2-0.7 [facility] Comment on above: Performed By: #### C MP #### [facility] [address] [place] [address] Calcium [Mass/Vol] 9.3 mg/dL Normal 8.5-9.9 [facility] Comment on above: Performed By: #### C MP #### [facility] [address] [place] [address] Chloride [Moles/Vol] 100 mmol/L Normal 95-107 [facility] Comment on above: Performed By: #### C MP #### [facility] [address] [place] [address] CO2 [Moles/Vol] 24 mmol/L Normal 20-31 [facility] Comment on above: Performed By: #### C MP #### [facility] [address] [place] [address] Creatinine [Mass/Vol] 0.47 mg/dL Low 0.50-0.90 [facility] Comment on above: Performed By: #### C MP #### [facility] [address] [place] [address] GFR >60.0 Normal >60 [facility] Comment on above: Result Comment: Pedi atric [...] secretion. Performed By: #### C MP #### [facility] [address] [place] [address] Globulin (S) [Mass/Vol] 2.3 g/dL Normal 2.3-3.5 [facility] Comment on above: Performed By: #### C MP #### [facility] [address] [place] [address] Glucose [Mass/Vol] 132 mg/dL Critically high 70-99 [facility] Comment on above: Performed By: #### C MP #### [facility] [address] [place] [address] Potassium [Moles/Vol] 3.8 mmol/L Normal 3.4-4.9 [facility] Comment on above: Performed By: #### C MP #### [facility] [address] [place] [address] Protein [Mass/Vol] 7.0 g/dL Normal 6.3-8.0 [facility] Comment on above: Performed By: #### C MP #### [facility] [address] [place] [address] Sodium [Moles/Vol] 136 mmol/L Normal 135-144 [facility] Comment on above: Performed By: #### C MP #### [facility] [address] [place] [address] Urea nitrogen [Mass/Vol] 12 mg/dL Normal 6-20 [facility] Comment on above: Performed By: #### C MP #### [facility] [address] [place] [address] Lipaseon 05-31-2022 Lipase [Catalytic activity/Vol] 40 U/L Normal 12-95 [facility] Comment on above: Performed By: #### L IPAS #### [facility] [address] [place] [address] CBC With Platelet No Differe ntialon 04-14-2022 Erythrocyte distribution width (RBC) [Ratio] 13.1 % Normal 11.5-14.5 [facility] Comment on above: Performed By: #### C BCND #### [facility] [address] [place] [address] Hematocrit (Bld) [Volume fraction] 43.3 % Normal 37.0-47.0 [facility] Comment on above: Performed By: #### C BCND #### [facility] [address] [place] [address] Hemoglobin (Bld) [Mass/Vol] 14.5 g/dL Normal 12.0-16.0 [facility] Comment on above: Performed By: #### C BCND #### [facility] [address] [place] [address] MCH (RBC) [Entitic mass] 29.6 pg Normal 27.0-31.3 [facility] Comment on above: Performed By: #### C BCND #### [facility] [address] [place] [address] MCHC 33.5 % Normal 33.0-37.0 [facility] Comment on above: Performed By: #### C BCND #### [facility] [address] [place] [address] MCV (RBC) [Entitic vol] 88.4 fL Normal 79.4-94.8 [facility] Comment on above: Performed By: #### C BCND #### [facility] [address] [place] [address] Platelets (Bld) [#/Vol] 242 10*3/uL Normal 130-400 [facility] Comment on above: Performed By: #### C BCND #### [facility] [address] [place] [address] RBC (Bld) [#/Vol] 4.90 10*6/uL Normal 4.20-5.40 [facility] Comment on above: Performed By: #### C BCND #### [facility] [address] [place] [address] WBC (Bld) [#/Vol] 11.4 10*3/uL Critically high 4.8-10.8 [facility] Comment on above: Performed By: #### C BCND #### [facility] [address] [place] [address] Comprehensive Metabolic Pane anderson 04-14-2022 Albumin [Mass/Vol] 5.1 g/dL Critically high 3.5-4.6 [facility] Comment on above: Performed By: #### C MP #### [facility] [address] [place] [address] ALP [Catalytic activity/Vol] 40 U/L Normal 40-130 [facility] Comment on above: Performed By: #### C MP #### [facility] [address] [place] [address] ALT [Catalytic activity/Vol] 6 U/L Normal 0-33 [facility] Comment on above: Performed By: #### C MP #### [facility] [address] [place] [address] Anion gap [Moles/Vol] 17 mmol/L Critically high 9-15 [facility] Comment on above: Performed By: #### C MP #### [facility] [address] [place] [address] AST [Catalytic activity/Vol] 13 U/L Normal 0-35 [facility] Comment on above: Performed By: #### C MP #### [facility] [address] [place] [address] Bilirubin [Mass/Vol] 0.3 mg/dL Normal 0.2-0.7 [facility] Comment on above: Performed By: #### C MP #### [facility] [address] [place] [address] Calcium [Mass/Vol] 9.6 mg/dL Normal 8.5-9.9 [facility] Comment on above: Performed By: #### C MP #### [facility] [address] [place] [address] Chloride [Moles/Vol] 101 mmol/L Normal 95-107 [facility] Comment on above: Performed By: #### C MP #### [facility] [address] [place] [address] CO2 [Moles/Vol] 22 mmol/L Normal 20-31 [facility] Comment on above: Performed By: #### C MP #### [facility] [address] [place] [address] Creatinine [Mass/Vol] 0.51 mg/dL Normal 0.50-0.90 [facility] Comment on above: Performed By: #### C MP #### [facility] [address] [place] [address] GFR >60.0 Normal >60 [facility] Comment on above: Result Comment: Patti atric [...] secretion. Performed By: #### C MP #### [facility] [address] [place] [address] Globulin (S) [Mass/Vol] 2.9 g/dL Normal 2.3-3.5 [facility] Comment on above: Performed By: #### C MP #### [facility] [address] [place] [address] Glucose [Mass/Vol] 77 mg/dL Normal 70-99 [facility] Comment on above: Performed By: #### C MP #### [facility] [address] [place] [address] Potassium [Moles/Vol] 4.0 mmol/L Normal 3.4-4.9 [facility] Comment on above: Performed By: #### C MP #### [facility] [address] [place] [address] Protein [Mass/Vol] 8.0 g/dL Normal 6.3-8.0 [facility] Comment on above: Performed By: #### C MP #### [facility] [address] [place] [address] Sodium [Moles/Vol] 140 mmol/L Normal 135-144 [facility] Comment on above: Performed By: #### C MP #### [facility] [address] [place] [address] Urea nitrogen [Mass/Vol] 10 mg/dL Normal 6-20 [facility] Comment on above: Performed By: #### C MP #### [facility] [address] [place] [address] Lipaseon 04-14-2022 Lipase [Catalytic activity/Vol] 36 U/L Normal 12-95 [facility] Comment on above: Performed By: #### L IPAS #### [facility] [address] [place] [address] Albumin [Mass/volume] in Ser um or PlasmaOrdered By: Jt Cedillo on 04-11-2022 Albumin [Mass/Vol] 4.4 g/dL 3.2-5.5 [facility] Automated erythrocytes count in urine sediment (number/area)Ordered By: Jt Cedillo on 04-11-2022 RBC Auto (Urine sed) [#/Area] 0-1 [HPF] 0-4 [facility] Automated leukocytes count i n urine sediment (number/area)Ordered By: Jt Cedillo on 04-11-2022 WBC Auto (Urine sed) [#/Area] 3-4 [HPF] 0-4 [facility] Basic Metabolic Panelon 03-19 Anion gap [Moles/Vol] 13.3 mmol/L Normal 6.0-15.0 [facility] Comment on above: Performed By: #### L IPASE, BMP, CBC #### [facility] [address] [place] [address] [place] Calcium [Mass/Vol] 9.5 mg/dL Normal 8.2-10.2 [facility] Comment on above: Performed By: #### L IPASE, BMP, CBC #### [facility] [address] [place] [id number] [place] Chloride [Moles/Vol] 99 mmol/L Normal 95-114 [facility] Comment on above: Performed By: #### L IPASE, BMP, CBC #### [facility] [address] [place] [address] [place] CO2 [Moles/Vol] 26.3 mmol/L Normal 22.0-30.0 [facility] Comment on above: Performed By: #### L IPASE, BMP, CBC #### [facility] [address] [place] [address] [place] Creatinine [Mass/Vol] 0.60 mg/dL Normal 0.44-1.03 [facility] Comment on above: Performed By: #### L IPASE, BMP, CBC #### [facility] [address] [place] [address] [place] Creatinine Clr Calc Pharmacy 110.86 [facility] Comment on above: Performed By: #### L IPASE, BMP, CBC #### [facility] [address] [place] [id number] [place] Estimated GFR ( Shraddha > 60 [facility] Comment on above: Result Comment: GFR estimated reference range: According to KDOQI guidelines, <60 ml/min/1.73m2 is sufficient to diagnose a patient with chronic kidney disease. Performed By: #### L IPASE, BMP, CBC #### [facility] [address] [place] [address] [place] Estimated GFR (Non- Am > 60 [facility] Comment on above: Performed By: #### L IPASE, BMP, CBC #### [facility] [address] [place] [address] [place] Glucose [Mass/Vol] 85 mg/dL Normal 70-100 [facility] Comment on above: Result Comment: [place] Glucose Reference Range is dependent on time and content of last meal. Glucose of more than 200 mg/dL in a nonstressed, ambulatory subject supports the diagnosis of Diabetes Mellitus. ADA recommended reference range Performed By: #### L IPASE, BMP, CBC #### [facility] [address] Potassium [Moles/Vol] 3.6 mmol/L Normal 3.5-5.1 [facility] Comment on above: Performed By: #### L IPASE, BMP, CBC #### [facility] [address] Sodium [Moles/Vol] 135 mmol/L Low 136-146 [facility] Comment on above: Performed By: #### L IPASE, BMP, CBC #### [facility] [address] Urea nitrogen [Mass/Vol] 8 mg/dL Low 9-23 [facility] Comment on above: Performed By: #### L IPASE, BMP, CBC #### [facility] [address] Basophils Auto (Bld) [#/Vol] Ordered By: Jt Cedillo on 04-11-2022 Basophils (Bld) [#/Vol] 0.0 10*3/uL 0.0-0.2 [facility] Basophils/100 WBC Auto (Bld) Ordered By: Jt Cedillo on 04-11-2022 Basophils/100 WBC (Bld) 0.5 % . F [facility] Bilirubin Test strip Ql (U)O rdered By: Jt Cedillo on 04-11-2022 Bilirubin Ql (U) Negative Negative [facility] Color Auto (U)Ordered By: Gunnar Cedillo on 04-11-2022 Color (U) Yellow Yellow [facility] Complete Blood Count Auto Di ffon 04-11-2022 Basophils (Bld) [#/Vol] 0.0 10*3/uL Normal 0.0-0.2 [facility] Comment on above: Result Comment: PERF ORMED BY: [facility] [address] [place] [address] PATHOLOGIST SOC ANALYST YUE ANDREW M.D. Performed By: #### L IPASE, BMP, CBC #### [address] Basophils/100 WBC (Bld) 0.5 % Normal . F [facility] Comment on above: Performed By: #### L IPASE, BMP, CBC #### [address] Eosinophils (Bld) [#/Vol] 0.2 10*3/uL Normal 0.0-0.45 [facility] Comment on above: Performed By: #### L IPASE, BMP, CBC #### [address] Eosinophils/100 WBC (Bld) 2.2 % Normal . [facility] Comment on above: Performed By: #### L IPASE, BMP, CBC #### [address] Erythrocyte distribution width (RBC) [Ratio] 13.2 % Normal 11.9-15.3 [facility] Comment on above: Performed By: #### L IPASE, BMP, CBC #### [address] Hematocrit (Bld) [Volume fraction] 44.2 % Normal 34.0-46.4 [facility] Comment on above: Performed By: #### L IPASE, BMP, CBC #### [address] Hemoglobin (Bld) [Mass/Vol] 14.7 g/dL Normal 11.8-15.4 [facility] Comment on above: Performed By: #### L IPASE, BMP, CBC #### [address] Lymphocytes (Bld) [#/Vol] 1.5 10*3/uL Normal 1.00-4.8 [facility] Comment on above: Performed By: #### L IPASE, BMP, CBC #### [place] [address] [place] [address] [place] Lymphocytes/100 WBC (Bld) 18.5 % Normal . [facility] Comment on above: Performed By: #### L IPASE, BMP, CBC #### [facility] [address] MCH (RBC) [Entitic mass] 29.3 pg Normal 24.7-34.3 [facility] Comment on above: Performed By: #### L IPASE, BMP, CBC #### [facility] [address] MCV (RBC) [Entitic vol] 88.0 fL Normal 80-[address] [facility] Comment on above: Performed By: #### L IPASE, BMP, CBC #### [address] Mean Corpuscular HGB Conc 33.4 g/dL Normal 32.0-35.0 [facility] Comment on above: Performed By: #### L IPASE, BMP, CBC #### [place] [address] [place] Monocytes (Bld) [#/Vol] 0.7 10*3/uL Normal 0.0-0.8 [facility] Comment on above: Performed By: #### L IPASE, BMP, CBC #### [place] [address] [place] Monocytes/100 WBC (Bld) 8.1 % Normal . F [facility] Comment on above: Performed By: #### L IPASE, BMP, CBC #### [place] [address] [place] Neutrophils (Bld) [#/Vol] 5.8 10*3/uL Normal 1.8-7.7 [facility] Comment on above: Performed By: #### L IPASE, BMP, CBC #### [place] [address] [place] Neutrophils/100 WBC (Bld) 70.7 % Normal . [facility] Comment on above: Performed By: #### L IPASE, BMP, CBC #### [facility] [address] Nucleated RBC/100 WBC (Bld) [Ratio] 0.1 % Normal 0-0.5 [facility] Comment on above: Performed By: #### L IPASE, BMP, CBC #### [facility] [address] Platelet mean volume (Bld) [Entitic vol] 9.1 fL Normal 6.3-10.7 [facility] Comment on above: Performed By: #### L IPASE, BMP, CBC #### [facility] [address] Platelets (Bld) [#/Vol] 278 10*3/uL Normal 150-450 [facility] Comment on above: Performed By: #### L IPASE, BMP, CBC #### [address] RBC (Bld) [#/Vol] 5.02 10*6/uL High 3.60-5.00 [facility] Comment on above: Performed By: #### L IPASE, BMP, CBC #### [address] WBC (Bld) [#/Vol] 8.2 10*3/uL Normal 4.5-11.0 [facility] Comment on above: Performed By: #### L IPASE, BMP, CBC #### [address] Creatinine and Glomerular fi ltration rate.predicted panel (S/P/Bld)Ordered By: Jt Cedillo on 04-11-2022 Creatinine [Mass/Vol] 0.60 mg/dL 0.44-1.03 [facility] Dipstick and Microscopicon 1 Appearance (U) Clear Normal Clear [facility] Comment on above: Order Comment: Name Collection Type:: Clean-Voided Midstream Performed By: #### C OVID19 FLU RSV, CEPHEID NEG #### [address] Bacteria,Urine 1+ High None Seen [facility] Comment on above: Order Comment: Name Collection Type:: Clean-Voided Midstream Performed By: #### C OVID19 FLU RSV, CEPHEID NEG #### [facility] [address] [place] [address] [place] Bilirubin,Urine Negative Normal Negative [facility] Comment on above: Order Comment: Name Collection Type:: Clean-Voided Midstream Performed By: #### C OVID19 FLU RSV, CEPHEID NEG #### [facility] [address] [place] [address] [place] Color (U) Yellow Normal Yellow [facility] Comment on above: Order Comment: Name Collection Type:: Clean-Voided Midstream Performed By: #### C OVID19 FLU RSV, CEPHEID NEG #### [facility] [address] [place] [address] Glucose Ql (U) Normal Normal Normal [facility] Comment on above: Order Comment: Name Collection Type:: Clean-Voided Midstream Performed By: #### C OVID19 FLU RSV, CEPHEID NEG #### [facility] [address] [place] [address] [place] Hyaline Casts,Urine None Seen Normal 0-8 [facility] Comment on above: Order Comment: Name Collection Type:: Clean-Voided Midstream Performed By: #### C OVID19 FLU RSV, CEPHEID NEG #### [facility] [address] [place] [address] [place] Ketones Ql (U) Trace High Negative [facility] Comment on above: Order Comment: Name Collection Type:: Clean-Voided Midstream Performed By: #### C OVID19 FLU RSV, CEPHEID NEG #### [facility] [address] [place] [address] [place] Leukocyte esterase Test strip Ql (U) 2+ High Negative [facility] Comment on above: Order Comment: Name Collection Type:: Clean-Voided Midstream Performed By: #### C OVID19 FLU RSV, CEPHEID NEG #### [facility] [address] [place] [address] [place] Nitrite,Urine Negative Normal Negative [facility] Comment on above: Order Comment: Name Collection Type:: Clean-Voided Midstream Performed By: #### C OVID19 FLU RSV, CEPHEID NEG #### [address] Occult Blood,Urine Negative Normal Negative [facility] Comment on above: Order Comment: Name Collection Type:: Clean-Voided Midstream Performed By: #### C OVID19 FLU RSV, CEPHEID NEG #### [address] pH (U) 7.0 [pH] Normal 5.0-9.0 [facility] Comment on above: Order Comment: Name Collection Type:: Clean-Voided Midstream Performed By: #### C OVID19 FLU RSV, CEPHEID NEG #### [address] Protein,Urine Negative Normal Negative [facility] Comment on above: Order Comment: Name Collection Type:: Clean-Voided Midstream Performed By: #### C OVID19 FLU RSV, CEPHEID NEG #### [address] RBC LM.HPF (Urine sed) [#/Area] 0 /[HPF] Normal 0-4 [facility] Comment on above: Order Comment: Name Collection Type:: Clean-Voided Midstream Performed By: #### C OVID19 FLU RSV, CEPHEID NEG #### [place] [address] [place] Specificy [place],Urine 1.011 Normal 1.001-1.030 [facility] Comment on above: Order Comment: Name Collection Type:: Clean-Voided Midstream Performed By: #### C OVID19 FLU RSV, CEPHEID NEG #### [place] [address] [place] Squamous Epithelial Cell,Urine 3-4 High 0-2 [facility] Comment on above: Order Comment: Name Collection Type:: Clean-Voided Midstream Performed By: #### C OVID19 FLU RSV, CEPHEID NEG #### [address] [place] [address] [place] Urobilinogen,Urine Normal Normal Normal [facility] Comment on above: Order Comment: Name Collection Type:: Clean-Voided Midstream Performed By: #### C OVID19 FLU RSV, CEPHEID NEG #### [facility] [address] [place] [address] [place] WBC,Urine 3-4 Normal 0-4 [facility] Comment on above: Order Comment: Name Collection Type:: Clean-Voided Midstream Performed By: #### C OVID19 FLU RSV, CEPHEID NEG #### [facility] [address] Direct bilirubin measurement Ordered By: Jt Cedillo on 04-11-2022 Bilirubin.direct [Mass/Vol] mg/dL 0.0-0.4 [facility] Eosinophils Auto (Bld) [#/Vo l]Ordered By: Jt Cedillo on 04-11-2022 Eosinophils (Bld) [#/Vol] 0.2 10*3/uL 0.0-0.45 [facility] Eosinophils/100 WBC Auto (Bl d)Ordered By: tJ Cedillo on 04-11-2022 Eosinophils/100 WBC (Bld) 2.2 % . [facility] Erythrocyte distribution wid th Auto (RBC) [Ratio]Ordered By: Jt Cedillo on 04-11-2022 Erythrocyte distribution width (RBC) [Ratio] 13.2 % 11.9-15.3 [facility] Estimated glomerular filtrat ion rate (GFR) non- AmericanOrdered By: Jt Cedillo on 04-11-2022 GFR/1.73 sq M.predicted among non-blacks MDRD (S/P/Bld) [Vol rate/Area] > 60 mL/Min [facility] Globulin Calc (S) [Mass/Vol] Ordered By: Jt Cedillo on 04-11-2022 Globulin (S) [Mass/Vol] 3.2 g/dL F [facility] HCG ( test) IA.rapi d Ql (U)Ordered By: Jt Cedillo on 04-11-2022 HCG ( test) Ql (U) Negative [facility] HCG,Urineon 04-11-2022 Beta HCG ( test) Ql (U) Negative Normal [facility] Comment on above: Order Comment: Name Collection Type:: Clean-Voided Midstream Result Comment: PERF ORMED BY: [place] [address] PATHOLOGIST SOC ANALYST YUE ANDREW M.D. Performed By: #### C OVID19 FLU RSV, CEPHEID NEG #### [facility] [address] [place] [address] Hematocrit Auto (Bld) [Volum e fraction]Ordered By: Jt Cedillo on 04-11-2022 Hematocrit (Bld) [Volume fraction] 44.2 % 34.0-46.4 [facility] Hemoglobin [Mass/volume] in BloodOrdered By: Jt Cedillo on 04-11-2022 Hemoglobin (Bld) [Mass/Vol] 14.7 g/dL 11.8-15.4 [facility] Hepatic Panelon 04-11-2022 Albumin [Mass/Vol] 4.4 g/dL Normal 3.2-5.5 [facility] Comment on above: Performed By: #### L IPASE, BMP, CBC #### [facility] [address] [place] [address] Albumin/Globulin [Mass ratio] 1.4 {ratio} Normal [facility] Comment on above: Performed By: #### L IPASE, BMP, CBC #### [facility] [address] [place] [address] [place] ALP [Catalytic activity/Vol] 36 U/L Normal 32-92 [facility] Comment on above: Performed By: #### L IPASE, BMP, CBC #### [facility] [address] [place] [address] [place] ALT [Catalytic activity/Vol] 13 U/L Normal 10-60 [facility] Comment on above: Performed By: #### L IPASE, BMP, CBC #### [facility] [address] [place] [address] AST [Catalytic activity/Vol] 15 U/L Normal 10-42 [facility] Comment on above: Performed By: #### L IPASE, BMP, CBC #### [facility] [address] Bilirubin [Mass/Vol] 0.7 mg/dL Normal 0.3-1.2 [facility] Comment on above: Performed By: #### L IPASE, BMP, CBC #### [facility] [address] Bilirubin,Indirect Not performed Normal [facility] Comment on above: Performed By: #### L IPASE, BMP, CBC #### [facility] [address] Bilirubin.indirect [Mass/Vol] mg/dL Normal 0.0-0.4 [facility] Comment on above: Performed By: #### L IPASE, BMP, CBC #### [facility] [address] Globulin (S) [Mass/Vol] 3.2 g/dL Normal [facility] Comment on above: Performed By: #### L IPASE, BMP, CBC #### [facility] [address] Protein [Mass/Vol] 7.6 g/dL Normal 6.1-7.9 [facility] Comment on above: Performed By: #### L IPASE, BMP, CBC #### [facility] [address] Ketones Auto test strip (U) [Mass/Vol]Ordered By: Jt Cedillo on 04-11-2022 Ketones (U) [Mass/Vol] Trace Negative [facility] - Chemistry and C hemistry - challengeOrdered By: Jt Cedillo on 04-11-2022 Lipase [Catalytic activity/Vol] 143.0 U/L 22-51 [facility] - Hematology and Cell countsOrdered By: Jt Cedillo on 04-11-2022 Nucleated RBC/100 WBC (Bld) [Ratio] 0.1 % 0-0.5 [facility] - UrinalysisOrder ed By: Jt Cedillo on 04-11-2022 Hyaline casts LM Ql (Urine sed) None seen [LPF] 0-8 [facility] Leukocytes [#/volume] in Blo od by Automated countOrdered By: Jt Cedillo on 04-11-2022 WBC (Bld) [#/Vol] 8.2 10*3/uL 4.5-11.0 [facility] Lipaseon 04-11-2022 Lipase [Catalytic activity/Vol] 143.0 U/L High 22-51 [facility] Comment on above: Result Comment: PERF ORMED BY: [facility] [address] [place] [address] PATHOLOGIST SOC ANALYST YUE ANDREW M.D. Performed By: #### L IPASE, BMP, CBC #### [address] Lymphocytes Auto (Bld) [#/Vo l]Ordered By: Jt Cedillo on 04-11-2022 Lymphocytes (Bld) [#/Vol] 1.5 10*3/uL 1.00-4.8 [facility] Lymphocytes/100 WBC Auto (Bl d)Ordered By: Jt Cedillo on 04-11-2022 Lymphocytes/100 WBC (Bld) 18.5 % . [facility] MCH Auto (RBC) [Entitic mass ]Ordered By: Jt Cedillo on 04-11-2022 MCH (RBC) [Entitic mass] 29.3 pg 24.7-34.3 [facility] MCHC Auto (RBC) [Mass/Vol]Or dered By: Jt Cedillo on 04-11-2022 MCHC (RBC) [Mass/Vol] 33.4 g/dL 32.0-35.0 [facility] MCV Auto (RBC) [Entitic vol] Ordered By: Jt Cedillo on 04-11-2022 MCV (RBC) [Entitic vol] 88.0 fL 80-[address] [facility] Monocytes Auto (Bld) [#/Vol] Ordered By: Jt Cedillo on 04-11-2022 Monocytes (Bld) [#/Vol] 0.7 10*3/uL 0.0-0.8 [facility] Monocytes/100 WBC Auto (Bld) Ordered By: Jt Cedillo on 04-11-2022 Monocytes/100 WBC (Bld) 8.1 % . F [facility] Neutrophils Auto (Bld) [#/Vo l]Ordered By: Jt Cedillo on 04-11-2022 Neutrophils (Bld) [#/Vol] 5.8 10*3/uL 1.8-7.7 [facility] Neutrophils/100 WBC Auto (Bl d)Ordered By: Jt Cedillo on 04-11-2022 Neutrophils/100 WBC (Bld) 70.7 % . [facility] Nitrite Test strip Ql (U)Ord ered By: Jt Cedillo on 04-11-2022 Nitrite Ql (U) Negative Negative [facility] No Panel InformationOrdered By: Jt Cedillo on 04-11-2022 Estimated GFR () > 60 mL/Min [facility] Comment on above: GFR estimated refere nce range: According to KDOQI guidelines, <60 ml/min/1.73m2 is sufficient to diagnose a patient with chronic kidney disease. Pharmacy Creatinine Clearance (Chem 110.86 [facility] Platelet mean volume Auto (B ld) [Entitic vol]Ordered By: Jt Cedillo on 04-11-2022 Platelet mean volume (Bld) [Entitic vol] 9.1 fL 6.3-10.7 [facility] Platelets Auto (Bld) [#/Vol] Ordered By: Jt Cedillo on 04-11-2022 Platelets (Bld) [#/Vol] 278 10*3/uL 150-450 [facility] Protein Auto test strip (U) [Mass/Vol]Ordered By: Jt Cedillo on 04-11-2022 Protein (U) [Mass/Vol] Negative Negative [facility] Protein [Mass/volume] in Ser um or PlasmaOrdered By: Jt Cedillo on 04-11-2022 Protein [Mass/Vol] 7.6 g/dL 6.1-7.9 [facility] RBC Auto (Bld) [#/Vol]Ordere d By: Jt Cedillo on 04-11-2022 RBC (Bld) [#/Vol] 5.02 10*6/uL 3.60-5.00 [facility] Serum or plasma alanine morris otransferase measurement without P-5'-P (enzymatic activiOrdered By: Jt Cedillo on 04-11-2022 ALT No additional P-5'-P [Catalytic activity/Vol] 13 U/L 10-60 [facility] Serum or plasma albumin/glob ulin mass ratioOrdered By: Jt Cedillo on 04-11-2022 Albumin/Globulin [Mass ratio] 1.4 {ratio} [facility] Serum or plasma alkaline emerita sphatase measurement (enzymatic activity/volume)Ordered By: Jt Cedillo on 04-11-2022 ALP [Catalytic activity/Vol] 36 U/L 32-92 [facility] Serum or plasma anion gap de terminationOrdered By: Jt Cedillo on 04-11-2022 Anion gap [Moles/Vol] 13.3 mmol/L 6.0-15.0 [facility] Serum or plasma aspartate am inotransferase measurement (enzymatic activity/volume)Ordered By: Jt Cedillo on 04-11-2022 AST [Catalytic activity/Vol] 15 U/L 10-42 [facility] Serum or plasma calcium pedro urement (mass/volume)Ordered By: Jt Cedillo on 04-11-2022 Calcium [Mass/Vol] 9.5 mg/dL 8.2-10.2 [facility] Serum or plasma chloride liberty surement (moles/volume)Ordered By: Jt Cedillo on 04-11-2022 Chloride [Moles/Vol] 99 mmol/L 95-114 [facility] Serum or plasma glucose pedro urement (mass/volume)Ordered By: Jt Cedillo on 04-11-2022 Glucose [Mass/Vol] 85 mg/dL 70-100 [facility] Comment on above: ADA recommended refe rence rangeRandom Glucose Reference Range is dependent on time and content of last meal. Glucose of more than 200 mg/dL in a nonstressed, ambulatory subject supports the diagnosis of Diabetes Mellitus. Serum or plasma non-glucuron idated bilirubin measurement (mass/volume)Ordered By: Jt Cedillo on 04-11-2022 Bilirubin.indirect [Mass/Vol] TNP [facility] Comment on above: Test not performed Serum or plasma potassium me asurement (moles/volume)Ordered By: Jt Cedillo on 04-11-2022 Potassium [Moles/Vol] 3.6 mmol/L 3.5-5.1 [facility] Serum or plasma sodium measu rement (moles/volume)Ordered By: Jt Cedillo on 04-11-2022 Sodium [Moles/Vol] 135 mmol/L 136-146 [facility] Serum or plasma total biliru bin measurement (mass/volume)Ordered By: Jt Cedillo on 04-11-2022 Bilirubin [Mass/Vol] 0.7 mg/dL 0.3-1.2 [facility] Serum or plasma total carbon dioxide measurement (moles/volume)Ordered By: Jt Cedillo on 04-11-2022 CO2 [Moles/Vol] 26.3 mmol/L 22.0-30.0 [facility] Serum or plasma urea nitroge n measurement (mass/volume)Ordered By: Jt Cedillo on 04-11-2022 Urea nitrogen [Mass/Vol] 8 mg/dL 9-23 [facility] Specific gravity Auto test s trip (U) [Rel density]Ordered By: Jt Cedillo on 04-11-2022 Specific gravity (U) [Rel density] 1.011 1.001-1.030 [facility] Squamous epithelial cells de tection in urine sediment by light microscopyOrdered By: Jt Cedillo on 04-11-2022 Epithelial cells.squamous LM Ql (Urine sed) 3-4 [HPF] 0-2 [facility] Urine bacteria detection by automated methodOrdered By: Jt Cedillo on 04-11-2022 Bacteria Auto Ql (U) 1+ None Seen [facility] Urine clarity by refractomet ry automatedOrdered By: Jt Cedillo on 04-11-2022 Clarity Refractometry automated (U) Clear Clear [facility] Urine glucose measurement by automated test strip (mass/volume)Ordered By: Jt Cedillo on 04-11-2022 Glucose Auto test strip (U) [Mass/Vol] Normal mg/dL Normal [facility] Urine hemoglobin detection b y automated test stripOrdered By: Jt Cedillo on 04-11-2022 Hemoglobin Auto test strip Ql (U) Negative Negative [facility] Urine leukocyte esterase det ection by automated test stripOrdered By: Jt Cedillo on 04-11-2022 Leukocyte esterase Auto test strip Ql (U) 2+ Negative [facility] Urobilinogen Auto test strip (U) [Mass/Vol]Ordered By: Jtjenny Cedillo on 04-11-2022 Urobilinogen (U) [Mass/Vol] Normal mg/dL Normal [facility] pH Auto test strip (U)Ordere d By: Jt Cedillo on 04-11-2022 pH (U) 7.0 [pH] 5.0-9.0 [facility] Basic Metabolic Panelon 03-19 Anion gap [Moles/Vol] 7.9 mmol/L Normal 6.0-15.0 [facility] Comment on above: Performed By: #### C OVID19 FLU RSV, CEPHEID NEG #### [facility] [address] [place] [address] [place] Calcium [Mass/Vol] 8.0 mg/dL Low 8.2-10.2 [facility] Comment on above: Performed By: #### C OVID19 FLU RSV, CEPHEID NEG #### [facility] [address] [place] [address] [place] Chloride [Moles/Vol] 111 mmol/L Normal 95-114 [facility] Comment on above: Performed By: #### C OVID19 FLU RSV, CEPHEID NEG #### [place] [address] [place] CO2 [Moles/Vol] 22.5 mmol/L Normal 22.0-30.0 [facility] Comment on above: Performed By: #### C OVID19 FLU RSV, CEPHEID NEG #### [facility] [address] [place] [address] [place] Creatinine [Mass/Vol] 0.50 mg/dL Normal 0.44-1.03 [facility] Comment on above: Performed By: #### C OVID19 FLU RSV, CEPHEID NEG #### [facility] [address] [place] [address] [place] Creatinine Clr Calc Pharmacy 147.52 Normal [facility] Comment on above: Performed By: #### C OVID19 FLU RSV, CEPHEID NEG #### [facility] [address] [place] [address] [place] Estimated GFR ( Shraddha > 60 Normal [facility] Comment on above: Result Comment: GFR estimated reference range: According to KDOQI guidelines, <60 ml/min/1.73m2 is sufficient to diagnose a patient with chronic kidney disease. Performed By: #### C OVID19 FLU RSV, CEPHEID NEG #### [facility] [address] [place] [address] [place] Estimated GFR (Non- Am > 60 Normal [facility] Comment on above: Performed By: #### C OVID19 FLU RSV, CEPHEID NEG #### [address] Glucose [Mass/Vol] 82 mg/dL Normal 70-100 [facility] Comment on above: Result Comment: [place] Glucose Reference Range is dependent on time and content of last meal. Glucose of more than 200 mg/dL in a nonstressed, ambulatory subject supports the diagnosis of Diabetes Mellitus. ADA recommended reference range Performed By: #### C OVID19 FLU RSV, CEPHEID NEG #### [place] [address] [place] Potassium [Moles/Vol] 3.4 mmol/L Low 3.5-5.1 [facility] Comment on above: Performed By: #### C OVID19 FLU RSV, CEPHEID NEG #### [place] [address] [place] Sodium [Moles/Vol] 138 mmol/L Normal 136-146 [facility] Comment on above: Performed By: #### C OVID19 FLU RSV, CEPHEID NEG #### [place] [address] [place] Urea nitrogen [Mass/Vol] 2 mg/dL Low 9-23 [facility] Comment on above: Performed By: #### C OVID19 FLU RSV, CEPHEID NEG #### [place] [address] [place] Basophils Auto (Bld) [#/Vol] Ordered By: Bernadette Box on 04-06-2022 Basophils (Bld) [#/Vol] 0.0 10*3/uL 0.0-0.2 [facility] Basophils/100 WBC Auto (Bld) Ordered By: Bernadette Box on 04-06-2022 Basophils/100 WBC (Bld) 0.7 % . F [facility] Complete Blood Count Auto Di ffon 04-06-2022 Basophils (Bld) [#/Vol] 0.0 10*3/uL Normal 0.0-0.2 [facility] Comment on above: Result Comment: PERF ORMED BY: [place] [address] PATHOLOGIST SOC ANALYST YUE ANDREW M.D. Performed By: #### C BC #### [address] Basophils/100 WBC (Bld) 0.7 % Normal . F [facility] Comment on above: Performed By: #### C BC #### [address] Eosinophils (Bld) [#/Vol] 0.3 10*3/uL Normal 0.0-0.45 [facility] Comment on above: Performed By: #### C BC #### [address] Eosinophils/100 WBC (Bld) 3.4 % Normal . [facility] Comment on above: Performed By: #### C BC #### [address] Erythrocyte distribution width (RBC) [Ratio] 12.8 % Normal 11.9-15.3 [facility] Comment on above: Performed By: #### C BC #### [address] Hematocrit (Bld) [Volume fraction] 35.5 % Normal 34.0-46.4 [facility] Comment on above: Performed By: #### C BC #### [address] Hemoglobin (Bld) [Mass/Vol] 12.0 g/dL Normal 11.8-15.4 [facility] Comment on above: Performed By: #### C BC #### [facility] [address] Lymphocytes (Bld) [#/Vol] 2.3 10*3/uL Normal 1.00-4.8 [facility] Comment on above: Performed By: #### C BC #### [facility] [address] Lymphocytes/100 WBC (Bld) 31.3 % Normal . [facility] Comment on above: Performed By: #### C BC #### [address] MCH (RBC) [Entitic mass] 29.7 pg Normal 24.7-34.3 [facility] Comment on above: Performed By: #### C BC #### [address] MCV (RBC) [Entitic vol] 88.1 fL Normal 80-[address] [facility] Comment on above: Performed By: #### C BC #### [address] Mean Corpuscular HGB Conc 33.7 g/dL Normal 32.0-35.0 [facility] Comment on above: Performed By: #### C BC #### [address] Monocytes (Bld) [#/Vol] 0.8 10*3/uL Normal 0.0-0.8 [facility] Comment on above: Performed By: #### C BC #### [place] [address] [place] Monocytes/100 WBC (Bld) 11.0 % Normal . F [facility] Comment on above: Performed By: #### C BC #### [address] Neutrophils (Bld) [#/Vol] 3.9 10*3/uL Normal 1.8-7.7 [facility] Comment on above: Performed By: #### C BC #### [facility] [address] Neutrophils/100 WBC (Bld) 53.6 % Normal . [facility] Comment on above: Performed By: #### C BC #### [facility] [address] Nucleated RBC/100 WBC (Bld) [Ratio] 0.1 % Normal 0-0.5 [facility] Comment on above: Performed By: #### C BC #### [facility] [address] Platelet mean volume (Bld) [Entitic vol] 8.9 fL Normal 6.3-10.7 [facility] Comment on above: Performed By: #### C BC #### [facility] [address] Platelets (Bld) [#/Vol] 199 10*3/uL Normal 150-450 [facility] Comment on above: Performed By: #### C BC #### [facility] [address] RBC (Bld) [#/Vol] 4.03 10*6/uL Normal 3.60-5.00 [facility] Comment on above: Performed By: #### C BC #### [place] [address] [place] WBC (Bld) [#/Vol] 7.3 10*3/uL Normal 4.5-11.0 [facility] Comment on above: Performed By: #### C BC #### [place] [address] [place] Creatinine and Glomerular fi ltration rate.predicted panel (S/P/Bld)Ordered By: Obrenadateri Richmondr on 04-06-2022 Creatinine [Mass/Vol] 0.50 mg/dL 0.44-1.03 [facility] Eosinophils Auto (Bld) [#/Vo l]Ordered By: Obaydah Daromar on 04-06-2022 Eosinophils (Bld) [#/Vol] 0.3 10*3/uL 0.0-0.45 [facility] Eosinophils/100 WBC Auto (Bl d)Ordered By: Bernadette Box on 04-06-2022 Eosinophils/100 WBC (Bld) 3.4 % . [facility] Erythrocyte distribution wid th Auto (RBC) [Ratio]Ordered By: Bernadette Box on 04-06-2022 Erythrocyte distribution width (RBC) [Ratio] 12.8 % 11.9-15.3 [facility] Estimated glomerular filtrat ion rate (GFR) non- AmericanOrdered By: Bernadette Box on 04-06-2022 GFR/1.73 sq M.predicted among non-blacks MDRD (S/P/Bld) [Vol rate/Area] > 60 mL/Min [facility] Hematocrit Auto (Bld) [Volum e fraction]Ordered By: Bernadette Box on 04-06-2022 Hematocrit (Bld) [Volume fraction] 35.5 % 34.0-46.4 [facility] Hemoglobin [Mass/volume] in BloodOrdered By: Bernadette Box on 04-06-2022 Hemoglobin (Bld) [Mass/Vol] 12.0 g/dL 11.8-15.4 [facility] - Hematology and Cell countsOrdered By: Bernadette Box on 04-06-2022 Nucleated RBC/100 WBC (Bld) [Ratio] 0.1 % 0-0.5 [facility] Leukocytes [#/volume] in Blo od by Automated countOrdered By: Bernadette Box on 04-06-2022 WBC (Bld) [#/Vol] 7.3 10*3/uL 4.5-11.0 [facility] Lymphocytes Auto (Bld) [#/Vo l]Ordered By: Bernadette Box on 04-06-2022 Lymphocytes (Bld) [#/Vol] 2.3 10*3/uL 1.00-4.8 [facility] Lymphocytes/100 WBC Auto (Bl d)Ordered By: Bernadette Richmondr on 04-06-2022 Lymphocytes/100 WBC (Bld) 31.3 % . [facility] MCH Auto (RBC) [Entitic mass ]Ordered By: Obrenadateri Daromar on 04-06-2022 MCH (RBC) [Entitic mass] 29.7 pg 24.7-34.3 [facility] MCHC Auto (RBC) [Mass/Vol]Or dered By: Obaydah Daromar on 04-06-2022 MCHC (RBC) [Mass/Vol] 33.7 g/dL 32.0-35.0 [facility] MCV Auto (RBC) [Entitic vol] Ordered By: Obaydah Daromar on 04-06-2022 MCV (RBC) [Entitic vol] 88.1 fL 80-[address] [facility] Monocytes Auto (Bld) [#/Vol] Ordered By: Obaydah Daromar on 04-06-2022 Monocytes (Bld) [#/Vol] 0.8 10*3/uL 0.0-0.8 [facility] Monocytes/100 WBC Auto (Bld) Ordered By: Obaydah Daromar on 04-06-2022 Monocytes/100 WBC (Bld) 11.0 % . F [facility] Neutrophils Auto (Bld) [#/Vo l]Ordered By: Obaydah Daromar on 04-06-2022 Neutrophils (Bld) [#/Vol] 3.9 10*3/uL 1.8-7.7 [facility] Neutrophils/100 WBC Auto (Bl d)Ordered By: Obrenadah Daromar on 04-06-2022 Neutrophils/100 WBC (Bld) 53.6 % . [facility] No Panel InformationOrdered By: Obrenadah Aloomar on 04-06-2022 Estimated GFR () > 60 mL/Min [facility] Comment on above: GFR estimated refere nce range: According to KDOQI guidelines, <60 ml/min/1.73m2 is sufficient to diagnose a patient with chronic kidney disease. Pharmacy Creatinine Clearance (Chem 147.52 [facility] Phosphate [Mass/volume] in S mir or PlasmaOrdered By: Obrenadah Daromar on 04-06-2022 Phosphate [Mass/Vol] 3.1 mg/dL 2.5-4.6 [facility] Phosphoruson 04-06-2022 Phosphate [Mass/Vol] 3.1 mg/dL Normal 2.5-4.6 [facility] Comment on above: Result Comment: PERF ORMED BY: [facility] [address] [place] [address] PATHOLOGIST SOC ANALYST YUE ANDREW M.D. Performed By: #### C OVID19 FLU RSV, CEPHEID NEG #### [facility] [address] Platelet mean volume Auto (B ld) [Entitic vol]Ordered By: Obaydah Daromar on 04-06-2022 Platelet mean volume (Bld) [Entitic vol] 8.9 fL 6.3-10.7 [facility] Platelets Auto (Bld) [#/Vol] Ordered By: Obaydah Daromar on 04-06-2022 Platelets (Bld) [#/Vol] 199 10*3/uL 150-450 [facility] RBC Auto (Bld) [#/Vol]Ordere d By: Obaydah Daromar on 04-06-2022 RBC (Bld) [#/Vol] 4.03 10*6/uL 3.60-5.00 [facility] Serum or plasma anion gap de terminationOrdered By: Obaydah Daromar on 04-06-2022 Anion gap [Moles/Vol] 7.9 mmol/L 6.0-15.0 [facility] Serum or plasma calcium pedro urement (mass/volume)Ordered By: Obaydah Daromar on 04-06-2022 Calcium [Mass/Vol] 8.0 mg/dL 8.2-10.2 [facility] Serum or plasma chloride liberty surement (moles/volume)Ordered By: Obaydah Daromar on 04-06-2022 Chloride [Moles/Vol] 111 mmol/L 95-114 [facility] Serum or plasma glucose pedro urement (mass/volume)Ordered By: Obaydah Daromar on 04-06-2022 Glucose [Mass/Vol] 82 mg/dL 70-100 [facility] Comment on above: ADA recommended refe rence rangeRandom Glucose Reference Range is dependent on time and content of last meal. Glucose of more than 200 mg/dL in a nonstressed, ambulatory subject supports the diagnosis of Diabetes Mellitus. Serum or plasma potassium me asurement (moles/volume)Ordered By: Bernadette Box on 04-06-2022 Potassium [Moles/Vol] 3.4 mmol/L 3.5-5.1 [facility] Serum or plasma sodium measu rement (moles/volume)Ordered By: Bernadette Richmondr on 04-06-2022 Sodium [Moles/Vol] 138 mmol/L 136-146 [facility] Serum or plasma total carbon dioxide measurement (moles/volume)Ordered By: raulito Box on 04-06-2022 CO2 [Moles/Vol] 22.5 mmol/L 22.0-30.0 [facility] Serum or plasma urea nitroge n measurement (mass/volume)Ordered By: Bernadette Box on 04-06-2022 Urea nitrogen [Mass/Vol] 2 mg/dL 03-10 [facility] Urine culture routineOrdered By: Elvi Price on 04-06-2022 Bacteria identified Cx Nom (U) 2 Days [facility] Basic Metabolic Panelon 03-18 Anion gap [Moles/Vol] 8.5 mmol/L Normal 6.0-15.0 [facility] Comment on above: Order Comment: AJW Performed By: #### L IPASE, BMP, CBC #### [facility] [address] [place] [address] [place] Calcium [Mass/Vol] 7.8 mg/dL Low 8.2-10.2 [facility] Comment on above: Order Comment: AJW Performed By: #### L IPASE, BMP, CBC #### [facility] [address] [place] [id number] [place] Chloride [Moles/Vol] 108 mmol/L Normal 95-114 [facility] Comment on above: Order Comment: AJW Performed By: #### L IPASE, BMP, CBC #### [facility] [address] [place] [address] [place] CO2 [Moles/Vol] 21.0 mmol/L Low 22.0-30.0 [facility] Comment on above: Order Comment: AJW Performed By: #### L IPASE, BMP, CBC #### [facility] [address] Creatinine [Mass/Vol] 0.52 mg/dL Normal 0.44-1.03 [facility] Comment on above: Order Comment: AJW Performed By: #### L IPASE, BMP, CBC #### [facility] [address] [place] [address] [place] Creatinine Clr Calc Pharmacy 141.19 [facility] Comment on above: Order Comment: AJW Performed By: #### L IPASE, BMP, CBC #### [facility] [address] Estimated GFR ( Shraddha > 60 [facility] Comment on above: Order Comment: AJW Result Comment: GFR estimated reference range: According to KDOQI guidelines, <60 ml/min/1.73m2 is sufficient to diagnose a patient with chronic kidney disease. Performed By: #### L IPASE, BMP, CBC #### [facility] [address] [place] [address] Estimated GFR (Non- Am > 60 [facility] Comment on above: Order Comment: AJW Performed By: #### L IPASE, BMP, CBC #### [facility] [address] Glucose [Mass/Vol] 62 mg/dL Low 70-100 [facility] Comment on above: Order Comment: AJW Result Comment: [place] om Glucose Reference Range is dependent on time and content of last meal. Glucose of more than 200 mg/dL in a nonstressed, ambulatory subject supports the diagnosis of Diabetes Mellitus. ADA recommended reference range Performed By: #### L IPASE, BMP, CBC #### [facility] [address] Potassium [Moles/Vol] 3.5 mmol/L Normal 3.5-5.1 [facility] Comment on above: Order Comment: AJW Performed By: #### L IPASE, BMP, CBC #### [address] Sodium [Moles/Vol] 134 mmol/L Low 136-146 [facility] Comment on above: Order Comment: AJW Performed By: #### L IPASE, BMP, CBC #### [address] Urea nitrogen [Mass/Vol] 6 mg/dL Low 9-23 [facility] Comment on above: Order Comment: AJW Performed By: #### L IPASE, BMP, CBC #### [address] Complete Blood Count Auto Di ffon 04-05-2022 Basophils (Bld) [#/Vol] 0.1 10*3/uL Normal 0.0-0.2 [facility] Comment on above: Order Comment: AJW Result Comment: PERF ORMED BY: [place] [address] PATHOLOGIST SOC ANALYST YUE ANDREW M.D. Performed By: #### L IPASE, BMP, CBC #### [address] Basophils/100 WBC (Bld) 0.6 % Normal . [facility] Comment on above: Order Comment: AJW Performed By: #### L IPASE, BMP, CBC #### [address] Eosinophils (Bld) [#/Vol] 0.2 10*3/uL Normal 0.0-0.45 [facility] Comment on above: Order Comment: AJW Performed By: #### L IPASE, BMP, CBC #### [place] [address] [place] Eosinophils/100 WBC (Bld) 1.6 % Normal . [facility] Comment on above: Order Comment: AJW Performed By: #### L IPASE, BMP, CBC #### [address] Erythrocyte distribution width (RBC) [Ratio] 12.8 % Normal 11.9-15.3 [facility] Comment on above: Order Comment: AJW Performed By: #### L IPASE, BMP, CBC #### [address] Hematocrit (Bld) [Volume fraction] 39.1 % Normal 34.0-46.4 [facility] Comment on above: Order Comment: AJW Performed By: #### L IPASE, BMP, CBC #### [address] Hemoglobin (Bld) [Mass/Vol] 12.9 g/dL Normal 11.8-15.4 [facility] Comment on above: Order Comment: AJW Performed By: #### L IPASE, BMP, CBC #### [address] Lymphocytes (Bld) [#/Vol] 1.4 10*3/uL Normal 1.00-4.8 [facility] Comment on above: Order Comment: AJW Performed By: #### L IPASE, BMP, CBC #### [address] Lymphocytes/100 WBC (Bld) 12.9 % Normal . [facility] Comment on above: Order Comment: AJW Performed By: #### L IPASE, BMP, CBC #### [address] MCH (RBC) [Entitic mass] 29.4 pg Normal 24.7-34.3 [facility] Comment on above: Order Comment: AJW Performed By: #### L IPASE, BMP, CBC #### [address] MCV (RBC) [Entitic vol] 89.0 fL Normal 80-[address] [facility] Comment on above: Order Comment: AJW Performed By: #### L IPASE, BMP, CBC #### [place] [address] [place] Mean Corpuscular HGB Conc 33.0 g/dL Normal 32.0-35.0 [facility] Comment on above: Order Comment: AJW Performed By: #### L IPASE, BMP, CBC #### [facility] [address] Monocytes (Bld) [#/Vol] 0.8 10*3/uL Normal 0.0-0.8 [facility] Comment on above: Order Comment: AJW Performed By: #### L IPASE, BMP, CBC #### [facility] [address] Monocytes/100 WBC (Bld) 6.9 % Normal . F [facility] Comment on above: Order Comment: AJW Performed By: #### L IPASE, BMP, CBC #### [facility] [address] Neutrophils (Bld) [#/Vol] 8.7 10*3/uL High 1.8-7.7 [facility] Comment on above: Order Comment: AJW Performed By: #### L IPASE, BMP, CBC #### [facility] [address] [place] [address] [place] Neutrophils/100 WBC (Bld) 78.0 % Normal . [facility] Comment on above: Order Comment: AJW Performed By: #### L IPASE, BMP, CBC #### [facility] [address] [place] [address] [place] Nucleated RBC/100 WBC (Bld) [Ratio] 0.0 % Normal 0-0.5 [facility] Comment on above: Order Comment: AJW Performed By: #### L IPASE, BMP, CBC #### [facility] [address] [place] [address] [place] Platelet mean volume (Bld) [Entitic vol] 9.0 fL Normal 6.3-10.7 [facility] Comment on above: Order Comment: AJW Performed By: #### L IPASE, BMP, CBC #### [facility] [address] [place] [address] [place] Platelets (Bld) [#/Vol] 195 10*3/uL Normal 150-450 [facility] Comment on above: Order Comment: AJW Performed By: #### L IPASEDEBBIE, CBC #### [facility] [address] [place] [address] RBC (Bld) [#/Vol] 4.40 10*6/uL Normal 3.60-5.00 [facility] Comment on above: Order Comment: AJW Performed By: #### L IPASE BMP, CBC #### [facility] [address] WBC (Bld) [#/Vol] 11.2 10*3/uL High 4.5-11.0 [facility] Comment on above: Order Comment: AJW Performed By: #### L IPASE BMP, CBC #### [address] Laboratory - Chemistry and C hemistry - challengeOrdered By: Bernadette Box on 04-05-2022 Magnesium [Mass/Vol] 1.7 mg/dL 1.6-2.6 [facility] Magnesiumon 04-05-2022 Magnesium [Mass/Vol] 1.7 mg/dL Normal 1.6-2.6 [facility] Comment on above: Order Comment: AJW Result Comment: PERF ORMED BY: [place] [address] PATHOLOGIST SOC ANALYST YUE ANDREW M.D. Performed By: #### L IPADEBBIE HERNANDEZ, CBC #### [facility] [address] [place] [address] Phosphoruson 04-05-2022 Phosphate [Mass/Vol] 2.4 mg/dL Low 2.5-4.6 [facility] Comment on above: Order Comment: AJW Performed By: #### L IPASE BMP, CBC #### [facility] [address] A1C with Estimated Average G luon 04-04-2022 Glucose [Mass/Vol] 103 mg/dL Normal [facility] Comment on above: Result Comment: PERF ORMED BY: [place] [address] PATHOLOGIST SOC ANALYST YUE ANDREW M.D. Performed By: #### C OVID19 FLU RSV, CEPHEID NEG #### [address] HbA1c (Bld) [Mass fraction] 5.2 % Normal 4.3-5.6 [facility] Comment on above: Result Comment: Incr eased risk for diabetes: 5.7 - 6.4 diabetes: >6.4 glycemic control for adults with diabetes: <7.0 Performed By: #### C OVID19 FLU RSV, CEPHEID NEG #### [address] Albumin [Mass/volume] in Ser um or PlasmaOrdered By: Elvi Price on 04-04-2022 Albumin [Mass/Vol] 4.1 g/dL 3.2-5.5 [facility] Automated erythrocytes count in urine sediment (number/area)Ordered By: Elvi Price on 04-04-2022 RBC Auto (Urine sed) [#/Area] 1-2 [HPF] 0-4 [facility] Automated leukocytes count i n urine sediment (number/area)Ordered By: Elvi Price on 04-04-2022 WBC Auto (Urine sed) [#/Area] 10-19 [HPF] 0-4 [facility] Basic Metabolic Panelon 03-18 Anion gap [Moles/Vol] 10.4 mmol/L Normal 6.0-15.0 [facility] Comment on above: Order Comment: Comme nt add Performed By: #### C OVID19 FLU RSV, CEPHEID NEG #### [facility] [address] [place] [address] Calcium [Mass/Vol] 8.1 mg/dL Low 8.2-10.2 [facility] Comment on above: Order Comment: Comme nt add Performed By: #### C OVID19 FLU RSV, CEPHEID NEG #### [address] [place] [address] [place] Chloride [Moles/Vol] 105 mmol/L Normal 95-114 [facility] Comment on above: Order Comment: Comme nt add Performed By: #### C OVID19 FLU RSV, CEPHEID NEG #### [facility] [address] CO2 [Moles/Vol] 25.1 mmol/L Normal 22.0-30.0 [facility] Comment on above: Order Comment: Comme nt add Performed By: #### C OVID19 FLU RSV, CEPHEID NEG #### [facility] [address] [place] [address] Creatinine [Mass/Vol] 0.53 mg/dL Normal 0.44-1.03 [facility] Comment on above: Order Comment: Comme nt add Performed By: #### C OVID19 FLU RSV, CEPHEID NEG #### [facility] [address] [place] [address] [place] Creatinine Clr Calc Pharmacy 137.34 [facility] Comment on above: Order Comment: Comme nt add Performed By: #### C OVID19 FLU RSV, CEPHEID NEG #### [address] Estimated GFR ( Shraddha > 60 [facility] Comment on above: Order Comment: Comme nt add Result Comment: GFR estimated reference range: According to KDOQI guidelines, <60 ml/min/1.73m2 is sufficient to diagnose a patient with chronic kidney disease. Performed By: #### C OVID19 FLU RSV, CEPHEID NEG #### [facility] [address] [place] [address] Estimated GFR (Non- Am > 60 [facility] Comment on above: Order Comment: Comme nt add Performed By: #### C OVID19 FLU RSV, CEPHEID NEG #### [facility] [address] [place] [address] Glucose [Mass/Vol] 82 mg/dL Normal 70-100 [facility] Comment on above: Order Comment: Comme nt add Result Comment: [place] om Glucose Reference Range is dependent on time and content of last meal. Glucose of more than 200 mg/dL in a nonstressed, ambulatory subject supports the diagnosis of Diabetes Mellitus. ADA recommended reference range Performed By: #### C OVID19 FLU RSV, CEPHEID NEG #### [facility] [address] Potassium [Moles/Vol] 3.5 mmol/L Normal 3.5-5.1 [facility] Comment on above: Order Comment: Comme nt add Performed By: #### C OVID19 FLU RSV, CEPHEID NEG #### [facility] [address] Sodium [Moles/Vol] 137 mmol/L Normal 136-146 [facility] Comment on above: Order Comment: Comme nt add Performed By: #### C OVID19 FLU RSV, CEPHEID NEG #### [facility] [address] Urea nitrogen [Mass/Vol] 5 mg/dL Low 9-23 [facility] Comment on above: Order Comment: Comme nt add Performed By: #### C OVID19 FLU RSV, CEPHEID NEG #### [facility] [address] Anion gap [Moles/Vol] 14.0 mmol/L Normal 6.0-15.0 [facility] Comment on above: Performed By: #### L IPASE, BMP, CBC #### [facility] [address] [place] [address] [place] Calcium [Mass/Vol] 9.0 mg/dL Normal 8.2-10.2 [facility] Comment on above: Performed By: #### L IPASE, BMP, CBC #### [facility] [address] [place] [address] [place] Chloride [Moles/Vol] 101 mmol/L Normal 95-114 [facility] Comment on above: Performed By: #### L IPASE, BMP, CBC #### [facility] [address] [place] [address] [place] CO2 [Moles/Vol] 21.3 mmol/L Low 22.0-30.0 [facility] Comment on above: Performed By: #### L IPASE, BMP, CBC #### [facility] [address] Creatinine [Mass/Vol] 0.57 mg/dL Normal 0.44-1.03 [facility] Comment on above: Performed By: #### L IPASE, BMP, CBC #### [facility] [address] [place] [address] [place] Creatinine Clr Calc Pharmacy 127.70 [facility] Comment on above: Performed By: #### L IPASE, BMP, CBC #### [facility] [address] Estimated GFR ( Shraddha > 60 [facility] Comment on above: Result Comment: GFR estimated reference range: According to KDOQI guidelines, <60 ml/min/1.73m2 is sufficient to diagnose a patient with chronic kidney disease. Performed By: #### L IPASE, BMP, CBC #### [facility] [address] Estimated GFR (Non- Am > 60 [facility] Comment on above: Performed By: #### L IPASE, BMP, CBC #### [facility] [address] Glucose [Mass/Vol] 95 mg/dL Normal 70-100 [facility] Comment on above: Result Comment: [place] Glucose Reference Range is dependent on time and content of last meal. Glucose of more than 200 mg/dL in a nonstressed, ambulatory subject supports the diagnosis of Diabetes Mellitus. ADA recommended reference range Performed By: #### L IPASE, BMP, CBC #### [facility] [address] [place] [address] [place] Potassium [Moles/Vol] 3.3 mmol/L Low 3.5-5.1 [facility] Comment on above: Performed By: #### L IPASE, BMP, CBC #### [facility] [address] Sodium [Moles/Vol] 133 mmol/L Low 136-146 [facility] Comment on above: Performed By: #### L IPASE, BMP, CBC #### [facility] [address] Urea nitrogen [Mass/Vol] 7 mg/dL Low 9- [facility] Comment on above: Performed By: #### L IPASE, BMP, CBC #### [facility] [address] Basophils Auto (Bld) [#/Vol] Ordered By: Elvi Price on 04-04-2022 Basophils (Bld) [#/Vol] 0.1 10*3/uL 0.0-0.2 [facility] Basophils/100 WBC Auto (Bld) Ordered By: Elvi Price on 04-04-2022 Basophils/100 WBC (Bld) 1.3 % . F [facility] Bilirubin Test strip Ql (U)O rdered By: Elvi Price on 04-04-2022 Bilirubin Ql (U) Negative Negative [facility] COVID CepheidOrdered By: Emory Mendez on 04-04-2022 SARS-CoV-2 (COVID-19) Ab IA Ql Negative Negative [facility] Comment on above: This is a duplicate Cepheid Xpert Xpress CoV-2/Flu/RSV Plus RNA by RT-PCR result to be used for statistical tracking purpose only. SARS-CoV-2 (COVID-19) RNA HEMA+probe Ql (Unsp spec) [facility] COVID-19 / Flu A/B / RSV [...] or Cepheid Disclaimer revoked sooner. PERFORMED BY: [place] [address] PATHOLOGIST SOC ANALYST YUE ANDREW M.D. [facility] Comment on above: Performed By: #### C OVID19 FLU RSV, CEPHEID NEG #### [address] abdomen pelvis wo [facility] 1 CT abdomen pelvis wo [facility] [place] [address] [place] [address] CT Scan Report Signed Patient: Jeannette Sweet MR#: [id number] : 1985 Acct:[id number] Age/Sex: 36 / F ADM Date: 04/04/22 Loc: Room: [address] [place] [address] Type: ADM IN Attending Dr: Bernadette Box [...] Caro Ly M.D.04/04/2022 8:23 AM Dictation Location: [place] [address] Transcribed By: [facility] 04/04/22822 Dictated By: Caro Ly MD 04/04/22814 Signed By: 04/04/22822 [facility] Cepheid COVID PCR Negativeon 04-04-2022 SARS-CoV-2 (COVID-19) RNA HEMA+probe Ql (Unsp spec) Negative Normal Negative [facility] Comment on above: Result Comment: This is a duplicate CepcWyzeid Xpert Xpress CoV-2/Flu/RSV Plus RNA by RT-PCR result to be used for statistical tracking purpose only. PERFORMED BY: [place] [address] PATHOLOGIST SOC ANALYST YUE ANDREW M.D. Performed By: #### C OVID19 FLU RSV, CEPHEID NEG #### [address] Cholesterol [Mass/volume] in Serum or PlasmaOrdered By: Bernadette Box on 04-04-2022 Cholesterol [Mass/Vol] 167 mg/dL 140-200 [facility] Comment on above: Chol less than 200 m g/dl low riskChol 201-239 mg/dl borderline riskChol 240 mg/dl and greater high risk Cholesterol in LDL Calc [Mas s/Vol]Ordered By: Bernadette Bxo on 04-04-2022 Cholesterol in LDL [Mass/Vol] 91 mg/dL 0-100 [facility] Comment on above: LDL ATP III CLASSIFI CATIONLDL less than 100 mg/dL OptimalLDL 100-129 mg/dL Near or above optimalLDL 130-159 mg/dL Borderline highLDL 160-189 mg/dL HighLDL greater than 189 mg/dL Very high Cholesterol in VLDL Calc [Ma ss/Vol]Ordered By: Bernadette Box on 04-04-2022 Cholesterol in VLDL [Mass/Vol] 5 mg/dL [facility] Color Auto (U)Ordered By: Peña Price on 04-04-2022 Color (U) Yellow Yellow [facility] Complete Blood Count Auto Di ffon 04-04-2022 Basophils (Bld) [#/Vol] 0.1 10*3/uL Normal 0.0-0.2 [facility] Comment on above: Result Comment: PERF ORMED BY: [place] [address] PATHOLOGIST SOC ANALYST YUE ANDREW M.D. Performed By: #### L IPASE, BMP, CBC #### [facility] [address] [place] [address] [place] Basophils/100 WBC (Bld) 1.3 % Normal . F [facility] Comment on above: Performed By: #### L IPASE, BMP, CBC #### [facility] [address] Eosinophils (Bld) [#/Vol] 0.2 10*3/uL Normal 0.0-0.45 [facility] Comment on above: Performed By: #### L IPASE, BMP, CBC #### [facility] [address] [place] [address] [place] Eosinophils/100 WBC (Bld) 2.4 % Normal . [facility] Comment on above: Performed By: #### L IPASE, BMP, CBC #### [address] Erythrocyte distribution width (RBC) [Ratio] 13.1 % Normal 11.9-15.3 [facility] Comment on above: Performed By: #### L IPASE, BMP, CBC #### [address] Hematocrit (Bld) [Volume fraction] 43.3 % Normal 34.0-46.4 [facility] Comment on above: Performed By: #### L IPASE, BMP, CBC #### [place] [address] [place] Hemoglobin (Bld) [Mass/Vol] 14.2 g/dL Normal 11.8-15.4 [facility] Comment on above: Performed By: #### L IPASE, BMP, CBC #### [place] [address] [place] Lymphocytes (Bld) [#/Vol] 2.4 10*3/uL Normal 1.00-4.8 [facility] Comment on above: Performed By: #### L IPASE, BMP, CBC #### [place] [address] [place] Lymphocytes/100 WBC (Bld) 24.7 % Normal . [facility] Comment on above: Performed By: #### L IPASE, BMP, CBC #### [facility] [address] MCH (RBC) [Entitic mass] 29.0 pg Normal 24.7-34.3 [facility] Comment on above: Performed By: #### L IPASE, BMP, CBC #### [facility] [address] MCV (RBC) [Entitic vol] 88.1 fL Normal 80-[address] [facility] Comment on above: Performed By: #### L IPASE, BMP, CBC #### [address] Mean Corpuscular HGB Conc 32.9 g/dL Normal 32.0-35.0 [facility] Comment on above: Performed By: #### L IPASE, BMP, CBC #### [address] Monocytes (Bld) [#/Vol] 0.9 10*3/uL High 0.0-0.8 [facility] Comment on above: Performed By: #### L IPASE, BMP, CBC #### [address] Monocytes/100 WBC (Bld) 9.4 % Normal . F [facility] Comment on above: Performed By: #### L IPASE, BMP, CBC #### [address] Neutrophils (Bld) [#/Vol] 5.9 10*3/uL Normal 1.8-7.7 [facility] Comment on above: Performed By: #### L IPASE, BMP, CBC #### [address] Neutrophils/100 WBC (Bld) 62.2 % Normal . [facility] Comment on above: Performed By: #### L IPASE, BMP, CBC #### [address] Nucleated RBC/100 WBC (Bld) [Ratio] 0.1 % Normal 0-0.5 [facility] Comment on above: Performed By: #### L IPASE, BMP, CBC #### [address] Platelet mean volume (Bld) [Entitic vol] 9.0 fL Normal 6.3-10.7 [facility] Comment on above: Performed By: #### L IPASE, BMP, CBC #### [address] Platelets (Bld) [#/Vol] 243 10*3/uL Normal 150-450 [facility] Comment on above: Performed By: #### L IPASE, BMP, CBC #### [address] RBC (Bld) [#/Vol] 4.91 10*6/uL Normal 3.60-5.00 [facility] Comment on above: Performed By: #### L IPASE, BMP, CBC #### [address] WBC (Bld) [#/Vol] 9.5 10*3/uL Normal 4.5-11.0 [facility] Comment on above: Performed By: #### L IPASE, BMP, CBC #### [address] Comprehensive Metabolic Pane anderson 04-04-2022 Albumin [Mass/Vol] 4.1 g/dL Normal 3.2-5.5 [facility] Comment on above: Performed By: #### L IPASE, BMP, CBC #### [address] Albumin/Globulin [Mass ratio] 1.6 {ratio} Normal [facility] Comment on above: Performed By: #### L IPASE, BMP, CBC #### [address] ALP [Catalytic activity/Vol] 33 U/L Normal 32-92 [facility] Comment on above: Performed By: #### L IPASE, BMP, CBC #### [address] [place] [address] [place] ALT [Catalytic activity/Vol] 11 U/L Normal 10-60 [facility] Comment on above: Performed By: #### L DEBBIE BEGUM, CBC #### [facility] [address] [place] [id number] [facility] Anion gap [Moles/Vol] 14.4 mmol/L Normal 6.0-15.0 [facility] Comment on above: Performed By: #### L DEBBIE BEGUM, CBC #### [facility] [address] AST [Catalytic activity/Vol] 14 U/L Normal 10-42 [facility] Comment on above: Performed By: #### L DEBBIE BEGUM, CBC #### [facility] [address] Bilirubin [Mass/Vol] 0.8 mg/dL Normal 0.3-1.2 [facility] Comment on above: Performed By: #### L DEBBIE BEGUM, CBC #### [facility] [address] [place] [address] [place] Chloride [Moles/Vol] 102 mmol/L Normal 95-114 [facility] Comment on above: Performed By: #### L DEBBIE BEGUM, CBC #### [facility] [address] CO2 [Moles/Vol] 21.0 mmol/L Low 22.0-30.0 [facility] Comment on above: Performed By: #### L DEBBIE BEGUM, CBC #### [facility] [address] [place] [address] [place] Creatinine [Mass/Vol] 0.56 mg/dL Normal 0.44-1.03 [facility] Comment on above: Performed By: #### L DEBBIE BEGUM, CBC #### [facility] [address] [place] [address] [place] Creatinine Clr Calc Pharmacy 129.98 Normal [facility] Comment on above: Result Comment: PERF ORMED BY: [place] [address] PATHOLOGIST SOC ANALYST YUE ANDREW M.D. Performed By: #### L IPASE, BMP, CBC #### [facility] [address] Globulin (S) [Mass/Vol] 2.5 g/dL Normal F [facility] Comment on above: Performed By: #### L IPASE, BMP, CBC #### [facility] [address] Potassium [Moles/Vol] 3.4 mmol/L Low 3.5-5.1 [facility] Comment on above: Performed By: #### L IPASE, BMP, CBC #### [facility] [address] Protein [Mass/Vol] 6.6 g/dL Normal 6.1-7.9 [facility] Comment on above: Performed By: #### L IPASE, BMP, CBC #### [facility] [address] Sodium [Moles/Vol] 134 mmol/L Low 136-146 [facility] Comment on above: Performed By: #### L IPASE, BMP, CBC #### [facility] [address] Urea nitrogen [Mass/Vol] 6 mg/dL Low 9-23 [facility] Comment on above: Performed By: #### L IPASE, BMP, CBC #### [facility] [address] Creatinine and Glomerular fi ltration rate.predicted panel (S/P/Bld)Ordered By: Elvi Price on 04-04-2022 Creatinine [Mass/Vol] 0.56 mg/dL 0.44-1.03 [facility] Dipstick and Microscopicon 1 Appearance (U) Clear Normal Clear [facility] Comment on above: Order Comment: Name Collection Type:: Clean-Voided Midstream Performed By: #### C OVID19 FLU RSV, CEPHEID NEG #### [facility] [address] [place] [address] [place] Bacteria,Urine 1+ High None Seen [facility] Comment on above: Order Comment: Name Collection Type:: Clean-Voided Midstream Performed By: #### C OVID19 FLU RSV, CEPHEID NEG #### [facility] [address] [place] [address] [place] Bilirubin,Urine Negative Normal Negative [facility] Comment on above: Order Comment: Name Collection Type:: Clean-Voided Midstream Performed By: #### C OVID19 FLU RSV, CEPHEID NEG #### [facility] [address] [place] [address] [place] Color (U) Yellow Normal Yellow [facility] Comment on above: Order Comment: Name Collection Type:: Clean-Voided Midstream Performed By: #### C OVID19 FLU RSV, CEPHEID NEG #### [facility] [address] [place] [address] [place] Glucose Ql (U) Normal Normal Normal [facility] Comment on above: Order Comment: Name Collection Type:: Clean-Voided Midstream Performed By: #### C OVID19 FLU RSV, CEPHEID NEG #### [facility] [address] [place] [address] [place] Hyaline Casts,Urine 0-8 Normal 0-8 [facility] Comment on above: Order Comment: Name Collection Type:: Clean-Voided Midstream Performed By: #### C OVID19 FLU RSV, CEPHEID NEG #### [facility] [address] [place] [address] [place] Ketones Ql (U) Trace High Negative [facility] Comment on above: Order Comment: Name Collection Type:: Clean-Voided Midstream Performed By: #### C OVID19 FLU RSV, CEPHEID NEG #### [facility] [address] [place] [address] [place] Leukocyte esterase Test strip Ql (U) 3+ High Negative [facility] Comment on above: Order Comment: Name Collection Type:: Clean-Voided Midstream Performed By: #### C OVID19 FLU RSV, CEPHEID NEG #### [facility] [address] [place] [address] [place] Nitrite,Urine Negative Normal Negative [facility] Comment on above: Order Comment: Name Collection Type:: Clean-Voided Midstream Performed By: #### C OVID19 FLU RSV, CEPHEID NEG #### [address] Occult Blood,Urine Negative Normal Negative [facility] Comment on above: Order Comment: Name Collection Type:: Clean-Voided Midstream Performed By: #### C OVID19 FLU RSV, CEPHEID NEG #### [address] pH (U) 5.5 [pH] Normal 5.0-9.0 [facility] Comment on above: Order Comment: Name Collection Type:: Clean-Voided Midstream Performed By: #### C OVID19 FLU RSV, CEPHEID NEG #### [address] Protein,Urine Negative Normal Negative [facility] Comment on above: Order Comment: Name Collection Type:: Clean-Voided Midstream Performed By: #### C OVID19 FLU RSV, CEPHEID NEG #### [address] RBC,Urine 1-2 Normal 0-4 [facility] Comment on above: Order Comment: Name Collection Type:: Clean-Voided Midstream Performed By: #### C OVID19 FLU RSV, CEPHEID NEG #### [address] Specificy [place],Urine 1.007 Normal 1.001-1.030 [facility] Comment on above: Order Comment: Name Collection Type:: Clean-Voided Midstream Performed By: #### C OVID19 FLU RSV, CEPHEID NEG #### [place] [address] [place] Squamous Epithelial Cell,Urine 5-9 High 0-2 [facility] Comment on above: Order Comment: Name Collection Type:: Clean-Voided Midstream Performed By: #### C OVID19 FLU RSV, CEPHEID NEG #### [address] Urobilinogen,Urine Normal Normal Normal [facility] Comment on above: Order Comment: Name Collection Type:: Clean-Voided Midstream Performed By: #### C OVID19 FLU RSV, CEPHEID NEG #### [facility] [address] [place] [address] [place] WBC,Urine 04-05 High 0-4 [facility] Comment on above: Order Comment: Name Collection Type:: Clean-Voided Midstream Performed By: #### C OVID19 FLU RSV, CEPHEID NEG #### [facility] [address] [place] [address] [place] Eosinophils Auto (Bld) [#/Vo l]Ordered By: Elvi Price on 04-04-2022 Eosinophils (Bld) [#/Vol] 0.2 10*3/uL 0.0-0.45 [facility] Eosinophils/100 WBC Auto (Bl d)Ordered By: Elvi Price on 04-04-2022 Eosinophils/100 WBC (Bld) 2.4 % . [facility] Erythrocyte distribution wid th Auto (RBC) [Ratio]Ordered By: Elvi Price on 04-04-2022 Erythrocyte distribution width (RBC) [Ratio] 13.1 % 11.9-15.3 [facility] Estimated glomerular filtrat ion rate (GFR) non- AmericanOrdered By: Elvi Price on 04-04-2022 GFR/1.73 sq M.predicted among non-blacks MDRD (S/P/Bld) [Vol rate/Area] > 60 mL/Min [facility] Ethyl Alcohol Profileon 03-18 Ethanol [Mass/Vol] mg/dL Normal [facility] Comment on above: Performed By: #### C OVID19 FLU RSV, CEPHEID NEG #### [facility] [address] [place] [address] Percent Ethanol Not performed Normal [facility] Comment on above: Result Comment: PERF ORMED BY: [place] [address] PATHOLOGIST SOC ANALYST YUE ANDREW M.D. Performed By: #### C OVID19 FLU RSV, CEPHEID NEG #### [facility] [address] Globulin Calc (S) [Mass/Vol] Ordered By: Elvi Price on 04-04-2022 Globulin (S) [Mass/Vol] 2.5 g/dL F [facility] Glucose mean value [Mass/vol ume] in Blood Estimated from glycated hemoglobinOrdered By: Bernadette Prajapatiomar on 04-04-2022 Average glucose Estimated from glycated hemoglobin (Bld) [Mass/Vol] 103 mg/dL [facility] HCG ( test) IA.rapi d Ql (U)Ordered By: Elvi Price on 04-04-2022 HCG ( test) Ql (U) Negative [facility] HCG,Urineon 04-04-2022 Beta HCG ( test) Ql (U) Negative Normal [facility] Comment on above: Order Comment: Name Collection Type:: Clean-Voided Midstream Result Comment: PERF ORMED BY: [place] [address] PATHOLOGIST SOC ANALYST YUE ANDREW M.D. Performed By: #### C OVID19 FLU RSV, CEPHEID NEG #### [facility] [address] [place] [address] Hematocrit Auto (Bld) [Volum e fraction]Ordered By: Elvi Price on 04-04-2022 Hematocrit (Bld) [Volume fraction] 43.3 % 34.0-46.4 [facility] Hemoglobin A1c percentageOrd ered By: Bernadette Box on 04-04-2022 HbA1c (Bld) [Mass fraction] 5.2 % 4.3-5.6 [facility] Comment on above: Increased risk for d iabetes: 5.7 - 6.4diabetes: >6.4glycemic control for adults with diabetes: <7.0 Hemoglobin [Mass/volume] in BloodOrdered By: Elvi Price on 04-04-2022 Hemoglobin (Bld) [Mass/Vol] 14.2 g/dL 11.8-15.4 [facility] Ketones Auto test strip (U) [Mass/Vol]Ordered By: Elvi Price on 04-04-2022 Ketones (U) [Mass/Vol] Trace Negative [facility] - Chemistry and C hemistry - challengeOrdered By: Elvi Price on 04-04-2022 Lipase [Catalytic activity/Vol] 248.0 U/L [facility] - Hematology and Cell countsOrdered By: Elvi Price on 04-04-2022 Nucleated RBC/100 WBC (Bld) [Ratio] 0.1 % 0-0.5 [facility] - UrinalysisOrder ed By: Elvi Price on 04-04-2022 Hyaline casts LM Ql (Urine sed) 0-8 [LPF] 0-8 [facility] Leukocytes [#/volume] in Blo od by Automated countOrdered By: Elvi Price on 04-04-2022 WBC (Bld) [#/Vol] 9.5 10*3/uL 4.5-11.0 [facility] Lipaseon 04-04-2022 Lipase [Catalytic activity/Vol] 248.0 U/L High [facility] Comment on above: Result Comment: PERF ORMED BY: [place] [address] PATHOLOGIST SOC ANALYST YUE ANDREW M.D. Performed By: #### L IPASE, BMP, CBC #### [facility] [address] [place] [address] Lipid Panelon 04-04-2022 Cholesterol [Mass/Vol] 167 mg/dL Normal 140-200 [facility] Comment on above: Order Comment: Comme nt add Result Comment: Chol less than 200 mg/dl low risk Chol 201-239 mg/dl borderline risk Chol 240 mg/dl and greater high risk Performed By: #### C OVID19 FLU RSV, CEPHEID NEG #### [facility] [address] [place] [address] Cholesterol in HDL [Mass/Vol] 71 mg/dL Normal 35-85 [facility] Comment on above: Order Comment: Comme nt add Result Comment: HDL CHOL ATP-III CLASSIFICATION Cardiovascular Risk HDL > or equal to 60 mg/dL LOW HDL < 40 mg/dL HIGH Performed By: #### C OVID19 FLU RSV, CEPHEID NEG #### [facility] [address] Cholesterol.total/Geetha sterol in HDL [Mass ratio] 2.4 {ratio} Normal <5.0 [facility] Comment on above: Order Comment: Comme nt add Performed By: #### C OVID19 FLU RSV, CEPHEID NEG #### [address] LDL Cholesterol,Calculated 91 mg/dL Normal 0-100 [facility] Comment on above: Order Comment: Comme nt add Result Comment: LDL ATP III CLASSIFICATION LDL less than 100 mg/dL Optimal LDL 100-129 mg/dL Near or above optimal LDL 130-159 mg/dL Borderline high LDL 160-189 mg/dL High LDL greater than 189 mg/dL Very high Performed By: #### C OVID19 FLU RSV, CEPHEID NEG #### [address] Triglyceride w/Reflex 27 mg/dL Low 35-149 [facility] Comment on above: Order Comment: Comme nt add Result Comment: TRIG ATP III CLASSIFICATION TRIG less than 150 mg/dL Normal TRIG 150-199 mg/dL Borderline high TRIG 200-500 mg/dL High TRIG greater than 500 mg/dL Very high Standard traceable to the Center for Disease Conrtrol and Prevention (CDC) test method. Performed By: #### C OVID19 FLU RSV, CEPHEID NEG #### [address] VLDL CHOLESTEROL 5 mg/dL Normal [facility] Comment on above: Order Comment: Comme nt add Performed By: #### C OVID19 FLU RSV, CEPHEID NEG #### [address] Lymphocytes Auto (Bld) [#/Vo l]Ordered By: Elvi Price on 04-04-2022 Lymphocytes (Bld) [#/Vol] 2.4 10*3/uL 1.00-4.8 [facility] Lymphocytes/100 WBC Auto (Bl d)Ordered By: Elvi Price on 04-04-2022 Lymphocytes/100 WBC (Bld) 24.7 % . [facility] MCH Auto (RBC) [Entitic mass ]Ordered By: Elvi Price on 04-04-2022 MCH (RBC) [Entitic mass] 29.0 pg 24.7-34.3 [facility] MCHC Auto (RBC) [Mass/Vol]Or dered By: Elvi Price on 04-04-2022 MCHC (RBC) [Mass/Vol] 32.9 g/dL 32.0-35.0 [facility] MCV Auto (RBC) [Entitic vol] Ordered By: Elvi Price on 04-04-2022 MCV (RBC) [Entitic vol] 88.1 fL 80-[address] [facility] Magnesiumon 04-04-2022 Magnesium [Mass/Vol] 1.8 mg/dL Normal 1.6-2.6 [facility] Comment on above: Order Comment: Comme nt add Performed By: #### C OVID19 FLU RSV, CEPHEID NEG #### [facility] [address] Monocytes Auto (Bld) [#/Vol] Ordered By: Elvi Price on 04-04-2022 Monocytes (Bld) [#/Vol] 0.9 10*3/uL 0.0-0.8 [facility] Monocytes/100 WBC Auto (Bld) Ordered By: Elvi Price on 04-04-2022 Monocytes/100 WBC (Bld) 9.4 % . F [facility] Neutrophils Auto (Bld) [#/Vo l]Ordered By: Elvi Price on 04-04-2022 Neutrophils (Bld) [#/Vol] 5.9 10*3/uL 1.8-7.7 [facility] Neutrophils/100 WBC Auto (Bl d)Ordered By: Elvi Price on 04-04-2022 Neutrophils/100 WBC (Bld) 62.2 % . [facility] Nitrite Test strip Ql (U)Ord ered By: Elvi Price on 04-04-2022 Nitrite Ql (U) Negative Negative [facility] No Panel InformationOrdered By: Elvi Price on 04-04-2022 Estimated GFR () > 60 mL/Min [facility] Comment on above: GFR estimated refere nce range: According to KDOQI guidelines, <60 ml/min/1.73m2 is sufficient to diagnose a patient with chronic kidney disease. Pharmacy Creatinine Clearance (Chem 129.98 [facility] Phosphoruson 04-04-2022 Phosphate [Mass/Vol] 3.2 mg/dL Normal 2.5-4.6 [facility] Comment on above: Order Comment: Comme nt add Performed By: #### C OVID19 FLU RSV, CEPHEID NEG #### [facility] [address] Platelet mean volume Auto (B ld) [Entitic vol]Ordered By: Elvi Price on 04-04-2022 Platelet mean volume (Bld) [Entitic vol] 9.0 fL 6.3-10.7 [facility] Platelets Auto (Bld) [#/Vol] Ordered By: Elvi Price on 04-04-2022 Platelets (Bld) [#/Vol] 243 10*3/uL 150-450 [facility] Protein Auto test strip (U) [Mass/Vol]Ordered By: Elvi Price on 04-04-2022 Protein (U) [Mass/Vol] Negative Negative [facility] Protein [Mass/volume] in Ser um or PlasmaOrdered By: Elvi Price on 04-04-2022 Protein [Mass/Vol] 6.6 g/dL 6.1-7.9 [facility] RBC Auto (Bld) [#/Vol]Ordere d By: Elvi Price on 04-04-2022 RBC (Bld) [#/Vol] 4.91 10*6/uL 3.60-5.00 [facility] Serum or plasma alanine morris otransferase measurement without P-5'-P (enzymatic activiOrdered By: Elvi Price on 04-04-2022 ALT No additional P-5'-P [Catalytic activity/Vol] 11 U/L 10-60 [facility] Serum or plasma albumin/glob ulin mass ratioOrdered By: Elvi Price on 04-04-2022 Albumin/Globulin [Mass ratio] 1.6 {ratio} [facility] Serum or plasma alkaline emerita sphatase measurement (enzymatic activity/volume)Ordered By: Elvi Price on 04-04-2022 ALP [Catalytic activity/Vol] 33 U/L 32-92 [facility] Serum or plasma anion gap de terminationOrdered By: Elvi Price on 04-04-2022 Anion gap [Moles/Vol] 14.4 mmol/L 6.0-15.0 [facility] Serum or plasma aspartate am inotransferase measurement (enzymatic activity/volume)Ordered By: Elvi Price on 04-04-2022 AST [Catalytic activity/Vol] 14 U/L 10-42 [facility] Serum or plasma calcium pedro urement (mass/volume)Ordered By: Elvi Price on 04-04-2022 Calcium [Mass/Vol] 9.0 mg/dL 8.2-10.2 [facility] Serum or plasma chloride liberty surement (moles/volume)Ordered By: Elvi Price on 04-04-2022 Chloride [Moles/Vol] 102 mmol/L 95-114 [facility] Serum or plasma ethanol pedro urement (mass/volume)Ordered By: Bernadette Box on 04-04-2022 Ethanol [Mass/Vol] mg/dL [facility] Ethanol [Mass/Vol] TNP [facility] Comment on above: Test not performed Serum or plasma glucose pedro urement (mass/volume)Ordered By: Elvi Price on 04-04-2022 Glucose [Mass/Vol] 95 mg/dL 70-100 [facility] Comment on above: ADA recommended refe rence rangeRandom Glucose Reference Range is dependent on time and content of last meal. Glucose of more than 200 mg/dL in a nonstressed, ambulatory subject supports the diagnosis of Diabetes Mellitus. Serum or plasma high density lipoprotein (HDL) cholesterol measurementOrdered By: Bernadette Box on 04-04-2022 Cholesterol in HDL [Mass/Vol] 71 mg/dL 35-85 [facility] Comment on above: HDL CHOL ATP-III CLA SSIFICATION Cardiovascular RiskHDL > or equal to 60 mg/dL LOWHDL < 40 mg/dL HIGH Serum or plasma potassium me asurement (moles/volume)Ordered By: Elvi Price on 04-04-2022 Potassium [Moles/Vol] 3.4 mmol/L 3.5-5.1 [facility] Serum or plasma sodium measu rement (moles/volume)Ordered By: Elvi Price on 04-04-2022 Sodium [Moles/Vol] 134 mmol/L 136-146 [facility] Serum or plasma total biliru bin measurement (mass/volume)Ordered By: Elvi Price on 04-04-2022 Bilirubin [Mass/Vol] 0.8 mg/dL 0.3-1.2 [facility] Serum or plasma total carbon dioxide measurement (moles/volume)Ordered By: Elvi Price on 04-04-2022 CO2 [Moles/Vol] 21.0 mmol/L 22.0-30.0 [facility] Serum or plasma total choles terol/high density lipoprotein (HDL) cholesterol mass ratOrdered By: Bernadette Box on 04-04-2022 Cholesterol.total/Geetha sterol in HDL [Mass ratio] 2.4 {ratio} <5.0 [facility] Serum or plasma urea nitroge n measurement (mass/volume)Ordered By: Elvi Price on 04-04-2022 Urea nitrogen [Mass/Vol] 6 mg/dL 9-23 [facility] Specific gravity Auto test s trip (U) [Rel density]Ordered By: Elvi Price on 04-04-2022 Specific gravity (U) [Rel density] 1.007 1.001-1.030 [facility] Squamous epithelial cells de tection in urine sediment by light microscopyOrdered By: Elvi Price on 04-04-2022 Epithelial cells.squamous LM Ql (Urine sed) 5-9 [HPF] 0-2 [facility] TSH DL <= 0.005 mIU/L QnOrde red By: Bernadette Box on 04-04-2022 TSH Qn 3.44 m[IU]/L 0.45-5.33 [facility] Thyroid Stimulating Hormoneo n 04-04-2022 TSH Qn 3.44 m[IU]/L Normal 0.45-5.33 [facility] Comment on above: Order Comment: Comme nt add Result Comment: PERF ORMED BY: [place] [address] PATHOLOGIST SOC ANALYST YUE ANDREW M.D. Performed By: #### C OVID19 FLU RSV, CEPHEID NEG #### [facility] [address] [place] [address] Triglyceride [Mass/volume] i n Serum or PlasmaOrdered By: Bernadette Box on 04-04-2022 Triglyceride [Mass/Vol] 27 mg/dL 35-[address] [facility] Comment on above: TRIG ATP III CLASSIF ICATIONTRIG less than 150 mg/dL NormalTRIG 150-199 mg/dL Borderline highTRIG 200-500 mg/dL High TRIG greater than 500 mg/dL Very highStandard traceable to the Center for Disease Conrtrol and Prevention (CDC) test method. US gall bladderon 04-04-2022 US gall bladder [facility] [place] [address] [place] [address] Ultrasound Report Signed Patient: Jeannette Sweet MR#: [id number] : 1985 Acct:[id number] Age/Sex: 36 / F ADM Date: 04/04/22 Loc: Room: [address] [place] [address] Type: ADM IN Attending Dr: Bernadette Box [...] Caro Ly M.D.04/04/2022 8:40 AM Dictation Location: [place] [address] Tech: Olivia Escamilla Transcribed By: [facility] 04/04/22839 Dictated By: Caro Ly MD 04/04/22822 Signed By: 04/04/22839 [facility] Urine Cultureon 04-04-2022 Bacteria identified Cx Nom (U) 25,000 colonies/ml mixed bacterial skin contaminants 2 Days PERFORMED BY: [place] [address] PATHOLOGIST SOC ANALYST YUE ANDREW M.D. [facility] Comment on above: Performed By: #### C OVID19 FLU RSV, CEPHEID NEG #### [address] Urine bacteria detection by automated methodOrdered By: Elvi Price on 04-04-2022 Bacteria Auto Ql (U) 1+ None Seen [facility] Urine clarity by refractomet ry automatedOrdered By: Elvi Price on 04-04-2022 Clarity Refractometry automated (U) Clear Clear [facility] Urine glucose measurement by automated test strip (mass/volume)Ordered By: Elvi Price on 04-04-2022 Glucose Auto test strip (U) [Mass/Vol] Normal mg/dL Normal [facility] Urine hemoglobin detection b y automated test stripOrdered By: Elvi Price on 04-04-2022 Hemoglobin Auto test strip Ql (U) Negative Negative [facility] Urine leukocyte esterase det ection by automated test stripOrdered By: Elvi Price on 04-04-2022 Leukocyte esterase Auto test strip Ql (U) 3+ Negative [facility] Urobilinogen Auto test strip (U) [Mass/Vol]Ordered By: Elvi Price on 04-04-2022 Urobilinogen (U) [Mass/Vol] Normal mg/dL Normal [facility] pH Auto test strip (U)Ordere d By: Elvi Price on 04-04-2022 pH (U) 5.5 [pH] 5.0-9.0 [facility] Complete Blood Count Auto Di ffon 11-24-2021 Basophils (Bld) [#/Vol] 0.0 10*3/uL Normal 0.0-0.2 [facility] Comment on above: Result Comment: PERF ORMED BY: [place] [address] PATHOLOGIST SOC ANALYST YUE ANDREW M.D. Performed By: #### L IPASE, BMP, CBC #### [facility] [address] [place] [address] [place] Basophils/100 WBC (Bld) 0.6 % Normal . F [facility] Comment on above: Performed By: #### L IPASE, BMP, CBC #### [facility] [address] [place] [address] [place] Eosinophils (Bld) [#/Vol] 0.2 10*3/uL Normal 0.0-0.45 [facility] Comment on above: Performed By: #### L IPASE, BMP, CBC #### [facility] [address] [place] [address] [place] Eosinophils/100 WBC (Bld) 3.3 % Normal . [facility] Comment on above: Performed By: #### L IPASE, BMP, CBC #### [facility] [address] [place] [address] [place] Erythrocyte distribution width (RBC) [Ratio] 12.5 % Normal 11.9-15.3 [facility] Comment on above: Performed By: #### L IPASE, BMP, CBC #### [facility] [address] [place] [address] [place] Hematocrit (Bld) [Volume fraction] 38.6 % Normal 34.0-46.4 [facility] Comment on above: Performed By: #### L IPASE, BMP, CBC #### [facility] [address] [place] [address] [place] Hemoglobin (Bld) [Mass/Vol] 12.8 g/dL Normal 11.8-15.4 [facility] Comment on above: Performed By: #### L IPASE, BMP, CBC #### [facility] [address] [place] [address] [place] Lymphocytes (Bld) [#/Vol] 2.9 10*3/uL Normal 1.00-4.8 [facility] Comment on above: Performed By: #### L IPASE, BMP, CBC #### [facility] [address] Lymphocytes/100 WBC (Bld) 42.9 % Normal . [facility] Comment on above: Performed By: #### L IPASE, BMP, CBC #### [facility] [address] MCH (RBC) [Entitic mass] 29.8 pg Normal 24.7-34.3 [facility] Comment on above: Performed By: #### L IPASE, BMP, CBC #### [address] MCV (RBC) [Entitic vol] 89.6 fL Normal 80-[address] [facility] Comment on above: Performed By: #### L IPASE, BMP, CBC #### [address] Mean Corpuscular HGB Conc 33.3 g/dL Normal 32.0-35.0 [facility] Comment on above: Performed By: #### L IPASE, BMP, CBC #### [place] [address] [place] Monocytes (Bld) [#/Vol] 0.6 10*3/uL Normal 0.0-0.8 [facility] Comment on above: Performed By: #### L IPASE, BMP, CBC #### [place] [address] [place] Monocytes/100 WBC (Bld) 9.5 % Normal . F [facility] Comment on above: Performed By: #### L IPASE, BMP, CBC #### [address] Neutrophils (Bld) [#/Vol] 2.9 10*3/uL Normal 1.8-7.7 [facility] Comment on above: Performed By: #### L IPASE, BMP, CBC #### [address] Neutrophils/100 WBC (Bld) 43.7 % Normal . [facility] Comment on above: Performed By: #### L IPASE, BMP, CBC #### [address] Nucleated RBC/100 WBC (Bld) [Ratio] 0.1 % Normal 0-0.5 [facility] Comment on above: Performed By: #### L IPASE, BMP, CBC #### [address] Platelet mean volume (Bld) [Entitic vol] 9.2 fL Normal 6.3-10.7 [facility] Comment on above: Performed By: #### L IPASE, BMP, CBC #### [address] Platelets (Bld) [#/Vol] 218 10*3/uL Normal 150-450 [facility] Comment on above: Performed By: #### L IPASE, BMP, CBC #### [address] RBC (Bld) [#/Vol] 4.30 10*6/uL Normal 3.60-5.00 [facility] Comment on above: Performed By: #### L IPASE, BMP, CBC #### [address] WBC (Bld) [#/Vol] 6.7 10*3/uL Normal 4.5-11.0 [facility] Comment on above: Performed By: #### L IPASE, BMP, CBC #### [address] [place] 11-24-2021 L - -------- Specimen: [id number] Received: 11/25/21 Status: BRIAN Mauriceosman Num: [id number] Spec Type: Surgical Subm Dr: JEOVANY DAY DO Tissues: A Ovary W/ or W/O Fallopian Tube, Non-Neoplastic (RT TUBE/OVARY) Procedures: HE Stain/6, Gross/Micro L4 -------- Patient Age/Sex Location Account Attending Physician -------- Jeannette Sweet 36/F 3S [id number] Paramjit Yin DO -------- SPEC NUM: [id number] RECD: 11/25/21 STATUS: MARIA INESBethany HODGE NUM: [id number] FLAVIA: 11/24/21- [facility] [place] DR: JEOVANY DAY DO ENTERED: 11/25/21 RAMONA [...] papillary or nodular excrescences are grossly identified. [employer] Estate [employer] sections are submitted in 6 cassettes as follows: A1-A2 - Real Estate Sales Associate sections of fallopian tube A3-A6 - Real Estate Sales Associate sections of collapsed disrupted ovary Type of Fixative: 10% Neutral Buffered Formalin (SM/YJ) -------- Specimen: [id number] Received: 11/25/21 Status: BRIAN Naveen Num: [id number] Spec Type: Surgical Subm Dr: JEOVANY DAY DO Tissues: A Ovary W/ or W/O Fallopian Tube, Non-Neoplastic (RT TUBE/OVARY) Procedures: HE Stain/6, Gross/Micro L4 -------- Patient: Jeannette Sweet [id number] (Continued) -------- Specimen: [id number] Received: 11/25/21 (Continued) Signed (signature on file) Tito Urena MD 11/28/21 1416 -------- Specimen: [id number] Received: 11/25/21 Status: BRIAN Hodge Num: [id number] Spec Type: Surgical Subm Dr: JEOVANY DAY DO Tissues: A Ovary W/ or W/O Fallopian Tube, Non-Neoplastic (RT TUBE/OVARY) Procedures: HE Stain/6, Gross/Micro L4 -------- Patient: Jeannette Sweet [id number] (Continued) -------- Specimen: [id number] Received: 11/25/21 (Continued) Microscopic Description Six H E stained slides are reviewed. Microscopic examination is performed. This case is interpreted at [place], [place]. CPT Codes 13286 -------- -------- Specimen: [id number] Received: 11/25/21 Status: BRIAN Hodge Num: [id number] Spec Type: Surgical Subm Dr: JEOVANY DAY DO Tissues: A Ovary W/ or W/O Fallopian Tube, Non-Neoplastic (RT TUBE/OVARY) Procedures: HE Stain/6, Gross/Micro L4 -------- Patient: Jeannette Sweet [id number] (Continued) -------- Signed (signature on file) Tito Urena MD 11/28/21 1416 [facility] COVID-19 Antigenon 2 COVID-19 Antigen Healthcare [...] developed and its performance characteristic determined by [employer] and validated at [facility]. This test has not been FDA [...] for SARS Antigen by [employer] PERFORMED BY: [address] [place] [id number] PATHOLOGIST SOC ANALYST YUE ANDREW M.D. Normal [facility] Comment on above: Performed By: #### L IPASE, BMP, CBC #### [facility] [address] [place], [place] [id number] [facility] COVID-19 FRMCon 11-23-2021 SARS-CoV-2 (COVID-19) RNA HEMA+probe Ql (Unsp spec) Negative Normal Negative [facility] Comment on above: Order Comment: Healt hcare Worker?: N Result Comment: Testing for SARS-CoV-2 by RT-PCR This test was developed and its performance characteristics determined by [employer] ([employer]) and validated at the [facility]. This test has not been FDA [...] is terminated or revoked sooner. PERFORMED BY: [address] [place] [id number] PATHOLOGIST SOC ANALYST YUE ANDREW M.D. Performed By: #### L IPADEBBIE HERNANDEZ, CBC #### [facility] [address] [place], [place] [id number] [facility] Complete Blood Count Auto Di ffon 11-23-2021 Basophils (Bld) [#/Vol] 0.1 10*3/uL Normal 0.0-0.2 [facility] Comment on above: Result Comment: PERF ORMED BY: [place] [address] PATHOLOGIST SOC ANALYST YUE ANDREW M.D. Performed By: #### L IPASE, BMP, CBC #### [address] Basophils/100 WBC (Bld) 0.8 % Normal . F [facility] Comment on above: Performed By: #### L IPASE, BMP, CBC #### [address] Eosinophils (Bld) [#/Vol] 0.1 10*3/uL Normal 0.0-0.45 [facility] Comment on above: Performed By: #### L IPASE, BMP, CBC #### [address] Eosinophils/100 WBC (Bld) 0.9 % Normal . [facility] Comment on above: Performed By: #### L IPASE, BMP, CBC #### [address] Erythrocyte distribution width (RBC) [Ratio] 12.6 % Normal 11.9-15.3 [facility] Comment on above: Performed By: #### L IPASE, BMP, CBC #### [address] Hematocrit (Bld) [Volume fraction] 41.3 % Normal 34.0-46.4 [facility] Comment on above: Performed By: #### L IPASE, BMP, CBC #### [address] Hemoglobin (Bld) [Mass/Vol] 13.7 g/dL Normal 11.8-15.4 [facility] Comment on above: Performed By: #### L IPASE, BMP, CBC #### [address] Lymphocytes (Bld) [#/Vol] 1.4 10*3/uL Normal 1.00-4.8 [facility] Comment on above: Performed By: #### L IPASE, BMP, CBC #### [facility] [address] Lymphocytes/100 WBC (Bld) 15.0 % Normal . [facility] Comment on above: Performed By: #### L IPASE, BMP, CBC #### [facility] [address] [place] [address] [place] MCH (RBC) [Entitic mass] 29.8 pg Normal 24.7-34.3 [facility] Comment on above: Performed By: #### L IPASE, BMP, CBC #### [facility] [address] MCV (RBC) [Entitic vol] 89.8 fL Normal 80-[address] [facility] [facility] Comment on above: Performed By: #### L IPASE, BMP, CBC #### [address] Mean Corpuscular HGB Conc 33.2 g/dL Normal 32.0-35.0 [facility] Comment on above: Performed By: #### L IPASE, BMP, CBC #### [place] [address] [place] Monocytes (Bld) [#/Vol] 0.4 10*3/uL Normal 0.0-0.8 [facility] Comment on above: Performed By: #### L IPASE, BMP, CBC #### [place] [address] [place] Monocytes/100 WBC (Bld) 4.7 % Normal . F [facility] Comment on above: Performed By: #### L IPASE, BMP, CBC #### [facility] [address] [place] [address] [place] Neutrophils (Bld) [#/Vol] 7.3 10*3/uL Normal 1.8-7.7 [facility] Comment on above: Performed By: #### L IPASE, BMP, CBC #### [place] [address] [place] Neutrophils/100 WBC (Bld) 78.6 % Normal . [facility] Comment on above: Performed By: #### L IPASE, BMP, CBC #### [address] Nucleated RBC/100 WBC (Bld) [Ratio] 0.1 % Normal 0-0.5 [facility] Comment on above: Performed By: #### L IPASE, BMP, CBC #### [address] Platelet mean volume (Bld) [Entitic vol] 9.0 fL Normal 6.3-10.7 [facility] Comment on above: Performed By: #### L IPASE, BMP, CBC #### [address] Platelets (Bld) [#/Vol] 244 10*3/uL Normal 150-450 [facility] Comment on above: Performed By: #### L IPASE, BMP, CBC #### [address] RBC (Bld) [#/Vol] 4.60 10*6/uL Normal 3.60-5.00 [facility] Comment on above: Performed By: #### L IPASE, BMP, CBC #### [address] WBC (Bld) [#/Vol] 9.3 10*3/uL Normal 4.5-11.0 [facility] Comment on above: Performed By: #### L IPASE, BMP, CBC #### [address] Comprehensive Metabolic Pane anderson 11-23-2021 Albumin [Mass/Vol] 4.0 g/dL Normal 3.2-5.5 [facility] Comment on above: Performed By: #### L IPASE, BMP, CBC #### [address] Albumin/Globulin [Mass ratio] 1.6 {ratio} Normal [facility] Comment on above: Performed By: #### L IPASE, BMP, CBC #### [address] ALP [Catalytic activity/Vol] 37 U/L Normal 32-92 [facility] Comment on above: Performed By: #### L IPASE BMP, CBC #### [facility] [address] ALT [Catalytic activity/Vol] 12 U/L Normal 10-60 [facility] Comment on above: Performed By: #### L IPASE BMP, CBC #### [facility] [address] AST [Catalytic activity/Vol] 14 U/L Normal 10-42 [facility] Comment on above: Performed By: #### L IPASE BMP, CBC #### [facility] [address] Bilirubin [Mass/Vol] 0.5 mg/dL Normal 0.3-1.2 [facility] Comment on above: Performed By: #### L IPASE BMP, CBC #### [facility] [address] [place] [address] Calcium [Mass/Vol] 9.0 mg/dL Normal 8.2-10.2 [facility] Comment on above: Performed By: #### L IPASE BMP, CBC #### [facility] [address] [place] [address] Chloride [Moles/Vol] 100 mmol/L Normal 95-114 [facility] Comment on above: Performed By: #### L IPASE BMP, CBC #### [facility] [address] [place] [address] CO2 [Moles/Vol] 23.6 mmol/L Normal 22.0-30.0 [facility] Comment on above: Performed By: #### L IPASE BMP, CBC #### [facility] [address] [place] [address] [place] Creatinine [Mass/Vol] 0.58 mg/dL Normal 0.44-1.03 [facility] Comment on above: Performed By: #### L IPASE, BMP, CBC #### [facility] [address] [place] [address] [place] Creatinine Clr Calc Pharmacy 114.68 [facility] Comment on above: Result Comment: PERF ORMED BY: [place] [address] PATHOLOGIST SOC ANALYST YUE ANDREW M.D. Performed By: #### L IPASE, BMP, CBC #### [address] Estimated GFR ( Shraddha > 60 [facility] Comment on above: Result Comment: GFR estimated reference range: According to KDOQI guidelines, <60 ml/min/1.73m2 is sufficient to diagnose a patient with chronic kidney disease. Performed By: #### L IPASE, BMP, CBC #### [address] Estimated GFR (Non- Am > 60 [facility] Comment on above: Performed By: #### L IPASE, BMP, CBC #### [address] Globulin (S) [Mass/Vol] 2.5 g/dL Normal [facility] Comment on above: Performed By: #### L IPASE, BMP, CBC #### [address] Glucose [Mass/Vol] 97 mg/dL Normal 70-100 [facility] Comment on above: Result Comment: [place] Glucose Reference Range is dependent on time and content of last meal. Glucose of more than 200 mg/dL in a nonstressed, ambulatory subject supports the diagnosis of Diabetes Mellitus. ADA recommended reference range Performed By: #### L IPASE, BMP, CBC #### [facility] [address] [place] [address] Potassium [Moles/Vol] 3.7 mmol/L Normal 3.5-5.1 [facility] Comment on above: Performed By: #### L IPASE, BMP, CBC #### [facility] [address] [place] [address] Protein [Mass/Vol] 6.5 g/dL Normal 6.1-7.9 [facility] Comment on above: Performed By: #### L IPASE, BMP, CBC #### [facility] [address] Sodium [Moles/Vol] 136 mmol/L Normal 136-146 [facility] Comment on above: Performed By: #### L IPASE, BMP, CBC #### [facility] [address] Urea nitrogen [Mass/Vol] 12 mg/dL Normal 9-23 [facility] Comment on above: Performed By: #### L IPASE, BMP, CBC #### [facility] [address] Yue Ag Negativeon 11-24-19 Yue Ag Negative Negative Normal Negative [facility] Comment on above: Result Comment: This is a duplicate Yue SARS Antigen (MAGED) result to be used for statistical tracking purpose only. PERFORMED BY: [place] [address] PATHOLOGIST SOC ANALYST YUE ANDREW M.D. Performed By: #### L IPASE, BMP, CBC #### [address] US transvaginalon 11-23-2021 US transvaginal [facility] [place] [address] [place] [address] Ultrasound Report Signed Patient: Jeannette Sweet MR#: [id number] : 1985 Acct:[id number] Age/Sex: 36 / F ADM Date: 11/23/21 Loc: Room: [address] [place] [address] Type: ADM IN Attending Dr: Paramjit Yin DO Ordering Provider: Addy Mendez Jr, MD Date of Service: 11/23/21 US/US pelvic complete: R ovar cyst, intermittent severe pain r/o torsion ([id number]) US/US transvaginal: RT PELVIC PAIN Copies to: [...] Melendez Jr., M.D.11/23/2021 9:46 AM Dictation Location: [place] [address] Tech: Olivia Escamilla Transcribed By: FRANSICO 11/23/21945 Dictated By: Paramjit Melendez Jr, MD 11/23/21937 Signed By: 11/23/[address] [facility] [address] abdomen pelvis w keke CT abdomen pelvis w [facility] [place] [address] CT Scan Report Signed Patient: Jeannette Sweet MR#: [id number] : 1985 Acct:[id number] Age/Sex: 36 / F ADM Date: 11/22/21 Loc: ER Room: Type: [facility] ER Attending Dr: Ordering Provider: Gianni [...] Melendez Jr., M.D.11/22/2021 11:02 AM Dictation Location: [place] [address] Transcribed By: [facility] 11/22/21 1102 Dictated By: Paramjit Melendez Jr, MD 11/22/21 1053 Signed By: 11/22/21 1102 [facility] Comprehensive Metabolic Pane anderson 11-22-2021 Alanine Aminotransferase Normal 10-60 [facility] Comment on above: Result Comment: Spec imen hemolyzed, redraw requested Performed By: #### L IPASE, HEPATIC, CMP, SCAN CBC #### [facility] [address] [place] [address] [place] Albumin [Mass/Vol] 4.3 g/dL Normal 3.2-5.5 [facility] Comment on above: Performed By: #### L IPASE, HEPATIC, CMP, SCAN CBC #### [facility] [address] Albumin/Globulin [Mass ratio] 2.0 {ratio} [facility] Comment on above: Performed By: #### L IPASE, HEPATIC, CMP, SCAN CBC #### [facility] [address] Alkaline Phosphatase Normal 32-92 [facility] Comment on above: Result Comment: Spec imen hemolyzed, redraw requested Performed By: #### L IPASE, HEPATIC, CMP, SCAN CBC #### [facility] [address] [place] [address] Aspartate Amino Transferase Normal 10-42 [facility] Comment on above: Result Comment: Spec imen hemolyzed, redraw requested Performed By: #### L IPASE, HEPATIC, CMP, SCAN CBC #### [facility] [address] [place] [address] Bilirubin,Total Normal 0.3-1.2 [facility] Comment on above: Result Comment: Spec imen hemolyzed, redraw requested Performed By: #### L IPASE, HEPATIC, CMP, SCAN CBC #### [facility] [address] [place] [address] Calcium [Mass/Vol] 8.9 mg/dL Normal 8.2-10.2 [facility] Comment on above: Performed By: #### L IPASE, HEPATIC, CMP, SCAN CBC #### [facility] [address] [place] [address] Chloride [Moles/Vol] 101 mmol/L Normal 95-114 [facility] Comment on above: Performed By: #### L IPASE, HEPATIC, CMP, SCAN CBC #### [facility] [address] [place] [address] [place] CO2 [Moles/Vol] 22.6 mmol/L Normal 22.0-30.0 [facility] Comment on above: Performed By: #### L IPASE, HEPATIC, CMP, SCAN CBC #### [facility] [address] [place] [address] [place] Creatinine [Mass/Vol] 0.60 mg/dL Normal 0.44-1.03 [facility] Comment on above: Performed By: #### L IPASE, HEPATIC, CMP, SCAN CBC #### [facility] [address] [place] [address] [place] Creatinine Clr Calc Pharmacy 110.86 [facility] Comment on above: Performed By: #### L IPASE, HEPATIC, CMP, SCAN CBC #### [facility] [address] Estimated GFR ( Shraddha > 60 [facility] Comment on above: Result Comment: GFR estimated reference range: According to KDOQI guidelines, <60 ml/min/1.73m2 is sufficient to diagnose a patient with chronic kidney disease. Performed By: #### L IPASE, HEPATIC, CMP, SCAN CBC #### [facility] [address] Estimated GFR (Non- Am > 60 [facility] Comment on above: Performed By: #### L IPASE, HEPATIC, CMP, SCAN CBC #### [facility] [address] Globulin (S) [Mass/Vol] 2.2 g/dL Normal F [facility] Comment on above: Performed By: #### L IPASE, HEPATIC, CMP, SCAN CBC #### [address] Glucose [Mass/Vol] 84 mg/dL Normal 70-100 [facility] Comment on above: Result Comment: [place] Glucose Reference Range is dependent on time and content of last meal. Glucose of more than 200 mg/dL in a nonstressed, ambulatory subject supports the diagnosis of Diabetes Mellitus. ADA recommended reference range Performed By: #### L IPASE, HEPATIC, CMP, SCAN CBC #### [facility] [address] [place] [address] Potassium Normal 3.5-5.1 [facility] Comment on above: Result Comment: Spec imen hemolyzed, redraw requested Performed By: #### L IPASE, HEPATIC, CMP, SCAN CBC #### [facility] [address] [place] [address] Protein [Mass/Vol] 6.5 g/dL Normal 6.1-7.9 [facility] Comment on above: Performed By: #### L IPASE, HEPATIC, CMP, SCAN CBC #### [facility] [address] [place] [address] [place] Sodium [Moles/Vol] 135 mmol/L Low 136-146 [facility] Comment on above: Performed By: #### L IPASE, HEPATIC, CMP, SCAN CBC #### [facility] [address] Urea nitrogen [Mass/Vol] 13 mg/dL Normal - [facility] Comment on above: Performed By: #### L IPASE, HEPATIC, CMP, SCAN CBC #### [facility] [address] [place] [address] [place] Dipstick and Microscopicon 0 11-22-2021 Appearance (U) Cloudy Critically abnormal Clear [facility] Comment on above: Order Comment: Name Collection Type:: Clean-Voided Midstream Performed By: #### C OVID19 FLU RSV, CEPHEID NEG #### [place] [address] [place] Bacteria,Urine 3+ High None Seen [facility] Comment on above: Order Comment: Name Collection Type:: Clean-Voided Midstream Performed By: #### C OVID19 FLU RSV, CEPHEID NEG #### [place] [address] [place] Bilirubin,Urine Negative Normal Negative [facility] Comment on above: Order Comment: Name Collection Type:: Clean-Voided Midstream Performed By: #### C OVID19 FLU RSV, CEPHEID NEG #### [place] [address] [place] Color (U) Yellow Normal Yellow [facility] Comment on above: Order Comment: Name Collection Type:: Clean-Voided Midstream Performed By: #### C OVID19 FLU RSV, CEPHEID NEG #### [place] [address] [place] Glucose Ql (U) Normal Normal Normal [facility] Comment on above: Order Comment: Name Collection Type:: Clean-Voided Midstream Performed By: #### C OVID19 FLU RSV, CEPHEID NEG #### [place] [address] [place] Ketones Ql (U) Trace High Negative [facility] Comment on above: Order Comment: Name Collection Type:: Clean-Voided Midstream Performed By: #### C OVID19 FLU RSV, CEPHEID NEG #### [address] Leukocyte esterase Test strip Ql (U) 4+ High Negative [facility] Comment on above: Order Comment: Name Collection Type:: Clean-Voided Midstream Performed By: #### C OVID19 FLU RSV, CEPHEID NEG #### [address] Nitrite,Urine Negative Normal Negative [facility] Comment on above: Order Comment: Name Collection Type:: Clean-Voided Midstream Performed By: #### C OVID19 FLU RSV, CEPHEID NEG #### [address] Occult Blood,Urine 1+ High Negative [facility] Comment on above: Order Comment: Name Collection Type:: Clean-Voided Midstream Performed By: #### C OVID19 FLU RSV, CEPHEID NEG #### [address] pH (U) 6.5 [pH] Normal 5.0-9.0 [facility] Comment on above: Order Comment: Name Collection Type:: Clean-Voided Midstream Performed By: #### C OVID19 FLU RSV, CEPHEID NEG #### [facility] [address] [place] [address] [place] Protein (U) [Mass/Vol] 30 mg/dL High Negative [facility] Comment on above: Order Comment: Name Collection Type:: Clean-Voided Midstream Performed By: #### C OVID19 FLU RSV, CEPHEID NEG #### [place] [address] [place] RBC,Urine 5-9 High 0-4 [facility] Comment on above: Order Comment: Name Collection Type:: Clean-Voided Midstream Performed By: #### C OVID19 FLU RSV, CEPHEID NEG #### [address] [address] [place] Specificy [place],Urine 1.024 Normal 1.001-1.030 [facility] Comment on above: Order Comment: Name Collection Type:: Clean-Voided Midstream Performed By: #### C OVID19 FLU RSV, CEPHEID NEG #### [facility] [address] [place] [address] Squamous Epithelial Cell,Urine 5-9 High 0-2 [facility] Comment on above: Order Comment: Name Collection Type:: Clean-Voided Midstream Performed By: #### C OVID19 FLU RSV, CEPHEID NEG #### [facility] [address] [place] [address] Urobilinogen,Urine Normal Normal Normal [facility] Comment on above: Order Comment: Name Collection Type:: Clean-Voided Midstream Performed By: #### C OVID19 FLU RSV, CEPHEID NEG #### [facility] [address] [place] [address] WBC,Urine Innumerable High 0-4 [facility] Comment on above: Order Comment: Name Collection Type:: Clean-Voided Midstream Performed By: #### C OVID19 FLU RSV, CEPHEID NEG #### [facility] [address] [place] [address] ECG 12 lead ECGon 11-22-2021 ECG 12 lead ECG [facility] [place] [address] [place] [address] Electrocardiograph Report Signed Patient: Jeannette Sweet MR#: [id number] : 1985 Acct:[id number] Age/Sex: 36 / F ADM Date: 11/22/21 Loc: ER Room: Type: [facility] ER Attending Dr: Ordering Provider: Gianni Yanez APRN Date of Service: 11/22/2101/07/928 ECG/ECG 12 [...] ECGs available Confirmed by Farooq Moses DO ([id number]) on 11/22/2021 6:32:00 PM Referred By: Electronically Signed By:Farooq Moses DO Transcribed By: MUS Signed By Farooq Moses DO 2 1832 Normal [facility] HCG,Urineon 11-22-2021 Beta HCG ( test) Ql (U) Negative [facility] Comment on above: Order Comment: Name Collection Type:: Clean-Voided Midstream Result Comment: PERF ORMED BY: [place] [address] PATHOLOGIST SOC ANALYST YUE ANDREW M.D. Performed By: #### C OVID19 FLU RSV, CEPHEID NEG #### [facility] [address] [place] [address] Hepatic Panelon 11-22-2021 Bilirubin,Direct Normal 0.0-0.4 [facility] Comment on above: Result Comment: Spec imen hemolyzed, redraw requested Performed By: #### L IPASE, HEPATIC, CMP, SCAN CBC #### [facility] [address] [place] [address] Bilirubin,Indirect Normal [facility] Comment on above: Result Comment: Spec imen hemolyzed, redraw requested Performed By: #### L IPASE, HEPATIC, CMP, SCAN CBC #### [facility] [address] [place] [address] [place] Lipaseon 11-22-2021 Lipase [Catalytic activity/Vol] 41.0 U/L Normal 22-51 [facility] Comment on above: Result Comment: PERF ORMED BY: [place] [address] PATHOLOGIST SOC ANALYST YUE ANDREW M.D. Performed By: #### L IPASE, HEPATIC, CMP, SCAN CBC #### [facility] [address] [place] [address] [place] Partial Thromboplastin Timeo n 11-22-2021 aPTT Coag (Bld) [Time] 32.8 s Normal 25.1-36.5 [facility] Comment on above: Order Comment: PHLEB OTOMIST REDRAW 1ST SPECIMEN HEMOLYZED NOTIFIED [facility] ER Result Comment: PERF ORMED BY: [place] [address] PATHOLOGIST SOC ANALYST YUE ANDREW M.D. Performed By: #### C OVID19 FLU RSV, CEPHEID NEG #### [facility] [address] [place] [address] Prothrombin Time INRon 11-22 INR Coag (PPP) [Relative time] 1.1 {INR} Normal [facility] Comment on above: Order Comment: PHLEB [...] C OVID19 FLU RSV, CEPHEID NEG #### [facility] [address] [place] [address] PT Coag (PPP) [Time] 12.5 s Normal 9.0-12.9 [facility] Comment on above: Order Comment: PHLEB OTOMIST REDRAW 1ST SPECIMEN HEMOLYZED NOTIFIED [facility] ER Performed By: #### C OVID19 FLU RSV, CEPHEID NEG #### [facility] [address] [place] [address] [place] Redraw Marie 11-22-2021 ALT [Catalytic activity/Vol] 10 U/L Normal 10-60 [facility] Comment on above: Performed By: #### L IPASE, BMP, CBC #### [facility] [address] [place] [address] [place] Redraw [place] 11-22-2021 AST [Catalytic activity/Vol] 13 U/L Normal 10-42 [facility] Comment on above: Performed By: #### L IPASE, BMP, CBC #### [address] Redraw Alkaline Phosphataseo n 11-22-2021 ALP [Catalytic activity/Vol] 34 U/L Normal 32-92 [facility] Comment on above: Result Comment: PERF ORMED BY: [place] [address] PATHOLOGIST SOC ANALYST YUE ANDREW M.D. Performed By: #### L IPASE, BMP, CBC #### [address] Redraw Bilirubin,Directon Redraw Bilirubin,Direct < 0.1 Normal 0.0-0.4 [facility] Comment on above: Performed By: #### L IPASE, BMP, CBC #### [address] Redraw Bilirubin,Totalon Bilirubin [Mass/Vol] 0.5 mg/dL Normal 0.3-1.2 [facility] Comment on above: Performed By: #### L IPASE, BMP, CBC #### [facility] [address] [place] [address] Redraw Potassiumon 2 Potassium [Moles/Vol] 3.5 mmol/L Normal 3.5-5.1 [facility] Comment on above: Performed By: #### L IPASE, BMP, CBC #### [facility] [address] [place] [address] Scan and CBCon 11-22-2021 Basophils (Bld) [#/Vol] 0.1 10*3/uL Normal 0.0-0.2 [facility] Comment on above: Performed By: #### L IPASE, HEPATIC, CMP, SCAN CBC #### [facility] [address] [place] [address] Basophils/100 WBC (Bld) 0.9 % Normal . [facility] Comment on above: Performed By: #### L IPASE, HEPATIC, CMP, SCAN CBC #### [facility] [address] [place] [address] Eosinophils (Bld) [#/Vol] 0.2 10*3/uL Normal 0.0-0.45 [facility] Comment on above: Performed By: #### L IPASE, HEPATIC, CMP, SCAN CBC #### [address] Eosinophils/100 WBC (Bld) 2.0 % Normal . [facility] Comment on above: Performed By: #### L IPASE, HEPATIC, CMP, SCAN CBC #### [address] Erythrocyte distribution width (RBC) [Ratio] 12.8 % Normal 11.9-15.3 [facility] Comment on above: Performed By: #### L IPASE, HEPATIC, CMP, SCAN CBC #### [address] Hematocrit (Bld) [Volume fraction] 42.1 % Normal 34.0-46.4 [facility] Comment on above: Performed By: #### L IPASE, HEPATIC, CMP, SCAN CBC #### [address] Hemoglobin (Bld) [Mass/Vol] 14.2 g/dL Normal 11.8-15.4 [facility] Comment on above: Performed By: #### L IPASE, HEPATIC, CMP, SCAN CBC #### [address] Lymphocytes (Bld) [#/Vol] 1.6 10*3/uL Normal 1.00-4.8 [facility] Comment on above: Performed By: #### L IPASE, HEPATIC, CMP, SCAN CBC #### [address] Lymphocytes/100 WBC (Bld) 16.4 % Normal . [facility] Comment on above: Performed By: #### L IPASE, HEPATIC, CMP, SCAN CBC #### [address] MCH (RBC) [Entitic mass] 30.0 pg Normal 24.7-34.3 [facility] Comment on above: Performed By: #### L IPASE, HEPATIC, CMP, SCAN CBC #### [facility] [address] [place] [address] MCV (RBC) [Entitic vol] 89.3 fL Normal 80-[address] [facility] Comment on above: Performed By: #### L IPASE, HEPATIC, CMP, SCAN CBC #### [address] Mean Corpuscular HGB Conc 33.6 g/dL Normal 32.0-35.0 [facility] Comment on above: Performed By: #### L IPASE, HEPATIC, CMP, SCAN CBC #### [address] Monocytes (Bld) [#/Vol] 0.7 10*3/uL Normal 0.0-0.8 [facility] Comment on above: Performed By: #### L IPASE, HEPATIC, CMP, SCAN CBC #### [address] Monocytes/100 WBC (Bld) 6.9 % Normal . F [facility] Comment on above: Performed By: #### L IPASE, HEPATIC, CMP, SCAN CBC #### [address] Neutrophils (Bld) [#/Vol] 7.0 10*3/uL Normal 1.8-7.7 [facility] Comment on above: Performed By: #### L IPASE, HEPATIC, CMP, SCAN CBC #### [facility] [address] [place] [address] [place] Neutrophils/100 WBC (Bld) 73.8 % Normal . [facility] Comment on above: Performed By: #### L IPASE, HEPATIC, CMP, SCAN CBC #### [facility] [address] [place] [address] [place] Nucleated RBC/100 WBC (Bld) [Ratio] 0.0 % Normal 0-0.5 [facility] Comment on above: Performed By: #### L IPASE, HEPATIC, CMP, SCAN CBC #### [facility] [address] Platelet Estimate Normal Normal Normal [facility] Comment on above: Performed By: #### L IPASE, HEPATIC, CMP, SCAN CBC #### [facility] [address] [place] [id number] [facility] Platelet mean volume (Bld) [Entitic vol] 9.8 fL Normal 6.3-10.7 [facility] Comment on above: Performed By: #### L IPASE, HEPATIC, CMP, SCAN CBC #### [facility] [address] Platelet Morphology Normal Normal Normal [facility] Comment on above: Result Comment: PERF ORMED BY: [place] [address] PATHOLOGIST SOC ANALYST YUE ANDREW M.D. Performed By: #### L IPASE, HEPATIC, CMP, SCAN CBC #### [facility] [address] Platelets (Bld) [#/Vol] 234 10*3/uL Normal 150-450 [facility] Comment on above: Performed By: #### L IPASE, HEPATIC, CMP, SCAN CBC #### [facility] [address] RBC (Bld) [#/Vol] 4.71 10*6/uL Normal 3.60-5.00 [facility] Comment on above: Performed By: #### L IPASE, HEPATIC, CMP, SCAN CBC #### [facility] [address] RBC morphology finding Nom (Bld) Normal Normal [facility] Comment on above: Performed By: #### L IPASE, HEPATIC, CMP, SCAN CBC #### [facility] [address] [place] [address] [place] WBC (Bld) [#/Vol] 9.5 10*3/uL Normal 3.8-11.6 [facility] Comment on above: Performed By: #### L IPASE, HEPATIC, CMP, SCAN CBC #### [facility] [address] WBC (Bld) [#/Vol] 10.4 10*3/uL Normal 4.5-11.0 [facility] Comment on above: Performed By: #### L IPASE, HEPATIC, CMP, SCAN CBC #### [facility] [address] Urine Cultureon 11-22-2021 Bacteria identified Cx Nom (U) ORGANISM: Lactobacillus species (O:LACSP) Russell Count >100,000 Organism Comments Organism not Routinely Tested for Susceptibilities PERFORMED BY: [place] [address] PATHOLOGIST SOC ANALYST YUE ANDREW M.D. [facility] Comment on above: Performed By: #### C OVID19 FLU RSV, CEPHEID NEG #### [address] VASC LAB [facility] Ul[facility]ou ndon 08-02-2020 VASC LAB [facility] [place] [address] and Vascular Lab Report [facility] Patient Name: JEANNETTE SCARLETT Patten Physician: [id number] Jonathan Erickson MD, RPVI Study Date: 08/02/2020 Referring [id number] REBEKA TALBERT Physician: MRN/PID: [id number] PCP: Accession/Order#: [id number] CC Report to: Date of : 1985 Technologist: Amadou Wilkinson RVT Gender: F Technologist 2: Admission Status: Outpatient Location Performed: [facility] Diagnosis/ICD: K55.0-Acute mesenteric ischemia Procedure/CPT: 26322 Mesenteric Duplex scan-25367 CRITICAL RESULT Critical Result: Celiac artery demonstrates [...] PSV 53 cm/s Splenic PSV 88 cm/s [id number] Jonathan Erickson MD, RPVI Final Normal [facility] Vital Signs Date Time Vital Sign Value Performing Clinician Facility 05-21-2023 15:40-0500 Body height George Dominguez Other [employer] Other 05-21-2023 15:40-0500 Body mass index (BMI) [Ratio] 27.03 kg/m2 George Dominguez Other [employer] Other 05-21-2023 15:40-0500 Body temperature 98.2 [degF] George Dominguez Other [employer] Other 05-21-2023 15:40-0500 Body weight 71.44 kg George Dominguez Other [employer] Other 05-21-2023 15:40-0500 Diastolic blood pressure 76 mm[Hg] George Dominguez Other [employer] Other 05-21-2023 15:40-0500 Respiratory rate 18 /min George Dominguez Other [employer] Other 05-21-2023 15:40-0500 SaO2% (BldA) [Mass fraction] 97 % George Dominguez Other [employer] Other 05-21-2023 15:40-0500 Systolic blood pressure 108 mm[Hg] George Dominguez Other [employer] Other 04-11-2022 17:44-0400 Diastolic blood pressure 69 mm[Hg] MD Basil Centeno Work Phone: [facility] 04-11-2022 17:44-0400 Heart rate 59 /min MD Basil Centeno Work Phone: [facility] 04-11-2022 17:44-0400 Respiratory rate 18 /min MD Basil Centeno Work Phone: [facility] 04-11-2022 17:44-0400 SaO2% (BldA) [Mass fraction] 98 % MD Basil Centeno Work Phone: [facility] 04-11-2022 17:44-0400 Systolic blood pressure 120 mm[Hg] MD Basil Centeno Work Phone: [facility] 04-11-2022 14:49-0400 Body temperature 98.5 [degF] MD Basil Centeno Work Phone: [facility] 04-11-2022 12:44-0400 Body height 162.56 cm MD Basil Centeno Work Phone: [facility] 04-11-2022 12:44-0400 Body weight 65.4 kg MD Basil Centeno Work Phone: [facility] 04-06-2022 11:10-0400 Diastolic blood pressure 77 mm[Hg] MD Basil Centeno Work Phone: [facility] 04-06-2022 11:10-0400 Heart rate 84 /min MD Basil Centeno Work Phone: [facility] 04-06-2022 11:10-0400 Respiratory rate 16 /min MD Basil Centeno Work Phone: [facility] 04-06-2022 11:10-0400 SaO2% (BldA) [Mass fraction] 99 % MD Basil Centeno Work Phone: [facility] 04-06-2022 11:10-0400 Systolic blood pressure 117 mm[Hg] MD Basil Centeno Work Phone: [facility] 04-06-2022 07:20-0400 Body temperature 98.2 [degF] MD Basil Cneteno Work Phone: [facility] 04-06-2022 06:00-0400 Body weight 69.6 kg MD Basil Centeno Work Phone: [facility] 04-05-2022 14:51-0400 Body height 162.56 cm MD Basil Centeno Work Phone: [facility] 04-04-2022 08:04-0400 Body temperature 97.9 [degF] MD Basil Centeno Work Phone: [facility] 04-04-2022 08:02-0400 Diastolic blood pressure 64 mm[Hg] MD Basil Centeno Work Phone: [facility] 04-04-2022 08:02-0400 Heart rate 55 /min MD Basil Centeno Work Phone: [facility] 04-04-2022 08:02-0400 Respiratory rate 18 /min MD Basil Centeno Work Phone: [facility] 04-04-2022 08:02-0400 SaO2% (BldA) [Mass fraction] 96 % MD Basil Centeno Work Phone: [facility] 04-04-2022 08:02-0400 Systolic blood pressure 105 mm[Hg] MD Basil Centeno Work Phone: [facility] 04-04-2022 02:06-0400 Body height 162.56 cm MD Basil Centeno Work Phone: [facility] 04-04-2022 02:06-0400 Body weight 67.6 kg MD Basil Centeno Work Phone: [facility] Encounters Encounter Date Encounter Type Care [...] Start: 10-05-2023 End: 10-06-2023 ambulatory GEORGE Trey [facility] Start: 09-21-2023 End: 09-22-2023 ambulatory [facility] Start: 09-05-2023 End: 09-06-2023 ambulatory [facility] Start: 09-03-2023 End: 09-04-2023 ambulatory [facility] Start: 08-22-2023 End: 08-23-2023 ambulatory [facility] Start: 08-17-2023 End: 08-18-2023 ambulatory [facility] Start: 06-14-2023 End: 06-15-2023 ambulatory [facility] Start: 06-06-2023 End: 06-06-2023 ambulatory George Dominguez Other [employer] Other Start: 06-06-2023 Telephone encounter George Dominguez [facility] [place] Start: 05-24-2023 End: 05-24-2023 ambulatory George Dominguez Other [employer] Other Start: 05-24-2023 Telephone encounter George Dominguez [facility] Start: 05-21-2023 End: 05-21-2023 ambulatory George Nuñezcyrus Other [employer] Other Start: 05-21-2023 Encounter for genera l adult medical examination without abnormal findings George Dominguez [facility] [place] Start: 05-21-2023 Initial preventive medicine new pt age 18-39yrs George Dominguez [facility] Start: 06-07-2022 End: 06-07-2022 ambulatory TITO ROSAS Facility: Start: 04-11-2022 End: 04-11-2022 Emergency department patient visit Basil Centeno Facility:[facility] Start: 04-11-2022 End: 04-11-2022 Emergency department patient visit MD Basil Centeno Work Phone: [facility] Start: 04-04-2022 End: 04-06-2022 Evaluation and management of inpatient Basil Centeno Facility:[facility] Start: 04-04-2022 End: 04-06-2022 Evaluation and management of inpatient MD Basil Centeno Work Phone: [facility] [place] [facility] Start: 11-23-2021 End: 11-24-2021 ambulatory Paramjit Yin Facility:[facility] Start: 11-22-2021 End: 11-22-2021 Emergency department patient visit Gianni Renata Facility:[facility] Procedures Date Procedure Procedure Detail Performing [...] Activity Detail Author Start: 04-09-2022 Blood chemistry [facility] Start: 04-08-2022 Blood chemistry [facility] Start: 04-07-2022 Blood chemistry [facility] Start: 04-06-2022 [facility] Start: 04-05-2022 Referral to digital research analyst [facility] Start: 04-05-2022 Blood chemistry [facility] Start: 04-05-2022 Magnesium measurement [facility] Start: 04-05-2022 Phosphate [Mass/volu me] in Serum or Plasma [facility] Start: 04-05-2022 [facility] Start: 04-04-2022 Hospital admission [facility] Start: 04-04-2022 Blood chemistry [facility] Start: 04-04-2022 Magnesium measurement [facility] Start: 04-04-2022 End: 04-04-2022 [facility] Start: 04-04-2022 CT Abdomen and Pelvi s WO contrast [facility] Start: 04-04-2022 CT of abdomen and pe lvis without contrast CT abdomen pelvis wo con [facility] Start: 04-04-2022 US Gallbladder [facility] Start: 04-04-2022 US scan of gallbladder US gall bladd er [facility] Anion gap measurement [facility] Work Phone: Bacteria identified in Urine by Culture [facility] Calcium [Mass/volume ] in Serum or Plasma [facility] Work Phone: Calculated LDL cholesterol level [facility] Work Phone: Carbon dioxide, tota l [Moles/volume] in Serum or Plasma [facility] Work Phone: Chloride [Moles/volu me] in Serum or Plasma [facility] Work Phone: Cholesterol [Mass/vo lume] in Serum or Plasma [facility] Work Phone: Cholesterol in HDL [Mass/volume] in Serum or Plasma [facility] Work Phone: Cholesterol.total/Ch olest rafael in HDL [Mass Ratio] in Serum or Plasma [facility] Work Phone: Creatinine and Glome rular filtration rate.predicted panel - Serum, Plasma or Blood [facility] Work Phone: Ethanol [Mass/volume ] in Serum or Plasma [facility] Work Phone: Glucose [Mass/volume ] in Serum or Plasma [facility] Work Phone: Glucose measurement estimated from glycated hemoglobin [facility] Work Phone: Hemoglobin A1c/Hemoglobin.total in Blood [facility] Work Phone: Magnesium measurement [facility] Work Phone: Measurement of renal function [facility] Work Phone: Patient Education [facility] Work Phone: Patient referral [facility] Work Phone: Phosphate [Mass/volu me] in Serum or Plasma [facility] Work Phone: Potassium [Moles/vol ume] in Serum or Plasma [facility] Work Phone: Sodium [Moles/volume ] in Serum or Plasma [facility] Work Phone: Thyrotropin [Units/volume] in Serum or Plasma [facility] Work Phone: Triglyceride [Mass/volume] in Serum or Plasma [facility] Work Phone: Urea nitrogen [Mass/volume] in Serum or Plasma [facility] Work Phone: VLDL cholesterol measurement [facility] Work Phone: Immunizations Immunization Date Immunization Notes Care Provider Fa cility NEGATED: Highlighted row has not occurred!02-23-2021 tetanus toxoid, reduced diphtheria toxoid, and acellular pertussis vaccine, adsorbed MD Basil Centeno Work Phone: [facility] Payers Date Payer Category Payer Self-pay [id number] 1985 Unknown [id number] 2.16.84 [id number] 1985 Unknown [id number] 2.16.84 [id number] 1984 Unknown [id number] 2.16.84 [id number] 1984 Unknown [id number] 2.16.84 [id number] 1984 Unknown [id number] 2.16.84 [id number] 1984 Unknown [id number] 2.16.84 [id number] 1984 Unknown [id number] 2.16.84 [id number] 1959 Unknown [id number] [id number] Medicaid [employer] [id number] Unknown O [id number] Unknown [id number] 2.16.8 [id number] Unknown [id number] 2.16.8 [id number] Unknown [id number] 2.16.8 [id number] Unknown [id number] 2.16.8 [id number] Social History Date Type Detail Facility Start: 04-04-2022 End: 04-11-2022 Tobacco smoking status NMIS Never smoked tobacco (finding) [facility] Start: 1985 Sex Assigned At Female F [facility] Start: 04-06-2022 Tobacco smoking status NHIS Ex-smoker (finding) [facility] Sex Assigned At Sex Assigned At Bir th [facility] Other Goals Date Patient Goal Desired Activity /State Functional Status Date Assessment Result Facility 04-06-2022 Functional status Patient at Baseline [facility] Work Phone: Mental Status Date Assessment Result Facility 04-06-2022 Cognitive function Cognitive Sta tus Patient at Baseline [facility] Work Phone: Clinical Notes 11-17-2015 to 05-24-2023 Note Date & Type Note Facility 05-24-2023 Evaluation note Encounter Date Diagnosis Assessment Notes May, Abdominal pain (ICD-10 - R10.9) [facility] Other 12-04-2023 Evaluation note* Encounter Date Diagnosis [...] as a new patient. She was in [place] last week meeting with a fertility clinic [...] Dr. Velasquez did the surgery for her. [employer] Other 10-20-2022 Consult note Author FRANDY SANTOS [facility] April 06, 2022 8:25am Note Date/Time April 06, 2022 8 :25am [facility] [address] [place] [address] BAIT TIER Consult Note Signed Patient: Jeannette Sweet MR#: [id number] : 1985 Acct:[id number] Age/Sex: 36 / F Adm Date: 2 Loc: Room: 6Q7647-9 Type: ADM IN Attending Dr: Bernadette Box MD Copies to: MD Basil RAM MD Obaydah M Daromar, MD~ HPI [...] Mg/0.4 Ml Syringe) 40 mg SUBCUT DAILY@10 [facility] Stop: 04/04/23 09:59 Last Admin: 04/05/22 09:10 Dose: 40 mg Famotidine (Famotidine/Pf 20 Mg/2 Ml Vial) 20 mg IV-PUSH Q12HR [facility] Stop: 04/04/23 08:59 Last Admin: 04/05/22 20:51 Dose: 20 mg Sodium Chloride (0.9% Sodium Chloride 1,000 Ml) 1,000 mls @ 100 mls/hr IV .Q10H [facility] Stop: 04/04/23 06:44 Last Admin: 04/06/22 07:18 Dose: 100 mls/hr Ceftriaxone Sodium (Rocephin) 1 gm in 50 mls @ 100 mls/hr IV Q24H [facility] Last Admin: 04/05/22 09:09 Dose: 100 mls/hr [...] Reason: To dilute Pepcid Stop: 04/04/23 07:57 VULCANIZING PRESS OPERATOR - Exam Physical Exam Vital signs: Temp 98.2 F 04/06/22 07:20 Pulse 65 04/06/22 07:20 Resp 16 04/06/22 07:20 BP 96/61 L 04/06/22 07:20 Pulse Ox 98 04/06/22 07:20 O2 Del Method Room Air 04/06/22 07:20 Constitutional Constitutional: no acute distress Routine Respiratory Exam Respiratory: Absent respiratory distress Routine Abdominal Exam Abdominal: Present soft; Absent tenderness, distended, rebound or guarding VULCANIZING PRESS OPERATOR - Results Laboratory Results - Last 48 hrs. 04/06/22 07:01: Corrected WBC 7.3, Uncorrected WBC Count 7.3, RBC 4.03, Hgb 12.0, Hct 35.5, MCV 88.1, MCH 29.7, MCHC 33.7, RDW 12.8, Plt Count 199, MPV 8.9, Neut % (Auto) 53.6, Lymph % (Auto) 31.3, Brantley % (Auto) 11.0, Eos % (Auto) 3.4, Baso % (Auto) 0.7, Neut # (Auto) 3.9, Lymph # (Auto) 2.3, Brantley # (Auto) 0.8, Eos # (Auto) 0.3, [...] % (Auto) 78.0, Lymph % (Auto) 12.9, Brantley % (Auto) 6.9, Eos % (Auto) 1.6, Baso % (Auto) 0.6, Neut # (Auto) 8.7 H, Lymph # (Auto) 1.4, Brantley # (Auto) 0.8, Eos # (Auto) 0.2, [...] SARS-CoV-2, Influenza & RSV (PCR) - Final VULCANIZING PRESS OPERATOR - A/P (1) Ovarian cyst, left: Code(s): [...] the office to confirm. Documented By: FRANDY SANTOS MD 04/06/22818 Signed By: <Electronically signed by MD FRANDY SANTOS> 04/06/22824 [facility] Work Phone: 1(506) 475-393510-19-2022 Progress note Author Bernadette Box [facility] April 05, 2022 9:42am Note Date/Time April 05, 2022 9 :40am [facility] [address] [place] [address] Hospitalist Progress Note Signed Patient: Jeannette Sweet MR#: [id number] : 1985 Acct:[id number] Age/Sex: 36 / F Adm Date: 2 Loc: Room: [address] [place] [address] Type: ADM IN Attending Dr: Bernadette Box [...] signed by Bernadette Box MD> 04/05/22 0942 [facility] Work Phone: 1(563) 842-278310-18-2022 History and physical note Author Bernadette Box [facility] April 04, 2022 1:22pm Note Date/Time April 04, 2022 1 2:00pm [facility] [address] [place] [address] Hospitalist H&P Signed Patient: Jeannette Sweet MR#: [id number] : 1985 Acct:[id number] Age/Sex: 36 / F Adm Date: 2 Loc: Room: [address] [place] [address] Type: ADM IN Attending Dr: Bernadette Box [...] % (Auto) 24.7 % (.) 04/04/22 02:23 Brantley % (Auto) 9.4 % (.) 04/04/22 02: Eos % (Auto) 2.4 % (.) 04/04/22 02:23 Baso % (Auto) 1.3 % (.) 04/04/22 02: Neut # (Auto) 5.9 x10E3/uL (1.8-7.7) 04/04/22 02:23 Lymph # (Auto) 2.4 x10E3/uL (1.00-4.8) 04/04/22 02:23 Brantley # (Auto) 0.9 x10E3/uL (0.0-0.8) H 04/04/22 [...] pH 5.5 (5.0-9.0) 04/04/22 04:29 Ur Specific [place] 1.007 (1.001-1.030) 04/04/22 04:29 Urine Protein Negative [...] signed by Bernadette Box MD> 04/04/22 1322 [facility] Work Phone: 1(252) 867-428306-01-2016 History general Narrative - Reported* Type Description Date Medical History asthma, history of Surgical History breast augmentation / Dr. Gloria kowalski in [place], [place] 11/2015 Surgical History right ovary removed, Dr. Velasquez Hospitalization History childbirth Hospitalization History ovarian torsion 11/2021 Hospitalization History pancreatitis 03/2022 [employer] Other Discharge summary Author Bernadette Box [facility] April 06, 2022 12:50pm Note Date/Time April 06, 2022 1 2:31pm [facility] [address] [place] [address] Discharge Summary Signed Patient: Jeannette Sweet MR#: [id number] : 1985 Acct:[id number] Age/Sex: 36 / F Adm Date: 2 Loc: 3T Room: [address] [place] [address]: Bernadette Box MD Copies to: [...] normal baseline status. Patient was seen by head up operator helper while inpatient regarding left ovarian cyst since patient had a right ovarian cyst few months with ovarian torsion. Advised to continue to follow up with her head up operator helper as outpatient. Patient remained hemodynamically stable and [...] % (Auto) 53.6, Lymph % (Auto) 31.3, Brantley % (Auto) 11.0, Eos % (Auto) 3.4, Baso % (Auto) 0.7, Neut # (Auto) 3.9, Lymph # (Auto) 2.3, Brantley # (Auto) 0.8, Eos # (Auto) 0.3, [...] size. Will need to follow up with head up operator helper upon discharge for further evaluation and management. [...] signed by Bernadette Box MD> 04/06/22 1250 [facility] Work Phone: Evaluation note* Diagnosis Onset Date Resolution Status Acute pancreatitis acute [facility] Work Phone: Evaluation note* Diagnosis Onset Date Resolution Status Acute pancreatitis acute Acute UTI acute Ovarian cyst, left acute [facility] Work Phone: Evaluation noteNo [facility] [employer] Other Hospital Discharge instructions Additional Instructions -CT abdomen and pelvis revealed left adnexal cysts measuring up to 5 cm in size. Will need to follow up with head up operator helper upon discharge for further evaluation and management.[facility] Work Phone: Summary Purpose Family History [...] Diagnosis 1 Pancreatitis (K85.90 ) Referral Organization [facility] Family Kandi Reynoso Referring Provider First Name George Referring Provider Last Name Randy Referring Provider Specialty Family Prac jeannette Referred Organization [facility] Referred Provider ValentineShaheen Referred Address ,[place], [place],[address] Referred Provider Specialty Surgery Referral Priority Routine General Notes Queenie Luong 05/21/2023 04:43:16 PM > referral faxed thru [facility] with visit note, Vascular note from 2019 and insurance card. pt understands she will be contacted to schedule this appt. Additional Source Comments INFORMATION SOURCE (unrecogn ized section and content) DATE CREATED AUTHOR 08/24/2020 [employer] DATE CREATED AUTHOR AUTHOR'S ORGANIZ ATION 08/25/2020 [facility] DATE CREATED AUTHOR AUTHOR'S ORGANIZ ATION 06/07/2022 [facility] DATE CREATED AUTHOR AUTHOR'S ORGANIZ ATION 06/20/2022 [facility] DATE CREATED AUTHOR AUTHOR'S ORGANIZ ATION 07/27/2022 [facility] DATE CREATED AUTHOR AUTHOR'S ORGANIZ ATION 10/06/2023 [facility] DATE CREATED AUTHOR AUTHOR'S ORGANIZ ATION 01/25/2024 [facility] d[facility] Specialists EPIC Care Teams (unrecognized [...] BE BASED ON THE PRIMARY CLINICAL RECORDS. [facility] [employer] [facility]. provides no warranty or guarantee of the accuracy or completeness of information in this document.
[2024-02-12 11:03] LABS: Glucose Fasting 72 mg/dL (<95)
[2024-02-12 12:05] LABS: Glucose 1 Hour 149 mg/dL (<180)
[2024-02-12 12:56] LABS: Glucose 2 Hour 141 mg/dL (<155)
[2024-02-12 13:54] LABS: Glucose 3 Hour 119 mg/dL (<140)
== END 2024-02-12 10:35 | disposition home or self-care (01) ==
LOC: LAB 10:34
PROVIDERS: PCP Family Medicine; Visit Provider Obstetrics & Gynecology
DX: O99.810 Abnormal glucose complicating pregnancy (principal); Z13.1 Encounter for screening for diabetes mellitus
CPT/HCPCS: 36415; 82951; 82952